=== PATIENT | female | born 1935 | race Hispanic/Latino ===

== ENCOUNTER 2016-07-31 10:01 | Emergency (ER) | payer MEDICARE ==
[2016-07-31 10:05] VITALS: BMI 23.3
[2016-07-31 10:13] VITALS: BP 151/82; PULSE 77; TEMP 97.8
[2016-07-31] MEDS ORDERED: TDAP Vaccine 0.5 mL Syr IM ONE (10:23)
[2016-07-31] MEDS ORDERED: Lidocaine 1%/Epinephrine 1:100000 30 ml vial IJ STA (10:23)
--- NOTE | 2016-07-31 10:29 | ED PDOC ---
Arrival/HPI - General Chief Complaint: Abnormal Skin Integrity Time Seen by Provider: 07/31/16 10:20 Historian: Patient - History of Present Illness Narrative History of Present Illness (Text): 07/31/16 10:26 81 year old female whose past medical history includes colon cancer with metastasis presents to the emergency department with left forearm laceration at 02:00 this morning. Patient states she cut her arm on a lamp as she was going to pick something up. She states she almost fell but was able to sit down. Denies head trauma or loss of consciousness. No other complaints at this time. Patient reports last tetanus unknown. Time/Duration: 24 hours Symptom Onset: Sudden Symptom Course: Unchanged Modifying Factors (Text): None Associated Symptoms (Text): None Past Medical History - Provider Review Nursing Documentation Reviewed: Yes - Infectious Disease Hx of Infectious Diseases: None - Tetanus Immunization Tetanus Immunization: Unknown - Cardiac Hx Hypertension: Yes Hx Pacemaker: No - Pulmonary Hx Chronic Obstructive Pulmonary Disease (COPD): Yes - Neurological Hx Paralysis: No - HEENT Hx HEENT Disorder: No - Renal Hx Renal Disorder: No - Endocrine/Metabolic Hx Endocrine Disorders: No - Hematological/Oncological Hx Blood Transfusions: Yes Hx Blood Transfusion Reaction: No - Integumentary Hx Dermatological Disorder: No - Musculoskeletal/Rheumatological Hx Musculoskeletal Disorders: Yes - Gastrointestinal Hx Gastroesophageal Reflux: Yes Other/Comment: Colon Ca -- getting chemo treatment with Dr Salgado - Genitourinary/Gynecological Hx Genitourinary Disorders: No - Psychiatric Hx Emotional Abuse: No Hx Physical Abuse: No Hx Substance Use: No - Surgical History Other/Comment: Colon resection - Anesthesia Hx Anesthesia: Yes Hx Anesthesia Reactions: No Hx Malignant Hyperthermia: No - Suicidal Assessment Feels Threatened In Home Enviroment: No Family/Social History - Physician Review Nursing Documentation Reviewed: Yes Family/Social History: Unknown Family HX Smoking Status: Light Smoker < 10 Cigarettes Daily Hx Alcohol Use: No Hx Substance Use: No Hx Substance Use Treatment: No Allergies/Home Meds Allergies/Adverse Reactions: Allergies Penicillins Allergy (Severe, Verified 02/22/16 13:02) RASH Home Medications: Home Meds Medication Instructions Recorded Confirmed Alprazolam [Xanax] 1 tab PO BID 07/24/13 07/31/16 Cyanocobalamin (Vitamin B-12) 1 tab PO DAILY 07/24/13 07/31/16 [B-12] Aspirin [Aspirin EC] 325 mg PO DAILY 12/03/15 07/31/16 Capecitabine 500 mg PO Q14D 12/03/15 07/31/16 Famotidine [Pepcid] 40 mg PO DAILY 12/03/15 07/31/16 Lisinopril [Zestril] 5 mg PO DAILY 12/03/15 07/31/16 Simvastatin 40 mg PO DAILY 12/03/15 07/31/16 amLODIPine [Norvasc] 10 mg PO DAILY 12/03/15 07/31/16 Review of Systems - Review of Systems Eyes: absent: Vision Changes Respiratory: absent: SOB Cardiovascular: absent: Chest Pain Musculoskeletal: absent: Back Pain Skin: Laceration (Left forearm) Neurological: absent: Headache Physical Exam Vital Signs Reviewed: Yes Vital Signs Temp Pulse Resp BP Pulse Ox 07/31/16 11:58 16 99 07/31/16 10:11 97.8 F 77 18 151/82 H 96 Temperature: Afebrile Blood Pressure: Normal Pulse: Regular Respiratory Rate: Normal Appearance: Positive for: Well-Appearing, Non-Toxic, Comfortable Pain Distress: None Mental Status: Positive for: Alert and Oriented X 3 - Systems Exam Head: Present: Atraumatic, Normocephalic Pupils: Present: PERRL Conjunctiva: Present: Normal Neck: Present: Normal Range of Motion Upper Extremity: Present: Other (Laceration to left forearm) Neurological: Present: GCS=15, CN II-XII Intact, Speech Normal Skin: Present: Warm, Dry, Normal Color. No: Rashes Psychiatric: Present: Alert, Oriented x 3, Normal Insight, Normal Concentration Medical Decision Making ED Course and Treatment: Impression: 81 year old female whose past medical history includes colon cancer with metastasis presents to the emergency department with left forearm laceration at 02:00 this morning Differential Diagnosis include but are not limited to: Plan: -- Laceration repair -- Tdap -- Reassess and disposition Progress Notes: PROCEDURE: LACERATION REPAIR Performed by Physician [employer] [employer] Location: Left forearm Length: 9 cm Description: Complex laceration, single linear with some clean wound edges, no foreign bodies Distal CMS: Normal. No deficits. Neurovascularly intact. Anesthesia: Lidocaine 1% 4 cc's Preparation: The wound was cleaned with NS and Bet[place]ne. The area was prepped and draped in the usual sterile fashion. Exploration: The wound was explored and no foreign bodies were found. Procedure: The wound was closed with 4-0 vicryl sutures. There was appropriate approximation. In total, 18 sutures used. Post-Procedure: Good closure and hemostasis. The patient tolerated the procedure well and there were no complications. CSM remains intact. Post procedure dressing applied. 07/31/16 11:32 lac closed by yunior alonzo. will give prophalxis as complicated wound - Medication Orders Current Medication Orders: Discontinued Medications Lidocaine/Epinephrine (Lidocaine 1%/Epinephrine 1:[id number] 30 Ml) 0 ml IJ STAT STA Stop: 07/31/16 10:24 Tetanus/Reduced Diphtheria/Acell Pertussis (Boostrix Vaccine Inj) 0.5 ml IM .ONCE ONE Stop: 07/31/16 10:24 Last Admin: 07/31/16 10:37 Dose: 0.5 ml - Scribe Statement The provider has reviewed the documentation as recorded by the Carole Coyne Provider Scribe Attestation: All medical record entries made by the Ildaibtiarra were at my direction and personally dictated by me. I have reviewed the chart and agree that the record accurately reflects my personal performance of the history, physical exam, medical decision making, and the department course for this patient. I have also personally directed, reviewed, and agree with the discharge instructions and disposition. Disposition/Present on Arrival - Present on Arrival Any Indicators Present on Arrival: No History of DVT/PE: No History of Uncontrolled Diabetes: No Urinary Catheter: No History of Decub. Ulcer: No History Surgical Site Infection Following: None - Disposition Have Diagnosis and Disposition been Completed?: Yes Diagnosis: Laceration Disposition: HOME/ ROUTINE Disposition Time: 11:31 Patient Problems: Current Active Problems Problem Status Onset Laceration Acute Condition: STABLE Discharge Instructions (ExitCare): Care For Your Stitches (ED), Laceration (ED) Additional Instructions: please follow up with your doctor. return to er with worsening symptoms or concerns. please return in 14 days if sutures are not dissolved. Prescriptions: Sulfamethoxazole/Trimethoprim [Bactrim DS 800 mg-160 mg] 1 tab PO BID #14 tab Referrals: Sourav Salgado MD [Staff Provider] - Follow up with primary
[2016-07-31 11:59] VITALS: RESP 16; O2SAT 99
== END 2016-07-31 11:59 | disposition home or self-care (01) ==
LOC: ED 10:01
DX: S51.812A Laceration without foreign body of left forearm, initial encounter (principal); W45.8XXA Other foreign body or object entering through skin, initial encounter; Y93.89 Activity, other specified; Y92.008 Other place in unspecified non-institutional (private) residence as the place of occurrence of the external cause; Z23 Encounter for immunization

== ENCOUNTER 2016-10-24 17:39 | Inpatient (IN) | payer MEDICARE ==
[2016-10-24 17:43] VITALS: BMI 22.6
[2016-10-24] MEDS: Enoxaparin 100 mg Syringe SC STA ×2 (18:13→18:48)
[2016-10-24] MEDS ORDERED: Iohexol 240 (50 ml) ONE (18:28)
[2016-10-24 18:37] LABS: BASO # 0.01 K/mm3 (0.0-2.0); BASO % 0.2 % (0.0-3.0); EOS % 0.2 % (1.5-5.0); GRAN # 4.81 (1.4-6.5); GRAN % 89.4 % (50.0-68.0); HEMATOCRIT 44.4 % (36.0-48.0); LYMPH # 0.5 (1.2-3.4); LYMPH % 9.5 % (22.0-35.0); MEAN CELL VOLUME 99.6 fl (80.0-105.0); MEAN CORPUSCULAR HEMOGLOBIN 33.4 pg (25.0-35.0); MEAN CORPUSCULAR HGB CONC 33.6 g/dl (31.0-37.0); MEAN PLATELET VOLUME 10.7 fl (7.0-11.0); MONO % 0.7 % (1.0-6.0); RED CELL DISTRIBUTION WIDTH 15.5 % (11.5-14.5); WHITE BLOOD COUNT 5.4 10^3/ul (4.5-11.0)
[2016-10-24] MEDS: Sodium Chloride 0.45% 1,000 ML IV SCH (18:45)
--- NOTE | 2016-10-24 18:48 | ED PDOC ---
Arrival/HPI - General Chief Complaint: Lower Extremity Problem/Injury Time Seen by Provider: 10/24/16 17:40 Historian: Patient - History of Present Illness Narrative History of Present Illness (Text): 10/24/16 18:43 A 81 year old female, whose past medical history includes metastatic colon cancer extending to right iliac fossa, and hypertension, was sent into the emergency department by oncologist for right lower extremity swelling for the past 2 weeks. Patient was found to have DVT on ultrasound done today. Patient notes generalized weakness and a loss of appetite but denies any fever, chills, nausea, vomiting, diarrhea, abdominal pain, chest pain, shortness of breath, headache, dizziness, visual changes or any other complaints. Patient reports his last chemotherapy was on 09/15/16, states he only missed one dose throughout treatment. Oncologist: Dr. Salgado Time/Duration: Other (2 weeks) Symptom Course: Unchanged Quality: Other Context: Other Past Medical History - Provider Review Nursing Documentation Reviewed: Yes - Infectious Disease Hx of Infectious Diseases: None - Tetanus Immunization Tetanus Immunization: Unknown - Reproductive Menopause: Yes - Cardiac Hx Cardiac Disorders: Yes Hx Hypertension: Yes - Pulmonary Hx Respiratory Disorders: Yes Hx Chronic Obstructive Pulmonary Disease (COPD): Yes - Neurological Hx Neurological Disorder: No - HEENT Hx HEENT Disorder: No - Renal Hx Renal Disorder: No - Endocrine/Metabolic Hx Endocrine Disorders: No - Hematological/Oncological Hx Blood Disorders: Yes Hx Blood Transfusions: Yes - Integumentary Hx Dermatological Disorder: No - Musculoskeletal/Rheumatological Hx Musculoskeletal Disorders: Yes - Gastrointestinal Hx Gastrointestinal Disorders: Yes Hx Gastroesophageal Reflux: Yes Other/Comment: Colon Ca -- getting chemo treatment with Dr Salgado - Genitourinary/Gynecological Hx Genitourinary Disorders: No - Psychiatric Hx Psychophysiologic Disorder: No Hx Substance Use: No - Surgical History Other/Comment: Colon resection - Anesthesia Hx Anesthesia: Yes Hx Anesthesia Reactions: No Hx Malignant Hyperthermia: No - Suicidal Assessment Feels Threatened In Home Enviroment: No Family/Social History - Physician Review Nursing Documentation Reviewed: Yes Family/Social History: No Known Family HX Smoking Status: Light Smoker < 10 Cigarettes Daily Hx Alcohol Use: No Hx Substance Use: No Hx Substance Use Treatment: No Allergies/Home Meds Allergies/Adverse Reactions: Allergies Penicillins Allergy (Severe, Verified 10/24/16 18:08) RASH Home Medications: Home Meds Medication Instructions Recorded Confirmed Alprazolam [Xanax] 1 tab PO BID 07/24/13 10/24/16 Cyanocobalamin (Vitamin B-12) 1 tab PO DAILY 07/24/13 10/24/16 [B-12] Aspirin [Aspirin EC] 325 mg PO DAILY 12/03/15 10/24/16 Capecitabine 500 mg PO Q14D 12/03/15 10/24/16 Famotidine [Pepcid] 40 mg PO DAILY 12/03/15 10/24/16 Lisinopril [Zestril] 5 mg PO DAILY 12/03/15 10/24/16 Simvastatin 40 mg PO DAILY 12/03/15 10/24/16 amLODIPine [Norvasc] 10 mg PO DAILY 12/03/15 10/24/16 Review of Systems - Physician Review All systems were reviewed & negative as marked: Yes - Review of Systems Constitutional: Other (Generalized weakness). absent: Fevers, Night Sweats Eyes: absent: Vision Changes Respiratory: absent: SOB Cardiovascular: absent: Chest Pain Gastrointestinal: Appetite Changes. absent: Abdominal Pain, Diarrhea, Nausea, Vomiting Musculoskeletal: Other (Right lower extremity swelling) Neurological: absent: Headache, Dizziness Physical Exam Vital Signs Reviewed: Yes Vital Signs Temp Pulse Resp BP Pulse Ox 10/24/16 17:50 98.0 F 70 18 176/78 H 96 Temperature: Afebrile Blood Pressure: Hypertensive Pulse: Regular Respiratory Rate: Normal Appearance: Positive for: Well-Appearing, Non-Toxic, Comfortable Pain Distress: None Mental Status: Positive for: Alert and Oriented X 3 - Systems Exam Head: Present: Atraumatic, Normocephalic Pupils: Present: PERRL Conjunctiva: Present: Normal Mouth: Present: Moist Mucous Membranes Pharnyx: Present: Normal. No: ERYTHEMA, EXUDATE Neck: Present: Normal Range of Motion Respiratory/Chest: Present: Clear to Auscultation, Good Air Exchange. No: Respiratory Distress, Accessory Muscle Use Cardiovascular: Present: Regular Rate and Rhythm, Normal S1, S2. No: Murmurs Abdomen: Present: Normal Bowel Sounds. No: Tenderness, Distention, Peritoneal Signs Back: Present: Normal Inspection Upper Extremity: Present: Normal Inspection. No: Cyanosis, Edema Lower Extremity: Present: NORMAL PULSES, Normal ROM, Swelling (Right lower extremity significantly more swollen than left), Neurovascularly Intact. No: CALF TENDERNESS, Tenderness, Erythema, Deformity, Temperature Abnormalties Neurological: Present: GCS=15, CN II-XII Intact, Speech Normal Skin: Present: Warm, Dry, Normal Color. No: Rashes Psychiatric: Present: Alert, Oriented x 3, Normal Insight, Normal Concentration Medical Decision Making ED Course and Treatment: 10/24/16 18:43 Impression: A 81 year old female with right lower extremity swelling. Positive for DVT on ultrasound done today. Plan: -- Abdomen and pelvis CT -- Chest xray -- EKG -- Labs -- Urinalysis -- IV fluids and Lovenox -- Reassess and disposition Progress Notes: 10/24/16 19:12 Patient with noted history with sono showing subacute ileofemoral DVT - discussed with Dr. Salgado - will start on lovenox; patient is also to receive CT a/p - will need iv contrast to be held, given the low GFR and age. Will hold on CTA chest, given low GFR. Discussed with Dr. Salgado; will place on his service (Dr. Ferguson). - Lab Interpretations Lab Results: 10/24/16 18:20 10/24/16 18:20 Lab Results 10/24/16 18:20: PT 10.0, INR 0.93, APTT 28.8 10/24/16 18:20: Sodium 142, Potassium 4.9, Chloride 107, Carbon Dioxide 26, Anion Gap 14, BUN 26 H, Creatinine 1.2, Est GFR ( Amer) 52, Est GFR (Non- Af Amer) 43, Random Glucose 142 H, Calcium 9.4, Magnesium 2.1, Total Bilirubin 0.8, AST 42 H, ALT 39, Alkaline Phosphatase 199 H, Lactate Dehydrogenase 490, Total Creatine Kinase 31 L, Troponin I Pending, Total Protein 7.2, Albumin 4.2, Globulin 3.0, Albumin/Globulin Ratio 1.4, Lipase 35 10/24/16 18:20: WBC 5.4 D, RBC 4.46, Hgb 14.9, Hct 44.4, MCV 99.6, MCH 33.4, MCHC 33.6, RDW 15.5 H, Plt Count 214, MPV 10.7, Gran % 89.4 H, Lymph % (Auto) 9.5 L, Warren % (Auto) 0.7 L, Eos % (Auto) 0.2 L, Baso % (Auto) 0.2, Gran # 4.81, Lymph # 0.5 L, Warren # 0.0 L, Eos # 0.0, Baso # 0.01 I have reviewed the lab results: Yes - RAD Interpretation Radiology Orders: 10/24/16 17:43 CHEST TWO VIEWS (PA/LAT) [RAD] Stat 10/24/16 18:19 ABD PELVIS PO & IV CONTRAST [CT] Urgent - Medication Orders Current Medication Orders: Sodium Chloride (Sodium Chloride 0.45%) 1,000 mls @ 80 mls/hr IV .[id number] KALA Last Admin: 10/24/16 18:45 Dose: 80 mls/hr Discontinued Medications Enoxaparin Sodium (Lovenox) 90 mg SC ONCE STA PRN Reason: Protocol Stop: 10/24/16 17:43 Last Admin: 10/24/16 18:48 Dose: 90 mg Iohexol (Omnipaque 240 (50 Ml)) Confirm Administered Dose 50 ml .ROUTE .K-MED ONE Stop: 10/24/16 18:29 - Scribe Statement The provider has reviewed the documentation as recorded by the Carole Garza Provider Scribe Attestation: All medical record entries made by the Scribe were at my direction and personally dictated by me. I have reviewed the chart and agree that the record accurately reflects my personal performance of the history, physical exam, medical decision making, and the department course for this patient. I have also personally directed, reviewed, and agree with the discharge instructions and disposition. Disposition/Present on Arrival - Present on Arrival Any Indicators Present on Arrival: No History of DVT/PE: No History of Uncontrolled Diabetes: No Urinary Catheter: No History of Decub. Ulcer: No History Surgical Site Infection Following: None - Disposition Have Diagnosis and Disposition been Completed?: Yes Diagnosis: Ileofemoral deep vein thrombosis Disposition: HOSPITALIZED Disposition Time: 18:00 Patient Plan: Observation Patient Problems: Current Active Problems Problem Status Onset Ileofemoral deep vein thrombosis Acute Condition: FAIR
[2016-10-24 18:49] LABS: INR 0.93 (0.93-1.08); PARTIAL THROMBOPLASTIN TIME 28.8 Seconds (23.7-30.8)
[2016-10-24 18:50] LABS: ALB/GLOB RATIO 1.4 (1.1-1.8); ALKALINE PHOSPHATASE 199 U/L (38-126); ALT/SGPT 39 U/L (7-56); AST/SGOT 42 U/L (14-36); BILIRUBIN,TOTAL 0.8 mg/dL (0.2-1.3); BLOOD UREA NITROGEN 26 mg/dL (7-21); CALCIUM 9.4 mg/dL (8.4-10.5); CARBON DIOXIDE 26 mmol/L (21-33); CHLORIDE 107 mmol/L (98-107); GFR AFRICAN-AMERICAN 52; GLUCOSE,RANDOM 142 mg/dL (70-110); LIPASE 35 U/L (23-300); MAGNESIUM 2.1 mg/dL (1.7-2.2); POTASSIUM 4.9 mmol/L (3.6-5.0); SODIUM 142 mmol/L (132-148); TOTAL PROTEIN 7.2 g/dL (5.8-8.3)
[2016-10-24 19:19] LABS: TROPONIN I < 0.01 ng/mL
--- NOTE | 2016-10-24 23:24 | CT ---
EXAM: CT Abdomen and Pelvis Without Intravenous Contrast CLINICAL HISTORY: 81 years old, female; Pain; Abdominal pain; Prior surgery; Surgery type: Colon resection; Additional info: Rec. Colon ca. Scan through groins. Eval r iliac TECHNIQUE: Axial computed tomography images of the abdomen and pelvis without intravenous contrast. All CT scans at this facility use one or more dose reduction techniques, viz.: automated exposure control; ma/kV adjustment per patient size (including targeted exams where dose is matched to indication; i.e. head); or iterative reconstruction technique. Coronal and sagittal reformatted images were created and reviewed. COMPARISON: CT - ANGIO ABDOMEN PELVIS W/CONT 02/22/2016 2:37:35 PM FINDINGS: Lower thorax: Trace pericardial effusion measuring 7 mm on series 2, image 28. Visualized lung bases show mild atelectasis and mild emphysema. There is coronary artery calcification. The heart as visualized appears mildly enlarged. ABDOMEN: Liver: There are no focal liver lesions present. Gallbladder and bile ducts: The gallbladder is normal. No calcified stones. No ductal dilation. Pancreas: Pancreas is atrophic and partially fatty replaced. No ductal dilation. Spleen: The spleen is normal. Adrenals: The adrenal glands are normal. Kidneys and ureters: Left midpole renal cyst measures 3.3 CM. There is no evidence of hydronephrosis. Stomach and bowel: The stomach is normal. The colon is normal. There is no evidence of intestinal obstruction. No mucosal thickening. Appendix: No findings to suggest acute appendicitis. PELVIS: Bladder: The bladder is normal. No stones. Reproductive: The uterus is normal. ABDOMEN and PELVIS: Intraperitoneal space: There is no evidence of free intraperitoneal fluid. There is no free intraperitoneal air. Bones/joints: There are mild degenerative changes present. There is marked diffuse osteopenia. No acute fracture. No dislocation. Soft tissues: Unremarkable. Vasculature: Mild calcification of the aortic root. Abdominal aorta demonstrates severe atherosclerotic calcification without aneurysm. Lymph nodes: Again seen is lymphadenopathy at the right external iliac chain and right common femoral region and also the right internal iliac chain/right pelvic sidewall. An area of adenopathy anterior to the right femoral head measures 4.7 x 3.8 CM on series 2, image 155. This has enlarged from 4.0 x 3.9 CM previously. Smaller area of lymphadenopathy in the right pelvis measures 3.2 x 2.1 CM on series 2, image 144. This is similar to prior, previously measuring 3.2 x 2.1 CM. There is also a mass with slight internal calcification present in the right abdomen. This measures 3.7 x 3.2 CM on series 2, image 88. This has enlarged from 2.9 x 2.8 CM on 02/22/2016. IMPRESSION: 1. Trace pericardial effusion measuring 7 mm on series 2, image 28. 2. Again seen is lymphadenopathy at the right external iliac chain and right common femoral region and also the right internal iliac chain/right pelvic sidewall. An area of adenopathy anterior to the right femoral head measures 4.7 x 3.8 CM on series 2, image 155. This has enlarged from 4.0 x 3.9 CM previously. Smaller area of lymphadenopathy in the right pelvis measures 3.2 x 2.1 CM on series 2, image 144. This is similar to prior, previously measuring 3.2 x 2.1 CM. There is also a mass with slight internal calcification present in the right abdomen. This measures 3.7 x 3.2 CM on series 2, image 88. This has enlarged from 2.9 x 2.8 CM on 02/22/2016. 3. Additional incidental and/or chronic findings as described.
[2016-10-25] MEDS ORDERED: Oxycodone/Acetaminophen 5/325 mg Tab PO PRN (06:34)
--- NOTE | 2016-10-25 08:22 | RAD ---
HISTORY: DVT COMPARISON: 02/22/2016 TECHNIQUE: Chest PA and lateral FINDINGS: LUNGS: Fade sub cm clustered nodular asymmetries projects over the left upper lung zone and the left anterior 2nd rib - this appearance is probably summation given a 04/13/2012 appearance discoid atelectasis and/or scarring extreme left costophrenic angle - previously small left pleural effusion obscured this area Lung volumes increased PLEURA: No significant pleural effusion identified. No pneumothorax apparent. CARDIOVASCULAR: Normal heart size. Calcified thoracic aorta. Central line inserted - tip caval atrial junction - similar-appearing OSSEOUS STRUCTURES: No significant abnormalities. VISUALIZED UPPER ABDOMEN: Normal. OTHER FINDINGS: None. IMPRESSION: Probably summation of a sub cm nodular asymmetries - probably bronchovascular markings, costo cartilaginous junctional calcifications fn over the left upper lung zone and left 2nd rib. Trace discoid atelectasis and scarring left costophrenic angle. No interval consolidation appreciated
--- NOTE | 2016-10-25 10:04 | CARD ---
APPROVED REPORT EKG Measurement Heart [id number] CT [id number] <Conclusion> Normal sinus rhythm Possible Left atrial enlargement T wave abnormality, consider anterolateral ischemia Abnormal ECG
[2016-10-25] MEDS: Oxycodone/Acetaminophen 5/325 mg Tab PO PRN (16:39)
[2016-10-25] MEDS: Enoxaparin 100 mg Syringe SC SCH (17:04)
[2016-10-25] MEDS: Sodium Chloride 0.45% 1,000 ML IV SCH ×2 (17:05→20:30)
[2016-10-26] MEDS: Sodium Chloride 0.45% 1,000 ML IV SCH ×3 (01:37→21:16)
--- NOTE | 2016-10-26 03:28 | CON ---
DATE: 10/25/2016 This is [facility] visit on the medical floor. For Dr. Salgado. CHIEF COMPLAINT: DVT on the right lower extremity. HISTORY OF PRESENT ILLNESS: The patient is an 81-year-old female admitted via the emergency room for severe pain in the right lower extremity with swelling for approximately 2 weeks' time now known to have a DVT on ultrasound done with visit by Dr. Parth Torres with recommendations for anticoagulation and possible stenting. The patient at present is a heavy smoker and reports she needs a cigar, but refuses a nicotine patch at this time. She is otherwise reporting her pain has significantly improved since admission and is otherwise no acute distress. PAST MEDICAL HISTORY: Significant for carcinoma of the colon, metastatic disease T3 N0 M0 carcinoma of the colon, hypertension, anxiety, tobacco abuse with metastatic lymph nodes, activity in the inguinal and iliac areas extending to the right iliac fossa. ALLERGIES: PENICILLIN. MEDICATIONS: At this point include Xanax, vitamin B12, aspirin, capecitabine, Pepcid, Zestril, simvastatin, and Norvasc. FAMILY HISTORY AND SOCIAL HISTORY: The patient admits to smoking half a pack to 1 pack per day for over 50 years and continues to do so. Denies alcohol use; otherwise, noncontributory. REVIEW OF SYSTEMS: Essentially negative for questioning except as above. OBJECTIVE/PHYSICAL EXAMINATION: VITAL SIGNS: Temperature 98.5, pulse 62, respirations 20, blood pressure 131/65, and pulse oximetry 96%. HEENT: Unremarkable for dentition. NECK: Supple. HEART: Regular rate. LUNGS: Rare rhonchi. ABDOMEN: Soft and nontender. EXTREMITIES: +1 edema, minimal tenderness to general range of motion to right lower extremity. Positive Homans sign. NEUROLOGIC: Awake, alert, and oriented. SKIN: Otherwise warm, dry, and clear. LABORATORY DATA: The patient's labs were done to include white blood cell count of 5.4, hemoglobin of 14.9, hematocrit of 44.4, and platelet count of 214,000. With the chem metabolic panel showing a BUN of 26, creatinine of 1.2, nonfasting glucose of 142, AST of 42, alkaline phosphatase 199 with an otherwise normal chem metabolic panel. INR is 0.93. The patient's testing included a chest x-ray done yesterday, it was read as probable summation of subcentimeter nodular asymmetries probably bronchovascular markings, costocartilaginous junction calcifications over the left upper lung zones 2nd left rib, trace discoid atelectasis scarring left costophrenic angle. CAT scan of the abdomen and pelvis was done yesterday, it was read as trace pericardial effusion measuring 7 mm. Again, I see lymphadenopathy right external iliac chain right common femoral region, right internal iliac chain, right pelvic sidewall aortic adenopathy, small area of lymphadenopathy right pelvis, mass or slight internal calcification present in the right abdomen measuring 3.7 x 3.2 cm has enlarged from 02/2016. She also has abdominal aorta showing severe atherosclerotic calcification without aneurysm. Her EKG was done, it was read as normal sinus rhythm, possible left atrial enlargement, T wave abnormality, consider anterolateral ischemia, and abnormal EKG. The patient also had a Doppler ultrasound done the day of admission as an outpatient, it was read as subacute chronic thrombus noted right common femoral vein and proximal to the right mid femoral vein, thrombus is somewhat echogenic and partially recanalized, nonocclusive adherent thrombus noted in the right popliteal vein, right tibial veins are not seen well. Impression is subacute chronic thrombus right lower extremity. ASSESSMENT: For this patient is that of acute deep venous thrombosis on the right lower extremity/subacute history of T3 N0 M0 metastatic adenocarcinoma of the colon, hypertension, depression, dyslipidemia, tobacco abuse, and anxiety. PLAN: For this patient after conversation with Dr. Salgado is to admit to the medical floor with follow up with Dr. Parth Torres. We will offer Ativan as needed for anxiety for her smoking, as the patient refused patch or other modalities for smoking cessation with followup with Dr. Parth Torres with consideration of stent placement as possible with vascular testing as per Dr. Parth Torres. The prognosis for this patient is guarded. We will monitor clinically and with labs. Alonzo Ferguson MD
[2016-10-26] MEDS: Oxycodone/Acetaminophen 5/325 mg Tab PO PRN (03:52)
[2016-10-26 06:27] LABS: BASO # 0.01 K/mm3 (0.0-2.0); BASO % 0.2 % (0.0-3.0); EOS % 0.2 % (1.5-5.0); GRAN # 4.13 (1.4-6.5); GRAN % 67.4 % (50.0-68.0); LYMPH # 1.3 (1.2-3.4); LYMPH % 21.9 % (22.0-35.0); MEAN CELL VOLUME 97.9 fl (80.0-105.0); MEAN CORPUSCULAR HEMOGLOBIN 32.3 pg (25.0-35.0); MEAN PLATELET VOLUME 10.5 fl (7.0-11.0); MONO # 0.6 (0.1-0.6); MONO % 10.3 % (1.0-6.0); RED CELL DISTRIBUTION WIDTH 15.4 % (11.5-14.5); WHITE BLOOD COUNT 6.1 10^3/ul (4.5-11.0)
[2016-10-26 07:03] LABS: ALB/GLOB RATIO 1.2 (1.1-1.8); ALKALINE PHOSPHATASE 150 U/L (38-126); ALT/SGPT 33 U/L (7-56); AST/SGOT 39 U/L (14-36); BILIRUBIN,TOTAL 0.8 mg/dL (0.2-1.3); BLOOD UREA NITROGEN 21 mg/dL (7-21); CALCIUM 8.9 mg/dL (8.4-10.5); CARBON DIOXIDE 29 mmol/L (21-33); CHLORIDE 111 mmol/L (95-110); GFR AFRICAN-AMERICAN > 60; GLUCOSE,RANDOM 85 mg/dL (70-110); POTASSIUM 4.2 mmol/L (3.6-5.0); SODIUM 142 mmol/L (132-148); TOTAL PROTEIN 5.8 g/dL (5.8-8.3)
[2016-10-26] MEDS: Enoxaparin 100 mg Syringe SC SCH (17:34)
--- NOTE | 2016-10-27 00:28 | PN ---
DATE: 10/26/2016 This is the patient's hospital visit on the medical floor. For Dr. Salgado. SUBJECTIVE: The patient is an 81-year-old female, admitted by the emergency room for newly diagnosed DVT of the right lower extremity after swelling was noted on the right lower extremity. With this, the patient is now complaining that she was a heavy smoker; however, she refuses to have nicotine patch or any of modality for smoking cessation with Ativan given as needed for anxiety as this is her only complaint. At this point, the pain has significantly improved in her leg. OBJECTIVE/PHYSICAL EXAMINATION: VITAL SIGNS: Temperature 98.6, pulse 64, respirations 12, blood pressure 167/77, and pulse oximetry 94%. HEENT: Unremarkable. NECK: Supple. HEART: Regular rate. LUNGS: Occasional rhonchi. ABDOMEN: Soft and nontender. EXTREMITIES: +1 edema. Decreased range of motion of right lower extremity. NEUROLOGIC: Awake, alert. SKIN: Otherwise warm, dry, and clear. LABORATORY DATA: The patient's labs were done to include a white blood cell count of 6.1, hemoglobin of 12.2, hematocrit of 37.0, and platelet count of 220,000 with a chem metabolic panel showing a chloride of 111, AST 39, alkaline phosphatase 150, otherwise normal chem metabolic panel. ASSESSMENT: For this patient is that of new-onset deep venous thrombosis, right lower extremity; history of T3 N0 M0 metastatic adenocarcinoma of the colon; hypertension; depression; dyslipidemia; tobacco abuse and anxiety. PLAN: For this patient is to continue present medical regimen, but the patient to have procedure with stenting as per Dr. Parth Torres tomorrow as possible. The patient again refuses Chantix or patch for smoking cessation at this point. We will monitor clinically with labs. Alonzo Ferguson MD
[2016-10-27] MEDS ORDERED: Iodixanol 320 MG/ML 200 ML BOTTLE IV ONE (06:40)
[2016-10-27] MEDS ORDERED: Lidocaine 2% Inj (20ml) ONE (06:40)
[2016-10-27] MEDS ORDERED: Iodixanol 320 MG/ML 100 ML BOTTLE IV ONE (06:40)
[2016-10-27] MEDS ORDERED: Phenylephrine 10 mg/ml Inj ONE (06:40)
[2016-10-27] MEDS ORDERED: Nitroglycerin 50mg in D5W 0 MG/0 ML BOTTLE IV ONE (06:41)
[2016-10-27] MEDS ORDERED: Midazolam 2 MG/2 ML VIAL ONE ×3 (06:47→08:45)
[2016-10-27 07:58] LABS: HEMATOCRIT 43.7 % (36.0-48.0); MEAN CELL VOLUME 96.5 fl (80.0-105.0); MEAN CORPUSCULAR HEMOGLOBIN 32.2 pg (25.0-35.0); MEAN CORPUSCULAR HGB CONC 33.4 g/dl (31.0-37.0); MEAN PLATELET VOLUME 10.8 fl (7.0-11.0); RED CELL DISTRIBUTION WIDTH 15.2 % (11.5-14.5)
[2016-10-27 08:22] LABS: ALB/GLOB RATIO 1.3 (1.1-1.8); ALKALINE PHOSPHATASE 166 U/L (38-126); ALT/SGPT 37 U/L (7-56); AST/SGOT 29 U/L (14-36); BLOOD UREA NITROGEN 15 mg/dL (7-21); CALCIUM 9.2 mg/dL (8.4-10.5); CARBON DIOXIDE 28 mmol/L (21-33); CHLORIDE 106 mmol/L (98-107); GFR AFRICAN-AMERICAN > 60; GLUCOSE,RANDOM 88 mg/dL (70-110); POTASSIUM 3.7 mmol/L (3.6-5.0); SODIUM 143 mmol/L (132-148); TOTAL PROTEIN 6.5 g/dL (5.8-8.3)
[2016-10-27] MEDS ORDERED: Vancomycin 500 mg (Oral/Rectal USE) ONE (08:30)
[2016-10-27] MEDS: Oxycodone/Acetaminophen 5/325 mg Tab PO PRN (10:19)
[2016-10-27] MEDS ORDERED: Oxycodone/Acetaminophen 5/325 mg Tab ONE (11:00)
--- NOTE | 2016-10-27 12:54 | VASCULAR ---
PROCEDURE: 1. Right lower extremity and iliac venogram 2. IVC gram 3. Right distal external iliac vein angioplasty and stent graft placement HISTORY: Metastatic colon CA. Right groin and pelvic lymphadenopathy. Severe right lower extremity swelling and recent DVT. Evaluate tumor encasement of right external iliac vein. PHYSICIAN(S): Parth Torres M.D. TECHNIQUE: The relative risks and indications of the procedure were explained to the patient and consent obtained. The patient was hydrated prior to the procedure and the appropriate labs drawn. The patient was placed supine on the arteriogram table and the right groin and thigh prepped and draped in the usual sterile fashion. Conscious sedation and monitoring were provided throughout the procedure by a nurse. With some difficulty, right greater saphenous vein was punctured under ultrasound guidance with a micropuncture set near the confluence. A 6 Kitt[place] sheath was placed. A limited right lower extremity venogram and right pelvic venogram was performed. A flush catheter was placed and IVC gram was performed. 0.018 support wire was placed in the right atrium. The focal occlusion of the right external iliac vein at the inguinal ligament was dilated with 7 and 8 mm balloons. Subsequently an 8 mm by 5 cm Viabahn stent graft was placed at the right inguinal ligament in the external iliac vein. The stent was dilated with a 9 mm balloon. Post placement venograms were obtained. The sheath was removed hemostasis obtained. The patient tolerated the procedure well. A class 1 thigh-high compression stocking was placed on the right lower extremity. FINDINGS: There is a focal occlusion of the terminal right external iliac vein at the inguinal ligament. Thrombus is seen in the right common femoral vein. The right common iliac vein and IVC are normal in appearance. Collaterals are present in the right groin. After angioplasty and stent graft placement, there is brisk flow a mild residual stenosis of the terminal right external iliac vein. IMPRESSION: 1.Focal tumor encasement and obstruction of the terminal right external iliac vein. 2. Successful angioplasty and stent graft placement in the terminal right external iliac vein. 3. The patient should remain anticoagulated indefinitely 4. The patient should wear class 1 thigh-high compression stockings every day
[2016-10-27] MEDS ORDERED: Enoxaparin 60 mg Syringe SC SCH (13:45)
[2016-10-27 17:58] VITALS: PULSE 80; RESP 17; TEMP 98.1; O2SAT 94
--- NOTE | 2016-10-27 19:52 | PN ---
DATE: 10/27/2016 This is [facility] visit on the medical floor. For Dr. Salgado. SUBJECTIVE: The patient is an 81-year-old female, seen lying, awake in bed, status post procedure today with Dr. Parth Torres with a right distal iliac vein angioplasty and stent placement performed with good effect with recommendations for anticoagulation indefinitely and thigh high compression stockings everyday. The patient was recently admitted for newly diagnosed DVT of the right lower extremity with the patient continuing to smoke with the patient anxious as she refuses to use the nicotine patch or Chantix with antianxiety medication given. She is otherwise without complaint reporting that her pain has significantly improved with recommendations by Dr. Parth Torres to begin anticoagulation at 6 p.m. tonight with Lovenox calculated to be 60 mg subcutaneous q.12h. for the patient's weight with Eliquis to begin tomorrow 2.5 mg twice a day and to be anticoagulated indefinitely. The patient was otherwise resting comfortably. PHYSICAL EXAMINATION: VITAL SIGNS: Temperature 98, pulse 90, respirations 18, blood pressure 140/96 with a pulse oximetry 96%. HEENT: Unremarkable. Poor dentition. NECK: Supple. HEART: Tachy rate, regular rhythm. LUNGS: Clear. ABDOMEN: Soft and nontender. EXTREMITIES: With dressing in the right lower extremity. NEUROLOGIC: Awake and alert. SKIN: Warm and dry. LABORATORY DATA: The patient's labs were done. White blood cell count of 6.0, hemoglobin 14.6, hematocrit 43.7, platelet 240,000 with a chem metabolic panel within normal limits except for alkaline phosphatase of 166. ASSESSMENT: Assessment for this patient is postprocedure for right external iliac stent and graft placement with angioplasty with history of deep venous thrombosis with anticoagulation indefinitely recommended by Dr. Parth Torres. Past history for T3N0M0 metastatic adenocarcinoma of the colon, hypertension, depression, dyslipidemia, tobacco abuse, and anxiety. PLAN: The plan for this patient after conversation with Dr. Salgado and Dr. Parth Torres is to continue the present medical regimen with the patient to get her dose of Lovenox tonight as per Dr. Parth Torres's recommendation. Also for the patient to wear right lower extremity compression stockings at all times in the hospital and when discharged home with stocking during the day everyday up in the chair and walk Sunday morning. She is also recommended to stop smoking if at all possible. We will also discontinue Lovenox prior to discharge home with beginning of Eliquis 2.5 mg b.i.d. in addition to her present medical regimen. The prognosis for this patient is guarded. Alonzo Ferguson MD
[2016-10-28 09:27] VITALS: BP 190/100
[2016-10-28 10:04] LABS: BASO # 0.02 K/mm3 (0.0-2.0); BASO % 0.3 % (0.0-3.0); EOS # 0.1 (0.0-0.7); EOS % 1.4 % (1.5-5.0); GRAN # 5.95 (1.4-6.5); GRAN % 75.8 % (50.0-68.0); HEMATOCRIT 46.9 % (36.0-48.0); LYMPH % 12.4 % (22.0-35.0); MEAN CELL VOLUME 97.3 fl (80.0-105.0); MEAN CORPUSCULAR HEMOGLOBIN 33.4 pg (25.0-35.0); MEAN CORPUSCULAR HGB CONC 34.3 g/dl (31.0-37.0); MEAN PLATELET VOLUME 10.8 fl (7.0-11.0); MONO # 0.8 (0.1-0.6); MONO % 10.1 % (1.0-6.0); RED CELL DISTRIBUTION WIDTH 15.2 % (11.5-14.5); WHITE BLOOD COUNT 7.8 10^3/ul (4.5-11.0)
[2016-10-28 10:21] LABS: ALB/GLOB RATIO 1.5 (1.1-1.8); ALKALINE PHOSPHATASE 169 U/L (38-126); ALT/SGPT 42 U/L (7-56); AST/SGOT 36 U/L (14-36); BILIRUBIN,TOTAL 1.3 mg/dL (0.2-1.3); BLOOD UREA NITROGEN 15 mg/dL (7-21); CALCIUM 9.4 mg/dL (8.4-10.5); CARBON DIOXIDE 27 mmol/L (21-33); CHLORIDE 102 mmol/L (98-107); GFR AFRICAN-AMERICAN > 60; GLUCOSE,RANDOM 132 mg/dL (70-110); POTASSIUM 3.6 mmol/L (3.6-5.0); SODIUM 141 mmol/L (132-148); TOTAL PROTEIN 6.8 g/dL (5.8-8.3)
--- NOTE | 2016-10-29 09:23 | DS ---
For Dr. Salgado. SUBJECTIVE: The patient is an 81-year-old female with known T3N0M0 metastatic adenocarcinoma of the colon, recently admitted for history of acute DVT status post stent placement by Dr. Parth Torres on the right distal iliac vein with the angioplasty with specific recommendations by Dr. Parth Torres carried out with the patient insistent on discharge home today. After conversation with Dr. Salgado, we will discharge the patient as Eliquis was obtained and this is to continue indefinitely for the patient. She is otherwise in no acute distress and reports that she will continue smoking cigarettes at the discharge despite recommendations not to. OBJECTIVE/PHYSICAL EXAMINATION: VITAL SIGNS: Temperature 98.1, pulse 80, respirations 17, blood pressure 163/78, and pulse oximetry 94%. HEENT: Unremarkable. NECK: Supple. HEART: Tachy rate, regular rhythm. LUNGS: Clear. ABDOMEN: Soft. EXTREMITIES: No edema with dressings on the right lower extremity, dry and intact with the patient having a compression stocking on the right lower extremity. SKIN: Warm and dry. NEUROLOGIC: Awake, alert, and oriented x3. LABORATORY DATA: The patient's labs were done. White blood cell count of 7.8, hemoglobin 16.9, hematocrit of 46.9, platelet count of 263,000. Chem metabolic panel within normal limits except for nonfasting glucose of 132. ASSESSMENT: Post right iliac stenting with graft placement, angioplasty on the right lower extremity status post DVT on anticoagulation, history of metastatic adenocarcinoma T3N0M0 of the colon, hypertension, depression, dyslipidemia, tobacco abuse and anxiety. PLAN: After conversation with Dr. Salgado is to discharge the patient home on aspirin 325 mg once a day; Eliquis 2.5 mg twice a day; Lipitor 40 mg at supper; Norvasc 10 mg a day; famotidine 40 mg a day; Percocet 1 p.o. q. 6 hours p.r.n. for [id number] pain, a half or one tablet of the 5/325 mg tablet or Tylenol for mild pain; also Zestril 5 mg p.o. daily. She was given a copy of Dr. Torres's recommendations which are the patient must wear the right lower extremity compression stockings at all times during the day ever day, maybe taken off at night, reapply it in the morning. With the patient to rest for the next 2 days at home and then minimally increase exercise . She is also recommended to talk with Dr. Salgado in the office in 5 days' time or earlier with further followup with Dr. Parth Torres in approximately 7 to 10 days. Alonzo Ferguson MD
== END 2016-10-28 15:26 | disposition home or self-care (01) | DRG 253 ==
LOC: ED 17:39 → ERH 18:43 → 3RNO 21:53 → OBSVTOIN 10-25 13:41
PROVIDERS: ADMIT Family Medicine; ATTEND Family Medicine
PROC: 067F3DZ Dilation of Right External Iliac Vein with Intraluminal Device, Percutaneous Approach (ICD-10-PCS; principal; 2016-10-27)
PROC: B50 Imaging, Veins, Plain Radiography (ICD-10-PCS; 2016-10-27)
PROC: B54BZZA Ultrasonography of Right Lower Extremity Veins, Guidance (ICD-10-PCS; 2016-10-27)
DX: I82.421 Acute embolism and thrombosis of right iliac vein (principal); C18.9 Malignant neoplasm of colon, unspecified; C77.5 Secondary and unspecified malignant neoplasm of intrapelvic lymph nodes; J44.9 Chronic obstructive pulmonary disease, unspecified; C77.4 Secondary and unspecified malignant neoplasm of inguinal and lower limb lymph nodes; I10 Essential (primary) hypertension; K21.9 Gastro-esophageal reflux disease without esophagitis; E78.5 Hyperlipidemia, unspecified; F17.290 Nicotine dependence, other tobacco product, uncomplicated; Z79.01 Long term (current) use of anticoagulants; Z79.82 Long term (current) use of aspirin; Z79.899 Other long term (current) drug therapy; F32.89 Other specified depressive episodes

== ENCOUNTER 2017-01-24 11:01 | Inpatient (IN) | payer MEDICARE ==
[2017-01-24 11:14] VITALS: BMI 21.6
[2017-01-24] MEDS ORDERED: DiphenhydrAMINE 12.5 mg/5 ml LIQ UD (5 ml) PO STA (11:15)
--- NOTE | 2017-01-24 11:28 | ED PDOC ---
Arrival/HPI - General Chief Complaint: Abnormal Labs Time Seen by Provider: 01/24/17 11:02 - History of Present Illness Narrative History of Present Illness (Text): 01/24/17 11:10 A 81 year old female, whose past medical history includes colon CA extending to right iliac fossa, and hypertension, presents to the emergency department sent by PMD for low hemoglobin (anemic). Patient reports having transfusions in the past. Currently no longer on Eliquis. Notes experiencing weakness, dizziness, and loss of appetite. Patient denies any pain, hematuria, or any other complaints. Also, patient refuses to have rectal examination. PMD: Dr. Downey Past Medical History - Provider Review Nursing Documentation Reviewed: Yes - Infectious Disease Hx of Infectious Diseases: None - Tetanus Immunization Tetanus Immunization: Unknown - Cardiac Hx Cardiac Disorders: Yes Hx Hypertension: Yes Other/Comment: cardiac stents - Pulmonary Hx Respiratory Disorders: Yes Hx Chronic Obstructive Pulmonary Disease (COPD): Yes - Neurological Hx Neurological Disorder: Yes Hx Migraine: Yes - HEENT Hx HEENT Disorder: Yes Hx Cataracts: Yes Hx Difficulty Chewing: Yes - Renal Hx Renal Disorder: No - Endocrine/Metabolic Hx Endocrine Disorders: No - Hematological/Oncological Hx Blood Disorders: Yes Hx Anemia: Yes Hx Blood Transfusions: Yes - Integumentary Hx Dermatological Disorder: No - Musculoskeletal/Rheumatological Hx Musculoskeletal Disorders: Yes Hx Falls: Yes Hx Unsteady Gait: Yes - Gastrointestinal Hx Gastrointestinal Disorders: Yes Hx Gastroesophageal Reflux: Yes Other/Comment: Colon Ca -- getting chemo treatment with Dr Salgado - Genitourinary/Gynecological Hx Genitourinary Disorders: No - Psychiatric Hx Psychophysiologic Disorder: Yes Hx Anxiety: Yes Hx Substance Use: No - Surgical History Other/Comment: Colon resection - Anesthesia Hx Anesthesia: Yes Hx Anesthesia Reactions: No Hx Malignant Hyperthermia: No - Suicidal Assessment Feels Threatened In Home Enviroment: No Family/Social History - Physician Review Nursing Documentation Reviewed: Yes Family/Social History: No Known Family HX Smoking Status: Light Smoker < 10 Cigarettes Daily Hx Alcohol Use: No Hx Substance Use: No Hx Substance Use Treatment: No Allergies/Home Meds Allergies/Adverse Reactions: Allergies Penicillins Allergy (Severe, Verified 10/24/16 18:08) RASH Home Medications: Home Meds Medication Instructions Recorded Confirmed Aspirin [Aspirin EC] 325 mg PO DAILY 12/03/15 01/24/17 Famotidine [Pepcid] 40 mg PO DAILY 12/03/15 01/24/17 Lisinopril [Zestril] 5 mg PO DAILY 12/03/15 01/24/17 Simvastatin 40 mg PO DAILY 12/03/15 01/24/17 amLODIPine [Norvasc] 10 mg PO DAILY 12/03/15 01/24/17 Review of Systems - Physician Review All systems were reviewed & negative as marked: Yes - Review of Systems Constitutional: absent: Other (no pain; notes experiencing weakness) Gastrointestinal: Appetite Changes (loss of appetite) Genitourinary Female: absent: Hematuria Neurological: Dizziness Physical Exam Vital Signs Reviewed: Yes Vital Signs Temp Pulse Resp BP Pulse Ox 01/24/17 14:42 98.1 F 83 16 171/74 H 01/24/17 13:57 98.3 F 66 18 144/60 01/24/17 13:34 98.4 F 67 12 143/59 L 01/24/17 13:12 98.4 F 71 18 168/93 H 97 01/24/17 12:41 62 18 158/71 H 95 01/24/17 11:11 97.9 F 64 18 162/77 H 96 Temperature: Afebrile Blood Pressure: Hypertensive Pulse: Regular Respiratory Rate: Normal Appearance: Positive for: Well-Appearing Pain Distress: None Mental Status: Positive for: Alert and Oriented X 3 - Systems Exam Head: Present: Atraumatic, Normocephalic Pupils: Present: PERRL Extroacular Muscles: Present: EOMI Conjunctiva: Present: Normal Mouth: Present: Moist Mucous Membranes Neck: Present: Normal Range of Motion Respiratory/Chest: Present: Clear to Auscultation, Good Air Exchange. No: Respiratory Distress, Accessory Muscle Use Cardiovascular: Present: Regular Rate and Rhythm, Normal S1, S2. No: Murmurs Abdomen: Present: Normal Bowel Sounds. No: Tenderness, Distention, Peritoneal Signs Back: Present: Normal Inspection Upper Extremity: Present: Normal Inspection. No: Cyanosis, Edema Lower Extremity: Present: Normal Inspection. No: Edema Neurological: Present: GCS=15, CN II-XII Intact, Speech Normal Skin: Present: Warm, Dry, Normal Color. No: Rashes Psychiatric: Present: Alert, Oriented x 3, Normal Insight, Normal Concentration Medical Decision Making ED Course and Treatment: 01/24/17 11:14 Impression: 81 year old female sent by PMD for low hemoglobin. Physical exam is benign. Plan: -- Chest X-ray -- Labs -- Urinalysis -- Tylenol -- Benadryl -- Solu-CORTEF -- Reassess and disposition Prior Visits: Notes and results from previous visits were reviewed. Patient was last seen in the emergency department on 10/24/2016 for right lower extremity swelling. Patient was admitted. Progress Notes: 01/24/2017 11:35 Chest X-ray FINDINGS: LUNGS: The prior infarct subcentimeter patchy opacity projecting of the left upper lung zone mild left ribs and medial left scapula appears more nodular in its margination on the current study approximately 7 0.7 mm its current estimate. In contrast to the prior impression a half left lung nodule here is favored. CT chest imaging is adviced. PLEURA: No significant plueral effusion identified, no pneumothroax apparent. CARDIOVASCULAR: Top-normal heart size. No interval pulmonary venous congestion. Right cnetral ine tip at able kv old junction as before. OSSEOUS STRUCTURES: no significant abdnormalities. VISUALIZED UPPER ABDOMEN: Normal. OTHER FINDINGS: None. IMPRESSION: Left upper lobe pulmonary nodule - History of colon cancer -a pulmonary metastatic lesion is suspect. CT chest imaging is recommended. Dictator: Tran Kim MD 01/24/17 15:08 pt with known metastatic ca, admitted to onc floor, declines rectal, bun cr nomral. - Lab Interpretations Lab Results: 01/24/17 11:33 01/24/17 11:33 Lab Results 01/24/17 13:50: Urine Color Yellow, Urine Appearance Clear, Urine pH 5.5, Ur Specific Cactus 1.020, Urine Protein 100 H, Urine Glucose (UA) Negative, Urine Ketones Negative, Urine Blood Negative, Urine Nitrate Negative, Urine Bilirubin Negative, Urine Urobilinogen 0.2, Ur Leukocyte Esterase Small H, Urine RBC 0 - 2 , Urine WBC 5 - 10, Ur Epithelial Cells 1 - 3, Amorphous Sediment Few, Urine Bacteria Mod, Hyaline Casts 0 - 2 01/24/17 11:33: Sodium 144, Potassium 4.1, Chloride 110 H, Carbon Dioxide 25, Anion Gap 13, BUN 21, Creatinine 1.1, Est GFR ( Amer) 58, Est GFR (Non- Af Amer) 48, Random Glucose 115 H, Calcium 9.3, Total Bilirubin 0.8, AST 27, ALT 28, Alkaline Phosphatase 125, Total Protein 6.6, Albumin 3.6, Globulin 3.0, Albumin/Globulin Ratio 1.2, Lipase 30 01/24/17 11:33: PT 15.2 H, INR 1.37 H, APTT 31.5 01/24/17 11:33: WBC 7.8, RBC 2.89 L, Hgb 8.3 L, Hct 27.1 L, MCV 93.8, MCH 28.7, MCHC 30.6 L, RDW 16.1 H, Plt Count 311, MPV 10.0, Gran % 77.5 H, Lymph % (Auto) 12.9 L, [place] % (Auto) 8.4 H, Eos % (Auto) 0.8 L, Baso % (Auto) 0.4, Gran # 6.06 , Lymph # 1.0 L, [place] # 0.7 H, Eos # 0.1, Baso # 0.03 01/24/17 11:25: Blood Type B POSITIVE, Antibody Screen Negative, Crossmatch See Detail, BBK History Checked Patient has bt I have reviewed the lab results: Yes - RAD Interpretation Radiology Orders: 01/24/17 11:15 CHEST PORTABLE [RAD] Stat - Medication Orders Current Medication Orders: Discontinued Medications Acetaminophen (Tylenol 325mg Tab) 650 mg PO STAT STA Stop: 01/24/17 11:16 Last Admin: 01/24/17 11:40 Dose: 650 mg Diphenhydramine HCl (Benadryl) 25 mg PO STAT STA Stop: 01/24/17 11:16 Last Admin: 01/24/17 11:40 Dose: 25 mg Hydrocortisone Sodium Succinate (Solu-Cortef) 100 mg IVP STAT STA Stop: 01/24/17 11:16 Last Admin: 01/24/17 11:40 Dose: 100 mg IVP Administration Document 01/24/17 11:40 CNR (Rec: 01/24/17 11:40 CNR [id number]) Charges for Administration # of IVP Administrations 1 - Scribe Statement The provider has reviewed the documentation as recorded by the Carole Simental Provider Scribe Attestation: All medical record entries made by the Scribe were at my direction and personally dictated by me. I have reviewed the chart and agree that the record accurately reflects my personal performance of the history, physical exam, medical decision making, and the department course for this patient. I have also personally directed, reviewed, and agree with the discharge instructions and disposition. Disposition/Present on Arrival - Present on Arrival Any Indicators Present on Arrival: No History of DVT/PE: Yes History of Uncontrolled Diabetes: No Urinary Catheter: No History of Decub. Ulcer: No History Surgical Site Infection Following: None - Disposition Have Diagnosis and Disposition been Completed?: Yes Diagnosis: Anemia Disposition: HOSPITALIZED Disposition Time: 03:00 Condition: STABLE
--- NOTE | 2017-01-24 11:37 | RAD ---
HISTORY: weakness COMPARISON: 10/24/2016 FINDINGS: LUNGS: The prior faint subcentimeter patchy opacity projecting of the left upper lung zone mild left ribs and medial left scapula appears more nodular in its margination on the current study approximately 7 0.7 mm its current estimate. In contrast to the prior impression a half left lung nodule here is favored. CT chest imaging is advised. PLEURA: No significant pleural effusion identified, no pneumothorax apparent. CARDIOVASCULAR: Top-normal heart size. No interval pulmonary venous congestion. Right central line tip at able kv old junction as before OSSEOUS STRUCTURES: No significant abnormalities. VISUALIZED UPPER ABDOMEN: Normal. OTHER FINDINGS: None. IMPRESSION: Left upper lobe pulmonary nodule - findings called in to the ER physician Dr. Mc on 01/24/2017 at approximately 11:30 a.m.. History of colon cancer -a pulmonary metastatic lesion is suspect. CT chest imaging recommended
[2017-01-24 11:43] LABS: BASO # 0.03 K/mm3 (0.0-2.0); BASO % 0.4 % (0.0-3.0); EOS # 0.1 (0.0-0.7); EOS % 0.8 % (1.5-5.0); GRAN # 6.06 (1.4-6.5); GRAN % 77.5 % (50.0-68.0); HEMATOCRIT 27.1 % (36.0-48.0); LYMPH % 12.9 % (22.0-35.0); MEAN CELL VOLUME 93.8 fl (80.0-105.0); MEAN CORPUSCULAR HEMOGLOBIN 28.7 pg (25.0-35.0); MEAN CORPUSCULAR HGB CONC 30.6 g/dl (31.0-37.0); MONO # 0.7 (0.1-0.6); MONO % 8.4 % (1.0-6.0); RED CELL DISTRIBUTION WIDTH 16.1 % (11.5-14.5); WHITE BLOOD COUNT 7.8 10^3/ul (4.5-11.0)
[2017-01-24 11:50] LABS: ALB/GLOB RATIO 1.2 (1.1-1.8); BILIRUBIN,TOTAL 0.8 mg/dL (0.2-1.3); POTASSIUM 4.1 mmol/L (3.6-5.0); TOTAL PROTEIN 6.6 g/dL (5.8-8.3)
[2017-01-24 11:57] LABS: INR 1.37 (0.93-1.08); PARTIAL THROMBOPLASTIN TIME 31.5 Seconds (25.1-36.5)
[2017-01-24 14:00] LABS: PH,URINE 5.5 (4.7-8.0); URINE BILIRUBIN NEGATIVE (NEGATIVE); URINE BLOOD NEGATIVE (NEGATIVE); URINE GLUCOSE (UA) NEGATIVE (NEGATIVE); URINE KETONE NEGATIVE (NEGATIVE); URINE LEUKOCYTE ESTERASE SMALL Leu/uL (NEGATIVE); URINE PROTEIN 100 mg/dL (<30 mg/dL); URINE UROBILINOGEN 0.2 E.U./dL (<1 E.U./dL)
[2017-01-24 14:02] LABS: URINE APPEARANCE CLEAR (CLEAR); URINE COLOR YELLOW (YELLOW)
[2017-01-24 14:04] LABS: CALCIUM 9.3 mg/dL (8.4-10.5)
[2017-01-24 14:08] LABS: URINE AMORPHOUS SEDIMENT FEW; URINE BACTERIA MOD (NEG); URINE RBC 0 - 2 /hpf (0-2)
[2017-01-24] MEDS ORDERED: Oxycodone/Acetaminophen 5/325 mg Tab PO PRN (15:42)
--- NOTE | 2017-01-24 15:45 | CP.PCM.HP ---
History of Present Illness - History of Present Illness History of Present Illness: CC: Sent from Dr Salgado's office due to anemia Patient is an 81 y/o with PMHx significant for HTN, dyslipidemia, metastatic colon cancer met to the right quadrant iliac node, s/p partial resection 6 years ago, s/p radiation, currently receiving chemotherapy zoladex and avastin with Dr Salgado, last dose of chemo was on Sunday, admitted on 10/29 with DVT and focal encasement and obstruction of terminal right external iliac vein s/p angioplasty and stenting of right external iliac vein by Dr Parth Torres, sent from Dr Salgado's office due to anemia. Patient had blood work in the office revealing hemoglobin of 7.3. Patient denies blood in the stool, denies black tarry stool. Denies vomiting, nausea or diarrhea, denies abdominal pain. Patient states she felt "wiped out" after getting hydration in Dr Salgado's office yesterday. Otherwise patient is able to tolerate po. Admits to dizziness and lightheadedness yesterday. No dizziness or lightheadedness today. Denies headache. PMHx: DVT ( on eliquis), HTN, dyslipidemia, metastatic colon cancer met to the right quadrant iliac node. PSHx: Colon cancer resection, Angioplasty and stenting of right external iliac vein, right sided chemo port placement. FMHx: non contributory Social: smokes 1/2 pack a day for over 5 decades, denies alcohol or illicit drug use. Ambulates with a cane. Allergy: penicillins Home meds: eliquis, Norvasc, simvastatin, lisinopril, asa. Present on Admission - Present on Admission Any Indicators Present on Admission: No History of DVT/PE: Yes History of Uncontrolled Diabetes: No Urinary Catheter: No Decubitus Ulcer Present: No History Surgical Site Infection Following: None Review of Systems - Review of Systems All systems: reviewed and no additional remarkable complaints except Review of Systems: As per HPI. Past Patient History - Infectious Disease Hx of Infectious Diseases: None - Tetanus Immunizations Tetanus Immunization: Unknown - Past Social History Smoking Status: Light Smoker < 10 Cigarettes Daily Alcohol: None Drugs: Denies Home Situation {Lives}: With Family - CARDIAC Hx Cardiac Disorders: Yes Hx Hypertension: Yes Other/Comment: cardiac stents - PULMONARY Hx Respiratory Disorders: Yes Hx Chronic Obstructive Pulmonary Disease (COPD): Yes - NEUROLOGICAL Hx Neurological Disorder: Yes Hx Migraine: Yes - HEENT Hx HEENT Problems: Yes Hx Cataracts: Yes Hx Difficulty Chewing: Yes - RENAL Hx Chronic Kidney Disease: No - ENDOCRINE/METABOLIC Hx Endocrine Disorders: No - HEMATOLOGICAL/ONCOLOGICAL Hx Blood Disorders: Yes Hx Anemia: Yes Hx Blood Transfusions: Yes - INTEGUMENTARY Hx Dermatological Problems: No - MUSCULOSKELETAL/RHEUMATOLOGICAL Hx Musculoskeletal Disorders: Yes Hx Falls: Yes Hx Unsteady Gait: Yes - GASTROINTESTINAL Hx Gastrointestinal Disorders: Yes Hx Gastroesophageal Reflux: Yes Other/Comment: Colon Ca -- getting chemo treatment with Dr Salgado - GENITOURINARY/GYNECOLOGICAL Hx Genitourinary Disorders: No - PSYCHIATRIC Hx Psychophysiologic Disorder: Yes Hx Anxiety: Yes Hx Substance Use: No - SURGICAL HISTORY Other/Comment: Colon resection - ANESTHESIA Hx Anesthesia: Yes Hx Anesthesia Reactions: No Hx Malignant Hyperthermia: No Meds Allergies/Adverse Reactions: Allergies Allergy/AdvReac Type Severity Reaction Status Date / Time Penicillins Allergy Severe RASH Verified 01/24/17 16:40 Physical Exam - Constitutional Appears: No Acute Distress, Chronically Ill - Head Exam Head Exam: ATRAUMATIC, NORMAL INSPECTION, NORMOCEPHALIC - Eye Exam Eye Exam: Normal appearance, PERRL. absent: Scleral icterus Additional comments: Pale sclera. - ENT Exam ENT Exam: Mucous Membranes Moist - Neck Exam Neck exam: Positive for: Normal Inspection - Respiratory Exam Respiratory Exam: Clear to Auscultation Bilateral, NORMAL BREATHING PATTERN. absent: Rales, Rhonchi, Wheezes, Respiratory Distress, Stridor - Cardiovascular Exam Cardiovascular Exam: REGULAR RHYTHM, RRR, +S1, +S2. absent: Systolic Murmur - GI/Abdominal Exam GI & Abdominal Exam: Normal Bowel Sounds, Soft. absent: Distended, Firm, Guarding, Rebound, Rigid, Tenderness - Extremities Exam Extremities exam: Positive for: pedal edema (On the right lower extremities. ), tenderness (right thigh.), pedal pulses present - Back Exam Back exam: NORMAL INSPECTION - Neurological Exam Neurological exam: Alert, Oriented x3, Reflexes Normal - Psychiatric Exam Psychiatric exam: Normal Affect, Normal Mood - Skin Skin Exam: Dry, Intact, Normal Color, Warm Results - Vital Signs Recent Vital Signs: Last Vital Signs Temp 98.1 F 01/24/17 14:42 Pulse 83 01/24/17 14:42 Resp 16 12/13/17 14:42 BP 171/74 H 01/24/17 14:42 Pulse Ox 97 01/24/17 13:12 - Labs Result Diagrams: 01/25/17 05:30 01/25/17 05:30 Assessment & Plan - Assessment and Plan (Free Text) Assessment: Mrs. Watson is an 81 y/o with PMHx significant for HTN, dyslipidemia, metastatic colon cancer met to the right quadrant iliac node, s/p partial resection 6 years ago, s/p radiation, currently receiving chemotherapy zoladex and avastin with Dr Salgado, last dose of chemo was on Sunday, admitted on 10/29 with DVT and focal encasement and obstruction of terminal right external iliac vein s/p angioplasty and stenting of right external iliac vein by Dr Parth Torres , sent from Dr Salgado's office due to anemia. Plan: 1) Acute normocytic anemia- unclear etiology, r/o GI bleeding versus dilution - HG in Dr Salgado's office was 7.3, in the ED it was 8.3. - Patient typed and crossed, for 2 unit transfusion - No source of bleeding, thus will obtain CT abdo/pelvis to evaluate. - ASA and Eliquis are on hold - Will obtain anemia work up. - Gi consulted for possible scope. 2) H/O of DVT- eliquis on hold due to sudden drop in hgb - Will obtain right lower extremities U/S to re-evaluate 3) HTN- Continue Norvasc and lisinopril as tolerated. 3) Dyslipidemia- continue with atorvastatin 4) Metastatic Colon cancer - continue percocet for pain - Will resume chemo upon discharge. 5) Gi prophylaxis: pepcid. DVT prophylaxis: External compressive device. Patient seen, examined and case discussed with Dr Salgado. - Date & Time Date: 01/24/17 Time: 16:20
[2017-01-24] MEDS ORDERED: Pneumococcal 23-Valent Vaccine IM ONE (16:58)
[2017-01-24] MEDS ORDERED: Influenza Vaccine 60 mcg/0.5 mL SYR (4YR UP) IM ONE (16:58)
[2017-01-24] MEDS ORDERED: Iohexol 350 MG/100 ML VIAL ONE (17:51)
--- NOTE | 2017-01-25 03:45 | CON ---
DATE: 01/24/2017 REASON FOR CONSULTATION: Severe anemia, history of rectal carcinoma. HISTORY OF PRESENT ILLNESS: This is an 81-year-old patient with history of colon carcinoma metastatic to the right lower quadrant iliac node, had a biopsy proven mets in 01/2013, on chemo, presented with 2 months ago with right leg swelling and increased pain who was found to have compression of the iliac vein and also has DVT. The patient subsequently had a stent placement and also the patient was on Eliquis. The patient noticed to have a drop in blood count, had transfusions before. The patient is now admitted with severe anemia with a hemoglobin of 8.3. The patient's hemoglobin yesterday was 12.3, was transfused a unit. In view of the severe anemia, GI consult was requested to evaluate. The patient denies any bleeding per rectum, vomiting. She remembers having a diagnosed with a colon cancer more than 6-1/2 years ago had a surgery done. The patient has recurrence in 2017, mets. Recently had this DVT was on Eliquis, now the patient is off the Eliquis. The patient needed to be on a longer time anticoagulation. GI consult was requested to evaluate any GI source of blood loss. PAST MEDICAL HISTORY: Other past medical history significant for hypertension, dyslipidemia, B12 deficiency. ALLERGIES: PENICILLIN. SOCIAL HISTORY: Positive for smoking. Denies alcohol. REVIEW OF SYSTEMS: Positive as above. Other systems reviewed. PHYSICAL EXAMINATION: GENERAL: The patient is lying on the bed, not in acute distress. VITAL SIGNS: Temperature 98.2, blood pressure 144/76, pulse is 66, respirations 19. HEENT: Atraumatic, anicteric. NECK: Supple. HEART: S1 and S2 heard. LUNGS: Bilateral air entry present. ABDOMEN: Soft. There are leif present in the right lower quadrant area. EXTREMITIES: There is an edema of the extremities noted. NEUROLOGIC: Alert, oriented. Moves all the extremities. LABORATORY DATA: Hemoglobin is 8.3, hematocrit 27.1, WBC 7.8, platelets 311. Chemistry is essentially unremarkable. IMPRESSION: This 81-year-old patient with a history of metastatic colorectal cancer, right iliac lymphadenopathy with deep venous thrombosis and also extensive compression status post venous stent placement. The patient was on Eliquis which has been discontinued now. The patient had a severe anemia yesterday it was 7.3, transfused 1 unit. The patient is due to getting another unit now. The patient needs to be detention anticoagulation in view of the significant dropping in blood count. His Gastroenterology consult was requested to further evaluate this. DIFFERENTIAL DIAGNOSES: Should include occult gastrointestinal bleeding, retroperitoneal blood loss, we will consider. The patient would clearly benefit from EGD and colonoscopy. The patient is off of the Eliquis. We will follow up the blood. Consider scheduling for EGD and colonoscopy. Thank you very much for allowing us to participate in the care of the patient. Coy Benedict MD
[2017-01-25 06:41] LABS: BASO # 0.01 K/mm3 (0.0-2.0); BASO % 0.1 % (0.0-3.0); EOS % 0.3 % (1.5-5.0); GRAN # 4.51 (1.4-6.5); HEMATOCRIT 38.7 % (36.0-48.0); LYMPH # 1.5 (1.2-3.4); LYMPH % 21.2 % (22.0-35.0); MEAN CORPUSCULAR HEMOGLOBIN 29.5 pg (25.0-35.0); MEAN CORPUSCULAR HGB CONC 32.8 g/dl (31.0-37.0); MEAN PLATELET VOLUME 10.6 fl (7.0-11.0); MONO # 0.9 (0.1-0.6); MONO % 13.4 % (1.0-6.0); RED CELL DISTRIBUTION WIDTH 16.3 % (11.5-14.5); WHITE BLOOD COUNT 6.9 10^3/ul (4.5-11.0)
[2017-01-25 06:51] LABS: ALB/GLOB RATIO 1.3 (1.1-1.8); ALKALINE PHOSPHATASE 148 U/L (38-126); ALT/SGPT 22 U/L (7-56); AST/SGOT 26 U/L (14-36); BILIRUBIN,TOTAL 1.5 mg/dL (0.2-1.3); BLOOD UREA NITROGEN 17 mg/dL (7-21); CALCIUM 10.2 mg/dL (8.4-10.5); CARBON DIOXIDE 25 mmol/L (21-33); CHLORIDE 109 mmol/L (98-107); GFR AFRICAN-AMERICAN > 60; GLUCOSE,RANDOM 97 mg/dL (70-110); POTASSIUM 3.6 mmol/L (3.6-5.0); SODIUM 146 mmol/L (132-148); TOTAL PROTEIN 7.2 g/dL (5.8-8.3)
[2017-01-25 10:27] LABS: IRON 35 ug/dL (45-180)
[2017-01-25] MEDS ORDERED: Propofol 10 mg/ml Inj (20 ML) ONE (10:30)
--- NOTE | 2017-01-25 10:51 | CP.PCM.PN ---
Subjective - Date & Time of Evaluation Date of Evaluation: 01/25/17 Time of Evaluation: 07:35 - Subjective Subjective: Heme/Onc progress note for Dr Salgado's service. Patient with no acute events overnight. Was transfused 2 units of prbc with no adverse events. Denies fever, chills, n&v or diarrhea. Denies bloody bowel movement. Objective - Vital Signs/Intake and Output Vital Signs (last 24 hours): Temp Pulse Resp BP Pulse Ox 98.2 F 75 21 169/88 H 99 01/25/17 09:27 01/25/17 09:27 01/25/17 09:27 01/25/17 09:27 01/25/17 10:44 Intake and Output: 01/25/17 01/25/17 06:59 18:59 Intake Total 300 Balance 300 - Medications Medications: Current Medications Acetaminophen (Tylenol 325mg Tab) 650 mg PO Q4H PRN PRN Reason: Fever >100.4 F Amlodipine Besylate (Norvasc) 10 mg PO DAILY [facility] Atorvastatin Calcium (Lipitor) 20 mg PO DIN [facility] Famotidine (Pepcid) 40 mg PO HS [facility] Last Admin: 01/24/17 22:00 Dose: 40 mg Lisinopril (Zestril) 5 mg PO DAILY [facility] Nicotine (Nicoderm Cq) 1 patch TD DAILY [facility] Last Admin: 01/24/17 17:44 Dose: 1 patch Ondansetron HCl (Zofran Inj) 4 mg IVP Q4H PRN PRN Reason: Nausea/Vomiting Oxycodone/Acetaminophen (Percocet 5/325 Mg Tab) 1 tab PO Q6H PRN PRN Reason: Pain, moderate (4-7) Stop: 01/27/17 15:43 - Labs Labs: 01/25/17 05:30 01/25/17 05:30 PT 15.2 SECONDS (9.4-12.5) H 01/24/17 11:33 INR 1.37 (0.93-1.08) H 01/24/17 11:33 APTT 31.5 Seconds (25.1-36.5) 01/24/17 11:33 - Constitutional Appears: No Acute Distress, Cachectic, Chronically Ill - Head Exam Head Exam: ATRAUMATIC, NORMAL INSPECTION, NORMOCEPHALIC - Eye Exam Eye Exam: EOMI, Normal appearance. absent: Scleral icterus - ENT Exam ENT Exam: Mucous Membranes Moist - Neck Exam Neck Exam: Normal Inspection - Respiratory Exam Respiratory Exam: Clear to Ausculation Bilateral, NORMAL BREATHING PATTERN. absent: Rales, Rhonchi, Wheezes, Respiratory Distress, Stridor - Cardiovascular Exam Cardiovascular Exam: REGULAR RHYTHM, RRR, +S1, +S2. absent: Bradycardia, Tachycardia, Murmur - GI/Abdominal Exam GI & Abdominal Exam: Soft, Normal Bowel Sounds. absent: Distended, Firm, Guarding, Rigid, Tenderness - Extremities Exam Extremities Exam: Normal Inspection - Back Exam Back Exam: NORMAL INSPECTION - Neurological Exam Neurological Exam: Alert, Awake, Oriented x3 - Psychiatric Exam Psychiatric exam: Normal Affect, Normal Mood - Skin Skin Exam: Dry, Intact, Normal Color, Warm Assessment and Plan - Assessment and Plan (Free Text) Assessment: Mrs. Watson is an 81 y/o with PMHx significant for HTN, dyslipidemia, metastatic colon cancer met to the right quadrant iliac node, s/p partial resection 6 years ago, s/p radiation, currently receiving chemotherapy zoladex and avastin with Dr Salgado, last dose of chemo was on Sunday, admitted on 10/29 with DVT and focal encasement and obstruction of terminal right external iliac vein s/p angioplasty and stenting of right external iliac vein by Dr Parth Torres , sent from Dr Salgado's office due to acute drop in hemoglobin. 1) Acute symptomatic anemia likely due to GI bleeding in the setting of colon cancer. 2) h/o DVT with tumor obstructing the external iliac vein s/p stent 3) htn 4) dyslipidemia 5) Metastatic colon cancer, met to lymph node. Plan: Patient is scheduled for endoscopy today Anemia work up pending s/p 2 units of prbc, h/h 12.7/38.7. Continue to hold ASA and eliquis. Pending right lower extremity U/S Pending CT abdomen/pelvis Continue with Norvasc, lisinopril. Continue with atorvastatin. Continue percocet prn for pain. Protonix for gi prophylaxis. External compressive device for DVT prophylaxis. Patient seen, examined and discussed with Dr Salgado.
[2017-01-25] MEDS ORDERED: Peg-Electrolyte Oral Soln 4L (Golytely) NG ONE (11:27)
[2017-01-25] MEDS: Sodium Chloride 0.9% 1,000 ML IV SCH ×2 (14:19→21:24)
[2017-01-25] MEDS ORDERED: Iohexol 350 MG/100 ML VIAL ONE (14:55)
[2017-01-25 17:39] LABS: FOLATE > 20.0 ng/mL
[2017-01-26 07:02] LABS: BASO # 0.03 K/mm3 (0.0-2.0); BASO % 0.5 % (0.0-3.0); EOS % 0.6 % (1.5-5.0); GRAN # 4.59 (1.4-6.5); GRAN % 69.5 % (50.0-68.0); HEMATOCRIT 35.9 % (36.0-48.0); LYMPH # 1.2 (1.2-3.4); LYMPH % 18.6 % (22.0-35.0); MEAN CELL VOLUME 89.8 fl (80.0-105.0); MEAN CORPUSCULAR HEMOGLOBIN 28.8 pg (25.0-35.0); MEAN PLATELET VOLUME 9.9 fl (7.0-11.0); MONO # 0.7 (0.1-0.6); MONO % 10.8 % (1.0-6.0); RED CELL DISTRIBUTION WIDTH 16.2 % (11.5-14.5); WHITE BLOOD COUNT 6.6 10^3/ul (4.5-11.0)
--- NOTE | 2017-01-26 07:33 | CP.PCM.PN ---
Subjective - Date & Time of Evaluation Date of Evaluation: 01/26/17 Time of Evaluation: 07:00 - Subjective Subjective: Heme/Onc progress note for Dr Blakely's service Patient with no acute events overnight. Patient has been on the commode all night due to Gi prep, going for colonoscopy today. Otherwise patient denies cp, sob, headache, dizziness, lightheadedness, nausea, vomiting or diarrhea. Objective - Vital Signs/Intake and Output Vital Signs (last 24 hours): Temp Pulse Resp BP Pulse Ox 98.5 F 86 20 189/89 H 98 01/25/17 16:00 01/25/17 16:00 01/25/17 16:00 01/25/17 16:00 01/25/17 16:00 Intake and Output: 01/26/17 01/26/17 06:59 18:59 Intake Total 780 Balance 780 - Medications Medications: Current Medications Acetaminophen (Tylenol 325mg Tab) 650 mg PO Q4H PRN PRN Reason: Fever >100.4 F Amlodipine Besylate (Norvasc) 10 mg PO DAILY [facility] Last Admin: 01/25/17 14:18 Dose: 10 mg Atorvastatin Calcium (Lipitor) 20 mg PO DIN [facility] Last Admin: 01/25/17 17:19 Dose: 20 mg Sodium Chloride (Sodium Chloride 0.9%) 1,000 mls @ 100 mls/hr IV .Q10H [facility] Last Admin: 01/25/17 21:24 Dose: 100 mls/hr Lisinopril (Zestril) 5 mg PO DAILY [facility] Last Admin: 01/25/17 14:19 Dose: 5 mg Nicotine (Nicoderm Cq) 1 patch TD DAILY [facility] Last Admin: 01/25/17 14:18 Dose: 1 patch Ondansetron HCl (Zofran Inj) 4 mg IVP Q4H PRN PRN Reason: Nausea/Vomiting Oxycodone/Acetaminophen (Percocet 5/325 Mg Tab) 1 tab PO Q6H PRN PRN Reason: Pain, moderate (4-7) Stop: 01/27/17 15:43 Pantoprazole Sodium (Protonix Inj) 40 mg IVP DAILY [facility] Last Admin: 01/25/17 14:19 Dose: 40 mg - Labs Labs: 01/26/17 06:44 PT 15.2 SECONDS (9.4-12.5) H 01/24/17 11:33 INR 1.37 (0.93-1.08) H 01/24/17 11:33 APTT 31.5 Seconds (25.1-36.5) 01/24/17 11:33 - Constitutional Appears: No Acute Distress - Head Exam Head Exam: ATRAUMATIC, NORMAL INSPECTION, NORMOCEPHALIC - Eye Exam Eye Exam: Normal appearance - ENT Exam ENT Exam: Mucous Membranes Moist - Neck Exam Neck Exam: Normal Inspection - Respiratory Exam Respiratory Exam: Clear to Ausculation Bilateral, NORMAL BREATHING PATTERN. absent: Rales, Rhonchi, Wheezes, Respiratory Distress, Stridor - Cardiovascular Exam Cardiovascular Exam: REGULAR RHYTHM, +S1, +S2 - GI/Abdominal Exam GI & Abdominal Exam: Soft, Normal Bowel Sounds. absent: Distended, Firm, Guarding, Rigid, Tenderness - Extremities Exam Extremities Exam: Normal Inspection - Back Exam Back Exam: NORMAL INSPECTION - Neurological Exam Neurological Exam: Awake, Oriented x3 - Psychiatric Exam Psychiatric exam: Normal Affect, Normal Mood - Skin Skin Exam: Dry, Intact, Warm Assessment and Plan - Assessment and Plan (Free Text) Assessment: Mrs. Watson is an 81 y/o with PMHx significant for HTN, dyslipidemia, metastatic colon cancer met to the right quadrant iliac node, s/p partial resection 6 years ago, s/p radiation, currently receiving chemotherapy zoladex and avastin with Dr Salgado, last dose of chemo was on Sunday, admitted on 10/29 with DVT and focal encasement and obstruction of terminal right external iliac vein s/p angioplasty and stenting of right external iliac vein by Dr Parth Torres , sent from Dr Salgado's office due to acute drop in hemoglobin. Patient is s/ p EGD with gastric erosion. Will go for colonoscopy today. Plan: 1) Acute symptomatic anemia likely due to GI bleeding in the setting of colon cancer. 2) h/o DVT with tumor obstructing the external iliac vein s/p stent 3) uncontrolled htn 4) dyslipidemia 5) Metastatic colon cancer, met to lymph node. Colonoscopy today s/p 2 units of prbc, h/h dropped to 11.5. Continue to hold ASA and eliquis. Pending right lower extremity U/S to evaluate for need for fpc anticoagulation. Dr Parth Torres consulted, pending. Pending CT abdomen/pelvis Continue with Norvasc, lisinopril. Will consider adjusting BP meds if BP remains uncontrolled. Continue percocet prn for pain. Protonix for gi prophylaxis. External compressive device for DVT prophylaxis. Patient seen, examined and discussed with Dr Salgado.
[2017-01-26 08:03] LABS: ALB/GLOB RATIO 1.2 (1.1-1.8); ALKALINE PHOSPHATASE 144 U/L (38-126); ALT/SGPT 27 U/L (7-56); AST/SGOT 21 U/L (14-36); BILIRUBIN,TOTAL 1.7 mg/dL (0.2-1.3); BLOOD UREA NITROGEN 14 mg/dL (7-21); CARBON DIOXIDE 23 mmol/L (21-33); CHLORIDE 110 mmol/L (98-107); GFR AFRICAN-AMERICAN > 60; GLUCOSE,RANDOM 92 mg/dL (70-110); POTASSIUM 3.4 mmol/L (3.6-5.0); SODIUM 142 mmol/L (132-148); TOTAL PROTEIN 6.4 g/dL (5.8-8.3)
[2017-01-26] MEDS: Sodium Chloride 0.9% 1,000 ML IV SCH ×3 (08:47→22:13)
[2017-01-26] MEDS ORDERED: Etomidate 20 mg/10ml Inj IV ONE (11:59)
[2017-01-26] MEDS ORDERED: Propofol 10 mg/ml Inj (20 ML) ONE (11:59)
[2017-01-26] MEDS ORDERED: Lidocaine 1% Inj (20ml) ONE (11:59)
[2017-01-26 16:59] VITALS: RESP 20
--- NOTE | 2017-01-26 19:40 | US ---
PROCEDURE: Right lower extremity venous US HISTORY: Leg pain and swelling. Previous right iliac vein stent. Evaluate for DVT PHYSICIAN(S): Parth Torres M.D. TECHNIQUE: Duplex sonography and color-flow Doppler with graded compression were used to evaluate the deep venous system of the right lower extremity. FINDINGS: The patient's distal right external iliac vein stent is well visualized and patent. No thrombus is appreciated. No thrombus is appreciated in the visualized segments of the right lower extremity. IMPRESSION: 1. Widely patent distal right external iliac vein stent 2. No evidence for acute DVT in the visualized segments of the right lower extremity
[2017-01-27] MEDS ORDERED: Potassium Chloride 20 mEq ER Tab PO ONE (03:20)
[2017-01-27 07:37] LABS: BASO # 0.03 K/mm3 (0.0-2.0); BASO % 0.5 % (0.0-3.0); EOS # 0.1 (0.0-0.7); EOS % 1.7 % (1.5-5.0); GRAN # 3.85 (1.4-6.5); GRAN % 65.5 % (50.0-68.0); HEMATOCRIT 36.9 % (36.0-48.0); LYMPH # 1.2 (1.2-3.4); LYMPH % 20.1 % (22.0-35.0); MEAN CELL VOLUME 90.7 fl (80.0-105.0); MEAN CORPUSCULAR HEMOGLOBIN 28.7 pg (25.0-35.0); MEAN CORPUSCULAR HGB CONC 31.7 g/dl (31.0-37.0); MEAN PLATELET VOLUME 10.1 fl (7.0-11.0); MONO # 0.7 (0.1-0.6); MONO % 12.2 % (1.0-6.0); RED CELL DISTRIBUTION WIDTH 16.1 % (11.5-14.5); WHITE BLOOD COUNT 5.9 10^3/ul (4.5-11.0)
[2017-01-27 07:57] VITALS: BP 179/93; PULSE 92; TEMP 98; O2SAT 99
[2017-01-27 08:20] LABS: ALB/GLOB RATIO 1.2 (1.1-1.8); ALKALINE PHOSPHATASE 122 U/L (38-126); ALT/SGPT 26 U/L (7-56); AST/SGOT 23 U/L (14-36); BILIRUBIN,TOTAL 1.5 mg/dL (0.2-1.3); BLOOD UREA NITROGEN 11 mg/dL (7-21); CALCIUM 8.9 mg/dL (8.4-10.5); CARBON DIOXIDE 24 mmol/L (21-33); CHLORIDE 109 mmol/L (98-107); GFR AFRICAN-AMERICAN > 60; GLUCOSE,RANDOM 80 mg/dL (70-110); POTASSIUM 3.4 mmol/L (3.6-5.0); SODIUM 142 mmol/L (132-148); TOTAL PROTEIN 6.1 g/dL (5.8-8.3)
--- NOTE | 2017-01-28 23:41 | DS ---
LOCATION: The patient is in room number 360, bed 1. HISTORY OF PRESENT ILLNESS: The patient is feeling better and she has received transfusion status post upper endoscopy and colonoscopy. [place] hungry and had a breakfast and complains of no significant problems at this point in time. No abdominal complaint. Right lower extremity pain and discomfort is non-existent. Swelling has gone down. The patient has been ambulating on her own. This is an 81-year-old female with history of hypertension, dyslipidemia, metastatic stage IV carcinoma of the colon with documented metastasis in the right iliac vein area causing compression of the common iliac vein status post stenting, status post radiation last year to the right groin. Currently on a combination of Avastin and Xeloda as an outpatient. HOSPITAL COURSE: She was admitted to the hospital through the emergency room after being found to be anemic in the office with a hemoglobin of 7. The patient received blood transfusion. Source of the bleeding was unclear. The patient has been placed on Eliquis, as a precaution she had a stent placed in the common iliac vein. There was question that stent would clot and that is why she has been on Eliquis. After she was in the hospital, Eliquis was put on hold prior to admission and she had an upper endoscopy, which showed some erosive changes on the upper endoscopy, in the GI tract. On the examination of the stomach and duodenum, multiple erosions were seen. Colonoscopy did not show anything specific. The patient was put on Protonix in addition to the famotidine she was on. The patient was feeling better. Her IV is going to be discontinued today and she is going to be sent home on the medication that have been in the list of her home medication. Prior to discharge her blood counts were reviewed. Her hemoglobin is up to 11.7 and hematocrit is 36.9, with platelet count of 341,000. Chemistries are within normal limits. Potassium is likely borderline at 3.4. The patient will be placed with repeat potassium supplements as an outpatient. MEDICATIONS: The patient's medications are reviewed and the list of medications she is going to be taking will be the same as she was getting at home. She will be on K-Dur 20 mEq p.o. daily, Lipitor 20 mg daily, metoprolol tartrate 25 mg daily, nicotine patch one daily, amlodipine 10 mg daily, pantoprazole 40 mg, which will be converted to omeprazole 20 mg daily, and Percocet 5/325 mg one daily. DISCHARGE INSTRUCTIONS: The patient has been placed on no specific diet, has been encouraged to eat everything. She has lost 2 to 3 pounds while in the hospital on liquid diet. The patient is on Ensure at home to take two cans a day in addition to her regular food. The plan would be to resume her treatment as an outpatient when she is stabilized. I told the patient to call our office and make an appointment to see us sometime next week or the week after [place]. Routine post-exam instructions were given to the patient. The patient will make sure will followup on her blood work within a week's time for her potassium. Routine post-exam instructions have been given to the patient. CONDITION ON DISCHARGE: Improved. PROGNOSIS: Overall prognosis is guarded. DISCHARGE DIAGNOSIS: Anemia probably secondary to gastric erosions while on Eliquis for hypercoagulable state and to prevent blocking of the stent in the right iliac vein. I spoke to Dr. Parth Torres who recommended holding off on Eliquis for now, putting on an antiplatelet agent as the ultrasound does not show any blockages and the stent is widely patent. The patient will continue with compression stocking for lower extremity as an outpatient. Sourav Salgado MD
== END 2017-01-27 15:00 | disposition home or self-care (01) | DRG 378 ==
LOC: ED 11:01 → ERH 14:06 → 3RNO 15:21 → OBSVTOIN 01-25 11:28
PROVIDERS: ADMIT Family Medicine; ATTEND Family Medicine
PROC: 30233N1 Transfusion of Nonautologous Red Blood Cells into Peripheral Vein, Percutaneous Approach (ICD-10-PCS; 2017-01-24)
PROC: 0DB68ZX Excision of Stomach, Via Natural or Artificial Opening Endoscopic, Diagnostic (ICD-10-PCS; principal; 2017-01-25 09:45)
PROC: 0DJD8ZZ Inspection of Lower Intestinal Tract, Via Natural or Artificial Opening Endoscopic (ICD-10-PCS; 2017-01-26)
DX: K92.2 Gastrointestinal hemorrhage, unspecified (principal); C78.00 Secondary malignant neoplasm of unspecified lung; D64.9 Anemia, unspecified; D68.59 Other primary thrombophilia; J44.9 Chronic obstructive pulmonary disease, unspecified; K25.4 Chronic or unspecified gastric ulcer with hemorrhage; Z79.82 Long term (current) use of aspirin; Z85.048 Personal history of other malignant neoplasm of rectum, rectosigmoid junction, and anus; Z86.718 Personal history of other venous thrombosis and embolism; Z87.11 Personal history of peptic ulcer disease; Z92.3 Personal history of irradiation; Z95.5 Presence of coronary angioplasty implant and graft; Z79.899 Other long term (current) drug therapy; K21.9 Gastro-esophageal reflux disease without esophagitis; I10 Essential (primary) hypertension; E78.5 Hyperlipidemia, unspecified; F17.210 Nicotine dependence, cigarettes, uncomplicated; G43.909 Migraine, unspecified, not intractable, without status migrainosus; H26.9 Unspecified cataract; R26.81 Unsteadiness on feet; Z88.0 Allergy status to penicillin; R40.2412 Glasgow coma scale score 13-15, at arrival to emergency department; K57.30 Diverticulosis of large intestine without perforation or abscess without bleeding; K64.8 Other hemorrhoids; K44.9 Diaphragmatic hernia without obstruction or gangrene; K29.50 Unspecified chronic gastritis without bleeding

== ENCOUNTER 2017-05-29 10:29 | Inpatient (IN) | payer MEDICARE ==
[2017-05-29 10:55] VITALS: BMI 17.5
--- NOTE | 2017-05-29 11:27 | ED PDOC ---
Arrival/HPI - General Time Seen by Provider: 05/29/17 10:52 Historian: Patient - History of Present Illness Narrative History of Present Illness (Text): 05/29/17 11:24 A 81 year old female, whose past medical history includes COPD and migraine, presents to the emergency department complaining of chin injury s/p fall. Patient reports she was on her way to do ride [employer] for chemotherapy treatment appointment with Dr. Salgado. Before reaching the [employer], patient states she felt off-balance and fell. Patient states was ambulating normally prior to fall. Patient denies any other complaints. Notes having no appetite yesterday. Oncologist: Dr. Salgado Past Medical History - Provider Review Nursing Documentation Reviewed: Yes - Infectious Disease Hx of Infectious Diseases: None - Tetanus Immunization Tetanus Immunization: Unknown - Cardiac Hx Cardiac Disorders: Yes Hx Hypertension: Yes - Pulmonary Hx Chronic Obstructive Pulmonary Disease (COPD): Yes - Neurological Hx Neurological Disorder: Yes Hx Migraine: Yes - HEENT Hx HEENT Disorder: Yes Hx Cataracts: Yes Hx Difficulty Chewing: Yes - Renal Hx Renal Disorder: No - Endocrine/Metabolic Hx Endocrine Disorders: No - Hematological/Oncological Hx Blood Transfusions: Yes Hx Blood Transfusion Reaction: No - Integumentary Hx Dermatological Disorder: No - Musculoskeletal/Rheumatological Hx Falls: Yes - Gastrointestinal Hx Gastrointestinal Disorders: Yes Hx Gastroesophageal Reflux: Yes Other/Comment: Colon Ca -- getting chemo treatment with Dr Salgado - Genitourinary/Gynecological Hx Genitourinary Disorders: No - Psychiatric Hx Psychophysiologic Disorder: Yes Hx Anxiety: Yes Hx Substance Use: No - Surgical History Other/Comment: Colon resection - Anesthesia Hx Anesthesia Reactions: No Hx Malignant Hyperthermia: No - Suicidal Assessment Feels Threatened In Home Enviroment: No Family/Social History - Physician Review Nursing Documentation Reviewed: Yes Family/Social History: No Known Family HX Smoking Status: Heavy Smoker > 10 Cigarettes Daily Hx Alcohol Use: No Hx Substance Use: No Hx Substance Use Treatment: No Allergies/Home Meds Allergies/Adverse Reactions: Allergies Penicillins Allergy (Severe, Verified 05/29/17 12:41) RASH Home Medications: Home Meds Medication Instructions Recorded Confirmed Famotidine [Pepcid] 40 mg PO DAILY 12/03/15 06/02/17 Lisinopril [Zestril] 5 mg PO DAILY 12/03/15 06/02/17 Simvastatin 40 mg PO DAILY 12/03/15 06/02/17 amLODIPine [Norvasc] 10 mg PO DAILY 12/03/15 06/02/17 Review of Systems - Physician Review All systems were reviewed & negative as marked: Yes - Review of Systems Constitutional: Other (head trauma s/p fall injuring chin). absent: Fevers Neurological: absent: Headache Physical Exam Vital Signs Reviewed: Yes Vital Signs Temp Pulse Resp BP Pulse Ox 05/29/17 15:32 71 18 128/71 95 05/29/17 13:50 68 18 130/76 95 05/29/17 12:49 69 18 138/89 96 05/29/17 10:30 98 F 74 19 144/92 H 96 Temperature: Afebrile Blood Pressure: Normal Pulse: Regular Respiratory Rate: Normal Appearance: Positive for: Well-Appearing Pain Distress: None Mental Status: Positive for: Alert and Oriented X 3 - Systems Exam Head: Present: Laceration (chin area, active bleeding) Neurological: Present: GCS=15, CN II-XII Intact, Speech Normal Skin: Present: Warm, Dry, Normal Color. No: Rashes Psychiatric: Present: Alert, Oriented x 3, Normal Insight, Normal Concentration Medical Decision Making ED Course and Treatment: 05/29/17 11:28 Impression: 81 year old female with injury to chin s/p fall. Plan: -- EKG -- Head CT -- Chest X-ray -- Labs -- Urinalysis -- Reassess and disposition Progress Notes: 05/29/2017 11:[address] IMPRESSION: No acute intracranial hemorrhage. Moderate to significant confluent chronic appearing white matter, basal nuclei and brainstem ischemic changes. 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 . Followup MRA of the brain could be recommended for further evaluation. Dictator: Dandre Ho MD 06/04/17 11:[address] [facility] pmd dr amaral. request obs to obtain mri and neuro eval. - Lab Interpretations Microbiology Results: Microbiology Results 05/30/17 15:30 Urine Urine Culture - Final No Growth (<1,000 CFU/ML) Lab Results: 05/30/17 06:15 05/30/17 06:15 Lab Results 05/30/17 15:30: Urine Color Yellow, Urine Appearance Clear, Urine pH 6.0, Ur Specific [place] 1.020, Urine Protein Trace H, Urine Glucose (UA) Negative, Urine Ketones Negative, Urine Blood Negative, Urine Nitrate Negative, Urine Bilirubin Negative, Urine Urobilinogen 0.2, Ur Leukocyte Esterase Negative, Urine RBC Negative, Urine WBC 1 - 3, Ur Epithelial Cells 1 - 3, Urine Bacteria Few 05/30/17 06:15: Sodium 143, Potassium 4.0, Chloride 111 H, Carbon Dioxide 23, Anion Gap 13, BUN 28 H, Creatinine 1.2, Est GFR ( Amer) 52, Est GFR (Non- Af Amer) 43, Random Glucose 90, Calcium 8.4, Total Bilirubin 0.7, AST 17, ALT 26 , Alkaline Phosphatase 85, Total Protein 5.1 L, Albumin 2.8 L, Globulin 2.3, Albumin/Globulin Ratio 1.2 05/30/17 06:15: WBC 5.2 D, RBC 3.42 L, Hgb 9.2 L, Hct 29.4 L, MCV 86.0, MCH 26.9, MCHC 31.3, RDW 20.6 H, Plt Count 266, MPV 10.1, Gran % 58.8, Lymph % (Auto ) 24.8, [place] % (Auto) 15.8 H, Eos % (Auto) 0.0 L, Baso % (Auto) 0.6, Gran # 3.06 , Lymph # (Auto) 1.3, [place] # (Auto) 0.8 H, Eos # (Auto) 0.0, Baso # (Auto) 0.03 05/29/17 12:45: Sodium 140, Potassium 4.1, Chloride 107, Carbon Dioxide 24, Anion Gap 13, BUN 32 H, Creatinine 2.2 H, Est GFR ( Amer) 26, Est GFR ( Non-Af Amer) 21, Random Glucose 97, Calcium 8.5, Total Bilirubin 0.6, AST 18, ALT 26, Alkaline Phosphatase 89, Total Protein 5.6 L, Albumin 3.2, Globulin 2.4 , Albumin/Globulin Ratio 1.3 05/29/17 12:45: PT 13.4 H, INR 1.16 H, APTT 30.7 05/29/17 12:45: WBC 6.9, RBC 3.63, Hgb 9.9 L, Hct 31.7 L, MCV 87.3, MCH 27.3, MCHC 31.2, RDW 20.9 H, Plt Count 281, MPV 9.7, Gran % 71.9 H, Lymph % (Auto) 13.3 L, [place] % (Auto) 14.4 H, Eos % (Auto) 0.1 L, Baso % (Auto) 0.3, Gran # 4.99 , Lymph # (Auto) 0.9 L, [place] # (Auto) 1.0 H, Eos # (Auto) 0.0, Baso # (Auto) 0.02 - RAD Interpretation Radiology Orders: 05/29/17 11:08 HEAD W/O CONTRAST [CT] Stat 05/29/17 11:10 HIP MIN 2V W/ PELVIS RT [RAD] Stat 05/29/17 12:21 CXR [CHEST PORTABLE] [RAD] Stat 05/29/17 17:57 DUPLEX LOWER EXTRM VEIN RIGHT [US] Stat LOWER EXT ART NON-INV COMPL [US] Stat 05/29/17 18:13 ELBOW RIGHT 3 VIEWS ROUTINE [RAD] Urgent - Medication Orders Current Medication Orders: Discontinued Medications Acetaminophen (Tylenol 325mg Tab) 650 mg PO ONCE ONE Stop: 05/30/17 05:25 Last Admin: 05/30/17 05:31 Dose: 650 mg MAR Pain/Vitals Document 05/30/17 05:31 FC (Rec: 05/30/17 05:32 FC [id number]) Pain Reassessment Is This A Pain ReAssessment? No Sleep Is patient sleeping during reassessment? No Presence of Pain Presence of Pain Yes Pain Scale Used Pain Scale Used Numeric Location Left, Right or Bilateral Right Pain Location Body Site Arm Description Constant Scale Used Numeric Pain Behavior Irritability Aggravating Factors Exercise/Activity Alleviating Factors Medication Alprazolam (Xanax) 0.25 mg PO DAILY KALA PRN Reason: Protocol Stop: 06/06/17 10:01 Last Admin: 06/02/17 10:46 Dose: 0.25 mg Behavioural Document 06/02/17 10:46 ANE (Rec: 06/02/17 10:46 ANE [id number]) Maintenance Maintenance Dose Yes Nonmedicinal Nonmedicinal Interventions Therapeutic Communication Behavior Behavior for Medication: Anxiety Re-Assess: Reassess Psych Meds Document 06/02/17 11:46 ANE (Rec: 06/02/17 11:48 ANE [email or web address]) Reassess Psych Med Effective Amlodipine Besylate (Norvasc) 10 mg PO DAILY [facility] Last Admin: 06/02/17 10:45 Dose: 10 mg MAR Blood Pressure Document 06/02/17 10:45 ANE (Rec: 06/02/17 10:45 ANE [id number]) Blood Pressure Blood Pressure (100/60-150/90) 155/79 Apixaban (Eliquis) 2.5 mg PO BID [facility] PRN Reason: Protocol Last Admin: 06/02/17 10:46 Dose: 2.5 mg Aspirin (Ecotrin) 81 mg PO DAILY [facility] Last Admin: 06/02/17 10:46 Dose: 81 mg Atorvastatin Calcium (Lipitor) 40 mg PO DIN [facility] Last Admin: 06/01/17 17:06 Dose: 40 mg Docusate Sodium (Colace) 100 mg PO BID [facility] Last Admin: 06/02/17 10:46 Dose: 100 mg Last Bowel Movement Document 06/02/17 10:46 ANE (Rec: 06/02/17 10:46 ANE [id number]) Last Bowel Movement Last Bowel Movement 06/02/17 Sodium Chloride (Sodium Chloride 0.9%) 1,000 mls @ 100 mls/hr IV .Q10H [facility] Last Admin: 05/29/17 15:12 Dose: 100 mls/hr eMAR Start Stop Document 05/29/17 15:12 HI (Rec: 05/29/17 15:12 HI [id number]) Intravenous Solution Start Date 05/29/17 Start Time 15:12 Sodium Chloride (Sodium Chloride 0.9%) 1,000 mls @ 60 mls/hr IV .[id number] [facility] Last Admin: 05/29/17 18:59 Dose: 60 mls/hr eMAR Start Stop Document 05/29/17 18:59 JW (Rec: 05/29/17 18:59 JW [id number]) Intravenous Solution Start Date 05/29/17 Start Time 18:59 Sodium Chloride (Sodium Chloride 0.9%) 1,000 mls @ 40 mls/hr IV .Q24H [facility] Last Admin: 05/31/17 15:18 Dose: 40 mls/hr eMAR Start Stop Document 05/31/17 15:18 SOUSV (Rec: 05/31/17 15:18 SOUSV [id number]) Intravenous Solution Start Date 05/31/17 Start Time 15:18 Lidocaine HCl (Xylocaine 2%) 1 ea TOP BID [facility] Last Admin: 06/02/17 10:47 Dose: 1 applic Lisinopril (Zestril) 5 mg PO DAILY [facility] Last Admin: 06/02/17 10:45 Dose: 5 mg [facility] Pulse and Blood Pressure Document 06/02/17 10:45 ANE (Rec: 06/02/17 10:45 ANE [id number]) Pulse Pulse Rate (60-90) 70 Blood Pressure Blood Pressure (100/60-150/90) 155/79 Morphine Sulfate (Morphine) 5 mg IVP Q4 PRN PRN Reason: severe pain Last Admin: 06/02/17 01:50 Dose: 5 mg IVP Administration Document 06/02/17 01:50 FC (Rec: 06/02/17 01:50 FC [id number]) Charges for Administration # of IVP Administrations 1 Oxycodone HCl (Oxycodone Immediate Release Tab) 10 mg PO Q6H PRN PRN Reason: Pain, moderate (4-7) Last Admin: 05/31/17 21:24 Dose: 10 mg [facility] Pain Assessment Document 05/31/17 21:24 FRANK (Rec: 05/31/17 21:25 FRANK [id number]) Pain Reassessment Is this a pain reassessment? Yes Sleep Is patient sleeping during reassessment? No Presence of Pain Presence of Pain Yes Pain Scale Used Pain Scale Used Numeric Location Left, Right or Bilateral Right Pain Location Body Site 1st Toe 2nd Toe Description Description Intermittent Intensity of Pain at present 8 Pain Behavior Facial Grimacing Aggravating Factors None Alleviating Factors/Management Medication Techniques Alleviating Factors Medication Re-Assess: NOEL Pain Assessment Document 05/31/17 22:24 FRANK (Rec: 05/31/17 23:27 FRANK [id number]) Pain Reassessment Is this a pain reassessment? Yes Sleep Is patient sleeping during reassessment? No Presence of Pain Presence of Pain No Pain Scale Used Pain Scale Used Numeric Pantoprazole Sodium (Protonix Ec Tab) 40 mg PO 0600 [facility] Last Admin: 06/02/17 05:13 Dose: 40 mg Paroxetine HCl (Paxil) 5 mg PO HS KALA Last Admin: 06/01/17 21:27 Dose: 5 mg Tetanus/Reduced Diphtheria/Acell Pertussis (Boostrix Vaccine Inj) 0.5 ml IM .ONCE ONE Stop: 05/29/17 12:24 Last Admin: 05/29/17 13:48 Dose: 0.5 ml Immunization Registry Document 05/29/17 13:48 HI (Rec: 05/29/17 13:49 HI [id number]) Immunization Registry Consent Date 03/11/17 - Scribe Statement The provider has reviewed the documentation as recorded by the Carole Simental Provider Scribe Attestation: All medical record entries made by the Ildaibtiarra were at my direction and personally dictated by me. I have reviewed the chart and agree that the record accurately reflects my personal performance of the history, physical exam, medical decision making, and the department course for this patient. I have also personally directed, reviewed, and agree with the discharge instructions and disposition. Disposition/Present on Arrival - Present on Arrival Any Indicators Present on Arrival: No History of DVT/PE: Yes History of Uncontrolled Diabetes: No Urinary Catheter: No History Surgical Site Infection Following: None - Disposition Have Diagnosis and Disposition been Completed?: Yes Diagnosis: Fall, Renal insufficiency Disposition: HOSPITALIZED Disposition Time: 02:00 Condition: STABLE
--- NOTE | 2017-05-29 11:55 | CT ---
PROCEDURE: CT HEAD WITHOUT CONTRAST. HISTORY: Status post fall COMPARISON: No prior study available for comparison TECHNIQUE: Axial computed tomography images were obtained through the head/brain without intravenous contrast. Radiation dose: Total exam DLP = 939.93 mGy-cm. This CT exam was performed using one or more of the following dose reduction techniques: Automated exposure control, adjustment of the mA and/or kV according to patient size, and/or use of iterative reconstruction technique. FINDINGS: HEMORRHAGE: No acute parenchymal, subarachnoid or extra-axial hemorrhage. BRAIN: Moderate to fairly significant diffuse/ confluent chronic periventricular white matter ischemic changes seen extending peripherally into the deep and subcortical white matter both cerebral hemispheres. . There is some extension of these changes into white matter tracts of both basal nuclei. In addition, scattered more discrete deep and subcortical white matter as well as bilateral basal nuclei lacunar and brainstem lacunar type infarcts also felt to be present. 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 Followup MRA of the brain recommended. Vascular calcifications are present. VENTRICLES: No obstructive hydrocephalus. CALVARIUM: There are no acute calvarial fracture seen. PARANASAL SINUSES: Mild mucosal thickening noted within several ethmoid air cells. Tiny focus polypoid like mucosal thickening right maxillary antrum with minimal mucosal thickening in the sphenoid sinus. . MASTOID AIR CELLS: Mastoid air complexes well-developed and currently well-aerated. OTHER FINDINGS: None. IMPRESSION: No acute intracranial hemorrhage. Moderate to significant confluent chronic appearing white matter, basal nuclei and brainstem ischemic changes. 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 . Followup MRA of the brain could be recommended for further evaluation. Note these findings were discussed with Dr. Mc at approximately 11:50 a.m. with written down and read back verification.
[2017-05-29] MEDS ORDERED: TDAP Vaccine 0.5 mL Syr IM ONE (12:23)
[2017-05-29 12:52] LABS: BASO # 0.02 K/mm3 (0.0-2.0); BASO % 0.3 % (0.0-3.0); EOS % 0.1 % (1.5-5.0); GRAN # 4.99 (1.4-6.5); GRAN % 71.9 % (50.0-68.0); HEMOGLOBIN 9.9 g/dL (12.0-16.0); LYMPH # 0.9 (1.2-3.4); LYMPH % 13.3 % (22.0-35.0); MEAN CELL VOLUME 87.3 fl (80.0-105.0); MEAN CORPUSCULAR HEMOGLOBIN 27.3 pg (25.0-35.0); MEAN CORPUSCULAR HGB CONC 31.2 g/dl (31.0-37.0); MEAN PLATELET VOLUME 9.7 fl (7.0-11.0); MONO % 14.4 % (1.0-6.0); RBC 3.63 10^6/uL (3.5-6.1); RED CELL DISTRIBUTION WIDTH 20.9 % (11.5-14.5); WHITE BLOOD COUNT 6.9 10^3/ul (4.5-11.0)
[2017-05-29 13:01] LABS: ALB/GLOB RATIO 1.3 (1.1-1.8); ALBUMIN 3.2 g/dL (3.0-4.8); CALCIUM 8.5 mg/dL (8.4-10.5)
[2017-05-29 13:04] LABS: INR 1.16 (0.93-1.08); PARTIAL THROMBOPLASTIN TIME 30.7 Seconds (25.1-36.5); PROTHROMBIN TIME 13.4 SECONDS (9.4-12.5)
[2017-05-29] MEDS ORDERED: Sodium Chloride 0.9% 1,000 ML IV SCH ×2 (13:15→17:54)
--- NOTE | 2017-05-29 14:10 | RAD ---
HISTORY: admission COMPARISON: No prior. FINDINGS: No change right IJ central venous access LUNGS: There are 2 nodular name masses seen in the left suprahilar region and possibly a 3rd overlying the left anterior 1st rib which likely representing metastatic deposits. No acute infiltrates. PLEURA: No significant pleural effusion identified, no pneumothorax apparent. CARDIOVASCULAR: Cardiac silhouette stable. OSSEOUS STRUCTURES: No significant abnormalities. VISUALIZED UPPER ABDOMEN: Normal. OTHER FINDINGS: None. IMPRESSION: Two possibly 3 on nodular mass densities (Presumed metastatic deposits) in the left suprahilar region and possibly overlying the left anterior 1st rib. No evidence of acute infiltrates.
--- NOTE | 2017-05-29 14:25 | RAD ---
PROCEDURE: Pelvis right hip dated 05/29/2017 HISTORY: Status post fall COMPARISON: Comparison made with prior CT scan of the pelvis dated 03/13/19 18. TECHNIQUE: AP view of the pelvis and right hip and frogleg lateral view right hip performed. FINDINGS: Current study reveals no evidence of acute displaced fracture nor dislocation. Right femoral head is appropriately located within the right acetabulum. Re- demonstrated is a endovascular stent overlying the right inguinal region. Clinic correlation with surgical history. Multiple on mildly distended air-filled loops of small bowel present in the lower abdomen and pelvis is which could be secondary to an ileus however the possibility of a partial and or intermittent versus early SBO not excluded clinical correlation recommended. IMPRESSION: No evidence of acute displaced fracture nor dislocation. See above discussion for additional details and findings.
--- NOTE | 2017-05-29 21:26 | CARD ---
APPROVED REPORT EKG Measurement Heart [id number] <Conclusion> Normal sinus rhythm ST & T wave abnormality, consider anterolateral ischemia Abnormal ECG
[2017-05-30] MEDS: oxyCODONE 10 mg Immediate Release Tab PO PRN ×2 (01:42→17:22)
[2017-05-30] MEDS: Pantoprazole 40 mg EC Tab PO SCH (05:32)
[2017-05-30 06:38] LABS: ALB/GLOB RATIO 1.2 (1.1-1.8); ALBUMIN 2.8 g/dL (3.0-4.8); CALCIUM 8.4 mg/dL (8.4-10.5)
[2017-05-30 07:27] LABS: BASO # 0.03 K/mm3 (0.0-2.0); BASO % 0.6 % (0.0-3.0); GRAN # 3.06 (1.4-6.5); GRAN % 58.8 % (50.0-68.0); HEMOGLOBIN 9.2 g/dL (12.0-16.0); LYMPH # 1.3 (1.2-3.4); LYMPH % 24.8 % (22.0-35.0); MEAN CORPUSCULAR HEMOGLOBIN 26.9 pg (25.0-35.0); MEAN CORPUSCULAR HGB CONC 31.3 g/dl (31.0-37.0); MEAN PLATELET VOLUME 10.1 fl (7.0-11.0); MONO # 0.8 (0.1-0.6); MONO % 15.8 % (1.0-6.0); RBC 3.42 10^6/uL (3.5-6.1); RED CELL DISTRIBUTION WIDTH 20.6 % (11.5-14.5); WHITE BLOOD COUNT 5.2 10^3/ul (4.5-11.0)
[2017-05-30] MEDS: Lidocaine 2% Jelly (30 ml) TOP SCH ×3 (09:54→17:22)
[2017-05-30] MEDS ORDERED: Home Med 1 UNIT PO SCH (10:00)
--- NOTE | 2017-05-30 11:09 | US ---
PROCEDURE: Right lower extremity venous US HISTORY: Leg pain and swelling. Evaluate for DVT. PHYSICIAN(S): Parth Torres M.D. TECHNIQUE: Duplex sonography and color-flow Doppler with graded compression were used to evaluate the deep venous system of the right lower extremity. FINDINGS: The visualized deep venous system of the right lower extremity is sonographically normal and compressible. Normal waveforms and augmentation are seen. There is no sonographic evidence for deep venous thrombosis in the visualized segments of the right lower extremity. IMPRESSION: 1. No sonographic evidence for deep venous thrombosis in the visualized segments of the right lower extremity.
--- NOTE | 2017-05-30 11:13 | HP ---
The patient was admitted through the Emergency Room to room 362. 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, currently on systemic chemotherapy with Avastin and capecitabine with the disease being kept and checked in control over the past five years; history of progressive lymphedema of the right lower extremity secondary to lymphangitic compression from mechanical pressure related to the lymph node metastasis in the iliac fossa region, status post stenting of the right iliac vein, using compression stockings, status post radiation to the inguinal area in the past x2, was admitted after patient was attempting to board the ride to the hospital near her home when she fell off balance and hurt her chin, her left arm, right elbow and part of her shoulder. The patient denies any problems with her head, such as, headaches, nausea, or vomiting. She stated she was ambulating normally using a cane prior to the fall. Denies any other complaints. The patient notes that she has not had any appetite since yesterday. PAST MEDICAL HISTORY: Significant for the fact that she was diagnosed with initially stage III colon CA with node-positive disease, had recurrence and then, steady progression of disease over the last seven years, has been maintained on systemic therapy and then, local regional radiation. More recently, the patient has had at least three admissions over the last six months and each time, had issues related to her right groin and the right lower extremity associated with pain in the right groin. The patient had stenting of the right iliac vein secondary to occlusion related to mechanical compression she received palliative radiation. She has been on compression stockings. Prior to stenting, the patient also had intraluminal thrombolysis and since then, the patient had been placed on Eliquis and is being monitored very carefully. The patient had one episode of GI bleed, which was managed conservatively. The patient improved, was put on PPI and continued on low-dose Eliquis. Past medical history is also significant for hypertension, hypercholesterolemia. SOCIAL HISTORY: The patient is a not a heavy smoker, but has been smoking at least a few cigarettes a day over the last several years. No history of drinking, no history of substance abuse. ALLERGIES: THE PATIENT DOES HAVE A HISTORY OF ALLERGY TO PENICILLIN. She does take B12 injections because she is B12 deficient as well. PAST SURGICAL HISTORY: Significant for the fact that colon resection several years ago. MEDICATIONS: The patient's home medications were reviewed. She is on aspirin 325 mg daily, Pepcid 40 mg daily, Zestril 5 mg daily, simvastatin 40 mg daily, Norvasc 10 mg daily. PHYSICAL EXAMINATION VITAL SIGNS: Stable. T-max is 98.4; pulse is 74, respirations 18, blood pressure is 144/92, pulse ox is 96% on room air. GENERAL: The patient is afebrile. The patient has a laceration on the chin area with bleeding that has abated now since has come to the Emergency Room. NEUROLOGIC: Reveals the patient's higher functions to be normal. No gross focal deficits are noted. SKIN: Skin turgor is noted;is warm, dry in color. No rashes are noted. PSYCHIATRIC: The patient is awake, alert, and oriented, is able to concentrate normally and has normal insight. HEENT: Head is normocephalic, atraumatic. Conjunctivae are pale. Sclerae is anicteric. Pupils are equally reactive to light and accommodation. Examination of the oropharynx reveals no oropharyngeal lesions. NECK: Supple. There is no adenopathy. No jugular venous distention is noted. LUNGS: Clear to percussion and auscultation. HEART: Reveals PMI within the fifth intercostal space, inside the midclavicular line. S1 and S2 are normal. No gallop or murmur is heard. ABDOMEN: Soft, nontender. The patient is complaining of some crampy left lower quadrant pain. No rebound, rigidity or guarding is noted. EXTREMITIES: The patient is complaining of soreness and tenderness over the posterior aspect of her right elbow. The patient also is complaining of significant discomfort over her right foot, especially over the right great toe and the second toe, probably secondary to the fall. The patient also has ecchymosis over the little toe with ecchymosis on the lateral aspect of the foot on that side. The left foot is unremarkable. The patient has residual lymphedema of the right lower extremity, which is chronic. GENITOURINARY/RECTAL: Deferred. There is no significant adenopathy noted in the groin at this time, especially in the right inguinal area where there is to be a huge node, for which she got radiation and systemic chemotherapy. The patient's x-rays from the ER were noted. 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 The aneurysm is calcified, it is on the lateral fissure at the level of the bifurcation. Followup MRI was recommended on the same. Chest x-ray is unremarkable. Rest of the x-rays are pending. X-rays of the elbow are pending. PLAN: The patient is being admitted for further observation, neurologic intervention. The patient's creatinine is elevated; we are going to get Neurology evaluation as well. The patient is going to be started on IV fluids at 100 mL an hour cautiously and we are going to get Renal on board as well to make sure why the kidney functions are slightly abnormal. Creatinine is greater than 2, which is of concern to us at this time. The patient is going to be getting venous Dopplers of the right lower extremity along with arterial Dopplers of HUNTER in the morning. Vascular consultation has been obtained. Sharifa has been put on hold for now. It will be known which direction we are going. The patient will continue some of her other home medicines for now until we see the results of the test that have already been requested. Spent about 45 minutes with the patient and another 30 minutes going overall the x-rays and discussing my findings with the various doctors. Plan is as outlined above. The patient is going to get neurologic assessment, nephro involvement and assessment, vascular evaluation and assessment. If things are stable, we will then plan for discharge and follow up as an outpatient. My main concern at this time is to make sure nothing vascular monk is going on with the right foot, especially with the pain in the toes, also low on the probability list is progression of any clots in the right lower extremity, but that is on the differential. Routine post exam instructions have been given to the patient. Sourav Salgado MD
--- NOTE | 2017-05-30 11:36 | RAD ---
PROCEDURE: Radiographs of the right elbow. HISTORY: R elbow pain post fall COMPARISON: No prior. FINDINGS: BONES: Normal. No fracture. JOINTS: Normal. No osteoarthritis. SOFT TISSUES: Normal. JOINT EFFUSION: None. OTHER FINDINGS: None. IMPRESSION: Unremarkable radiographs of the right elbow.
--- NOTE | 2017-05-30 13:47 | CP.PCM.PN ---
Subjective - Date & Time of Evaluation Date of Evaluation: 05/30/17 Time of Evaluation: 09:00 - Subjective Subjective: PGY-2 progress note Patient seen and examined at bedside. No acute distress. Patient states that her elbow is sore as well as her leg. She states that when she fell she landed on her rigth side. Patient states that she still fells weak and is having difficulty walking to the bathroom. She denies fever,c hills, chest pain, sob, abd apin, n/v. SH uzair tolerating diet and eating well. Objective - Vital Signs/Intake and Output Vital Signs (last 24 hours): Temp Pulse Resp BP Pulse Ox 97.6 F 71 20 151/68 H 95 05/30/17 08:04 05/30/17 08:04 05/30/17 08:04 05/30/17 09:53 05/30/17 08:04 Intake and Output: 05/30/17 05/30/17 06:59 18:59 Intake Total 1200 Output Total 450 Balance 750 - Medications Medications: Current Medications Alprazolam (Xanax) 0.25 mg PO DAILY [facility] PRN Reason: Protocol Stop: 06/06/17 10:01 Last Admin: 05/30/17 09:53 Dose: 0.25 mg Amlodipine Besylate (Norvasc) 10 mg PO DAILY [facility] Last Admin: 05/30/17 09:53 Dose: 10 mg Atorvastatin Calcium (Lipitor) 40 mg PO DIN [facility] Sodium Chloride (Sodium Chloride 0.9%) 1,000 mls @ 60 mls/hr IV .[id number] [facility] Last Admin: 05/29/17 18:59 Dose: 60 mls/hr Lidocaine HCl (Xylocaine 2%) 1 ea TOP BID [facility] Last Admin: 05/30/17 09:58 Dose: 1 applic Oxycodone HCl (Oxycodone Immediate Release Tab) 10 mg PO Q6H PRN PRN Reason: Pain, moderate (4-7) Last Admin: 05/30/17 01:42 Dose: 10 mg Pantoprazole Sodium (Protonix Ec Tab) 40 mg PO 0600 [facility] Last Admin: 05/30/17 05:32 Dose: 40 mg - Labs Labs: 05/30/17 06:15 05/30/17 06:15 PT 13.4 SECONDS (9.4-12.5) H 05/29/17 12:45 INR 1.16 (0.93-1.08) H 05/29/17 12:45 APTT 30.7 Seconds (25.1-36.5) 05/29/17 12:45 - Constitutional Appears: No Acute Distress - Head Exam Head Exam: ATRAUMATIC, NORMOCEPHALIC - Eye Exam Eye Exam: EOMI, Normal appearance - ENT Exam ENT Exam: Mucous Membranes Moist - Respiratory Exam Respiratory Exam: Clear to Ausculation Bilateral, NORMAL BREATHING PATTERN. absent: Rhonchi, Wheezes, Respiratory Distress - Cardiovascular Exam Cardiovascular Exam: REGULAR RHYTHM, +S1, +S2. absent: Bradycardia, Tachycardia , Murmur - GI/Abdominal Exam GI & Abdominal Exam: Soft, Normal Bowel Sounds. 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 s/p fall general weakness TAYLOR- improved vascular insufficiency Plan: HEAD ct was negative for acute abnormalities unremarkable xray of right elbow hip xray showed no evidence of fracture continue using lidocaine patch for pain if pain continues will consider orthopedic consult venous doppler of right leg was negative for DVT arterial doppler official read pending continue IVF NS @100 dopplers of lower extremities creatinine improved from 2.2 to 1.2 hold eliquis due to renal function, follow up with renal for when it can be restarted neurology consulted IR consulted nephrology consulted Physical therapy case reviewed and discussed with Dr. Salgado
--- NOTE | 2017-05-30 14:39 | US ---
PROCEDURE: Lower extremity HUNTER exam HISTORY: Peripheral vascular disease with ischemic rest. Smoker. Metastatic colorectal CA. Previous right external iliac vein stent for metastatic disease. PHYSICIAN(S): Parth Torres MD. FINDINGS: The resting HUNTER's are severely abnormal: Right, 0.34 and left, 0.48 The brachial systolic pressures are symmetric. There are significant 40-50 mm differences between the arm and high thigh pressures. This is consistent with aortoiliac disease. The right high thigh PVR waveform is severely blunted. The left high thigh PVR waveform is mildly blunted. The calf PVR waveforms augment do not augment. This is consistent with bilateral SFA occlusive disease The right ankle and metatarsal waveforms are severely blunted and nearly flat. Left ankle PVR waveform is moderately blunted. IMPRESSION: 1. Severely abnormal ABIs at rest. 2. Aortoiliac disease. 3. Bilateral SFA occlusive disease. 4. The distal waveforms are nearly flat on the right
[2017-05-30 15:48] LABS: URINE BILIRUBIN NEGATIVE (NEGATIVE); URINE BLOOD NEGATIVE (NEGATIVE); URINE GLUCOSE (UA) NEGATIVE (NEGATIVE); URINE LEUKOCYTE ESTERASE NEGATIVE Leu/uL (NEGATIVE); URINE PROTEIN TRACE mg/dL (<30 mg/dL); URINE UROBILINOGEN 0.2 E.U./dL (<1 E.U./dL)
[2017-05-30 15:51] LABS: URINE APPEARANCE CLEAR (CLEAR); URINE COLOR YELLOW (YELLOW)
[2017-05-30 16:11] LABS: URINE BACTERIA FEW (NEG); URINE RBC NEGATIVE /hpf (0-2)
[2017-05-30] MEDS: Sodium Chloride 0.9% 1,000 ML IV SCH (16:53)
--- NOTE | 2017-05-30 17:28 | CON ---
DATE: 05/30/2017 NEUROLOGY CONSULTATION CHIEF COMPLAINT: Status post fall and head injury. HISTORY OF PRESENTING ILLNESS: This is an 81-year-old woman with history of COPD, migraines, metastatic stage IV colon carcinoma with intraabdominal carcinomatosis, currently on Avastin and capecitabine with history of progressive lymphedema in the right lower extremity, presents after a fall and hit her chin and hit her head, no loss of consciousness. She has had poor balance. She states she landed on her right side and the patient still feels some pain on the right side of her body, but no loss of consciousness, no change in sense, vision, taste, or smell. No seizure like activity. CAT scan of the head showed no acute intracranial abnormality. She had an arterial Doppler of her lower extremities, which showed severely abnormal ankle-brachial index at rest and showed aortoiliac disease and bilateral SFA occlusive disease, for which she has been followed by Dr. Parth Torres. Her Eliquis currently on hold due to acute kidney injury and renal insufficiency, which will eventually be restarted once she is cleared by Nephrology. Currently, no focal weakness of the extremities. She does have neuropathy on examination. PAST MEDICAL HISTORY: History of COPD, migraines, metastatic stage IV colon carcinoma with intraabdominal carcinomatosis. REVIEW OF SYSTEMS: A 14-point review of systems is negative except in the HPI. FAMILY HISTORY: Noncontributory. SOCIAL HISTORY: No illicit drug use, smoking, or EtOH abuse. ALLERGIES: PENICILLIN. MEDICATIONS: Reviewed by nurse per reconciliation sheet. PHYSICAL EXAMINATION: VITAL SIGNS: Temperature 97.6, pulse rate 71, blood pressure 151/68, respiratory rate of 20, oxygen saturation 95% on room air. GENERAL: The patient is sitting up in bed, in no acute distress. HEENT: Head is atraumatic and normocephalic. PERRLA. Extraocular muscles intact. NECK: Supple. No JVD. No adenopathy noted. LUNGS: Clear to auscultation. No adventitious sounds. HEART: S1, S2. Normal rate and rhythm. No murmurs, rubs, or gallops. ABDOMEN: Soft, nontender, and nondistended. Bowel sounds present. EXTREMITIES: No clubbing. No cyanosis. Peripheral pulses 2+ felt bilaterally. NEUROLOGIC: The patient is alert and oriented to person, place, month, and year. Recall after 5 minutes is 0/3. Poor attention span. Slow thought process. Cranial nerves II through XII are intact. Motor: Moves all extremities equally. No pronator drift seen. Slight increased tone throughout. Sensory: Diffuse light touch and pinprick up to the calves bilaterally. Decreased vibration of the toes. DTRs are 2+ throughout and 1 at the both knee and absent at the ankles. Coordination of [id number] is intact. No dysmetria noted. Gait is deferred for now. LABORATORY DATA: Sodium is 143, potassium 4, chloride of 111, carbon dioxide 23. BUN of 28, creatinine 1.2. Random glucose of 90. 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 I was called for an evaluation. She does not sustained a concussion. She does have evidence of neuropathy with underlying cancer which gives her poor balance as well. She does have evidence on arterial Doppler, severe peripheral vascular disease in terms of aortoiliac disease and bilateral superficial femoral artery occlusive disease, for which she is currently on Eliquis, but has been put on hold due to renal insufficiency. 1. At this time, we recommend to follow up with Dr. Parth Torres in regards to her peripheral vascular disease and get Nephrology clearance to restart her Eliquis. 2. Monitor electrolytes and correct accordingly. 3. PT/OT and likely will need some rehab. 4. We will hold off the MRI of the head since the patient is refusing, even though she has a very small 7 mm calcified aneurysm, so and does not correspond to her diseased state at this time. Continue current present medical management. Thank you for this consultation. Terry Fraser MD
[2017-05-31] MEDS: oxyCODONE 10 mg Immediate Release Tab PO PRN ×2 (00:08→21:24)
--- NOTE | 2017-05-31 03:28 | CON ---
DATE: 05/30/2017 TIME: 08:22 p.m. CHIEF COMPLAINT/HISTORY OF PRESENT ILLNESS: This is an 81-year-old with metastatic colon cancer, who was admitted for a syncopal episode. I know Ms. Watson from prior venous procedures in October. 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 She was subsequently treated with Eliquis and compression stockings. She has had an episode of bleeding and the Eliquis dose has been decreased. Now, the patient is being evaluated for peripheral arterial disease. Recently, she has described pain in the right great toe and fifth toe. Her HUNTER/PVR exam is severely abnormal. It is consistent with aortoiliac disease and bilateral SFA disease. Her distal waveforms are severely blunted. Her right HUNTER is 0.34 and left HUNTER is 0.48. Currently, Ms. Watson denies pain in her right foot. Her feet are pale, but temperature is adequate and symmetric. No tissue loss or impending gangrene is appreciated. She has a palpable left femoral pulse, but absent right femoral pulse. This may be related to the tumor infiltration in the right groin. Her popliteal and distal pulses are absent bilaterally. I spoke with Dr. Salgado concerning the situation. I reviewed a recent CT scan, which revealed calcification and bilateral common iliac disease. Tumor recurrence is noted in the right lower quadrant and right groin. Anatomically, she is a potential candidate for kissing iliac stents. However, any intervention in this patient would be of increased risk. On admission, her creatinine was elevated at 2.2. It has decreased with hydration. For now, we will observe Mrs. Watson and she will follow up with Dr. Salgado. If her ischemic rest pain progresses, she can be considered at that time for limited endovascular intervention. Parth Torres MD MTDD
--- NOTE | 2017-05-31 04:08 | CON ---
DATE: 05/30/2017 REASON FOR CONSULTATION: Acute kidney injury. HISTORY OF PRESENTING ILLNESS: An 81-year-old lady previously unknown to me, was admitted yesterday status post fall at home. The patient reports that she was walking to the van to go to the doctor's office, fell. Sustained injury to her right arm, right elbow, right murrieta. She denies any chest pain, palpitations, shortness of breath, dizziness prior to the fall. She denies any fever, chills. She denies any nausea, vomiting or diarrhea prior to the fall. In the emergency room, she was found to be hemodynamically stable. Blood pressure was 144/92, heart rate was 74. She was found to be afebrile. Hemoglobin was found to be 9.9. Initial blood work showed BUN of 32 and a creatinine of 2.2, hence consultation is requested. PAST MEDICAL SURGICAL HISTORY: Hypertension, colon cancer diagnosed in 2007, stage III cancer with steady progression over the last 7 years. Systemic chemotherapy, local regional radiation. GI bleed, peripheral vascular disease, right eye iliac stent, hyperlipidemia. FAMILY HISTORY: Noncontributory. SOCIAL HISTORY: The patient is an active smoker, smokes one-pack per day, no alcohol, no IV drug abuse. ALLERGIES: Penicillin. MEDICATIONS AT HOME: Percocet, amlodipine 10, simvastatin 40, omeprazole, lisinopril 5, Zyvox, Pepcid, aspirin, Eliquis. REVIEW OF SYSTEMS: Twelve systems were reviewed, pertinent positives as mentioned in the history of presenting illness, rest unremarkable. PHYSICAL EXAMINATION: GENERAL: Thinly built, elderly lady, sitting in bed in no acute distress. VITAL SIGNS: Blood pressure 130/76, heart rate 68, respiratory rate 18, temperature 98. HEENT: Normocephalic, atraumatic. NECK: Supple, no JVD. LUNGS: Bilateral equal entry, bilateral equal expansion, no rales. CARDIAC: S1, S2, regular rate and rhythm, no murmur, no rub. ABDOMEN: Soft, nondistended, nontender, bowel sounds present. EXTREMITIES: No lower extremity edema. There is redness and erythema of the right lower extremity. INTAKE AND OUTPUT: 1200/450. LABORATORY DATA: WBC 5.2, hemoglobin 9.2, hematocrit 29, platelets 266. Sodium 143, potassium 4.0, chloride 111, CO2 23, BUN 28, creatinine 1.2, glucose 90, calcium 8.4, AST 17, ALT 26, albumin 2.8. Urinalysis, yellow, clear, pH 6, specific gravity 1.020, protein trace. CURRENT MEDICATIONS: Lipitor, amlodipine 10, oxycodone, Protonix, normal saline at 40, Xanax, Zyvox. ASSESSMENT: 1. Acute kidney injury, largely prerenal azotemia, resolving nicely, creatinine down to 1.2. 2. Mechanical fall. 3. Hypertension. 4. Progressive colon cancer. 5. Chronic anemia. PLAN 1. Continue low-dose IV fluids. 2. Hold lisinopril for one more day. 3. Okay to restart lisinopril tomorrow perhaps. 4. Avoid nephrotoxins. 5. No further workup needed from the renal standpoint. Ngozi Mares MD
[2017-05-31] MEDS: Pantoprazole 40 mg EC Tab PO SCH (05:47)
[2017-05-31 06:34] LABS: BASO # 0.02 K/mm3 (0.0-2.0); BASO % 0.4 % (0.0-3.0); EOS % 0.6 % (1.5-5.0); GRAN # 3.31 (1.4-6.5); GRAN % 60.7 % (50.0-68.0); HEMOGLOBIN 9.2 g/dL (12.0-16.0); LYMPH # 1.3 (1.2-3.4); LYMPH % 24.4 % (22.0-35.0); MEAN CELL VOLUME 86.5 fl (80.0-105.0); MEAN CORPUSCULAR HGB CONC 31.2 g/dl (31.0-37.0); MEAN PLATELET VOLUME 9.7 fl (7.0-11.0); MONO # 0.8 (0.1-0.6); MONO % 13.9 % (1.0-6.0); RBC 3.41 10^6/uL (3.5-6.1); RED CELL DISTRIBUTION WIDTH 20.5 % (11.5-14.5); WHITE BLOOD COUNT 5.5 10^3/ul (4.5-11.0)
[2017-05-31 07:36] LABS: ALB/GLOB RATIO 1.1 (1.1-1.8); ALBUMIN 2.6 g/dL (3.0-4.8); ALT/SGPT 20 U/L (7-56); AST/SGOT 18 U/L (14-36); BLOOD UREA NITROGEN 20 mg/dL (7-21); CALCIUM 8.5 mg/dL (8.4-10.5); GFR AFRICAN-AMERICAN > 60; GFR NON-AFRICAN AMERICAN 60
--- NOTE | 2017-05-31 08:38 | CP.PCM.PN ---
Subjective - Date & Time of Evaluation Date of Evaluation: 05/31/17 Time of Evaluation: 07:30 - Subjective Subjective: PGY-[address] Salgado's service Patient seen and examined at bedside. No acute distress. Patient states that her elbow is sore however better then yesterday. She reports pain in her right toes.She denies pain anywhere else. Patient states that she still feels weak and requires assistance to the bathroom. She denies fever, chills, chest pain, sob, abd pain, n/v. She is tolerating diet and eating well. Patient is willing to go to rehab pending PT recommendations. Objective - Vital Signs/Intake and Output Vital Signs (last 24 hours): Temp Pulse Resp BP Pulse Ox 98.4 F 71 18 151/71 H 96 05/31/17 08:21 05/31/17 08:21 05/31/17 08:21 05/31/17 08:21 05/31/17 08:21 Intake and Output: 05/31/17 05/31/17 06:59 18:59 Intake Total 980 180 Output Total 500 Balance 480 180 - Medications Medications: Current Medications Alprazolam (Xanax) 0.25 mg PO DAILY [facility] PRN Reason: Protocol Stop: 06/06/17 10:01 Last Admin: 05/30/17 09:53 Dose: 0.25 mg Amlodipine Besylate (Norvasc) 10 mg PO DAILY [facility] Last Admin: 05/30/17 09:53 Dose: 10 mg Atorvastatin Calcium (Lipitor) 40 mg PO DIN [facility] Last Admin: 05/30/17 17:19 Dose: 40 mg Sodium Chloride (Sodium Chloride 0.9%) 1,000 mls @ 40 mls/hr IV .Q24H [facility] Last Admin: 05/30/17 16:53 Dose: 40 mls/hr Lidocaine HCl (Xylocaine 2%) 1 ea TOP BID [facility] Last Admin: 05/30/17 17:22 Dose: 1 applic Oxycodone HCl (Oxycodone Immediate Release Tab) 10 mg PO Q6H PRN PRN Reason: Pain, moderate (4-7) Last Admin: 05/31/17 00:08 Dose: 10 mg Pantoprazole Sodium (Protonix Ec Tab) 40 mg PO 0600 [facility] Last Admin: 05/31/17 05:47 Dose: 40 mg - Labs Labs: 05/31/17 06:00 05/31/17 06:00 PT 13.4 SECONDS (9.4-12.5) H 05/29/17 12:45 INR 1.16 (0.93-1.08) H 05/29/17 12:45 APTT 30.7 Seconds (25.1-36.5) 05/29/17 12:45 - Constitutional Appears: Well, No Acute Distress - Head Exam Head Exam: ATRAUMATIC, NORMOCEPHALIC - Eye Exam Eye Exam: EOMI, Normal appearance - ENT Exam ENT Exam: Mucous Membranes Moist - Respiratory Exam Respiratory Exam: Clear to Ausculation Bilateral, NORMAL BREATHING PATTERN. absent: Decreased Breath Sounds, Rhonchi, Wheezes, Respiratory Distress - Cardiovascular Exam Cardiovascular Exam: REGULAR RHYTHM, +S1, +S2. absent: Bradycardia, Tachycardia , Murmur - GI/Abdominal Exam GI & Abdominal Exam: Soft, Normal Bowel Sounds. 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 s/p fall general weakness TAYLOR- improved vascular insufficiency Plan: Head ct was negative for acute abnormalities showed 7mm calcified aneurysm hip xray showed no evidence of fracture unremarkable xray of right elbow, however patient is complaining of continuing elbow pain, will get a consult from ortho continue using lidocaine patch for pain and khadijah bandage for right elbow venous doppler of right leg was negative for DVT arterial doppler showed severely abnormal HUNTER at rest IR was consulted, recommended continue asa 81mg, eliquis and continue to monitor continue IVF NS @100 creatinine improved to 0.9 nephrology consulted, recommended low dose IVF, hold lisinpril for today, consider restarting tomorrow neurology consulted, recommended MRI however patient refused, recommended outpatient follow up Physical therapy evaluation pending case reviewed and discussed with Dr. Salgado
[2017-05-31] MEDS: Lidocaine 2% Jelly (30 ml) TOP SCH ×2 (10:06→17:22)
[2017-05-31] MEDS: Sodium Chloride 0.9% 1,000 ML IV SCH (15:18)
--- NOTE | 2017-05-31 18:42 | PN ---
DATE: 05/31/2017 SUBJECTIVE: The patient is seen sitting in bed. She is awake. She is alert. She is comfortable. She is eating lunch. She complains of pain everywhere. PHYSICAL EXAMINATION: GENERAL: Elderly lady sitting in bed. VITAL SIGNS: Blood pressure 151/71, heart rate 71, respiratory rate 18, temperature 98.4. HEENT: Normocephalic, atraumatic. NECK: Supple, no JVD. LUNGS: Bilateral equal air entry, bilateral equal expansion, no rales. CARDIAC: S1 and S2, regular rate and rhythm, no murmur, no rub. ABDOMEN: Soft, nondistended, nontender, bowel sounds present. EXTREMITIES: No lower extremity edema. INTAKE AND OUTPUT: 1880/700. LABORATORY DATA: WBC 5.5, hemoglobin 9.2, hematocrit 30, platelets 268. Sodium 143, potassium 4.1, chloride 113, CO2 24, BUN 20, creatinine 0.9, glucose 82, calcium 8.5, AST 18, ALT 20, albumin 2.6. CURRENT MEDICATIONS: Ecotrin, Eliquis, Lipitor, amlodipine, oxycodone, Protonix, normal saline at 40, Xanax. ASSESSMENT: 1. Acute kidney injury, resolved. 2. Status post mechanical fall. 3. History of colon cancer, progressive. 4. Hypertension. 5. Hyperlipidemia. PLAN: 1. Discontinue IV fluids. 2. Continue current antihypertensives. 3. Avoid nephrotoxins. 4. The patient is stable from the renal standpoint. Ngozi Mares MD
[2017-05-31] MEDS: Morphine 5 MG/ML SYRINGE IVP PRN (23:38)
--- NOTE | 2017-06-01 01:15 | CON ---
DATE: 05/31/2017 ORTHOPEDIC CONSULTATION HISTORY OF PRESENT ILLNESS: The patient is an 81-year-old female, admitted on 05/30/2017 for injury to the right elbow and pelvic region when she fall at home approximately 3 days ago. X-rays of her right elbow and pelvis and hip showed no fracture, but she is very weak and frail, so we are going to do physical therapy to combat her muscle weakness and to improve her strength. No fracture of the right elbow and contusion of both hips and low back, but no fracture. I am going to encourage therapy for ambulation with a cane or walker. FINAL DIAGNOSES: Deep contusion, right elbow and pelvis region and hips. Paco Bass DO
[2017-06-01] MEDS: Pantoprazole 40 mg EC Tab PO SCH (05:38)
[2017-06-01] MEDS: Morphine 5 MG/ML SYRINGE IVP PRN (05:48)
[2017-06-01 06:27] LABS: BASO # 0.02 K/mm3 (0.0-2.0); BASO % 0.4 % (0.0-3.0); EOS # 0.1 (0.0-0.7); EOS % 1.6 % (1.5-5.0); GRAN # 2.91 (1.4-6.5); GRAN % 59.1 % (50.0-68.0); HEMOGLOBIN 9.4 g/dL (12.0-16.0); LYMPH # 1.1 (1.2-3.4); LYMPH % 22.3 % (22.0-35.0); MEAN CELL VOLUME 85.6 fl (80.0-105.0); MEAN CORPUSCULAR HEMOGLOBIN 26.6 pg (25.0-35.0); MEAN CORPUSCULAR HGB CONC 31.1 g/dl (31.0-37.0); MONO # 0.8 (0.1-0.6); MONO % 16.6 % (1.0-6.0); RBC 3.53 10^6/uL (3.5-6.1); RED CELL DISTRIBUTION WIDTH 20.3 % (11.5-14.5); WHITE BLOOD COUNT 4.9 10^3/ul (4.5-11.0)
[2017-06-01] MEDS: Lidocaine 2% Jelly (30 ml) TOP SCH ×2 (10:00→17:06)
--- NOTE | 2017-06-01 12:13 | CP.PCM.PN ---
Subjective - Date & Time of Evaluation Date of Evaluation: 06/01/17 Time of Evaluation: 08:00 - Subjective Subjective: PGY-[address] Salgado's service Patient seen and examined at bedside. No acute distress. Patient states that her elbow is sore. She reports occasional pain in her right toes. She denies pain anywhere else. Patient states that she still feels general weak. She denies fever, chills, chest pain, sob, abd pain, n/v. She is tolerating diet and eating well. Patient participated in PT yesterday, recommended TCU. Patient is willing to go to TCU pending evaluation. Objective - Vital Signs/Intake and Output Vital Signs (last 24 hours): Temp Pulse Resp BP Pulse Ox 99.0 F 75 20 141/65 96 06/01/17 06:00 06/01/17 06:00 06/01/17 06:00 06/01/17 09:59 06/01/17 06:00 Intake and Output: 06/01/17 06/01/17 06:59 18:59 Intake Total 660 Output Total 530 Balance 130 - Medications Medications: Current Medications Alprazolam (Xanax) 0.25 mg PO DAILY [facility] PRN Reason: Protocol Stop: 06/06/17 10:01 Last Admin: 06/01/17 09:58 Dose: 0.25 mg Amlodipine Besylate (Norvasc) 10 mg PO DAILY [facility] Last Admin: 06/01/17 09:59 Dose: 10 mg Apixaban (Eliquis) 2.5 mg PO BID [facility] PRN Reason: Protocol Last Admin: 06/01/17 09:58 Dose: 2.5 mg Aspirin (Ecotrin) 81 mg PO DAILY [facility] Last Admin: 06/01/17 09:58 Dose: 81 mg Atorvastatin Calcium (Lipitor) 40 mg PO DIN [facility] Last Admin: 05/31/17 17:22 Dose: 40 mg Docusate Sodium (Colace) 100 mg PO BID [facility] Last Admin: 06/01/17 09:59 Dose: 100 mg Lidocaine HCl (Xylocaine 2%) 1 ea TOP BID [facility] Last Admin: 06/01/17 10:00 Dose: 1 applic Morphine Sulfate (Morphine) 5 mg IVP Q4 PRN PRN Reason: severe pain Last Admin: 06/01/17 05:48 Dose: 5 mg Oxycodone HCl (Oxycodone Immediate Release Tab) 10 mg PO Q6H PRN PRN Reason: Pain, moderate (4-7) Last Admin: 05/31/17 21:24 Dose: 10 mg Pantoprazole Sodium (Protonix Ec Tab) 40 mg PO 0600 [facility] Last Admin: 06/01/17 05:38 Dose: 40 mg Paroxetine HCl (Paxil) 5 mg PO HS [facility] - Labs Labs: 06/01/17 06:00 05/31/17 06:00 PT 13.4 SECONDS (9.4-12.5) H 05/29/17 12:45 INR 1.16 (0.93-1.08) H 05/29/17 12:45 APTT 30.7 Seconds (25.1-36.5) 05/29/17 12:45 - Constitutional Appears: No Acute Distress - Head Exam Head Exam: ATRAUMATIC, NORMOCEPHALIC - Eye Exam Eye Exam: EOMI, Normal appearance - ENT Exam ENT Exam: Mucous Membranes Moist - Respiratory Exam Respiratory Exam: Clear to Ausculation Bilateral, NORMAL BREATHING PATTERN. absent: Rhonchi, Wheezes, Respiratory Distress - Cardiovascular Exam Cardiovascular Exam: REGULAR RHYTHM, +S1, +S2. absent: Bradycardia, Tachycardia , Murmur - GI/Abdominal Exam GI & Abdominal Exam: Soft, Normal Bowel Sounds. absent: Distended, Firm, Guarding, Tenderness - Extremities Exam Extremities Exam: Normal Inspection Additional comments: tenderness in right elbow - Neurological Exam Neurological Exam: Alert, Awake, Oriented x3 - Skin Skin Exam: Dry, Intact, Normal Color, Warm Assessment and Plan - Assessment and Plan (Free Text) Assessment: 81 yo female with PMH of copd, migraines, metastatic stage IV colon carcinoma with intra abdominal carcinomatosis currently avastin and capecitabine, h/o progressive lymphedema of right lower extremity present after fall. s/p fall general weakness TAYLOR- improved vascular insufficiency Plan: Head ct was negative for acute abnormalities showed 7mm calcified aneurysm hip xray showed no evidence of fracture unremarkable xray of right elbow, however patient is complaining of consulted ortho, recommended physical therapy and ambulation for deep contusion continue using lidocaine patch for pain and khadijah bandage for right elbow venous doppler of right leg was negative for DVT arterial doppler showed severely abnormal HUNTER at rest IR was consulted, recommended continue asa 81mg, eliquis and continue to monitor continue IVF NS @100 creatinine improved, will stop IVF will resume lisinopril nephrology consulted neurology consulted, recommended MRI however patient refused, recommended outpatient follow up Physical therapy evaluation recommended TCU TCU evaluation pending case reviewed and discussed with Dr. Salgado
--- NOTE | 2017-06-01 21:24 | PN ---
DATE: 06/01/2017 SUBJECTIVE: Patient is seen lying in bed. She is awake, she alert, she is comfortable. She does not appear to be in any kind of distress. OBJECTIVE: VITAL SIGNS: Blood pressure 141/65, heart rate 75, respiratory rate 20, temperature 99. HEENT: Normocephalic, atraumatic. NECK: Supple, no JVD. LUNGS: Bilateral equal air entry, bilateral equal expansion. CARDIAC: S1 and S2, regular rate and rhythm, no murmur, no rub. ABDOMEN: Soft, nondistended, nontender, bowel sounds present. EXTREMITIES: No lower extremity edema. INTAKE AND OUTPUT: 1380/930. LABORATORY DATA: WBC 4.9, hemoglobin 9.4, hematocrit 30, platelets 308. No chemistry today. MEDICATIONS: List reviewed. ASSESSMENT: 1. Acute kidney injury, resolved. 2. Prerenal azotemia, now corrected. 3. Hypertension, controlled. 4. Colon cancer. 5. Status post mechanical fall. PLAN: 1. Continue lisinopril 5 mg daily. 2. Continue amlodipine 10 mg daily. 3. Patient is stable from the renal standpoint. 4. We will discontinue followup. Ngozi Mares MD
--- NOTE | 2017-06-01 22:09 | CON ---
DATE: HISTORY OF PRESENT ILLNESS: Patient is an 81-year-old white female with a history of depression and anxiety. No history of psychiatric admissions or suicide attempts and no current psychiatric outpatient followup, who was admitted to the medical floor after she fell on 05/30/2017 and sustained injury to her elbow and pelvic region. Psychiatry was consulted to follow up due to her complaints of depression. I met with the patient at bedside who is oriented to month, year, location and circumstances. She is cooperative with my questioning. Her affect is constricted and she appears tired and weak. The patient admits that she has been depressed and her main stressor are her medical issues. The patient reports that she is very frightened of being diagnosed with cancer and patient states " I don't want to ." The patient feels helpless about her medical situation. Again, she emphasizes she does not want to and she fears that it is going to happen soon. The patient reports that she has been depressed for 7 years and she has not obtained psychiatric followup during this time except gets Xanax prescribed to her by , per patient. She reports poor appetite. She has been losing weight. She has some insomnia, lots of worry about her medical condition and then being able to be mobile. Major thing that is bothering her is that she cannot do a thing that she wants to specifically, that she"can't do the things that I want to do." The patient's responses are generally relevant to questioning, at times are tangential, but fairly coherent and she denies a history of hallucinations. She does not appear to be actively responding to internal stimuli. Delusions were not elicited during my interview today. Generally in control at times, refusing to nursing requests, though there had been no major behavioral issues. I reviewed the benefits of starting an antidepressant specifically for her depression, issues with insomnia, appetite, low mood, and feelings of overwhelmed as well as anxiety regarding to her worry about her medical health and patient is agreeable for a trial of an antidepressant. Vital signs and laboratory work were reviewed by this provider. Relevant psychiatric medications only includes Xanax 0.25 mg p.o. daily. PSYCHIATRIC HISTORY: The patient denies any psychiatric hospitalizations or suicide attempts. Denies any psychiatric medication trials except for Xanax being prescribed to her by her primary care doctor of 0.25 mg 1 to 2 times a day. The patient showed me her medication was at bedside today and this was confirmed. SOCIAL HISTORY: Patient was born and raised in [place]. She is for last 8 years. She has 2 sons; one lived in [place] and one in ____. The patient lives by herself in a two family home and she has a tenant upstairs. The patient denies having any drug or alcohol issues. IMPRESSION: Major depressive disorder, moderate for approximately 7 years as well as generalized anxiety disorder, rule out contribution of adjustment disorder with mixed mood and anxiety symptoms. RECOMMENDATIONS: At this time, psychiatry. We will start Paxil 5 mg at bedtime to help the patient with anxiety, insomnia, poor appetite and as well as related low mood energy and moodiness. I reviewed indications, possible side effects, therapeutic latency and dosing of this medication with patient and she is agreeable to medication trial. We will start a 5 mg at bedtime. Psychiatry will follow up with patient on Sunday06/03/2017 to monitor her tolerance to the medication. If patient should be discharged prior to that, she should be given a psychiatric followup and continued on this medication. If she does not meet criteria for psychiatric admission at this time regarding her symptoms, then definitely would benefit from psychiatric followup regarding her frustrations and her current symptoms. Santiago Clemens MD
[2017-06-02] MEDS: Morphine 5 MG/ML SYRINGE IVP PRN (01:50)
[2017-06-02] MEDS: Pantoprazole 40 mg EC Tab PO SCH (05:13)
[2017-06-02 05:46] LABS: BASO # 0.02 K/mm3 (0.0-2.0); BASO % 0.5 % (0.0-3.0); GRAN # 2.35 (1.4-6.5); GRAN % 58.4 % (50.0-68.0); HEMOGLOBIN 9.3 g/dL (12.0-16.0); LYMPH # 0.9 (1.2-3.4); LYMPH % 22.4 % (22.0-35.0); MEAN CELL VOLUME 85.6 fl (80.0-105.0); MEAN CORPUSCULAR HEMOGLOBIN 26.3 pg (25.0-35.0); MEAN CORPUSCULAR HGB CONC 30.8 g/dl (31.0-37.0); MEAN PLATELET VOLUME 9.5 fl (7.0-11.0); MONO # 0.8 (0.1-0.6); MONO % 18.7 % (1.0-6.0); RBC 3.53 10^6/uL (3.5-6.1); RED CELL DISTRIBUTION WIDTH 20.3 % (11.5-14.5)
[2017-06-02 05:48] LABS: ALB/GLOB RATIO 1.1 (1.1-1.8); ALBUMIN 2.7 g/dL (3.0-4.8); ALT/SGPT 20 U/L (7-56); AST/SGOT 24 U/L (14-36); BLOOD UREA NITROGEN 15 mg/dL (7-21); CALCIUM 8.4 mg/dL (8.4-10.5); GFR AFRICAN-AMERICAN > 60; GFR NON-AFRICAN AMERICAN > 60
[2017-06-02 07:39] VITALS: BP 155/79; PULSE 70; RESP 20; TEMP 98.1; O2SAT 96
[2017-06-02] MEDS: Lidocaine 2% Jelly (30 ml) TOP SCH (10:47)
--- NOTE | 2017-06-03 13:25 | DS ---
LOCATION: The patient is in room 362, bed 1. The patient is being discharged and transferred today to the [facility] for deconditioning. HISTORY OF PRESENT ILLNESS: This is an 81-year-old female who was admitted to the Acute [facility] on 05/30/2017 with signs and symptoms of injury after a fall when she was attempting to cross the road to take transportation to come to our office. The patient had injured her chin, hit her right ankle and right foot, injured her right elbow as well in the fall. The patient was admitted for further observation. The patient was complaining of severe pain at the bottom of her right feet, especially, the right fourth and fifth toes on the right foot, which appeared to ecchymotic. The patient has a chronic swelling of the right lower extremity related to the lymphedema and based on this, the patient rapidly had a venous Doppler on the right side along with arterial Doppler as well. Venous Doppler did not show any acute clot. Arterial Doppler shows severe vascular disease extending from the superficial femoral artery and iliac vessels down to the feet. The patient was seen in consultation by Dr. Parth Torres, who recommended conservative management at this point in time. May be the pain that she was complaining in the right foot could be related to the posttraumatic injury from the fall and that things would get better. Thank God, the patient was on Eliquis and did not have significant ecchymosis. Conservative management would be in order. The patient's Eliquis was continued and low-dose aspirin was added to the regimen. The patient's pain appears to be better. The right elbow pain that she was having was x-rayed, was negative. CAT scan of the head was negative. The patient was seen by Dr. Paco Bass, the orthopedist. Conservative management was requested. The patient was given lidocaine ointment to be applied on the elbow along with Oli wrap and lidocaine ointment for the pain and discomfort in the toes and the patient appeared to be improving. She was able to sit out of bed, she was eating, appetite which had gone down had improved and overall, the patient's condition is improved. PHYSICAL EXAMINATION VITAL SIGNS: Subjectively, the patient is feeling better. Objectively, T-max is 98.4; pulse is 75, respirations 20, blood pressure is 141/65, pulse ox is 96% on room air. HEENT: Head is normocephalic, atraumatic. Conjunctivae pale. Sclerae is anicteric. Examination of the oropharynx reveals no oropharyngeal lesions. NECK: Supple. There is no adenopathy. No jugular venous distention is noted. LUNGS: Clear to percussion and auscultation. CARDIOVASCULAR: Examination of the cardiovascular system reveals PMI within the fifth intercostal space, S1 and S2 are normal. No gallops or murmurs are heard. ABDOMEN: Soft, nontender. No rebound, rigidity or guarding noted. EXTREMITIES: The patient has chronic lymphedema of the right lower extremity which appears to be improved. Ecchymosis, pain and discomfort over the right lateral aspect of the foot and the fourth and fifth toe is improving. Right elbow is swollen, but improving. Abrasion of the chin is improving. There is no evidence of adenopathy in the neck,axillary or groin at this point in time. ASSESSMENT AND PLAN: The patient is being transferred to the [facility] for deconditioning and gait strengthening and improving her strength for activities of daily living. The patient will continue current medications in the [facility]. She is going to also have venous compression stockings. The patient's medications were reviewed. She is on Xanax 0.25 mg daily, Norvasc 10 mg daily, Eliquis 2.5 mg b.i.d., Ecotrin 81 mg daily, Lipitor 40 mg daily, Colace 100 mg b.i.d,, lidocaine ointment topically to affected areas b.i.d., morphine sulfate as needed 5 mg every 4 hours p.r.n. for severe pain, Oxycodone 10 mg p.r.n. for milder pain, pantoprazole 40 mg p.o. daily. She is on Paxil 5 mg p.o. at bedtime. Labs done today reveal a white count of 4.9, hemoglobin and hematocrit is holding. We will follow through on the blood count while in the TCU. Chemistries are holding as well. BUN and creatinine that was noted to be normal had come down to creatinine of 0.7 and BUN is down to 15. Routine post-exam instructions have been given to the patient. The patient will be followed in the TCU. DISCHARGE DIAGNOSES: Contusion in multiple areas including the right elbow, right foot, and her chin and the background history of stage IV metastatic colon cancer, currently on chemotherapy with Avastin and Xeloda, both of which are currently on hold, hypercoag state with deep venous thrombosis in the right lower extremity, status post stenting of the iliac vein, currently on Eliquis, also on aspirin for the hypercoag state as well at this point in time. Sourav Salgado MD
== END 2017-06-02 12:11 | DRG 683 ==
LOC: ED 10:29 → ERH 13:09 → 3RNO 17:00 → 3RSO 05-30 09:17 → 3RNO 05-30 15:13 → OBSVTOIN 05-30 20:48
PROVIDERS: ADMIT Family Medicine; ATTEND Family Medicine
PROC: 3E0234Z Introduction of Serum, Toxoid and Vaccine into Muscle, Percutaneous Approach (ICD-10-PCS; principal; 2017-05-29)
DX: N17.9 Acute kidney failure, unspecified (principal); C18.9 Malignant neoplasm of colon, unspecified; C77.9 Secondary and unspecified malignant neoplasm of lymph node, unspecified; C79.51 Secondary malignant neoplasm of bone; F32.1 Major depressive disorder, single episode, moderate; K92.2 Gastrointestinal hemorrhage, unspecified; D64.9 Anemia, unspecified; E78.00 Pure hypercholesterolemia, unspecified; E78.5 Hyperlipidemia, unspecified; F17.210 Nicotine dependence, cigarettes, uncomplicated; F41.1 Generalized anxiety disorder; G47.00 Insomnia, unspecified; G62.9 Polyneuropathy, unspecified; I10 Essential (primary) hypertension; I73.9 Peripheral vascular disease, unspecified; I89.0 Lymphedema, not elsewhere classified; J44.9 Chronic obstructive pulmonary disease, unspecified; K21.9 Gastro-esophageal reflux disease without esophagitis; S50.01XA Contusion of right elbow, initial encounter; W18.30XA Fall on same level, unspecified, initial encounter; Z79.01 Long term (current) use of anticoagulants; Z79.899 Other long term (current) drug therapy; Z92.3 Personal history of irradiation; Z23 Encounter for immunization

== ENCOUNTER 2017-06-02 12:15 | Inpatient (IN) | payer OTHER, MEDICARE ==
[2017-06-02] MEDS ORDERED: Morphine 5 MG/ML SYRINGE IVP PRN ×2 (13:24→13:55)
[2017-06-02] MEDS: Lidocaine 2% Jelly (30 ml) TOP SCH (17:39)
[2017-06-02] MEDS ORDERED: Pneumococcal 23-Valent Vaccine IM ONE (23:39)
[2017-06-03] MEDS: Pantoprazole 40 mg EC Tab PO SCH (05:18)
[2017-06-03 07:02] LABS: BASO # 0.01 K/mm3 (0.0-2.0); BASO % 0.2 % (0.0-3.0); EOS # 0.1 (0.0-0.7); EOS % 1.2 % (1.5-5.0); GRAN # 2.61 (1.4-6.5); GRAN % 62.5 % (50.0-68.0); HEMOGLOBIN 9.7 g/dL (12.0-16.0); LYMPH % 23.9 % (22.0-35.0); MEAN CELL VOLUME 84.8 fl (80.0-105.0); MEAN CORPUSCULAR HEMOGLOBIN 26.3 pg (25.0-35.0); MEAN PLATELET VOLUME 9.6 fl (7.0-11.0); MONO # 0.5 (0.1-0.6); MONO % 12.2 % (1.0-6.0); RBC 3.69 10^6/uL (3.5-6.1); RED CELL DISTRIBUTION WIDTH 20.1 % (11.5-14.5); WHITE BLOOD COUNT 4.2 10^3/ul (4.5-11.0)
[2017-06-03] MEDS: Lidocaine 2% Jelly (30 ml) TOP SCH (10:00)
[2017-06-03] MEDS: oxyCODONE 10 mg Immediate Release Tab PO PRN (17:01)
--- NOTE | 2017-06-03 20:38 | CON ---
DATE: HISTORY OF PRESENT ILLNESS: The patient is a 81-year-old white female with a history of depression and anxiety, no history of psychiatric admissions or suicide attempts, and no current psychiatric outpatient followup, who was admitted to the medical floor after she fell on 05/30/2017 and sustained injury to her elbow and pelvic region. Psychiatry was consulted due to the patient's complaints of depression, and I met with the patient on 06/01/2017, and started Paxil 5 mg at bedtime to help the patient with anxiety, insomnia, poor appetite as well as low mood. I met with the patient again and the patient remembers me from a prior interview, and she is superficially cooperative with my questions. The patient appears irritable; indicates that she is annoyed and frustrated with all restrictions in transitional care unit. The patient reports that she is depressed, but again, she is consistent with the fact that she does not want to . She echoes the same complaint she had during our prior talk, in which she feels helpless about her medical situation. Thus far, she is fairly coherent, though her appetite is poor and she still remains depressed. She is not hopeless and she is not hallucinating . She denies having any perceptual disturbances in this regard. Delusions were not elicited during my interview. The patient remains oriented to month, year, location and circumstances. Vital signs and laboratory work were reviewed by this provider. MEDICATIONS: Relevant psychiatric medications includes Xanax 0.25 mg daily and Paxil 10 mg at bedtime. IMPRESSION: Major depressive disorder, moderate; generalized anxiety disorder, rule out contribution of adjustment disorder with mixed mood and anxiety symptoms. RECOMMENDATIONS: We will continue with Paxil 10 mg at bedtime to help the patient with anxiety, insomnia, poor appetite as well as related low mood and lability. The patient is willing to continue with this medication and I have reminded the patient about medication indication, side effects, dosing, therapeutic latency. She is tolerating medication well, and denies any major side effects. At this time, she consistently denied any thoughts of harming herself, and has not been a danger to herself or others, and she is not overtly disorganized. No major behavior issues are noted. Psychiatry will sign off on this patient at this time. Please re-consult if there are any acute changes in patient's presentation. Santiago Clemens MD [facility] # [id number]
[2017-06-04] MEDS: Pantoprazole 40 mg EC Tab PO SCH (05:49)
[2017-06-04 09:51] LABS: BASO # 0.01 K/mm3 (0.0-2.0); BASO % 0.2 % (0.0-3.0); EOS % 0.7 % (1.5-5.0); GRAN # 4.31 (1.4-6.5); GRAN % 70.2 % (50.0-68.0); HEMOGLOBIN 9.9 g/dL (12.0-16.0); LYMPH # 1.2 (1.2-3.4); LYMPH % 18.8 % (22.0-35.0); MEAN CELL VOLUME 84.6 fl (80.0-105.0); MEAN CORPUSCULAR HEMOGLOBIN 26.8 pg (25.0-35.0); MEAN CORPUSCULAR HGB CONC 31.6 g/dl (31.0-37.0); MEAN PLATELET VOLUME 9.5 fl (7.0-11.0); MONO # 0.6 (0.1-0.6); MONO % 10.1 % (1.0-6.0); RBC 3.7 10^6/uL (3.5-6.1); RED CELL DISTRIBUTION WIDTH 19.9 % (11.5-14.5); WHITE BLOOD COUNT 6.1 10^3/ul (4.5-11.0)
[2017-06-04 10:03] LABS: ALB/GLOB RATIO 1.3 (1.1-1.8); ALBUMIN 3.1 g/dL (3.0-4.8); ALT/SGPT 30 U/L (7-56); AST/SGOT 29 U/L (14-36); BLOOD UREA NITROGEN 11 mg/dL (7-21); CALCIUM 8.8 mg/dL (8.4-10.5); GFR AFRICAN-AMERICAN > 60; GFR NON-AFRICAN AMERICAN > 60
[2017-06-04] MEDS: Lidocaine 2% Jelly (30 ml) TOP SCH ×2 (10:32→17:16)
[2017-06-04] MEDS: oxyCODONE 10 mg Immediate Release Tab PO PRN ×2 (10:37→17:18)
--- NOTE | 2017-06-04 11:06 | CP.PCM.PN ---
Subjective - Date & Time of Evaluation Date of Evaluation: 06/04/17 Time of Evaluation: 09:00 - Subjective Subjective: PGY-[address] Salgado's service Patient seen and examined at bedside in TCU. No acute distress. Patient reports some abd pain and bloating. She states that she is not constipated and does not want any medication. She states that she feels tired but is trying to participate in PT. She denies fever, chills, chest pain, sob, abd pain, n/v, diarrhea. Patient is tolerating diet, but reports that she is not eating much due to her teeth and pain from her jaw after her fall. She continues to have tenderness in her right elbow however pain has improved. Objective - Vital Signs/Intake and Output Vital Signs (last 24 hours): Temp Pulse Resp BP Pulse Ox 98.7 F 82 20 154/76 H 95 06/03/17 16:00 06/04/17 10:33 06/03/17 16:00 06/04/17 10:33 06/03/17 16:00 - Medications Medications: Current Medications Alprazolam (Xanax) 0.25 mg PO DAILY KALA PRN Reason: Protocol Stop: 06/10/17 10:01 Last Admin: 06/04/17 10:34 Dose: 0.25 mg Amlodipine Besylate (Norvasc) 10 mg PO DAILY KALA PRN Reason: Protocol Last Admin: 06/04/17 09:07 Dose: Not Given Apixaban (Eliquis) 2.5 mg PO BID KALA PRN Reason: Protocol Last Admin: 06/04/17 10:32 Dose: 2.5 mg Aspirin (Ecotrin) 81 mg PO 0800 KALA PRN Reason: Protocol Last Admin: 06/04/17 08:40 Dose: 81 mg Atorvastatin Calcium (Lipitor) 40 mg PO DIN KALA PRN Reason: Protocol Last Admin: 06/03/17 17:05 Dose: 40 mg Docusate Sodium (Colace) 100 mg PO BID KALA PRN Reason: Protocol Last Admin: 06/04/17 10:22 Dose: Not Given Lidocaine HCl (Xylocaine 2%) 1 ea TOP BID KALA PRN Reason: Protocol Last Admin: 06/04/17 10:32 Dose: 1 applic Lisinopril (Zestril) 5 mg PO DAILY KALA PRN Reason: Protocol Last Admin: 06/04/17 10:33 Dose: 5 mg Oxycodone HCl (Oxycodone Immediate Release Tab) 10 mg PO Q6H PRN; Protocol PRN Reason: Pain, moderate (4-7) Last Admin: 06/04/17 10:37 Dose: 10 mg Pantoprazole Sodium (Protonix Ec Tab) 40 mg PO 0600 KALA PRN Reason: Protocol Last Admin: 06/04/17 05:49 Dose: 40 mg Paroxetine HCl (Paxil) 10 mg PO HS KALA PRN Reason: Protocol Last Admin: 06/03/17 22:01 Dose: 10 mg - Labs Labs: 06/04/17 09:45 06/04/17 09:45 - Constitutional Appears: No Acute Distress, Chronically Ill - Head Exam Head Exam: ATRAUMATIC, NORMOCEPHALIC - Eye Exam Eye Exam: EOMI, Normal appearance - ENT Exam ENT Exam: Mucous Membranes Moist - Respiratory Exam Respiratory Exam: Clear to Ausculation Bilateral, NORMAL BREATHING PATTERN. absent: Rhonchi, Wheezes, Respiratory Distress - Cardiovascular Exam Cardiovascular Exam: REGULAR RHYTHM. absent: Tachycardia, Murmur - GI/Abdominal Exam GI & Abdominal Exam: Soft, Normal Bowel Sounds. absent: Distended, Firm, Tenderness - Extremities Exam Extremities Exam: Normal Inspection. absent: Pedal Edema, Tenderness - Neurological Exam Neurological Exam: Alert, Awake, Oriented x3 - Skin Skin Exam: Dry, Intact, Normal Color, Warm Assessment and Plan - Assessment and Plan (Free Text) Assessment: 81 yo female with PMH of copd, migraines, metastatic stage IV colon carcinoma with intra abdominal carcinomatosis currently avastin and capecitabine, h/o progressive lymphedema of right lower extremity present after fall. s/p fall general weakness TAYLOR- resolved vascular insufficiency Plan: Head ct was negative for acute abnormalities showed 7mm calcified aneurysm hip xray showed no evidence of fracture unremarkable xray of right elbow, however patient is complaining of consulted ortho, recommended physical therapy and ambulation for deep contusion continue using lidocaine patch for pain and khadijah bandage for right elbow venous doppler of right leg was negative for DVT arterial doppler showed severely abnormal HUNTER at rest IR was consulted, recommended continue asa 81mg, eliquis and continue to monitor will add diet supplementation, ensure dietitian referral psych consulted for depression, started paxil nephrology consulted neurology consulted, recommended MRI however patient refused, recommended outpatient follow up continue Physical therapy in TCU
--- NOTE | 2017-06-04 11:36 | CP.PCM.PCO ---
Physician Communication Note - Physician Communication Note Physician Communication Note: psychiatry signed off
[2017-06-05] MEDS: Pantoprazole 40 mg EC Tab PO SCH (05:40)
[2017-06-05] MEDS: Lidocaine 2% Jelly (30 ml) TOP SCH ×2 (10:00→18:16)
[2017-06-05] MEDS: oxyCODONE 10 mg Immediate Release Tab PO PRN (18:18)
[2017-06-06] MEDS: Pantoprazole 40 mg EC Tab PO SCH (05:20)
--- NOTE | 2017-06-06 05:26 | PN ---
DATE: 06/05/2017 ONCOLOGY PROGRESS NOTE LOCATION: The patient is in room 322, bed 2. The patient is seen and examined at bedside in TCU. SUBJECTIVE: The patient is no significant distress. Some abdominal discomfort. Not constipated. Feeling okay. She has been participating in PT for deconditioning. Denies any history of fever, chills, chest pain, shortness of breath, abdominal pain and diarrhea. is better. The patient is unable to tolerate more food because of her teeth and pains from her jaw, as she had hurt her lower jaw when she fell. Continues to require pain medication. OBJECTIVE: VITAL SIGNS: Stable, T-max was 98.4, pulse is 82, respirations 18, blood pressure 154/76, pulse ox is 96%. LABORATORY DATA: Reviewed, stable. White count of 6.6, hemoglobin 9.9, hematocrit 31.3, platelet count 335. Sodium is 142, K is 3.5, chloride is 105, CO2 is 29. BUN 11, creatinine 0.7. Blood sugar is 122. PHYSICAL EXAMINATION: GENERAL: Patient is awake, alert, and oriented. Looks chronically ill. muscle wasting is noted. HEENT: Conjunctivae are pale. Sclerae are anicteric. Pupils are equally reactive to light and accommodation. Examination of the oropharynx reveals no oropharyngeal lesions. The patient has an abrasion in the lower chin from the fall that she had prior to her admission to the acute side. LUNGS: Clear to percussion and auscultation. CARDIOVASCULAR SYSTEM: Reveals S1 and S2 to be normal. No gallop or murmur is heard. ABDOMEN: Soft, nontender. No rebound, rigidity or guarding is noted. EXTREMITIES: Reveal no cyanosis, clubbing or edema on the upper extremities. The patient has chronic leg swelling of the right lower extremity, lymphedema, and also venous incompetence causing swelling of her right lower extremity. The patient has very bad ABIs involving both lower extremities that may be contributing to some of degree of leg pain and discomfort that she has on the dorsum of her right foot involving the fourth and fifth toes; could have been compounded by the fact that she had the recent fall prior to admission to the hospital. GENITOURINARY AND RECTAL: Deferred. NEUROLOGIC: Reveals higher functions to be normal. No focal deficits are noted. MEDICATIONS: The patient's medications were reviewed. She is on Xanax 0.25 daily, she is on Norvasc 10 mg p.o. daily, Eliquis 2.5 b.i.d., aspirin 81 mg daily, Lipitor 40 mg daily, Colace 100 mg b.i.d., Xylocaine (lidocaine) 1% topically to the elbow where she has been having lot of pain, Zestril 5 mg daily, oxycodone 5 mg tablets two tablets every 6 hours p.r.n. for pain, pantoprazole 40 mg p.o. daily, and Paxil 10 mg p.o. at bedtime. 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 Hip x-ray showed no fracture. Unremarkable x-ray of the right elbow. However, the patient has been complaining of pain, for which Dr. Paco Bass saw the patient. The patient is continued on physical therapy, on lidocaine patch topically. Venous Doppler of the right lower extremity was negative. Arterial Doppler showed severe compromised HUNTER at rest. The patient is on dietary supplementation with Ensure. Dietary evaluation has been requested. Psych consultation was obtained, the patient was seen. Nephro consultation was obtained, the patient was seen. Neurology was consulted. The patient was recommended an MRI, but patient refused, and the neurologist recommended outpatient follow up. We will continue physical therapy for deconditioning for the duration of the stay in the TCU. Continue to monitor her labs to make sure specific . Time spent with the patient includes 45 minutes. Sourav Salgado MD
--- NOTE | 2017-06-06 08:12 | CP.PCM.PN ---
Subjective - Date & Time of Evaluation Date of Evaluation: 06/06/17 Time of Evaluation: 08:10 - Subjective Subjective: PGY-[address] Salgado's service Patient seen and examined at bedside in TCU. No acute distress. Patient is over all doing well. She continues to report tenderness in her right elbow. She states that pain comes and go. She also states that the pain in her right foot is intermittent. She continues to participate in PT. She denies fever, chills, chest pain, sob, abd pain, n/v, diarrhea. Patient is tolerating diet and ensure. Objective - Vital Signs/Intake and Output Vital Signs (last 24 hours): Temp Pulse Resp BP Pulse Ox 98.3 F 68 20 133/70 98 06/05/17 11:11 06/05/17 16:48 06/05/17 11:11 06/05/17 11:11 06/05/17 16:48 - Medications Medications: Current Medications Alprazolam (Xanax) 0.25 mg PO DAILY KALA PRN Reason: Protocol Stop: 06/10/17 10:01 Last Admin: 06/05/17 10:05 Dose: 0.25 mg Amlodipine Besylate (Norvasc) 10 mg PO DAILY KALA PRN Reason: Protocol Last Admin: 06/05/17 10:00 Dose: 10 mg Apixaban (Eliquis) 2.5 mg PO BID KALA PRN Reason: Protocol Last Admin: 06/05/17 18:15 Dose: 2.5 mg Aspirin (Ecotrin) 81 mg PO 0800 KALA PRN Reason: Protocol Last Admin: 06/05/17 08:51 Dose: 81 mg Atorvastatin Calcium (Lipitor) 40 mg PO DIN KALA PRN Reason: Protocol Last Admin: 06/05/17 18:15 Dose: 40 mg Docusate Sodium (Colace) 100 mg PO BID KALA PRN Reason: Protocol Last Admin: 06/05/17 18:15 Dose: Not Given Lidocaine HCl (Xylocaine 2%) 1 ea TOP BID KALA PRN Reason: Protocol Last Admin: 06/05/17 18:16 Dose: 1 applic Lisinopril (Zestril) 5 mg PO DAILY KALA PRN Reason: Protocol Last Admin: 06/05/17 10:00 Dose: 5 mg Oxycodone HCl (Oxycodone Immediate Release Tab) 10 mg PO Q6H PRN; Protocol PRN Reason: Pain, moderate (4-7) Last Admin: 06/05/17 18:18 Dose: 10 mg Pantoprazole Sodium (Protonix Ec Tab) 40 mg PO 0600 KALA PRN Reason: Protocol Last Admin: 06/06/17 05:20 Dose: 40 mg Paroxetine HCl (Paxil) 10 mg PO HS KALA PRN Reason: Protocol Last Admin: 06/05/17 22:16 Dose: 10 mg - Labs Labs: 06/04/17 09:45 06/04/17 09:45 - Constitutional Appears: Well, No Acute Distress - Head Exam Head Exam: ATRAUMATIC, NORMOCEPHALIC - Eye Exam Eye Exam: EOMI, Normal appearance - ENT Exam ENT Exam: Mucous Membranes Moist - Respiratory Exam Respiratory Exam: Clear to Ausculation Bilateral, NORMAL BREATHING PATTERN. absent: Rhonchi, Wheezes, Respiratory Distress - Cardiovascular Exam Cardiovascular Exam: REGULAR RHYTHM. absent: Bradycardia, Tachycardia, Murmur - GI/Abdominal Exam GI & Abdominal Exam: Soft, Normal Bowel Sounds. absent: Distended, Firm, Tenderness - Neurological Exam Neurological Exam: Alert, Awake, Oriented x3 - Skin Skin Exam: Dry, Intact, Normal Color, Warm Assessment and Plan - Assessment and Plan (Free Text) Assessment: 81 yo female with PMH of copd, migraines, metastatic stage IV colon carcinoma with intra abdominal carcinomatosis currently avastin and capecitabine, h/o progressive lymphedema of right lower extremity present after fall. s/p fall general weakness TAYLOR- resolved vascular insufficiency Plan: patient is s/p fall Head ct was negative for acute abnormalities showed 7mm calcified aneurysm hip xray showed no evidence of fracture unremarkable xray of right elbow ortho, recommended physical therapy and ambulation for deep contusion continue using lidocaine patch for pain and khadijah bandage for right elbow venous doppler of right leg was negative for DVT arterial doppler showed severely abnormal HUNTER at rest IR was consulted, recommended continue asa 81mg, eliquis and continue to monitor will add diet supplementation, ensure dietitian referral psych consulted for depression, started paxil nephrology consulted neurology consulted, recommended MRI however patient refused, recommended outpatient follow up continue Physical therapy in TCU Patient's last day of TCU is 06/10
[2017-06-06] MEDS: oxyCODONE 10 mg Immediate Release Tab PO PRN ×2 (10:02→17:43)
[2017-06-06] MEDS: Lidocaine 2% Jelly (30 ml) TOP SCH ×2 (10:03→17:41)
[2017-06-07] MEDS: Pantoprazole 40 mg EC Tab PO SCH (05:27)
--- NOTE | 2017-06-07 10:04 | CP.PCM.PN ---
Subjective - Date & Time of Evaluation Date of Evaluation: 06/07/17 Time of Evaluation: 09:00 - Subjective Subjective: PGY-[address] Salgado's service Patient seen and examined at bedside in TCU. No acute distress. Patient is over all doing well. She continues to report tenderness in her right elbow. She states that pain comes and go. She also states that the pain in her right foot is intermittent. She continues to participate in PT, is able to walk with her walker. She denies fever, chills, chest pain, sob, abd pain, n/v, diarrhea. Patient is tolerating diet and ensure. Objective - Vital Signs/Intake and Output Vital Signs (last 24 hours): Temp Pulse Resp BP Pulse Ox 98.5 F 74 18 128/72 97 06/06/17 16:00 06/06/17 16:00 06/06/17 16:00 06/06/17 16:00 06/06/17 16:00 - Medications Medications: Current Medications Alprazolam (Xanax) 0.25 mg PO DAILY KALA PRN Reason: Protocol Stop: 06/10/17 10:01 Last Admin: 06/06/17 10:03 Dose: 0.25 mg Amlodipine Besylate (Norvasc) 10 mg PO DAILY KALA PRN Reason: Protocol Last Admin: 06/06/17 10:05 Dose: 10 mg Apixaban (Eliquis) 2.5 mg PO BID KALA PRN Reason: Protocol Last Admin: 06/06/17 17:40 Dose: 2.5 mg Aspirin (Ecotrin) 81 mg PO 0800 KALA PRN Reason: Protocol Last Admin: 06/07/17 08:41 Dose: 81 mg Atorvastatin Calcium (Lipitor) 40 mg PO DIN KALA PRN Reason: Protocol Last Admin: 06/06/17 17:40 Dose: 40 mg Docusate Sodium (Colace) 100 mg PO BID KALA PRN Reason: Protocol Last Admin: 06/06/17 17:40 Dose: Not Given Lidocaine HCl (Xylocaine 2%) 1 ea TOP BID KALA PRN Reason: Protocol Last Admin: 06/06/17 17:41 Dose: 1 applic Lisinopril (Zestril) 5 mg PO DAILY KALA PRN Reason: Protocol Last Admin: 06/06/17 10:03 Dose: 5 mg Oxycodone HCl (Oxycodone Immediate Release Tab) 10 mg PO Q6H PRN; Protocol PRN Reason: Pain, moderate (4-7) Last Admin: 06/06/17 17:43 Dose: 10 mg Pantoprazole Sodium (Protonix Ec Tab) 40 mg PO 0600 KALA PRN Reason: Protocol Last Admin: 06/07/17 05:27 Dose: 40 mg Paroxetine HCl (Paxil) 10 mg PO HS KALA PRN Reason: Protocol Last Admin: 06/06/17 21:22 Dose: 10 mg - Labs Labs: 06/04/17 09:45 06/04/17 09:45 - Constitutional Appears: Well, No Acute Distress - Head Exam Head Exam: ATRAUMATIC, NORMOCEPHALIC - Eye Exam Eye Exam: EOMI, Normal appearance - ENT Exam ENT Exam: Mucous Membranes Moist - Respiratory Exam Respiratory Exam: NORMAL BREATHING PATTERN. absent: Respiratory Distress - GI/Abdominal Exam GI & Abdominal Exam: Soft. absent: Distended, Guarding, Tenderness - Extremities Exam Extremities Exam: Normal Inspection - Neurological Exam Neurological Exam: Alert, Awake, Oriented x3. absent: Abnormal Gait - Psychiatric Exam Psychiatric exam: Normal Affect, Normal Mood - Skin Skin Exam: Dry, Intact, Normal Color, Warm Assessment and Plan - Assessment and Plan (Free Text) Assessment: 81 yo female with PMH of copd, migraines, metastatic stage IV colon carcinoma with intra abdominal carcinomatosis currently avastin and capecitabine, h/o progressive lymphedema of right lower extremity present after fall. s/p fall general weakness TAYLOR- resolved vascular insufficiency Plan: patient is s/p fall Head ct was negative for acute abnormalities showed 7mm calcified aneurysm hip xray showed no evidence of fracture unremarkable xray of right elbow ortho, recommended physical therapy and ambulation for deep contusion continue using lidocaine patch for pain and khadijah bandage for right elbow venous doppler of right leg was negative for DVT arterial doppler showed severely abnormal HUNTER at rest IR was consulted, recommended continue asa 81mg, eliquis and continue to monitor will add diet supplementation, ensure dietitian referral psych consulted for depression, started paxil nephrology consulted neurology consulted, recommended MRI however patient refused, recommended outpatient follow up continue Physical therapy in TCU Patient's last day of TCU is 06/10
[2017-06-07 10:41] LABS: BASO # 0.02 K/mm3 (0.0-2.0); BASO % 0.3 % (0.0-3.0); EOS # 0.1 (0.0-0.7); EOS % 1.6 % (1.5-5.0); GRAN # 4.98 (1.4-6.5); GRAN % 67.1 % (50.0-68.0); HEMOGLOBIN 8.7 g/dL (12.0-16.0); LYMPH # 1.2 (1.2-3.4); LYMPH % 16.2 % (22.0-35.0); MEAN CORPUSCULAR HEMOGLOBIN 26.5 pg (25.0-35.0); MEAN CORPUSCULAR HGB CONC 30.9 g/dl (31.0-37.0); MEAN PLATELET VOLUME 10.8 fl (7.0-11.0); MONO # 1.1 (0.1-0.6); MONO % 14.8 % (1.0-6.0); RBC 3.28 10^6/uL (3.5-6.1); WHITE BLOOD COUNT 7.4 10^3/ul (4.5-11.0)
[2017-06-07] MEDS: Lidocaine 2% Jelly (30 ml) TOP SCH ×2 (10:57→18:02)
[2017-06-07 11:16] LABS: ALB/GLOB RATIO 1.2 (1.1-1.8); ALBUMIN 2.9 g/dL (3.0-4.8); ALT/SGPT 24 U/L (7-56); AST/SGOT 19 U/L (14-36); BLOOD UREA NITROGEN 26 mg/dL (7-21); CALCIUM 8.9 mg/dL (8.4-10.5); GFR AFRICAN-AMERICAN > 60; GFR NON-AFRICAN AMERICAN 60
[2017-06-07] MEDS: oxyCODONE 10 mg Immediate Release Tab PO PRN (20:15)
[2017-06-08] MEDS: Pantoprazole 40 mg EC Tab PO SCH (05:39)
[2017-06-08] MEDS: oxyCODONE 10 mg Immediate Release Tab PO PRN ×2 (05:42→11:08)
[2017-06-08 07:21] LABS: BASO # 0.02 K/mm3 (0.0-2.0); BASO % 0.2 % (0.0-3.0); EOS # 0.1 (0.0-0.7); EOS % 0.8 % (1.5-5.0); GRAN # 7.65 (1.4-6.5); HEMOGLOBIN 9.4 g/dL (12.0-16.0); LYMPH % 18.6 % (22.0-35.0); MEAN CELL VOLUME 85.2 fl (80.0-105.0); MEAN CORPUSCULAR HEMOGLOBIN 26.3 pg (25.0-35.0); MEAN CORPUSCULAR HGB CONC 30.8 g/dl (31.0-37.0); MEAN PLATELET VOLUME 10.4 fl (7.0-11.0); MONO # 0.9 (0.1-0.6); MONO % 8.4 % (1.0-6.0); RBC 3.58 10^6/uL (3.5-6.1); RED CELL DISTRIBUTION WIDTH 19.8 % (11.5-14.5); WHITE BLOOD COUNT 10.6 10^3/ul (4.5-11.0)
[2017-06-08 07:34] LABS: ALB/GLOB RATIO 1.2 (1.1-1.8); ALBUMIN 3.1 g/dL (3.0-4.8); ALT/SGPT 21 U/L (7-56); AST/SGOT 23 U/L (14-36); BLOOD UREA NITROGEN 25 mg/dL (7-21); CALCIUM 9.2 mg/dL (8.4-10.5); GFR AFRICAN-AMERICAN > 60; GFR NON-AFRICAN AMERICAN > 60
[2017-06-08] MEDS: Lidocaine 2% Jelly (30 ml) TOP SCH ×2 (11:00→17:58)
[2017-06-08] MEDS ORDERED: oxyCODONE 5 mg Immediate Release Tab PO PRN (13:48)
[2017-06-08 18:07] VITALS: RESP 16; TEMP 97.4; O2SAT 100
--- NOTE | 2017-06-08 19:38 | PN ---
DATE: 06/08/2017 This is [facility] [place] [facility] visit on TCU. For Dr. Salgado. SUBJECTIVE: The patient is an 81-year-old female seen sitting up in bed, reporting that she had diarrhea earlier today with requests for Imodium now to be given soon. The patient also reporting she continues to have right arm discomfort after syncopal episode in the recent past with patient otherwise participating in TCU protocol and anxious for discharge home once she is stable, hopefully tomorrow or for Sunday as per arrangements to be made by social workers for her home needs. The patient is known to suffer from metastatic colon CA, status post partial resection with radiation. She also had a recent DVT with angioplasty and stenting of the right external iliac artery by Dr. Parth Torres with the patient on Eliquis. She also has as history of gastric erosion with cellulitis of the right lower extremity, which is also now improved; history of GI bleed. She is also a smoker with anxiety a factor and lives alone. PHYSICAL EXAMINATION: VITAL SIGNS: Temperature 98.7, pulse 61, respirations 16, blood pressure 146/78, pulse ox 96%. GENERAL: The patient's weight is 102 pounds. HEENT: Unremarkable. Poor dentition noted. NECK: Supple with muscle wasting of the temples noted. HEART: Regular rate. LUNGS: Clear. ABDOMEN: Soft, nontender. EXTREMITIES: Faint +1 edema of the right lower extremity greater than left. NEUROLOGIC: Awake and alert. SKIN: Otherwise warm, dry, and clear. LABORATORY DATA: The patient's labs were done to include a white blood cell count of 10.6, hemoglobin of 9.4 up from 8.7 yesterday with a platelet count of 406,000 with a chem metabolic panel within normal range with a BUN of 25 and creatinine of 0.8 today. ASSESSMENT: New onset diarrhea; rule out clostridium difficile enterocolitis with testing to be done; chronic obstructive pulmonary disease; stage IV metastatic colon cancer with intraabdominal carcinomatosis, currently on Avastin and capecitabine with edema in the right lower extremity; history of status post fall; smoker; anxiety. The patient also suffers from gait disturbance, deconditioning, history of deep venous thrombosis, gastric erosion, peptic ulcer disease, lymphedema, anxiety, hypertension. PLAN: The plan for this patient after conversation with Dr. Naomi is to continue present medical regimen with social service evaluation for maximal assist with home needs as indicated. We will ask for stool for C. difficile. We will ask to give Imodium as needed for her loose stool with her narcotic analgesics cut back from 10 of oxycodone every six hours to 5 every four hours for her pain should be necessary. Also input from Dr. Alia Alegre, psychiatrist is also appreciated. This is a complex patient with a comprehensive medically necessary and appropriate visit carried out in excess of 20 minutes [id number] time with the patient, lab tests reviewed. Alonzo Ferguson MD
[2017-06-09] MEDS: Pantoprazole 40 mg EC Tab PO SCH (05:52)
[2017-06-09 09:07] LABS: BASO # 0.04 K/mm3 (0.0-2.0); BASO % 0.4 % (0.0-3.0); EOS # 0.1 (0.0-0.7); EOS % 1.6 % (1.5-5.0); GRAN # 6.35 (1.4-6.5); GRAN % 70.8 % (50.0-68.0); LYMPH # 1.7 (1.2-3.4); LYMPH % 18.8 % (22.0-35.0); MEAN CELL VOLUME 84.9 fl (80.0-105.0); MEAN CORPUSCULAR HEMOGLOBIN 26.1 pg (25.0-35.0); MEAN CORPUSCULAR HGB CONC 30.7 g/dl (31.0-37.0); MEAN PLATELET VOLUME 9.5 fl (7.0-11.0); MONO # 0.8 (0.1-0.6); MONO % 8.4 % (1.0-6.0); RBC 3.45 10^6/uL (3.5-6.1); RED CELL DISTRIBUTION WIDTH 19.9 % (11.5-14.5)
[2017-06-09 09:19] LABS: ALB/GLOB RATIO 1.3 (1.1-1.8); ALBUMIN 3.2 g/dL (3.0-4.8); ALT/SGPT 25 U/L (7-56); AST/SGOT 21 U/L (14-36); BLOOD UREA NITROGEN 20 mg/dL (7-21); GFR AFRICAN-AMERICAN > 60; GFR NON-AFRICAN AMERICAN 60
[2017-06-09 09:23] VITALS: BP 134/60; PULSE 76
[2017-06-09] MEDS: Lidocaine 2% Jelly (30 ml) TOP SCH (10:55)
--- NOTE | 2017-06-10 07:44 | DS ---
For Dr. Salgado. SUBJECTIVE: The patient is 81-year-old female seen sitting up in bed, anxious to be discharged home. She has all of her things packed in bag, ready to for her grandson, Berry, to take her home. The patient was admitted for reconditioning after being hospitalized earlier in the hospital stay. At present, she is denying complaints including resolution of her diarrhea from yesterday. The patient is known to suffer from metastatic CA of the colon with recent DVT and stenting by Dr. Parth Torres. The patient continues to smoke and was advised not to with the patient refusing patch or Chantix. The patient was originally admitted on 05/29/2017 for facial injury after a significant fall on her way to the ambulance, which is transporting her for chemotherapy with the patient being off balance since falling. Otherwise, she is now reconditioned and anxious for discharged home. OBJECTIVE: GENERAL: The patient appears frail. VITAL SIGNS: Temperature 97.4, pulse 82, respirations 16, blood pressure 134/60, pulse ox of 100%. HEENT: Unremarkable. No obvious skin changes at this point on her face with the abrasion now healing. Poor dentition noted. NECK: Supple. HEART: Regular rate. LUNGS: Clear. ABDOMEN: Soft, nontender. EXTREMITIES: Faint +1 edema of the right lower extremity greater than left. NEUROLOGIC: Awake and alert. SKIN: Otherwise warm, dry, and clear. LABORATORY DATA: The patient's labs were done. White blood cell count of 9, hemoglobin of 9, hematocrit of 29.3, platelet count of 379,000. Her chem metabolic panel showed a normal chem metabolic panel with a total protein of 5.7. MEDICATIONS: The patient's medicines were reviewed. They include oxycodone 10 mg one p.o. every eight hours p.r.n. for severe pain or Tylenol for mild pain. A prescription was given to the patient for pick-up at her drugstore, which is [facility]. Her other medications include Ecotrin, Eliquis, Lipitor, Norvasc, Paxil, Protonix, Xanax, lidocaine gel and Zestril. [facility] was contacted regarding refills on Paxil, Protonix and Zestril with the handwritten prescription for narcotic analgesics also given. ASSESSMENT: The assessment for this patient is that of deconditioning, chronic obstructive pulmonary disease, stage IV metastatic colon cancer with intraabdominal carcinomatosis, peripheral vascular disease status post stenting, status post fall, smoker, anxiety, history of deep venous thrombosis, gastric erosion, peptic ulcer disease, hypertension, depression. PLAN: Plan for this patient, after conversation with Dr. Salgado is to allow her to go home today with maximal assist including home visiting nurse, homemaker, home physiotherapy and whatever she qualifies for according to her insurance as per social workers. Also, to follow up with Dr. Salgado in approximately 3 to 5 days as an outpatient so that she may continue to resume her chemotherapy as per Dr. Salgado's protocol with the patient's medicines to be continued as listed above. With this, the patient's prognosis is guarded with the patient to follow up as above in three to five days or earlier p.r.n. This is a complex patient with a comprehensive medical necessity and appropriate visit carried out in excess of 35 minutes [id number] time, phone call conversations held with the drugstore, with the nurses and with arrangements made for the patient to follow up as above. Alonzo Ferguson MD
== END 2017-06-09 13:24 | disposition home or self-care (01) | DRG 191 ==
LOC: TRCU 12:15
PROVIDERS: ADMIT Family Medicine; ATTEND Family Medicine
PROC: F07Z9FZ Gait Training/Functional Ambulation Treatment using Assistive, Adaptive, Supportive or Protective Equipment (ICD-10-PCS; principal; 2017-06-03)
PROC: F07M6ZZ Therapeutic Exercise Treatment of Musculoskeletal System - Whole Body (ICD-10-PCS; 2017-06-03)
PROC: F08Z1ZZ Dressing Techniques Treatment (ICD-10-PCS; 2017-06-03)
PROC: F08Z2ZZ Grooming/Personal Hygiene Treatment (ICD-10-PCS; 2017-06-03)
PROC: F08Z4ZZ Home Management Treatment (ICD-10-PCS; 2017-06-03)
DX: J44.9 Chronic obstructive pulmonary disease, unspecified (principal); C18.9 Malignant neoplasm of colon, unspecified; C80.0 Disseminated malignant neoplasm, unspecified; F32.1 Major depressive disorder, single episode, moderate; N17.9 Acute kidney failure, unspecified; F17.200 Nicotine dependence, unspecified, uncomplicated; F41.1 Generalized anxiety disorder; G47.00 Insomnia, unspecified; I10 Essential (primary) hypertension; I73.9 Peripheral vascular disease, unspecified; W19.XXXA Unspecified fall, initial encounter; Z86.718 Personal history of other venous thrombosis and embolism; Z87.11 Personal history of peptic ulcer disease

== ENCOUNTER 2017-07-31 22:30 | Inpatient (IN) | payer MEDICARE ==
[2017-07-31 22:31] VITALS: BMI 17.5
--- NOTE | 2017-07-31 22:50 | ED PDOC ---
Arrival/HPI - General Chief Complaint: Weakness/Neurological Deficit Time Seen by Provider: 07/31/17 22:34 Historian: Patient, EMS - History of Present Illness Narrative History of Present Illness (Text): 07/31/17 22:49 Nadia Watson is an 82 year old female, whose past medical history includes COPD, migraine, metastatic colon carcicnoma, and lymphedema, who presents to the Emergency department complaining of generalized weakness. Patient states she fell at home yesterday and is now experiencing left-sided hip pain. Limited HPI and ROS secondary to patient's acuity of condition. Symptom Onset: Gradual Symptom Course: Unchanged Activities at Onset: Light Context: Home Past Medical History - Provider Review Nursing Documentation Reviewed: Yes - Infectious Disease Hx of Infectious Diseases: None - Tetanus Immunization Tetanus Immunization: Unknown - Cardiac Hx Cardiac Disorders: Yes Hx Hypertension: Yes - Pulmonary Hx Chronic Obstructive Pulmonary Disease (COPD): Yes - Neurological Hx Neurological Disorder: Yes Hx Migraine: Yes - HEENT Hx HEENT Disorder: Yes Hx Cataracts: Yes Hx Difficulty Chewing: Yes - Renal Hx Renal Disorder: No - Endocrine/Metabolic Hx Endocrine Disorders: No - Hematological/Oncological Hx Blood Transfusions: Yes Hx Blood Transfusion Reaction: No - Integumentary Hx Dermatological Disorder: No - Musculoskeletal/Rheumatological Hx Falls: Yes (recent) - Gastrointestinal Hx Gastrointestinal Disorders: Yes (ulcer/reflux) - Genitourinary/Gynecological Hx Genitourinary Disorders: No - Psychiatric Hx Psychophysiologic Disorder: Yes Hx Anxiety: Yes Hx Substance Use: No - Surgical History Other/Comment: Colon resection - Anesthesia Hx Anesthesia Reactions: No Hx Malignant Hyperthermia: No - Suicidal Assessment Feels Threatened In Home Enviroment: No Family/Social History - Physician Review Nursing Documentation Reviewed: Yes Family/Social History: Unknown Family HX Smoking Status: Former Smoker Hx Alcohol Use: No Hx Substance Use: No Hx Substance Use Treatment: No Allergies/Home Meds Allergies/Adverse Reactions: Allergies Penicillins Allergy (Severe, Verified 07/31/17 22:42) RASH Home Medications: Home Meds Medication Instructions Recorded Confirmed Famotidine [Pepcid] 40 mg PO DAILY 12/03/15 07/31/17 Lisinopril [Zestril] 5 mg PO DAILY 12/03/15 07/31/17 Simvastatin 40 mg PO DAILY 12/03/15 07/31/17 amLODIPine [Norvasc] 10 mg PO DAILY 12/03/15 07/31/17 Review of Systems - Physician Review All systems were reviewed & negative as marked: Yes - Review of Systems Constitutional: Normal. absent: Fevers Eyes: Normal ENT: Normal Respiratory: Normal. absent: SOB, Cough Cardiovascular: Normal. absent: Chest Pain Gastrointestinal: Normal. absent: Abdominal Pain, Diarrhea, Nausea, Vomiting Genitourinary Female: Normal Musculoskeletal: Normal. absent: Back Pain, Neck Pain Skin: Normal. absent: Rash Neurological: Normal. absent: Headache, Dizziness Endocrine: Normal Hemo/Lymphatic: Normal Psychiatric: Normal Physical Exam Vital Signs Reviewed: Yes Vital Signs Temp Pulse Resp BP Pulse Ox 08/01/17 05:40 99 08/01/17 05:19 98.0 F 66 18 151/60 H 08/01/17 05:00 98.2 F 66 18 143/64 08/01/17 04:43 98.2 F 66 18 151/60 H 95 07/31/17 22:45 97.8 F 68 18 125/42 L 98 Temperature: Afebrile Blood Pressure: Normal Pulse: Regular Respiratory Rate: Normal Appearance: Positive for: Non-Toxic, Cachectic Pain Distress: None Mental Status: Positive for: other (Alert, Oriented x2) - Systems Exam Head: Present: Normocephalic, Ecchymosis (Bruising to right face) Pupils: Present: PERRL Extroacular Muscles: Present: EOMI Conjunctiva: Present: Normal Mouth: Present: Moist Mucous Membranes Neck: Present: Normal Range of Motion. No: Meningeal Signs, MIDLINE TENDERNESS , Paraspinal Tenderness Respiratory/Chest: Present: Clear to Auscultation, Good Air Exchange. No: Respiratory Distress, Accessory Muscle Use Cardiovascular: Present: Regular Rate and Rhythm, Normal S1, S2. No: Murmurs Abdomen: No: Tenderness, Distention, Peritoneal Signs Upper Extremity: Present: Normal Inspection. No: Cyanosis, Edema Lower Extremity: Present: Normal Inspection. No: Edema Neurological: Present: GCS=15, CN II-XII Intact, Speech Normal Skin: Present: Warm, Dry, Normal Color. No: Rashes Psychiatric: Present: Alert Medical Decision Making ED Course and Treatment: 07/31/17 22:49 Impression: 82 year old female complaining of generalized weakness, s/p fall. Plan: -- CT Head w/o contrast -- EKG -- Chest X-Ray -- XR Pelvis -- Labs, troponin -- UA -- Reassess and disposition Prior Visits: Notes and results from previous visits were reviewed. Progress Notes: Reviewed EKG, sinus rhythm at 64 bpm[address] Non-specific ST/T wave changes. 08/01/17 01:00 Reviewed radiology, XR Pelvis shows no acute processes/no acute fractures. 08/01/17 02:[address] Salgado, who is aware and agrees with plan. Pt will go to remote telemetry observation for anemia under Dr. Brian's service. - Lab Interpretations Lab Results: 07/31/17 23:15 07/31/17 23:15 Lab Results 08/01/17 01:50: Urine Color Yellow, Urine Appearance Clear, Urine pH 6.0, Ur Specific [place] 1.010, Urine Protein Negative, Urine Glucose (UA) Negative, Urine Ketones Negative, Urine Blood Negative, Urine Nitrate Negative, Urine Bilirubin Negative, Urine Urobilinogen 0.2, Ur Leukocyte Esterase Trace H, Urine RBC 0 - 2, Urine WBC 1 - 3, Ur Epithelial Cells 0 - 2 08/01/17 00:10: Blood Type B POSITIVE, Antibody Screen Negative, Crossmatch See Detail, BBK History Checked Patient has bt 07/31/17 23:15: Sodium 139, Potassium 4.9, Chloride 104, Carbon Dioxide 25, Anion Gap 16, BUN 44 H, Creatinine 1.4 H, Est GFR ( Amer) 43, Est GFR ( Non-Af Amer) 36, Random Glucose 98, Calcium 8.9, Total Bilirubin 0.5, AST 40 H D , ALT 19, Alkaline Phosphatase 84, Troponin I < 0.01, Total Protein 6.2, Albumin 3.4, Globulin 2.8, Albumin/Globulin Ratio 1.2 07/31/17 23:15: PT 16.7 H, INR 1.45 H, APTT 28.3 07/31/17 23:15: WBC 6.3 D, RBC 2.36 L, Hgb 6.2 L* D, Hct 20.3 L*, MCV 86.0, MCH 26.3, MCHC 30.5 L, RDW 23.3 H, Plt Count 386, MPV 8.8, Gran % 69.5 H, Lymph % (Auto) 18.9 L, [place] % (Auto) 11.0 H, Eos % (Auto) 0.3 L, Baso % (Auto) 0.3, Gran # 4.40, Lymph # (Auto) 1.2, Dent # (Auto) 0.7 H, Eos # (Auto) 0.0, Baso # ( Auto) 0.02 I have reviewed the lab results: Yes - RAD Interpretation Radiology Orders: 07/31/17 22:59 HEAD W/O CONTRAST [CT] Stat 07/31/17 23:00 CHEST ONE VIEW [RAD] Stat PELVIS W/OBLIQUES (3VWS) [RAD] Stat Surgical Scheduler: ED Physician, Radiologist - EKG Interpretation Interpreted by ED Physician: Yes Type: 12 lead EKG - Medication Orders Current Medication Orders: Acetaminophen (Tylenol 325mg Tab) 650 mg PO Q4H PRN PRN Reason: Pain, Mild (1-3) Last Admin: 08/01/17 17:03 Dose: 650 mg [facility] Pain/Vitals Document 08/01/17 17:03 RDS (Rec: 08/01/17 17:05 RDS [id number]) Pain Reassessment Is This A Pain ReAssessment? No Presence of Pain Presence of Pain Yes Pain Scale Used Pain Scale Used Numeric Location Left, Right or Bilateral Right Pain Location Body Site Foot Intensity 3 Re-Assess: [facility] Pain/Vitals Document 08/01/17 18:03 RDS (Rec: 08/01/17 18:45 RDS [facility] [id number]) Pain Reassessment Is This A Pain ReAssessment? Yes Sleep Is patient sleeping during reassessment? No Presence of Pain Presence of Pain No Alprazolam (Xanax) 0.25 mg PO BID PRN; Protocol PRN Reason: Anxiety Stop: 08/08/17 18:01 Amlodipine Besylate (Norvasc) 10 mg PO DAILY [facility] Docusate Sodium (Colace) 100 mg PO BID [facility] Famotidine (Pepcid) 20 mg PO 2200 KALA Last Admin: 08/01/17 21:06 Dose: 20 mg Nicotine (Nicoderm Cq) 1 patch TD DAILY [facility] Oxycodone HCl (Oxycodone Immediate Release Tab) 10 mg PO Q6H PRN PRN Reason: Pain, severe (8-10) Paroxetine HCl (Paxil) 10 mg PO HS [facility] Polyethylene Glycol (Miralax) 17 gm PO DAILY PRN PRN Reason: Constipation Discontinued Medications Ondansetron HCl (Zofran Inj) 4 mg IVP STAT STA Stop: 08/01/17 04:33 Last Admin: 08/01/17 04:44 Dose: 4 mg IVP Administration Document 08/01/17 04:44 SS (Rec: 08/01/17 04:45 SS [id number]) Charges for Administration # of IVP Administrations 1 Polyethylene Glycol (Miralax) 17 gm PO ONCE ONE Stop: 08/01/17 13:21 Last Admin: 08/01/17 13:50 Dose: 17 gm Polyethylene Glycol (Miralax) 17 gm PO DAILY KALA - Scribe Statement The provider has reviewed the documentation as recorded by the Carole Verduzco Provider Scribe Attestation: All medical record entries made by the Ildaibtiarra were at my direction and personally dictated by me. I have reviewed the chart and agree that the record accurately reflects my personal performance of the history, physical exam, medical decision making, and the department course for this patient. I have also personally directed, reviewed, and agree with the discharge instructions and disposition. Disposition/Present on Arrival - Present on Arrival Any Indicators Present on Arrival: No History of DVT/PE: No History of Uncontrolled Diabetes: No Urinary Catheter: No History of Decub. Ulcer: No History Surgical Site Infection Following: None - Disposition Have Diagnosis and Disposition been Completed?: Yes Diagnosis: Anemia Disposition: HOSPITALIZED Disposition Time: 02:26 Condition: FAIR
[2017-07-31 23:32] LABS: BASO # 0.02 K/mm3 (0.0-2.0); BASO % 0.3 % (0.0-3.0); EOS % 0.3 % (1.5-5.0); GRAN # 4.4 (1.4-6.5); GRAN % 69.5 % (50.0-68.0); LYMPH # 1.2 (1.2-3.4); LYMPH % 18.9 % (22.0-35.0); MEAN CORPUSCULAR HEMOGLOBIN 26.3 pg (25.0-35.0); MEAN CORPUSCULAR HGB CONC 30.5 g/dl (31.0-37.0); MEAN PLATELET VOLUME 8.8 fl (7.0-11.0); MONO # 0.7 (0.1-0.6); RBC 2.36 10^6/uL (3.5-6.1); RED CELL DISTRIBUTION WIDTH 23.3 % (11.5-14.5); WHITE BLOOD COUNT 6.3 10^3/ul (4.5-11.0)
[2017-07-31 23:39] LABS: HEMOGLOBIN 6.2 g/dL (12.0-16.0)
[2017-07-31 23:40] LABS: INR 1.45 (0.93-1.08); PARTIAL THROMBOPLASTIN TIME 28.3 Seconds (25.1-36.5); PROTHROMBIN TIME 16.7 SECONDS (9.4-12.5)
[2017-07-31 23:41] LABS: ALB/GLOB RATIO 1.2 (1.1-1.8); ALBUMIN 3.4 g/dL (3.0-4.8); ALT/SGPT 19 U/L (7-56); AST/SGOT 40 U/L (14-36); BLOOD UREA NITROGEN 44 mg/dL (7-21); CALCIUM 8.9 mg/dL (8.4-10.5); GFR AFRICAN-AMERICAN 43; GFR NON-AFRICAN AMERICAN 36
[2017-07-31 23:53] LABS: TROPONIN I < 0.01 ng/mL
[2017-08-01 02:17] LABS: URINE BILIRUBIN NEGATIVE (NEGATIVE); URINE BLOOD NEGATIVE (NEGATIVE); URINE GLUCOSE (UA) NEGATIVE (NEGATIVE); URINE LEUKOCYTE ESTERASE TRACE Leu/uL (NEGATIVE); URINE PROTEIN NEGATIVE mg/dL (<30 mg/dL); URINE UROBILINOGEN 0.2 E.U./dL (<1 E.U./dL)
[2017-08-01 02:18] LABS: URINE APPEARANCE CLEAR (CLEAR); URINE COLOR YELLOW (YELLOW)
[2017-08-01 02:29] LABS: URINE RBC 0 - 2 /hpf (0-2)
[2017-08-01 02:30] LABS: URINE EPITHELIAL CELLS 0 - 2 /hpf (0-5)
--- NOTE | 2017-08-01 09:34 | CT ---
PROCEDURE: CT HEAD WITHOUT CONTRAST. HISTORY: weakness COMPARISON: 05/29/2017. TECHNIQUE: Axial computed tomography images were obtained through the head/brain without intravenous contrast. Radiation dose: Total exam DLP = mGy-cm. This CT exam was performed using one or more of the following dose reduction techniques: Automated exposure control, adjustment of the mA and/or kV according to patient size, and/or use of iterative reconstruction technique. FINDINGS: HEMORRHAGE: No intracranial hemorrhage. Stable 5 mm right MCA aneurysm. BRAIN: No mass effect or edema. Diffuse/ confluent chronic periventricular white matter ischemic changes seen extending peripherally into the deep and subcortical white matter both cerebral hemispheres. VENTRICLES: Unremarkable. No hydrocephalus. CALVARIUM: Unremarkable. PARANASAL SINUSES: Unremarkable as visualized. No significant inflammatory changes. MASTOID AIR CELLS: Unremarkable as visualized. No inflammatory changes. OTHER FINDINGS: None. IMPRESSION: No change.
--- NOTE | 2017-08-01 09:35 | CARD ---
APPROVED REPORT EKG Measurement Heart [id number] <Conclusion> Sinus rhythm with short MO T wave abnormality, consider inferolateral ischemia Abnormal ECG
--- NOTE | 2017-08-01 10:14 | RAD ---
PROCEDURE: CHEST RADIOGRAPH, 1 VIEW HISTORY: weakness COMPARISON: 05/29/2017 FINDINGS: LUNGS: There is a 19 mm nodule in a left upper lobe. The lungs are otherwise clear PLEURA: No pneumothorax or pleural fluid seen. CARDIOVASCULAR: Normal. OSSEOUS STRUCTURES: No significant abnormalities. VISUALIZED UPPER ABDOMEN: Normal. OTHER FINDINGS: Right-sided Port-A-Cath IMPRESSION: Left upper lobe lung nodule. The lungs are otherwise clear
--- NOTE | 2017-08-01 10:31 | RAD ---
PROCEDURE: Pelvis with obliques HISTORY: fall COMPARISON: TECHNIQUE: Three views FINDINGS: There is no evidence of pelvic or hip fracture. IMPRESSION: Negative study
[2017-08-01] MEDS ORDERED: POLYETHYLENE GLYCOL 3350 17 GM/Dose PACKET PO ONE (13:20)
--- NOTE | 2017-08-01 13:23 | CP.PCM.PCO ---
Assessment & Plan - Assessment and Plan (Free Text) Assessment: NEURO COMMUNICATION NOTE: GENERALIZED WEAKNESS SEC TO ACUTE ANEMIA WITH Hb OF 6.2 SUPER IMPOSED UNDERLYING NEUROPATHY AND DECONDITONED STATE. PLAN: TRANSFUSE PRBC FOR LOW HB AND NEEDS GI CONSULT. HYDRATE THE PATIENT DUE TO MILD RENAL INSUFFICIENCY PHYSICAL THERAPY ASSESSMENT. NUTRITIONAL CONSULT NEEDED FOR BETTER DIET REGIMEN. THANKS SUSANA ANN
--- NOTE | 2017-08-01 14:22 | CON ---
STORY OF PRESENT ILLNESS: This is an 82-year-old white female with past medical history of metastatic colon cancer, migraine headache, COPD, came to the emergency room with generalized weakness and the patient fell at home yesterday, had bruised her face and does not remember losing consciousness. No tongue bite. No urinary incontinence. Called to evaluate the patient. PAST MEDICAL HISTORY: As above. ALLERGIES: PENICILLIN. HOME MEDICATIONS: Pepcid, Zestril, simvastatin and Norvasc. REVIEW OF SYSTEMS: A 10-point review of systems was negative except falls and bruises on the face. PHYSICAL EXAMINATION VITAL SIGNS: Blood pressure 125/40, 151/60. HEENT: Normocephalic, trauma to the face. NECK: Supple. NEUROLOGIC: Awake, alert, orientated to self, no aphasia. Cranial nerves II through XII were tested. Pupils reactive. EOM intact. Moves all the extremities spontaneously. Deep tendon reflexes 1+. Both plantars downgoing. Sensory appears intact. Cerebellar gait deferred. LABORATORY DATA: WBC 6.3, hemoglobin 6.2, hematocrit 20.3, platelet 386. Sodium 139, potassium 4.9, chloride 104, CO2 of 25, glucose 98, BUN 44, creatinine 1.4. The patient attends Dr. Salgado for colon CA and very anemic and had a syncopal episode and felt dizzy, weak and fell. CAT scan of the head was done, which was reported negative. The patient is getting blood transfusion. Continue present management. We will follow up. Ranjeet Fraser MD
[2017-08-01 17:13] LABS: BASO # 0.01 K/mm3 (0.0-2.0); BASO % 0.2 % (0.0-3.0); GRAN # 4.74 (1.4-6.5); GRAN % 73.9 % (50.0-68.0); HEMOGLOBIN 9.7 g/dL (12.0-16.0); LYMPH # 0.9 (1.2-3.4); LYMPH % 13.7 % (22.0-35.0); MEAN CELL VOLUME 83.1 fl (80.0-105.0); MEAN CORPUSCULAR HEMOGLOBIN 26.8 pg (25.0-35.0); MEAN CORPUSCULAR HGB CONC 32.2 g/dl (31.0-37.0); MEAN PLATELET VOLUME 9.4 fl (7.0-11.0); MONO # 0.8 (0.1-0.6); MONO % 12.2 % (1.0-6.0); RBC 3.62 10^6/uL (3.5-6.1); RED CELL DISTRIBUTION WIDTH 19.4 % (11.5-14.5); WHITE BLOOD COUNT 6.4 10^3/ul (4.5-11.0)
[2017-08-01 17:31] LABS: ALB/GLOB RATIO 1.1 (1.1-1.8); ALBUMIN 3.2 g/dL (3.0-4.8); ALT/SGPT 26 U/L (7-56); AST/SGOT 26 U/L (14-36); BLOOD UREA NITROGEN 31 mg/dL (7-21); CALCIUM 8.8 mg/dL (8.4-10.5); GFR AFRICAN-AMERICAN > 60; GFR NON-AFRICAN AMERICAN 53
[2017-08-01] MEDS ORDERED: oxyCODONE 10 mg Immediate Release Tab PO PRN (21:19)
--- NOTE | 2017-08-02 01:11 | HP ---
DATE OF EXAM: 08/01/2017 This is [facility] visit on the telemetry floor. For Dr. Salgado. CHIEF COMPLAINT: Fall, weakness. HISTORY OF PRESENT ILLNESS: The patient is an 82-year-old female who reportedly fell at home yesterday with no loss of consciousness, no head trauma, with left-sided hip discomfort afterwards. The patient is now admitted via the Emergency Room for evaluation and treatment. It should be noted that the patient has a significant drop in her hemoglobin with a hemoglobin noted to be 6.2 with consideration for GI bleed. It should be noted that the patient is noncompliant in followups with Dr. Salgado's office for continuation of her chemotherapy for her metastatic stage IV colon CA. Currently on chemotherapy with Avastin and Xeloda. She also suffers from hypercoagulable state with DVT in the right lower extremity, on Eliquis with the patient's compliance an issue. The patient is also a heavy smoker with anxiety also a problem for her with concern for her grandson obviously an issue for the patient. PAST MEDICAL HISTORY: As above, also with COPD history, migraine headaches, stage IV metastatic colon carcinoma, lymphedema, hypercoagulable state, history of falling recently in May, DVT of right lower extremity, status post stenting of left iliac vein, anticoagulation on Eliquis and aspirin, anxiety, hypertension, intractable pain of cancer, lymphedema, gastric erosion, and angioplasty with transfusions for anemic indices in the past. FAMILY HISTORY AND SOCIAL HISTORY: She has a grandson which is the source of her recent anxiety, she reports. The patient continues to smoke, she reports less than 1 pack per day of cigarettes, unable to quit despite Chantix recommendations and patch recommendations. ALLERGIES: PENICILLIN. MEDICATIONS: At this time included Eliquis, Norvasc, Xanax, Ecotrin, Lipitor, Colace, lidocaine ointment, morphine, oxycodone, Protonix, and Paxil. REVIEW OF SYSTEMS: Twelve-point review of systems was done, which was negative to questioning except for items mentioned in the history of present illness. PHYSICAL EXAMINATION: GENERAL: The patient appears frail. VITAL SIGNS: Temperature 98.3, pulse 59, respirations 17, blood pressure 126/62, with a pulse ox of 100%. HEENT: Unremarkable. NECK: Supple. HEART: Regular rate. LUNGS: Rare rhonchi. ABDOMEN: Soft, nontender. EXTREMITIES: There is 2+ edema in the right lower extremity, greater than left. NEUROLOGIC: Awake and alert. SKIN: ecchymotic changes, abrasions, L face. LABORATORY DATA: The patient's labs were done with a white blood cell count of 6.3; hemoglobin 6.2, her previous hemoglobin on 06/09/2017 was 9; her hematocrit is 20.3; platelet count of 386,000. The patient had a repeat CBC done after transfusion of 2 units of packed red blood cells, the hemoglobin is now 9.7 with a hematocrit of 30.1, we will repeat the labs again in the morning. Her INR from yesterday was 1.45, her chem metabolic panel from this morning showed a normal chem metabolic panel with a BUN of 31 and creatinine of 1 down from 44 of BUN and creatinine of 1.4 the day prior. Otherwise normal chem metabolic panel. Urinalysis showed trace of leukocyte esterase. The patient did have an x-ray of her pelvis done yesterday, it was read as no evidence of hip fracture, negative study. She also had a CAT scan of her head done yesterday, it was read as no change, no intracranial hemorrhage, unremarkable. The patient did have a chest x-ray done yesterday, it was read as left upper lobe lung nodule, lungs are otherwise clear. The EKG was done yesterday, it was read as sinus rhythm, which showed AK, T-wave abnormality consistent with inferolateral ischemia, abnormal EKG. 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 PLAN: Plan for this patient, after conversation with Dr. Salgado, is to continue present medical regimen as above. She was transfused 2 units of packed red blood cells, we will monitor clinically with labs. We will ask for consult with Dr. Benedict, gastrointestinal customer relations consultant and also Dr. Fraser, neurology consult, also Dr. Salgado for a recently reported bradydysrhythmia as per the nursing staff. She also reports constipation for which MiraLax will be given with GI followup as above. Also, Nicoderm patch will be recommended for her. A repeat Doppler of her lower extremities will be done as per Dr. Salgado's recommendations. We will give oxygen 2 liters nasal cannula with Holter monitor recommended along with echocardiogram. We will recheck her labs in the morning for considerations for transfusion in addition to the 2 units of packed cells already transfused. This is a complex patient with a comprehensive medically necessary and appropriate visit carried out in excess of 40 minutes [id number] time with the patient with her questions answered to her satisfaction. The prognosis for this patient is guarded. Alonzo Ferguson MD MTDConstantin
[2017-08-02] MEDS ORDERED: POLYETHYLENE GLYCOL 3350 17 GM/Dose PACKET PO PRN (07:00)
[2017-08-02 07:13] LABS: BASO # 0.02 K/mm3 (0.0-2.0); BASO % 0.3 % (0.0-3.0); GRAN # 5.25 (1.4-6.5); GRAN % 78.1 % (50.0-68.0); HEMOGLOBIN 9.5 g/dL (12.0-16.0); LYMPH # 0.6 (1.2-3.4); LYMPH % 9.2 % (22.0-35.0); MEAN CELL VOLUME 83.4 fl (80.0-105.0); MEAN CORPUSCULAR HEMOGLOBIN 26.7 pg (25.0-35.0); MEAN PLATELET VOLUME 8.9 fl (7.0-11.0); MONO # 0.8 (0.1-0.6); MONO % 12.4 % (1.0-6.0); RBC 3.56 10^6/uL (3.5-6.1); RED CELL DISTRIBUTION WIDTH 19.9 % (11.5-14.5); WHITE BLOOD COUNT 6.7 10^3/ul (4.5-11.0)
[2017-08-02 07:24] LABS: ALB/GLOB RATIO 1.2 (1.1-1.8); ALT/SGPT 23 U/L (7-56); AST/SGOT 24 U/L (14-36); BLOOD UREA NITROGEN 25 mg/dL (7-21); CALCIUM 8.4 mg/dL (8.4-10.5); GFR AFRICAN-AMERICAN > 60; GFR NON-AFRICAN AMERICAN > 60; HDL CHOLESTEROL 36 mg/dL (29-60)
[2017-08-02 07:35] LABS: LDL CHOLESTEROL 48 mg/dL (0-129)
--- NOTE | 2017-08-02 08:06 | CON ---
DATE: 08/01/2017 CONSULT SERVICE: Cardiology REASON FOR CONSULTATION: Bradycardia during blood transfusion. BRIEF CLINICAL HISTORY: This is an 82-year-old female with a past medical history significant for COPD, migraine, metastatic colon cancer stage III, lymphedema, who presented to the emergency room complaining of generalized weakness, who fell down at home. Denies any loss of consciousness. Denies any Palpitation. Denies any incontinence of urine or any syncope. Patient bumped her forehead. When patient came to the emergency room, was found to be severely anemic; hemoglobin 6.2. During the blood transfusion, patient's heart rate was found to be 50, so Cardiology consult was called. Patient denies any chest pain, shortness of breath, or any palpitation. PAST MEDICAL HISTORY: Significant for colon cancer stage III, status post chemo, status post local radiation, history of CKD, colon cancer diagnosed in 2007, history of GI bleed, history of peripheral arterial disease, history of right iliac stent, and history of hyperlipidemia. Patient also has a history of peripheral arterial disease and intraluminal thrombosis of iliac arteries. Patient was on Eliquis because of this. History of one episode of GI bleed as well. SOCIAL HISTORY: Active smoker, smokes 1 pack a day, still actively smoke. Denies any history of alcohol abuse. ALLERGY: PENICILLIN. FAMILY HISTORY: Noncontributory. CURRENT MEDICATIONS: Patient was taking at home, before she came in, was taking oxycodone, amlodipine, simvastatin, Paxil, lisinopril, and famotidine that is Pepcid, aspirin, and Eliquis 2.5 b.i.d., Xanax 0.25 mg daily. REVIEW OF SYSTEMS: As per HPI. PHYSICAL EXAMINATION: VITAL SIGNS: Height of the patient is 5 feet 4 inches, weight of the patient 102 pounds, body mass index 17 kg/m2. Heart rate 50, blood pressure 122/62. HEENT: PERRLA. Extraocular muscles intact. NECK: Supple. No carotid bruits or thyromegaly. CHEST: Clear to auscultation. HEART: S1 and S2 regular. ABDOMEN: Soft. EXTREMITIES: Clubbing and cyanosis negative. LABORATORY DATA: Blood workup as follows; WBC 6.5, hemoglobin 9.7,, hematocrit 30.1, platelet count 341. Chemistry show sodium 140, potassium 4, chloride 104, carbon dioxide 24, anion gap 16, BUN 31, creatinine 1. EKG shows normal sinus, rate of 62; T wave inversion. IMPRESSION: An 82-year-old female with a past medical history significant for colon cancer stage III, history of localized radiation and systemic chemotherapy, history of peripheral arterial disease, iliac stenting, before that patient had iliac artery thrombosis. Since then, patient has been on Eliquis, admitted after a fall, found to be significantly low hemoglobin, status post packed RBC transfusion. During the transfusion, patient developed bradycardia, so Cardiology consult was called. Patient denies any chest pain, shortness of breath, or any palpitation. No documented coronary artery disease. RECOMMENDATIONS: Holter Monitor for 24 hours to see the heart rate. Patient is not on beta-vicenta. We will get echo to assess LV function, lipid profile, TSH, hemoglobin A1c. Further recommendations depending upon hospital course. We will follow with you. Thank you, Dr. Salgado, for providing us the opportunity in taking care of the patient Nadia Watson. Remigio Salgado MD TC
--- NOTE | 2017-08-02 08:19 | CP.PCM.PN ---
Subjective - Date & Time of Evaluation Date of Evaluation: 08/02/17 Time of Evaluation: 06:50 - Subjective Subjective: Awake, alert, feels hungry, denies chest pain, no distress Reason for consultation and follow up: Cardiac evaluation for bradycardia, history of COPD, migraine, metastatic colon carcicnoma, and lymphedema, Seen and examined by me and Dr. Salgado Objective - Vital Signs/Intake and Output Vital Signs (last 24 hours): Temp Pulse Resp BP Pulse Ox 98.7 F 71 20 157/72 H 99 08/02/17 05:45 08/02/17 05:45 08/02/17 05:45 08/02/17 05:45 08/02/17 05:45 Intake and Output: 08/02/17 08/02/17 06:59 18:59 Intake Total 500 Output Total 700 Balance -200 - Medications Medications: Current Medications Acetaminophen (Tylenol 325mg Tab) 650 mg PO Q4H PRN PRN Reason: Pain, Mild (1-3) Last Admin: 08/01/17 17:03 Dose: 650 mg Alprazolam (Xanax) 0.25 mg PO BID PRN; Protocol PRN Reason: Anxiety Stop: 08/08/17 18:01 Amlodipine Besylate (Norvasc) 10 mg PO DAILY [facility] Docusate Sodium (Colace) 100 mg PO BID [facility] Last Admin: 08/01/17 21:29 Dose: 100 mg Famotidine (Pepcid) 20 mg PO 2200 [facility] Last Admin: 08/01/17 21:06 Dose: 20 mg Nicotine (Nicoderm Cq) 1 patch TD DAILY [facility] Oxycodone HCl (Oxycodone Immediate Release Tab) 10 mg PO Q6H PRN PRN Reason: Pain, severe (8-10) Paroxetine HCl (Paxil) 10 mg PO HS [facility] Last Admin: 08/01/17 21:29 Dose: 10 mg Polyethylene Glycol (Miralax) 17 gm PO DAILY PRN PRN Reason: Constipation - Labs Labs: 08/02/17 06:45 08/02/17 06:45 PT 16.7 SECONDS (9.4-12.5) H 07/31/17 23:15 INR 1.45 (0.93-1.08) H 07/31/17 23:15 APTT 28.3 Seconds (25.1-36.5) 07/31/17 23:15 - Constitutional Appears: No Acute Distress - Head Exam Additional comments: abrasion above left eyebrow and bridge of nose due to fall - Eye Exam Eye Exam: Normal appearance - ENT Exam ENT Exam: Mucous Membranes Moist - Respiratory Exam Respiratory Exam: Clear to Ausculation Bilateral, NORMAL BREATHING PATTERN - Cardiovascular Exam Cardiovascular Exam: +S1, +S2 Additional comments: NSR-bradycardia telemetry - GI/Abdominal Exam GI & Abdominal Exam: Soft, Normal Bowel Sounds - Extremities Exam Additional comments: right leg swelling 2+edema - Neurological Exam Neurological Exam: Alert, Awake, Oriented x3 - Psychiatric Exam Psychiatric exam: Normal Affect, Normal Mood - Skin Skin Exam: Normal Color, Warm Assessment and Plan - Assessment and Plan (Free Text) Assessment: An 82 year old female, who came in to the ER due to left sided hip pain due to fall. Complaints of generalized weakness. In ER ,hemoglobin was 6.2 and blood transfusion was given. During transfusion heart rate went down to 50's thus consult was called. 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 Follows up with Dr. Salgado (colon cancer) Plan: For ECHO today Bradycardia as low as 38/min (telemetry) Will put her on holter monitor Right lower leg edema Will order doppler studies to rule out DVT Hemoglobin stable post transfusion Denies chest pain On Norvasc 10 mg daily for hypertension Smoking cessation, on Nicoderm patch Continue current management Continue current treatment Will follow up Plan and treatment discussed with Dr. Salgado
--- NOTE | 2017-08-02 09:02 | CP.PCM.PN ---
Subjective - Date & Time of Evaluation Date of Evaluation: 08/02/17 Time of Evaluation: 11:00 - [facility] Patient seen and examined at bedside. Nursing reports no acute events overnight. Patient was resting comfortably in bed and had returned from having cardiac Echo done. Reported her abrasians in her face were slightly painful. She stated her fall was mechanical and at home and that she did not have any episodes of syncope or LOC. Denied acute complaints of dizziness, fever, chills , chest pain, SOB, cough, abd pain, nausea, vomiting, bowel/bladder complaints, numbness/tingling in her extremities. Objective - Vital Signs/Intake and Output Vital Signs (last 24 hours): Temp Pulse Resp BP Pulse Ox 98.7 F 71 20 157/72 H 99 08/02/17 05:45 08/02/17 05:45 08/02/17 05:45 08/02/17 05:45 08/02/17 05:45 Intake and Output: 08/02/17 08/02/17 06:59 18:59 Intake Total 500 Output Total 700 Balance -200 - Medications Medications: Current Medications Acetaminophen (Tylenol 325mg Tab) 650 mg PO Q4H PRN PRN Reason: Pain, Mild (1-3) Last Admin: 08/01/17 17:03 Dose: 650 mg Alprazolam (Xanax) 0.25 mg PO BID PRN; Protocol PRN Reason: Anxiety Stop: 08/08/17 18:01 Amlodipine Besylate (Norvasc) 10 mg PO DAILY [facility] Docusate Sodium (Colace) 100 mg PO BID [facility] Last Admin: 08/01/17 21:29 Dose: 100 mg Famotidine (Pepcid) 20 mg PO 2200 [facility] Last Admin: 08/01/17 21:06 Dose: 20 mg Nicotine (Nicoderm Cq) 1 patch TD DAILY [facility] Oxycodone HCl (Oxycodone Immediate Release Tab) 10 mg PO Q6H PRN PRN Reason: Pain, severe (8-10) Paroxetine HCl (Paxil) 10 mg PO HS [facility] Last Admin: 08/01/17 21:29 Dose: 10 mg Polyethylene Glycol (Miralax) 17 gm PO DAILY PRN PRN Reason: Constipation - Labs Labs: 08/02/17 06:45 08/02/17 06:45 PT 16.7 SECONDS (9.4-12.5) H 07/31/17 23:15 INR 1.45 (0.93-1.08) H 07/31/17 23:15 APTT 28.3 Seconds (25.1-36.5) 07/31/17 23:15 - Constitutional Appears: Non-toxic, No Acute Distress - Head Exam Additional comments: abrasians noted left side of her face on also on left forehead - Eye Exam Eye Exam: EOMI, Normal appearance, Scleral icterus. absent: Conjunctival injection - ENT Exam ENT Exam: Mucous Membranes Moist - Respiratory Exam Respiratory Exam: Clear to Ausculation Bilateral, Respiratory Distress, NORMAL BREATHING PATTERN. absent: Accessory Muscle Use, Rales, Rhonchi, Wheezes - Cardiovascular Exam Cardiovascular Exam: REGULAR RHYTHM, +S1, +S2 - GI/Abdominal Exam GI & Abdominal Exam: Soft, Normal Bowel Sounds. absent: Firm, Guarding - Extremities Exam Extremities Exam: Pedal Edema - Neurological Exam Neurological Exam: Alert, Awake, Oriented x3 - Psychiatric Exam Psychiatric exam: Normal Affect, Normal Mood - Skin Skin Exam: Dry, Warm Assessment and Plan - Assessment and Plan (Free Text) Assessment: 82yo female PMHx mets colon ca s/p colectomy on chemotherapy, DVT on Eliquis and ASA, HTN, anxiety, lymphedema, anemia presented with acute anemia and a fall. Patient presented with Hgb 6.2 and was transfused 2U PRBC and responded appropriately- Hgb this AM 9.5. Head CT no acute bleed. Echo this AM EF 55-60%. f/u CT chest/abd/pelvis with contrast. Nephro consulted as patient's creatinine on admission was baseline. Start patient on gentle hydration. Cardio, GI, and Neuro on board- appreciate reccs. Discussed with Dr. Naomi Bingham PGY2
--- NOTE | 2017-08-02 09:02 | CP.PCM.CON ---
History of Present Illness - History of Present Illness History of Present Illness: GI consult Note for Phillip Gonzalez PGY2 This is an 82yo female with past medical history of metastatic colon cancer s/p colectomy on chemotherapy, DVT (on Eliquis and ASA), HTN, anxiety, lymphedema, anemia, non-compliance who came to ED for fall. Patient reports she was at home and felt dizzy after standing up. She fell and hit her head. She did not lose consciousness. Head CT in ED did not show any acute abnormalities. Xray did not show any fractures. Patient was noted to have Hgb of 6.9. She has not been following up with Oncology regularly. Patient denies having any dark color or blood in stool, nausea/vomiting/diarrhea, constipation, fever/chills, numbness/ tingling, chest pain or shortness of breath. She had EGD in 02/2017 which showed one duodenal non-bleeding ulcer. Pathology showed gastritis. Colonoscopy in 2016 showed sigmoid diverticulosis, internal hemorrhoids, and ileo-cecal end to end anastomosis. Past medical history: Colon cancer w/ mets s/p colectomy (on chemo Avastin, Xeloda), DVT RLE s/p stent iliac vein, HTN, anxiety, lymphedema, anemia Past surgical history: colectomy, L iliac vein stent Home meds: Reviewed as per MAR (include Eliquis and ASA) Allergies: PCN Social history: Current tobacco user (1ppd), denies EtOH or drug use. Lives alone. Uses cane to walk Family history: Non-contributory Review of Systems - Review of Systems All systems: reviewed and no additional remarkable complaints except Review of Systems: 12 point ROS reviewed as per HPI and is otherwise negative. Past Patient History - Infectious Disease Hx of Infectious Diseases: None - Tetanus Immunizations Tetanus Immunization: Unknown - Past Social History Smoking Status: Heavy Smoker > 10 Cigarettes Daily Alcohol: None Drugs: Denies Home Situation {Lives}: Alone - CARDIAC Hx Cardiac Disorders: Yes Hx Hypertension: Yes - PULMONARY Hx Chronic Obstructive Pulmonary Disease (COPD): Yes - NEUROLOGICAL Hx Neurological Disorder: Yes Hx Migraine: Yes - HEENT Hx HEENT Problems: Yes Hx Cataracts: Yes Hx Difficulty Chewing: Yes - RENAL Hx Chronic Kidney Disease: No - ENDOCRINE/METABOLIC Hx Endocrine Disorders: No - HEMATOLOGICAL/ONCOLOGICAL Hx Blood Transfusions: Yes Hx Blood Transfusion Reaction: No - INTEGUMENTARY Hx Dermatological Problems: No - MUSCULOSKELETAL/RHEUMATOLOGICAL Hx Falls: Yes (recent) - GASTROINTESTINAL Hx Gastrointestinal Disorders: Yes (ulcer/reflux) - GENITOURINARY/GYNECOLOGICAL Hx Genitourinary Disorders: No - PSYCHIATRIC Hx Psychophysiologic Disorder: Yes Hx Anxiety: Yes Hx Substance Use: No - SURGICAL HISTORY Other/Comment: Colon resection - ANESTHESIA Hx Anesthesia Reactions: No Hx Malignant Hyperthermia: No Meds Allergies/Adverse Reactions: Allergies Allergy/AdvReac Type Severity Reaction Status Date / Time Penicillins Allergy Severe RASH Verified 07/31/17 22:42 - Medications Medications: Current Medications Acetaminophen (Tylenol 325mg Tab) 650 mg PO Q4H PRN PRN Reason: Pain, Mild (1-3) Last Admin: 08/01/17 17:03 Dose: 650 mg Alprazolam (Xanax) 0.25 mg PO BID PRN; Protocol PRN Reason: Anxiety Stop: 08/08/17 18:01 Amlodipine Besylate (Norvasc) 10 mg PO DAILY [facility] Docusate Sodium (Colace) 100 mg PO BID [facility] Last Admin: 08/01/17 21:29 Dose: 100 mg Famotidine (Pepcid) 20 mg PO 2200 [facility] Last Admin: 08/01/17 21:06 Dose: 20 mg Nicotine (Nicoderm Cq) 1 patch TD DAILY [facility] Oxycodone HCl (Oxycodone Immediate Release Tab) 10 mg PO Q6H PRN PRN Reason: Pain, severe (8-10) Paroxetine HCl (Paxil) 10 mg PO HS [facility] Last Admin: 08/01/17 21:29 Dose: 10 mg Polyethylene Glycol (Miralax) 17 gm PO DAILY PRN PRN Reason: Constipation Physical Exam - Constitutional Appears: No Acute Distress - Head Exam Additional comments: Abrasions on L face - Eye Exam Eye Exam: Normal appearance, PERRL Pupil Exam: NORMAL ACCOMODATION, PERRL - ENT Exam ENT Exam: Mucous Membranes Moist - Respiratory Exam Respiratory Exam: Clear to Auscultation Bilateral, NORMAL BREATHING PATTERN. absent: Rales, Rhonchi, Wheezes - Cardiovascular Exam Cardiovascular Exam: REGULAR RHYTHM, +S1, +S2. absent: Gallop, Rubs, Systolic Murmur - GI/Abdominal Exam GI & Abdominal Exam: Normal Bowel Sounds, Soft. absent: Mass, Rebound, Rigid, Tenderness - Extremities Exam Extremities exam: Positive for: pedal edema - Neurological Exam Neurological exam: Alert, CN II-XII Intact - Skin Skin Exam: Dry, Warm Results - Vital Signs Recent Vital Signs: Last Vital Signs Temp 98.7 F 08/02/17 05:45 Pulse 71 08/02/17 05:45 Resp 20 08/02/17 05:45 BP 157/72 H 08/02/17 05:45 Pulse Ox 99 08/02/17 05:45 - Labs Result Diagrams: 08/02/17 06:45 08/02/17 06:45 Labs: Laboratory Results - last 24 hr 08/01/17 08/01/17 08/02/17 17:04 17:04 06:45 WBC 6.4 6.7 RBC 3.62 3.56 Hgb 9.7 L D 9.5 L Hct 30.1 L 29.7 L MCV 83.1 83.4 MCH 26.8 26.7 MCHC 32.2 32.0 RDW 19.4 H 19.9 H Plt Count 341 340 MPV 9.4 8.9 Gran % 73.9 H 78.1 H Lymph % (Auto) 13.[address] [place] % (Auto) 12.2 H 12.4 H Eos % (Auto) 0.0 L 0.0 L Baso % (Auto) 0.2 0.3 Gran # 4.74 5.25 Lymph # (Auto) 0.[address] [place] # (Auto) 0.8 H 0.8 H Eos # (Auto) 0.0 0.0 Baso # (Auto) 0.01 0.02 Sodium 142 Potassium 4.7 Chloride 107 Carbon Dioxide 24 Anion Gap 16 BUN 31 H Creatinine 1.0 Est GFR ( Amer) > 60 Est GFR (Non-Af Amer) 53 Random Glucose 96 Calcium 8.8 Phosphorus 3.7 Magnesium 2.3 H Total Bilirubin 1.2 AST 26 ALT 26 Alkaline Phosphatase 84 Total Protein 6.2 Albumin 3.2 Globulin 2.9 Albumin/Globulin Ratio 1.1 Triglycerides Cholesterol LDL Cholesterol Direct HDL Cholesterol TSH 3rd Generation 08/02/17 08/02/17 06:45 06:45 WBC RBC Hgb Hct MCV MCH MCHC RDW Plt Count MPV Gran % Lymph % (Auto) [place] % (Auto) Eos % (Auto) Baso % (Auto) Gran # Lymph # (Auto) [place] # (Auto) Eos # (Auto) Baso # (Auto) Sodium 142 Potassium 4.4 Chloride 107 Carbon Dioxide 26 Anion Gap 12 BUN 25 H Creatinine 0.8 Est GFR ( Amer) > 60 Est GFR (Non-Af Amer) > 60 Random Glucose 85 Calcium 8.4 Phosphorus 3.2 Magnesium 2.2 Total Bilirubin 0.8 AST 24 ALT 23 Alkaline Phosphatase 79 Total Protein 5.5 L Albumin 3.0 Globulin 2.6 Albumin/Globulin Ratio 1.2 Triglycerides 107 Cholesterol 104 L LDL Cholesterol Direct 48 HDL Cholesterol 36 TSH 3rd Generation 0.39 L Assessment & Plan - Assessment and Plan (Free Text) Assessment: This is an 82yo female with past medical history of metastatic colon cancer s/p colectomy on chemotherapy, DVT (on Eliquis and ASA), HTN, anxiety, lymphedema, anemia, non-compliance who was admitted for 1. Anemia - Can be secondary to chemotherapy v. GI bleed v. B12 deficiency from R hemicolectomy - Pt had duondenal ulcer on EGD in 02/2017 (Non-bleeding) - s/p 2U PRBC 2. Syncopal episode - Head CT negative - XRay negative for fracture 3. Bradycardia 4. HTN 5. Hx of DVT s/p L iliac stent on Eliquis and ASA 6. Metastatic colon cancer s/p R colectomy and radiation - on chemotherapy 7. Anxiety Plan: Anticoagulation is on hold. Patient Hgb increased after PRBC and is stable. Will continue to monitor H/H. Will obtain iron studies, B12 and folate of pre- transfusion blood. Continue Pepcid. Will start patient on Carafate and obtain stool for occult blood. We will discuss medications including ASA as well as possible CT A/P with PO contrast with Dr. Salgado. Case seen, discussed and reviewed with Dr. Benedict. Phillip Mancilla PGY2 - Date & Time Date: 08/02/17 Time: 09:32
--- NOTE | 2017-08-02 09:12 | CARD ---
APPROVED REPORT EKG Measurement Heart [id number] <Conclusion> Normal sinus rhythm T wave abnormality, consider lateral ischemia Abnormal ECG
--- NOTE | 2017-08-02 09:58 | US ---
PROCEDURE: Right lower extremity venous US HISTORY: Leg pain and swelling. Evaluate for DVT. PHYSICIAN(S): Parth Torres M.D. TECHNIQUE: Duplex sonography and color-flow Doppler with graded compression were used to evaluate the deep venous system of the right lower extremity. The exam is somewhat limited by edema. FINDINGS: The visualized deep venous system of the right lower extremity is sonographically normal and compressible. Normal waveforms and augmentation are seen. There is no sonographic evidence for deep venous thrombosis in the visualized segments of the right lower extremity. IMPRESSION: 1. No sonographic evidence for deep venous thrombosis in the visualized segments of the right lower extremity.
[2017-08-02] MEDS ORDERED: POLYETHYLENE GLYCOL 3350 17 GM/Dose PACKET PO SCH (10:00)
[2017-08-02 11:06] LABS: IRON 21 ug/dL (45-180)
[2017-08-02 11:15] LABS: % IRON SATURATION 6 % (20-55); TOTAL IRON BINDING CAPACITY 356 ug/dL (265-497)
--- NOTE | 2017-08-02 12:04 | CP.PCM.CON ---
History of Present Illness - History of Present Illness History of Present Illness: Palliative consult requested by Dr Constantin Salgado Reason: Goals of cares 82 year old female with history of metastatic cancer, COPD who presented on after suffering a fall at home. She hit her face, left hip and scraped left left knee. She complained of generalized weakness, but denied dizziness, loss of consciousness or incontinence. She also denied fever, chills, shortness of breath, nausea, vomiting. CT of head negative for acute hemorrhage. Chest x ray showed left upper lung nodule, no active disease Pelvic x ray negative for fractures. EKG inferior lateral ischemia. Troponin 0.01 She was found to be anemic, Hgb 6.2 and was transfused. Vital Signs:T 98, P54, BP 145/70, R 18, 02 sat 99% Labs : Wbc, 6.7,Hgb 9.5, NA 142, 4.4, Bun 25, Creat 0.8, PMHx: COPD, metastatic colon cancer on chemo( Avastin and Xeloda),lymphedema, DVT of lower extremity, on Elequis, HTN, anemia, transfusion, duodenal ulcer, diverticulitis Social History: Current smoker, no alcohol or drug use. Lives alone. Family History: Non contributory. Advance Care Planning: The patient does not have an Advanced Directive. Her grandson Berry Watson. Review of Systems: As per HPI, 10 point review negative. Past Patient History - Infectious Disease Hx of Infectious Diseases: None - Tetanus Immunizations Tetanus Immunization: Unknown - Past Social History Smoking Status: Heavy Smoker > 10 Cigarettes Daily Alcohol: None Drugs: Denies Home Situation {Lives}: Alone - CARDIAC Hx Cardiac Disorders: Yes Hx Hypertension: Yes - PULMONARY Hx Chronic Obstructive Pulmonary Disease (COPD): Yes - NEUROLOGICAL Hx Neurological Disorder: Yes Hx Migraine: Yes - HEENT Hx HEENT Problems: Yes Hx Cataracts: Yes Hx Difficulty Chewing: Yes - RENAL Hx Chronic Kidney Disease: No - ENDOCRINE/METABOLIC Hx Endocrine Disorders: No - HEMATOLOGICAL/ONCOLOGICAL Hx Blood Transfusions: Yes Hx Blood Transfusion Reaction: No - INTEGUMENTARY Hx Dermatological Problems: No - MUSCULOSKELETAL/RHEUMATOLOGICAL Hx Falls: Yes (recent) - GASTROINTESTINAL Hx Gastrointestinal Disorders: Yes (ulcer/reflux) - GENITOURINARY/GYNECOLOGICAL Hx Genitourinary Disorders: No - PSYCHIATRIC Hx Psychophysiologic Disorder: Yes Hx Anxiety: Yes Hx Substance Use: No - SURGICAL HISTORY Other/Comment: Colon resection - ANESTHESIA Hx Anesthesia Reactions: No Hx Malignant Hyperthermia: No Meds Allergies/Adverse Reactions: Allergies Allergy/AdvReac Type Severity Reaction Status Date / Time Penicillins Allergy Severe RASH Verified 07/31/17 22:42 - Medications Medications: Current Medications Acetaminophen (Tylenol 325mg Tab) 650 mg PO Q4H PRN PRN Reason: Pain, Mild (1-3) Last Admin: 08/01/17 17:03 Dose: 650 mg Alprazolam (Xanax) 0.25 mg PO BID PRN; Protocol PRN Reason: Anxiety Stop: 08/08/17 18:01 Amlodipine Besylate (Norvasc) 10 mg PO DAILY [facility] Docusate Sodium (Colace) 100 mg PO BID [facility] Last Admin: 08/01/17 21:29 Dose: 100 mg Famotidine (Pepcid) 20 mg PO 2200 [facility] Last Admin: 08/01/17 21:06 Dose: 20 mg Nicotine (Nicoderm Cq) 1 patch TD DAILY [facility] Oxycodone HCl (Oxycodone Immediate Release Tab) 10 mg PO Q6H PRN PRN Reason: Pain, severe (8-10) Paroxetine HCl (Paxil) 10 mg PO HS [facility] Last Admin: 08/01/17 21:29 Dose: 10 mg Polyethylene Glycol (Miralax) 17 gm PO DAILY PRN PRN Reason: Constipation Sucralfate (Carafate Oral Susp) 1 gm PO 0630,1130,1630,2200 [facility] Physical Exam - Constitutional Appears: Chronically Ill - Head Exam Head Exam: NORMOCEPHALIC Additional comments: brusing bridge of nose and left orthodoxy - Eye Exam Eye Exam: Normal appearance, PERRL - ENT Exam ENT Exam: Mucous Membranes Moist, Normal Oropharynx - Neck Exam Neck exam: Positive for: Normal Inspection - Respiratory Exam Respiratory Exam: Decreased Breath Sounds, NORMAL BREATHING PATTERN - Cardiovascular Exam Cardiovascular Exam: REGULAR RHYTHM, +S1, +S2 - GI/Abdominal Exam GI & Abdominal Exam: Normal Bowel Sounds, Soft Additional comments: no tenderness - Extremities Exam Extremities exam: Positive for: pedal pulses present Additional comments: 2+ edema of right lower extremity - Back Exam Back exam: NORMAL INSPECTION - Neurological Exam Neurological exam: Alert, Oriented x3 - Skin Skin Exam: Dry, Pallor, Warm - Additional Findings Additional findings: palliative performance scale rating 50% Results - Vital Signs Recent Vital Signs: Last Vital Signs Temp 98.7 F 08/02/17 05:45 Pulse 71 08/02/17 05:45 Resp 20 08/02/17 05:45 BP 157/72 H 08/02/17 05:45 Pulse Ox 99 08/02/17 05:45 - Labs Result Diagrams: 08/02/17 06:45 08/02/17 06:45 Labs: Laboratory Results - last 24 hr 08/01/17 08/01/17 08/02/17 17:04 17:04 06:45 WBC 6.4 6.7 RBC 3.62 3.56 Hgb 9.7 L D 9.5 L Hct 30.1 L 29.7 L MCV 83.1 83.4 MCH 26.8 26.7 MCHC 32.2 32.0 RDW 19.4 H 19.9 H Plt Count 341 340 MPV 9.4 8.9 Gran % 73.9 H 78.1 H Lymph % (Auto) 13.7 L 9.2 L [place] % (Auto) 12.2 H 12.4 H Eos % (Auto) 0.0 L 0.0 L Baso % (Auto) 0.2 0.3 Gran # 4.74 5.25 Lymph # (Auto) 0.9 L 0.6 L [place] # (Auto) 0.8 H 0.8 H Eos # (Auto) 0.0 0.0 Baso # (Auto) 0.01 0.02 Sodium 142 Potassium 4.7 Chloride 107 Carbon Dioxide 24 Anion Gap 16 BUN 31 H Creatinine 1.0 Est GFR ( Amer) > 60 Est GFR (Non-Af Amer) 53 Random Glucose 96 Calcium 8.8 Phosphorus 3.7 Magnesium 2.3 H Iron TIBC % Saturation Total Bilirubin 1.2 AST 26 ALT 26 Alkaline Phosphatase 84 Total Protein 6.2 Albumin 3.2 Globulin 2.9 Albumin/Globulin Ratio 1.1 Triglycerides Cholesterol LDL Cholesterol Direct HDL Cholesterol TSH 3rd Generation 08/02/17 08/02/17 08/02/17 06:45 06:45 10:45 WBC RBC Hgb Hct MCV MCH MCHC RDW Plt Count MPV Gran % Lymph % (Auto) [place] % (Auto) Eos % (Auto) Baso % (Auto) Gran # Lymph # (Auto) [place] # (Auto) Eos # (Auto) Baso # (Auto) Sodium 142 Potassium 4.4 Chloride 107 Carbon Dioxide 26 Anion Gap 12 BUN 25 H Creatinine 0.8 Est GFR ( Amer) > 60 Est GFR (Non-Af Amer) > 60 Random Glucose 85 Calcium 8.4 Phosphorus 3.2 Magnesium 2.2 Iron 21 L TIBC 356 % Saturation 6 L Total Bilirubin 0.8 AST 24 ALT 23 Alkaline Phosphatase 79 Total Protein 5.5 L Albumin 3.0 Globulin 2.6 Albumin/Globulin Ratio 1.2 Triglycerides 107 Cholesterol 104 L LDL Cholesterol Direct 48 HDL Cholesterol 36 TSH 3rd Generation 0.39 L Assessment & Plan - Assessment and Plan (Free Text) Assessment: 82 year old female with history of COPD, DVT on Elequis, metastatic colon cancer who was admitted after a fall at home. Found to have anemia, anterior lateral wall ischemia on EKG, deconditioning. Patient is alert and oriented. Offers no complaints. She does not have an Advanced Directive. Advance care planning discussion ensued. The patient is very clear that she does nit want CPR /intubation or permanent feeding tube. POLST: DNR/DNI directive completed, her grandson Berry Watson is her health care surrogate. The patient is somewhat guarded when asked how she manages at home.States that she lives independently. When asked if she is currently receiving chemotherapy treatment for her cancer she states that she is and that she intends to continue treatment. She will follow up with her oncologist upon discharge. I also spoke with patient's grandson, Berry via phone. He is aware of her wishes for DNR/DNI. He is aware that he has been designated as her health care surrogate. Time spent with patient in goals of care and advance care planning discussion, 30 minutes Plan: Anemia:Chronic Iron deficiency anemia, s/p transfusions, Monitor CBC Colon Cancer: Oncology follow up. Continue chemotherapy treatment DVT: Continue Elequis and ASA Gait dysfunction: PT/OT eval, MARKOS? Goals of care and advance care planning
--- NOTE | 2017-08-02 12:47 | CARD ---
APPROVED REPORT EXAM: Two-dimensional and M-mode echocardiogram with Doppler and color Doppler. INDICATION Chest Pain 2D DIMENSIONS Left Atrium (2D)4.0 (1.6-4.0cm)IVSd1.5 (0.7-1.1cm) LVDd3.8 (3.9-5.9cm)PWd1.3 (0.7-1.1cm) LVDs2.5 (2.5-4.0cm)FS (%) 34.3 % LVEF (%)64.1 (>50%) M-Mode DIMENSIONS Aortic Root2.40 (2.2-3.7cm)Aortic Cusp Exc.1.50 (1.5-2.0cm) Aortic Valve AoV Peak Cegovvkk111.0cm/Jam Peak GR.10mmHg Mitral Valve MV E Ojwgzwmx85.3cm/sMV A Jxxwfmcc032.0cm/sE/A ratio0.6 TDI E/Lateral E'0.0E/Medial E'0.0 Tricuspid Valve TR Peak Lwqouyjm461dv/sRAP AIEVDUUT93xlOoKF Peak Gr.29mmHg [id number] LEFT VENTRICLE The left ventricle is normal size. There is mild to moderate concentric left ventricular hypertrophy. The left ventricular function is normal.EF-55-60% There is normal LV segmental wall motion. Transmitral Doppler flow pattern is Grade III-reversible restrictive diastolic dysfunction. No left ventricle thrombus noted on this study. There is no ventricular septal defect visualized. There is no left ventricular aneurysm. There is no mass noted in the left ventricle. RIGHT VENTRICLE The right ventricle is normal size. There is normal right ventricular wall thickness. The right ventricular systolic function is normal. ATRIA The left atrium is borderline dilated. The right atrium size is normal. The interatrial septum is intact with no evidence for an atrial septal defect. AORTIC VALVE The aortic valve is thickened but opens well. The aortic valve is mildly to moderately sclerotic. No aortic regurgitation is present. There is no aortic valvular stenosis. There is no aortic valvular vegetation. MITRAL VALVE The mitral valve is thickened but opens well. Mitral regurgitation is mild. There is no mitral valve stenosis. There is no evidence of mitral valve prolapse. TRICUSPID VALVE The tricuspid valve leaflets are thickened , but open well. There is mild to moderate tricuspid regurgitation.RVSP_39 mmof hg. There is no tricuspid valve stenosis. There is no tricuspid valve prolapse or vegetation. PULMONIC VALVE The pulmonary valve is normal in structure. There is no pulmonic valvular regurgitation. There is no pulmonic valvular stenosis. GREAT VESSELS The aortic root is normal in size. The ascending aorta is normal in size. The pulmonary artery is normal. The IVC is normal in size and collapses >50% with inspiration. PERICARDIAL EFFUSION There is no pleural effusion. There is no pericardial effusion. <Conclusion> Normal chamber size, EF-55-60% Mild Mr/TR RVSP-39 mmofhg. No vegetation or thrombus noted.
[2017-08-02] MEDS: Sucralfate 1 gm/10 ml Oral Susp UD PO SCH ×3 (13:06→21:27)
[2017-08-02 16:14] LABS: FERRITIN 15.2 ng/mL
[2017-08-02 16:44] LABS: FOLATE 19.3 ng/mL
[2017-08-02] MEDS ORDERED: Sodium Chloride 0.9% 1,000 ML IV SCH ×2 (18:15→21:09)
[2017-08-02 23:25] VITALS: RESP 20
[2017-08-03] MEDS: Sucralfate 1 gm/10 ml Oral Susp UD PO SCH ×4 (05:50→21:12)
[2017-08-03 06:26] LABS: BASO # 0.02 K/mm3 (0.0-2.0); BASO % 0.3 % (0.0-3.0); EOS # 0.1 (0.0-0.7); GRAN # 4.49 (1.4-6.5); GRAN % 71.6 % (50.0-68.0); HEMOGLOBIN 10.2 g/dL (12.0-16.0); LYMPH % 15.6 % (22.0-35.0); MEAN CELL VOLUME 85.1 fl (80.0-105.0); MEAN CORPUSCULAR HEMOGLOBIN 26.3 pg (25.0-35.0); MEAN CORPUSCULAR HGB CONC 30.9 g/dl (31.0-37.0); MEAN PLATELET VOLUME 9.1 fl (7.0-11.0); MONO # 0.7 (0.1-0.6); MONO % 11.5 % (1.0-6.0); RBC 3.88 10^6/uL (3.5-6.1); RED CELL DISTRIBUTION WIDTH 19.9 % (11.5-14.5); WHITE BLOOD COUNT 6.3 10^3/ul (4.5-11.0)
[2017-08-03 06:55] LABS: ALB/GLOB RATIO 1.1 (1.1-1.8); ALT/SGPT 20 U/L (7-56); AST/SGOT 21 U/L (14-36); BLOOD UREA NITROGEN 18 mg/dL (7-21); CALCIUM 8.6 mg/dL (8.4-10.5); GFR AFRICAN-AMERICAN > 60; GFR NON-AFRICAN AMERICAN > 60
--- NOTE | 2017-08-03 07:15 | CP.PCM.PN ---
Subjective - Date & Time of Evaluation Date of Evaluation: 08/03/17 Time of Evaluation: 06:25 - Subjective Subjective: Awake, alert, feels hungry, denies chest pain, no distress Reason for consultation and follow up: Cardiac evaluation for bradycardia, history of COPD, migraine, metastatic colon carcicnoma, and lymphedema, Seen and examined by me and Dr. Salgado Objective - Vital Signs/Intake and Output Vital Signs (last 24 hours): Temp Pulse Resp BP Pulse Ox 97.9 F 67 20 171/79 H 100 08/03/17 05:57 08/03/17 05:57 08/03/17 05:57 08/03/17 05:57 08/03/17 05:57 Intake and Output: 08/03/17 08/03/17 06:59 18:59 Intake Total 735 Output Total 200 Balance 535 - Medications Medications: Current Medications Acetaminophen (Tylenol 325mg Tab) 650 mg PO Q4H PRN PRN Reason: Pain, Mild (1-3) Last Admin: 08/02/17 15:35 Dose: 650 mg Alprazolam (Xanax) 0.25 mg PO BID PRN; Protocol PRN Reason: Anxiety Stop: 08/08/17 18:01 Last Admin: 08/03/17 00:34 Dose: 0.25 mg Amlodipine Besylate (Norvasc) 10 mg PO DAILY [facility] Last Admin: 08/02/17 13:05 Dose: 10 mg Docusate Sodium (Colace) 100 mg PO BID [facility] Last Admin: 08/02/17 18:12 Dose: 100 mg Famotidine (Pepcid) 20 mg PO 2200 [facility] Last Admin: 08/02/17 21:27 Dose: 20 mg Sodium Chloride (Sodium Chloride 0.9%) 1,000 mls @ 50 mls/hr IV .Q20H [facility] Last Admin: 08/02/17 21:30 Dose: Not Given Iron Sucrose 100 mg/ Sodium (Chloride) 105 mls @ 210 mls/hr IVPB DAILY [facility] Stop: 08/05/17 10:00 Nicotine (Nicoderm Cq) 1 patch TD DAILY [facility] Last Admin: 08/02/17 13:09 Dose: Not Given Oxycodone HCl (Oxycodone Immediate Release Tab) 10 mg PO Q6H PRN PRN Reason: Pain, severe (8-10) Paroxetine HCl (Paxil) 10 mg PO HS [facility] Last Admin: 08/02/17 21:27 Dose: 10 mg Polyethylene Glycol (Miralax) 17 gm PO DAILY PRN PRN Reason: Constipation Sucralfate (Carafate Oral Susp) 1 gm PO 0630,1130,1630,2200 [facility] Last Admin: 08/03/17 05:50 Dose: 1 gm - Labs Labs: 08/03/17 05:45 08/03/17 05:45 PT 16.7 SECONDS (9.4-12.5) H 07/31/17 23:15 INR 1.45 (0.93-1.08) H 07/31/17 23:15 APTT 28.3 Seconds (25.1-36.5) 07/31/17 23:15 - Constitutional Appears: No Acute Distress - Head Exam Head Exam: NORMOCEPHALIC - Eye Exam Eye Exam: Normal appearance - ENT Exam ENT Exam: Mucous Membranes Moist Additional comments: bruise above left eyebrow and bridge of nose from fall - Respiratory Exam Respiratory Exam: Clear to Ausculation Bilateral, NORMAL BREATHING PATTERN - Cardiovascular Exam Cardiovascular Exam: REGULAR RHYTHM, +S1, +S2 Additional comments: NSR telemetry - GI/Abdominal Exam GI & Abdominal Exam: Soft, Normal Bowel Sounds - Extremities Exam Extremities Exam: Normal Capillary Refill Additional comments: right leg edema 2+ right hip dressing - Neurological Exam Neurological Exam: Alert, Awake, Oriented x3 - Psychiatric Exam Psychiatric exam: Normal Affect, Normal Mood - Skin Skin Exam: Intact, Normal Color, Warm Assessment and Plan - Assessment and Plan (Free Text) Assessment: An 82 year old female, who came in to the ER due to left sided hip pain due to fall. Complaints of generalized weakness. In ER ,hemoglobin was 6.2 and blood transfusion was given. During transfusion heart rate went down to 50's thus consult was called. 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 Follows up with Dr. Salgado (colon cancer) Plan: ECHO normal chambers, LVEF 55-60% mild MR/TR On holter monitor Right lower leg edema Doppler studies negative for DVT Hemoglobin stable post transfusion Denies chest pain On norvasc 10 mg for hypertension Ordered Hydralazine to control blood pressure Smoking cessation, on Nicoderm patch Continue current management Continue current treatment Will follow up Plan and treatment discussed with Dr. Salgado
[2017-08-03] MEDS ORDERED: Iohexol 350 MG/100 ML VIAL ONE (08:05)
--- NOTE | 2017-08-03 08:15 | CP.PCM.PN ---
Subjective - Date & Time of Evaluation Date of Evaluation: 08/04/17 Time of Evaluation: 11:00 - [facility] Patient seen and examined at bedside. Nursing reports no acute events overnight. Patient complained of some tiredness but otherwise denied acute complaints of fever, chills, headache, dizziness, chest pain, SOB, abd pain, nausea, vomiting, bowel/bladder complaints, pain/swelling in her legs b/l. Objective - Vital Signs/Intake and Output Vital Signs (last 24 hours): Temp Pulse Resp BP Pulse Ox 97.9 F 67 20 171/79 H 100 08/03/17 05:57 08/03/17 05:57 08/03/17 05:57 08/03/17 05:57 08/03/17 05:57 Intake and Output: 08/03/17 08/03/17 06:59 18:59 Intake Total 735 Output Total 200 Balance 535 - Medications Medications: Current Medications Acetaminophen (Tylenol 325mg Tab) 650 mg PO Q4H PRN PRN Reason: Pain, Mild (1-3) Last Admin: 08/02/17 15:35 Dose: 650 mg Alprazolam (Xanax) 0.25 mg PO BID PRN; Protocol PRN Reason: Anxiety Stop: 08/08/17 18:01 Last Admin: 08/03/17 00:34 Dose: 0.25 mg Amlodipine Besylate (Norvasc) 10 mg PO DAILY [facility] Last Admin: 08/02/17 13:05 Dose: 10 mg Docusate Sodium (Colace) 100 mg PO BID [facility] Last Admin: 08/02/17 18:12 Dose: 100 mg Famotidine (Pepcid) 20 mg PO 2200 [facility] Last Admin: 08/02/17 21:27 Dose: 20 mg Hydralazine HCl (Apresoline) 50 mg PO BID [facility] Sodium Chloride (Sodium Chloride 0.9%) 1,000 mls @ 50 mls/hr IV .Q20H [facility] Last Admin: 08/02/17 21:30 Dose: Not Given Iron Sucrose 100 mg/ Sodium (Chloride) 105 mls @ 210 mls/hr IVPB DAILY [facility] Stop: 08/05/17 10:00 Nicotine (Nicoderm Cq) 1 patch TD DAILY [facility] Last Admin: 06/21/18 13:09 Dose: Not Given Oxycodone HCl (Oxycodone Immediate Release Tab) 10 mg PO Q6H PRN PRN Reason: Pain, severe (8-10) Paroxetine HCl (Paxil) 10 mg PO HS [facility] Last Admin: 08/02/17 21:27 Dose: 10 mg Polyethylene Glycol (Miralax) 17 gm PO DAILY PRN PRN Reason: Constipation Sucralfate (Carafate Oral Susp) 1 gm PO 0630,1130,1630,2200 [facility] Last Admin: 08/03/17 05:50 Dose: 1 gm - Labs Labs: 08/03/17 05:45 08/03/17 05:45 PT 16.7 SECONDS (9.4-12.5) H 07/31/17 23:15 INR 1.45 (0.93-1.08) H 07/31/17 23:15 APTT 28.3 Seconds (25.1-36.5) 07/31/17 23:15 - Additional Findings Additional findings: - Constitutional Appears: Non-toxic, No Acute Distress - Head Exam Additional comments: abrasians noted left side of her face on also on left forehead - Eye Exam Eye Exam: EOMI, Normal appearance, Scleral icterus. absent: Conjunctival injection - ENT Exam ENT Exam: Mucous Membranes Moist - Respiratory Exam Respiratory Exam: Clear to Ausculation Bilateral, Respiratory Distress, NORMAL BREATHING PATTERN. absent: Accessory Muscle Use, Rales, Rhonchi, Wheezes - Cardiovascular Exam Cardiovascular Exam: REGULAR RHYTHM, +S1, +S2 - GI/Abdominal Exam GI & Abdominal Exam: Soft, Normal Bowel Sounds. absent: Firm, Guarding - Extremities Exam Extremities Exam: Pedal Edema - Neurological Exam Neurological Exam: Alert, Awake, Oriented x3 - Psychiatric Exam Psychiatric exam: Normal Affect, Normal Mood - Skin Skin Exam: Dry, Warm Assessment and Plan - Assessment and Plan (Free Text) Assessment: 82yo female PMHx mets colon ca s/p colectomy on chemotherapy, DVT on Eliquis and ASA, HTN, anxiety, lymphedema, anemia presented with acute anemia and a fall. Patient presented with Hgb 6.2 and was transfused 2U PRBC and responded appropriately- Hgb this AM 10.2. Head CT no acute bleed. Echo this AM EF 55-60% . CT chest/abd/pelvis reviewed. Nephro, Cardio, GI, and Neuro on board- appreciate reccs. Patient pending d/c to [facility]. Discussed with Dr. Naomi Bingham PGY2
--- NOTE | 2017-08-03 11:20 | CP.PCM.PN ---
<Anne Allen - Last Filed: 08/03/17 11:15> Subjective - Date & Time of Evaluation Date of Evaluation: 08/03/17 Time of Evaluation: 09:45 - Subjective Subjective: seen and examined at the bedside earlier today, chart reviewed. Patient had episode of nausea and retching this morning, this has improved patient tolerated some of her breakfast. No report of abdominal pain or any overt GI bleed. Patient had a bowel movement this morning. Went for CT scan of chest abdomen and pelvis. Results pending. No acute overnight events as per nursing. Objective - Vital Signs/Intake and Output Vital Signs (last 24 hours): Temp Pulse Resp BP Pulse Ox 97.9 F 67 20 171/79 H 100 08/03/17 05:57 08/03/17 05:57 08/03/17 05:57 08/03/17 05:57 08/03/17 05:57 Intake and Output: 08/03/17 08/03/17 06:59 18:59 Intake Total 735 Output Total 200 Balance 535 - Medications Medications: Current Medications Acetaminophen (Tylenol 325mg Tab) 650 mg PO Q4H PRN PRN Reason: Pain, Mild (1-3) Last Admin: 08/02/17 15:35 Dose: 650 mg Alprazolam (Xanax) 0.25 mg PO BID PRN; Protocol PRN Reason: Anxiety Stop: 08/08/17 18:01 Last Admin: 08/03/17 00:34 Dose: 0.25 mg Amlodipine Besylate (Norvasc) 10 mg PO DAILY [facility] Last Admin: 08/02/17 13:05 Dose: 10 mg Docusate Sodium (Colace) 100 mg PO BID [facility] Last Admin: 08/02/17 18:12 Dose: 100 mg Famotidine (Pepcid) 20 mg PO 2200 [facility] Last Admin: 08/02/17 21:27 Dose: 20 mg Hydralazine HCl (Apresoline) 50 mg PO BID [facility] Sodium Chloride (Sodium Chloride 0.9%) 1,000 mls @ 50 mls/hr IV .Q20H [facility] Last Admin: 08/02/17 21:30 Dose: Not Given Iron Sucrose 100 mg/ Sodium (Chloride) 105 mls @ 210 mls/hr IVPB DAILY [facility] Stop: 08/05/17 10:00 Nicotine (Nicoderm Cq) 1 patch TD DAILY [facility] Last Admin: 08/02/17 13:09 Dose: Not Given Oxycodone HCl (Oxycodone Immediate Release Tab) 10 mg PO Q6H PRN PRN Reason: Pain, severe (8-10) Paroxetine HCl (Paxil) 10 mg PO HS [facility] Last Admin: 08/02/17 21:27 Dose: 10 mg Polyethylene Glycol (Miralax) 17 gm PO DAILY PRN PRN Reason: Constipation Sucralfate (Carafate Oral Susp) 1 gm PO 0630,1130,1630,2200 [facility] Last Admin: 08/03/17 05:50 Dose: 1 gm - Labs Labs: 08/03/17 05:45 08/03/17 05:45 PT 16.7 SECONDS (9.4-12.5) H 07/31/17 23:15 INR 1.45 (0.93-1.08) H 07/31/17 23:15 APTT 28.3 Seconds (25.1-36.5) 07/31/17 23:15 - Constitutional Appears: No Acute Distress - Head Exam Head Exam: NORMOCEPHALIC - Eye Exam Eye Exam: Normal appearance. absent: Scleral icterus - ENT Exam ENT Exam: Mucous Membranes Moist - Neck Exam Neck Exam: Normal Inspection - Respiratory Exam Respiratory Exam: NORMAL BREATHING PATTERN. absent: Respiratory Distress - Cardiovascular Exam Cardiovascular Exam: +S1, +S2 - GI/Abdominal Exam GI & Abdominal Exam: Soft, Normal Bowel Sounds. absent: Guarding, Tenderness, Organomegaly, Rebound - Extremities Exam Extremities Exam: absent: Calf Tenderness - Neurological Exam Neurological Exam: Alert, Awake, Oriented x3 - Skin Skin Exam: Dry, Warm Assessment and Plan - Assessment and Plan (Free Text) Assessment: Assessment: Anemia,- s/p 2U PRBC, may be secondary to chemotherapy v. GI bleed v. B12 deficiency from R hemicolectomy, H/O of duondenal ulcer on EGD in 02/2017 (Non-bleeding) Syncopal episode ,Head CT negative and XRay negative for fracture Bradycardia HTN Hx of DVT s/p L iliac stent on Eliquis and ASA Metastatic colon cancer s/p R colectomy and radiation , on chemotherapy Anxiety Plan: Anticoagulation is on hold monitor H/H and overt GIB Continue Pepcid continue on Carafate FU CT chest & A/P Seen and discussed with Dr. Benedict. <Coy Benedict V - Last Filed: 08/03/17 23:36> Objective - Vital Signs/Intake and Output Vital Signs (last 24 hours): Temp Pulse Resp BP Pulse Ox 98.2 F 71 20 142/57 L 100 08/03/17 17:12 08/03/17 22:00 08/03/17 17:12 08/03/17 17:51 08/03/17 05:57 - Medications Medications: Current Medications Acetaminophen (Tylenol 325mg Tab) 650 mg PO Q4H PRN PRN Reason: Pain, Mild (1-3) Last Admin: 08/03/17 21:19 Dose: 650 mg Alprazolam (Xanax) 0.25 mg PO BID PRN; Protocol PRN Reason: Anxiety Stop: 08/08/17 18:01 Last Admin: 08/03/17 23:29 Dose: 0.25 mg Amlodipine Besylate (Norvasc) 10 mg PO DAILY [facility] Last Admin: 08/03/17 11:05 Dose: 10 mg Docusate Sodium (Colace) 100 mg PO BID [facility] Last Admin: 08/03/17 17:51 Dose: 100 mg Famotidine (Pepcid) 20 mg PO 2200 [facility] Last Admin: 08/03/17 21:12 Dose: 20 mg Hydralazine HCl (Apresoline) 50 mg PO BID [facility] Last Admin: 08/03/17 17:51 Dose: 50 mg Iron Sucrose 200 mg/ Sodium (Chloride) 110 mls @ 210 mls/hr IVPB DAILY [facility] Stop: 08/06/17 10:32 Sodium Chloride (Sodium Chloride 0.45%) 1,000 mls @ 50 mls/hr IV .Q20H [facility] Last Admin: 08/03/17 16:01 Dose: 50 mls/hr Lisinopril (Zestril) 5 mg PO DAILY [facility] Last Admin: 08/03/17 15:59 Dose: 5 mg Nicotine (Nicoderm Cq) 1 patch TD DAILY [facility] Last Admin: 08/03/17 11:04 Dose: 1 patch Oxycodone HCl (Oxycodone Immediate Release Tab) 10 mg PO Q6H PRN PRN Reason: Pain, severe (8-10) Paroxetine HCl (Paxil) 10 mg PO HS [facility] Last Admin: 08/03/17 21:12 Dose: 10 mg Polyethylene Glycol (Miralax) 17 gm PO DAILY PRN PRN Reason: Constipation Sucralfate (Carafate Oral Susp) 1 gm PO 0630,1130,1630,2200 [facility] Last Admin: 08/03/17 21:12 Dose: 1 gm - Labs Labs: 08/03/17 05:45 08/03/17 05:45 PT 16.7 SECONDS (9.4-12.5) H 07/31/17 23:15 INR 1.45 (0.93-1.08) H 07/31/17 23:15 APTT 28.3 Seconds (25.1-36.5) 07/31/17 23:15 Attending/Attestation - Attestation I have personally seen and examined this patient.: Yes I have fully participated in the care of the patient.: Yes I have reviewed all pertinent clinical information, including history, physical exam and plan: Yes Notes (Text): This is an addendum to GI progress report dictated by Anne Allen APN.The patient was seen and examined earlier. Medical records, lab studies, imagings were reviewed. Last 24 hours events reviewed. Agreed with the above treatment plan as outlined in Anne Allen APN's notes the with the addition of the following 08/03/17 23:36
[2017-08-03] MEDS ORDERED: Sodium Chloride 0.45% 1,000 ML IV SCH (13:42)
--- NOTE | 2017-08-03 18:15 | CON ---
DATE: 08/03/2017 REASON FOR CONSULTATION: Prerenal azotemia, hypernatremia, fall, need for contrast. HISTORY OF PRESENT ILLNESS: An 82-year-old lady known to me from prior evaluation in May. Patient was brought in because of a fall at home. She is awake and alert. She reports that she tripped on her own feet and fell. She has a laceration on her forehead and the bridge of her nose. She denies any chest tightness, palpitations. She denies any dizziness or shortness of breath. She denies any nausea, vomiting, or diarrhea. In the emergency room, she was found to be normotensive. Blood pressure was 125/42. She was afebrile. She was found to have a hemoglobin of 6.2. She was found to be guaiac positive. She has a history of colon cancer stage IV. She is receiving chemotherapy with Avastin and Xeloda. She has a history of DVT in her right lower extremity. Patient was scheduled for a contrast study and hence consultation was requested. PAST MEDICAL AND SURGICAL HISTORY: Stage IV colon cancer, on chemotherapy; hypercoagulable state; DVT; peripheral vascular disease; history of iliac vein stenting; hypertension; GI bleed. FAMILY HISTORY: Noncontributory. SOCIAL HISTORY: Active smoker, smokes one pack per day, no alcohol, no IV drug abuse. ALLERGIES: PENICILLIN. MEDICATIONS AT HOME: Oxycodone, amlodipine 10, simvastatin 40, Protonix 40, Paxil, Prilosec, lisinopril 5, Pepcid, Lipitor, aspirin, Eliquis 2.5 b.i.d., Xanax. REVIEW OF SYSTEMS: All systems are reviewed, pertinent positives as mentioned in the history of presenting illness, rest unremarkable. PHYSICAL EXAMINATION: GENERAL: Thinly built elderly lady lying in bed. VITAL SIGNS: Blood pressure 158/71, heart rate 83, respiratory rate 20, temperature 97.7. HEENT: Normocephalic, atraumatic, positive pallor. NECK: Supple, no JVD. LUNGS: Bilateral equal air entry, bilateral equal expansion, no rales appreciated. CARDIAC: S1 and S2, regular rate and rhythm, no murmur, no rub. ABDOMEN: Soft, nondistended, nontender, bowel sounds present. EXTREMITIES: No lower extremity edema. INTAKE AND OUTPUT: 1095/800 LABORATORY DATA: WBC 6.3, hemoglobin 10.2, hematocrit 33, and platelets 374. Sodium 144, potassium 4.2, chloride 104, CO2 of 28. BUN 18, creatinine 0.7. Glucose 85. Calcium 8.6. Iron saturation 6%, iron 21, ferritin 15. Patient received 2 units of blood on 08/01/2017. Urinalysis: Yellow, clear, pH 6, specific gravity 1.010, protein negative, leukocyte esterase trace. Stool occult positive. Urine culture no growth. CURRENT MEDICATIONS: Apresoline, Carafate, Colace, Venofer 100, MiraLax, Nicoderm, amlodipine, Paxil, normal saline at 50, Tylenol, Xanax. ASSESSMENT: 1. Hypernatremia, likely iatrogenic. Patient is receiving normal saline. 2. Mild prerenal azotemia. 3. Severe anemia, gastrointestinal bleed, history of colon cancer. 4. Hypertension. 5. Stage IV colon cancer. 6. Active current smoking. 7. Low iron stores despite 2 units of blood transfusion. PLAN: 1. Change IV fluids to half-normal saline. 2. Increase Venofer to 200 mg daily. 3. Continue current antihypertensives. 4. Push p.o. free water. 5. Monitor H and H. 6. Follow up CT scan of the abdomen and pelvis. 7. Restart lisinopril 5 mg daily, patient's home med. Thank you for the courtesy of this consultation. We will follow this patient closely with you. Ngozi Mares MD
[2017-08-04 05:49] VITALS: TEMP 97.9; O2SAT 97
[2017-08-04] MEDS: Sucralfate 1 gm/10 ml Oral Susp UD PO SCH ×2 (06:24→12:42)
[2017-08-04 07:23] LABS: ALB/GLOB RATIO 1.1 (1.1-1.8); ALBUMIN 3.1 g/dL (3.0-4.8); ALT/SGPT 25 U/L (7-56); AST/SGOT 22 U/L (14-36); BLOOD UREA NITROGEN 12 mg/dL (7-21); CALCIUM 8.7 mg/dL (8.4-10.5); GFR AFRICAN-AMERICAN > 60; GFR NON-AFRICAN AMERICAN > 60
[2017-08-04 07:24] LABS: BASO # 0.02 K/mm3 (0.0-2.0); BASO % 0.3 % (0.0-3.0); EOS # 0.1 (0.0-0.7); EOS % 2.1 % (1.5-5.0); GRAN # 4.43 (1.4-6.5); GRAN % 71.3 % (50.0-68.0); HEMOGLOBIN 10.6 g/dL (12.0-16.0); LYMPH # 0.9 (1.2-3.4); LYMPH % 14.2 % (22.0-35.0); MEAN CELL VOLUME 84.6 fl (80.0-105.0); MEAN CORPUSCULAR HEMOGLOBIN 26.3 pg (25.0-35.0); MEAN CORPUSCULAR HGB CONC 31.1 g/dl (31.0-37.0); MEAN PLATELET VOLUME 9.1 fl (7.0-11.0); MONO # 0.8 (0.1-0.6); MONO % 12.1 % (1.0-6.0); RBC 4.03 10^6/uL (3.5-6.1); RED CELL DISTRIBUTION WIDTH 19.7 % (11.5-14.5); WHITE BLOOD COUNT 6.2 10^3/ul (4.5-11.0)
[2017-08-04 10:06] VITALS: BP 188/94
[2017-08-04] MEDS ORDERED: Potassium & Sodium Phosphate PO SCH (10:41)
[2017-08-04 12:07] VITALS: PULSE 70
--- NOTE | 2017-08-04 14:52 | PN ---
DATE: 08/04/2017 REASON FOR CONSULTATION AND FOLLOWUP: Cardiac evaluation for bradycardia, history of metastatic colon cancer, lymphedema, COPD. SUBJECTIVE: Patient denies any chest pain, shortness of breath or any palpitation. PHYSICAL EXAMINATION: GENERAL: Not in apparent distress. VITAL SIGNS: As follows; temperature afebrile, heart rate 109, blood pressure 188/94. HEENT: PERRLA. Extraocular muscles intact. NECK: Supple. No carotid bruit. No thyromegaly. CHEST: Clear to auscultation. HEART: S1 and S2 regular. ABDOMEN: Soft. EXTREMITIES: Clubbing and cyanosis negative. LABORATORY DATA: Blood workup as follows: WBC 6.8, hemoglobin , hematocrit 34.1, platelet count 398. Chemistry shows sodium 140, potassium 3, chloride 106, CO2 of 22, anion gap of 12, BUN 12, creatinine 0.6. IMPRESSION: An 82-year-old female with past medical history significant for generalized weakness, came with left-sided hip pain after a fall. Hemoglobin found to be significant at 6.2. Patient got blood transfusion. During transfusion, heart rate went into the 50; history of chronic obstructive pulmonary disease; history of migraine; history of metastatic colon cancer with resection; lymphedema; currently a smoker; history of peripheral arterial disease; intraluminal thrombosis of iliac artery and on Eliquis, followed by Dr. Salgado, colon cancer. Patient had echocardiogram that shows ejection fraction of 55% to 60%; mild mitral regurgitation; mild tricuspid regurgitation. RECOMMENDATIONS: Not in beta-vicenta because of bradycardia, on Norvasc for hypertension and hydralazine p.r.n. for blood pressure. Started yesterday, hydralazine 50 b.i.d. We will review the Holter as outpatient, also on lisinopril. We will follow with you. No further episode of bleeding has been noted. We will follow to monitor. We will supplement potassium and if phosphorus is low, we will give Neutra-Phos, is starting first dose now. Thank you, Dr. Salgado, for providing us the opportunity in taking care of the patient, Ms. Watson. Remigio Salgado MD
--- NOTE | 2017-08-04 16:16 | CP.PCM.PN ---
Subjective - Date & Time of Evaluation Date of Evaluation: 08/04/17 Time of Evaluation: 11:30 - Subjective Subjective: renal folllow up covering for dr. owen s: seen and examined feels good denies n/v o: vs as below gen: nad sclera: anicteric op: clear neck:supple cv: +S1+ s2 lungs: cta abd: Soft ext: no edema neuro: a+Ox3 psych: nml affect skin: scattered ecchymoses imp: arf /hypernatremia/ anemia plan: brenda resolved na now normalized hgb stable for d/c per primary team Objective - Vital Signs/Intake and Output Vital Signs (last 24 hours): Temp Pulse Resp BP Pulse Ox 97.9 F 70 20 188/94 H 97 08/04/17 05:48 08/04/17 10:00 08/04/17 05:48 08/04/17 09:58 08/04/17 05:48 Intake and Output: 08/04/17 08/04/17 06:59 18:59 Intake Total 120 580 Output Total 400 Balance -280 580 - Labs Labs: 08/04/17 06:00 08/04/17 06:00 PT 16.7 SECONDS (9.4-12.5) H 07/31/17 23:15 INR 1.45 (0.93-1.08) H 07/31/17 23:15 APTT 28.3 Seconds (25.1-36.5) 07/31/17 23:15
--- NOTE | 2017-08-04 17:25 | CT ---
PROCEDURE: CT Chest, Abdomen and Pelvis with intravenous contrast HISTORY: Rule out metastasis. COMPARISON: Comparison made with prior study 10/24/2016. TECHNIQUE: IV dose administered: 100 cc of Omnipaque 350 contrast material Radiation dose: Total exam DLP = 277.65 mGy-cm. This CT exam was performed using one or more of the following dose reduction techniques: Automated exposure control, adjustment of the mA and/or kV according to patient size, and/or use of iterative reconstruction technique. FINDINGS: CT CHEST WITH CONTRAST: LUNGS: The current study reveals multiple on varying sized nodular mass densities scattered throughout the left upper and a few seen in the right upper lobes and both lower lobes consistent with metastases. The largest lesion is located in the left anterior upper lung field measuring approximately 2.2 x 1.7 cm. Centrilobular emphysematous changes upper lobe predominance. . Mild bibasilar atelectasis. MEDIASTINUM: Heart size is enlarged. No significant pericardial effusion. Ascending thoracic aorta measures approximately 3.9 cm and descending thoracic aorta measures 2.4 cm. Pulmonary trunk measures 3.0 cm. LYMPH NODES: No significant mediastinal or hilar adenopathy. PLEURA: Unremarkable. No pneumothorax. No pleural fluid. BONES: Unremarkable. OTHER FINDINGS: None. CT ABDOMEN AND PELVIS: LIVER: The liver exhibits normal size. No obvious hepatic mass or collection. Mild central intrahepatic biliary ductal dilatation. Portal and splenic veins are opacified. Mild fatty hepatic infiltration small amount of perihepatic fluid GALLBLADDER AND BILE DUCTS: Unremarkable. PANCREAS: Pancreas is somewhat atrophic and fatty replaced. The SPLEEN: Small amount of perisplenic fluid ADRENALS: No adrenal lesions seen. KIDNEYS AND URETERS: Left sided exophytic renal cyst arising from the lateral aspect mid to lower pole left kidney with questionable enhancing rim or calcification versus motion artifact. Dedicated follow-up renal imaging could be performed to confirm and exclude a cystic neoplastic lesion. VASCULATURE: Unremarkable. No aortic aneurysm. BOWEL: There is a ill-defined soft tissue masslike density in the right the lateral mid abdomen which appears to be located in the mesentery abutting the right colon. This lesion has increased in size now measuring approximately 5.7 cm in greatest dimension with a localized area of calcification. This lesion felt to represent mesenteric metastasis. There also appears to be a conglomeration of matted small bowel in the right pelvis. APPENDIX: Appendix not seen with certainty PERITONEUM: Free fluid is present within the pelvis. LYMPH NODES: Suspect enlarged right pelvic sidewall lymph nodes likely metastatic as well. BLADDER: Urinary bladder physiologically distended. REPRODUCTIVE: Unremarkable. BONES: No acute fractures. OTHER FINDINGS: None. IMPRESSION: Multiple metastatic lesions scattered throughout the upper lobes left greater than right. There are a few small on metastatic deposits within both lower lobes. Mild bibasilar atelectasis. Centrilobular emphysematous changes. There is a large masslike lesion in the mesentery right mid abdomen that probably represents a metastatic deposit on given this patient's history of colon carcinoma. Conglomeration of what appears to be small bowel right pelvis that may represent matted loops of small bowel. There is perihepatic and perisplenic ascites with free fluid in the pelvis. Enlarged pelvic sidewall adenopathy. Mild central intrahepatic biliary ductal dilatation.
--- NOTE | 2017-08-06 17:13 | CARD ---
APPROVED REPORT Reason for Test: BRADYCARDIA Hookup date: 2017-08-02 Scan date: 2017-08-06 Recording time: 23 HR 59 MIN Heart Rate Data Total Beats: 192861 Min HR: 40 BPM at 3:31AM Avg HR: 72 BPM Max HR: 121 BPM at 12:26PM Ventricular Ectopy Total VE Beats: 3 (%) Triplets: 1 Events Supraventricular Ectopy Total VE Beats: 418 (0.4%) Atrial Runs: 3 Beats: 37 Longest: 18 Fastest: 194 BPM Atrial Pairs: 6 Events Drop/Late: 0/75 Longest R-R: 1.7 sec at 3:38 AM Single PAC's: 294 Conclusion SINUS RHYTHM / SINUS BRADYCARDIA / SINUS TACHYCARDIA MINIMUM HR 40 BPM MAXIMUM HR 121 BPM VERY RARE APC'S, ISOLATED PAIRED, 2 RUNS-LONGEST 18 BEATS 1 RUN SVT, 15 BEATS, 194 BPM ISOLATED VPC'S, 1 TRIPLET THERE WERE NO DIARY ENTRIES.
== END 2017-08-04 14:09 | DRG 812 ==
LOC: ED 22:30 → ERH 08-01 02:50 → 2RSO 08-01 05:43 → OBSVTOIN 08-01 10:35
PROVIDERS: ADMIT Family Medicine; ATTEND Family Medicine
PROC: 30233N1 Transfusion of Nonautologous Red Blood Cells into Peripheral Vein, Percutaneous Approach (ICD-10-PCS; principal; 2017-08-01)
DX: D64.9 Anemia, unspecified (principal); C18.9 Malignant neoplasm of colon, unspecified; E87.0 Hyperosmolality and hypernatremia; D68.59 Other primary thrombophilia; I74.5 Embolism and thrombosis of iliac artery; I12.9 Hypertensive chronic kidney disease with stage 1 through stage 4 chronic kidney disease, or unspecified chronic kidney disease; N18.9 Chronic kidney disease, unspecified; F41.9 Anxiety disorder, unspecified; F17.210 Nicotine dependence, cigarettes, uncomplicated; E78.5 Hyperlipidemia, unspecified; G62.9 Polyneuropathy, unspecified; G43.909 Migraine, unspecified, not intractable, without status migrainosus; G89.3 Neoplasm related pain (acute) (chronic); J44.9 Chronic obstructive pulmonary disease, unspecified; K21.9 Gastro-esophageal reflux disease without esophagitis; K29.70 Gastritis, unspecified, without bleeding; F32.9 Major depressive disorder, single episode, unspecified; K57.30 Diverticulosis of large intestine without perforation or abscess without bleeding; I89.0 Lymphedema, not elsewhere classified; K64.8 Other hemorrhoids; Z66 Do not resuscitate; K26.9 Duodenal ulcer, unspecified as acute or chronic, without hemorrhage or perforation; R00.1 Bradycardia, unspecified; I08.1 Rheumatic disorders of both mitral and tricuspid valves; Z95.828 Presence of other vascular implants and grafts; Z91.81 History of falling; Z87.11 Personal history of peptic ulcer disease; Z86.718 Personal history of other venous thrombosis and embolism; Z90.49 Acquired absence of other specified parts of digestive tract

== ENCOUNTER 2017-08-12 19:42 | Inpatient (IN) | payer MEDICARE ==
[2017-08-12] MEDS: Sodium Chloride 0.9% 1,000 ML IV SCH (20:53)
[2017-08-12 21:05] LABS: HEMOGLOBIN 10.3 g/dL (12.0-16.0); MEAN CORPUSCULAR HEMOGLOBIN 27.2 pg (25.0-35.0); MEAN PLATELET VOLUME 11.1 fl (7.0-11.0); RBC 3.79 10^6/uL (3.5-6.1); RED CELL DISTRIBUTION WIDTH 20.5 % (11.5-14.5); WHITE BLOOD COUNT 15.8 10^3/ul (4.5-11.0)
--- NOTE | 2017-08-12 21:10 | ED PDOC ---
Arrival/HPI - General Chief Complaint: Abdominal Pain Time Seen by Provider: 08/12/17 19:54 Historian: Patient - History of Present Illness Narrative History of Present Illness (Text): 08/12/17 21:07 A 82 year old female, whose past medical history includes stage 4 colon CA, COPD , migraines, and DVT to lower extremities, presents to the emergency department complaining of abdominal discomfort with associated episodes of vomiting for the past few days. Patient reports she has been unable to eat or keep anything down. Patient denies any fever, chills, diarrhea, back pain, chest pain, shortness of breath, or any other complaints at at this time. PMD: Dr. Brown Time/Duration: < week (past few days) Past Medical History - Provider Review Nursing Documentation Reviewed: Yes - Infectious Disease Hx of Infectious Diseases: None - Tetanus Immunization Tetanus Immunization: Unknown - Cardiac Hx Cardiac Disorders: Yes (Angioplasty) Hx Hypertension: Yes - Pulmonary Hx Chronic Obstructive Pulmonary Disease (COPD): Yes - Neurological Hx Neurological Disorder: Yes Hx Migraine: Yes - HEENT Hx HEENT Disorder: Yes Hx Cataracts: Yes Hx Difficulty Chewing: Yes - Renal Hx Renal Disorder: No - Endocrine/Metabolic Hx Endocrine Disorders: No - Hematological/Oncological Hx Blood Transfusions: Yes Hx Blood Transfusion Reaction: No - Integumentary Hx Dermatological Disorder: No - Musculoskeletal/Rheumatological Hx Falls: Yes (recent) - Gastrointestinal Hx Gastrointestinal Disorders: Yes (ulcer/reflux) - Genitourinary/Gynecological Hx Genitourinary Disorders: No - Psychiatric Hx Psychophysiologic Disorder: Yes Hx Anxiety: Yes Hx Substance Use: No - Surgical History Other/Comment: Colon resection - Anesthesia Hx Anesthesia Reactions: No Hx Malignant Hyperthermia: No - Suicidal Assessment Feels Threatened In Home Enviroment: No Family/Social History - Physician Review Nursing Documentation Reviewed: Yes Family/Social History: No Known Family HX Smoking Status: Heavy Smoker > 10 Cigarettes Daily Hx Alcohol Use: No Hx Substance Use: No Hx Substance Use Treatment: No Allergies/Home Meds Allergies/Adverse Reactions: Allergies Penicillins Allergy (Severe, Verified 08/12/17 19:57) RASH Home Medications: Home Meds Medication Instructions Recorded Confirmed Famotidine [Pepcid] 40 mg PO DAILY 12/03/15 08/12/17 Lisinopril [Zestril] 5 mg PO DAILY 12/03/15 08/12/17 Simvastatin 40 mg PO DAILY 12/03/15 08/12/17 amLODIPine [Norvasc] 10 mg PO DAILY 12/03/15 08/12/17 Review of Systems - Physician Review All systems were reviewed & negative as marked: Yes - Review of Systems Constitutional: absent: Fevers, Night Sweats Respiratory: absent: SOB Cardiovascular: absent: Chest Pain Gastrointestinal: Abdominal Pain (abdominal discomfort), Vomiting (associated episodes of vomiting). absent: Diarrhea Musculoskeletal: absent: Back Pain Physical Exam Vital Signs Reviewed: Yes Vital Signs Temp Pulse Resp BP Pulse Ox 08/12/17 19:54 97.8 F 89 18 99/51 L 95 Temperature: Afebrile Blood Pressure: Normal Pulse: Regular Respiratory Rate: Normal Appearance: Positive for: Well-Appearing, Non-Toxic, Comfortable Pain Distress: None Mental Status: Positive for: Alert and Oriented X 3 - Systems Exam Pupils: Present: PERRL Extroacular Muscles: Present: EOMI Conjunctiva: Present: Normal Mouth: Present: Moist Mucous Membranes Neck: Present: Normal Range of Motion, Other (neck is supple) Respiratory/Chest: Present: Clear to Auscultation, Good Air Exchange. No: Respiratory Distress, Accessory Muscle Use Cardiovascular: Present: Regular Rate and Rhythm, Normal S1, S2. No: Murmurs Abdomen: Present: Tenderness (some tenderness to mid and upper abdominal region) , Normal Bowel Sounds. No: Peritoneal Signs, Rebound, Guarding Back: Present: Normal Inspection Upper Extremity: Present: Normal Inspection, Normal ROM (full ROM x 4), Neurovascularly Intact. No: Cyanosis, Edema Lower Extremity: Present: Normal Inspection, Normal ROM (full ROM x 4), Neurovascularly Intact. No: Edema Neurological: Present: GCS=15, CN II-XII Intact, Speech Normal, Other (no focal/ neurological deficits) Skin: Present: Warm, Dry, Normal Color. No: Rashes Psychiatric: Present: Alert, Oriented x 3, Normal Insight, Normal Concentration Medical Decision Making ED Course and Treatment: 08/12/17 20:22 Impression: 82 year old female with abdominal discomfort with associated episodes of vomiting. Physical exam shows some mid-upper abdominal tenderness. Plan: -- Abd/Pelvis CT -- Labs -- IV Fluids -- Reassess and disposition Prior Visits: Notes and results from previous visits were reviewed. Patient was last seen in the emergency department on 08/01/2017 for generalized weakness. Patient was admitted with diagnosis of anemia. Progress Notes: 08/12/17 23:47 CT Abdomen and Pelvis shows: Limitations: Limited evaluation due to lack of IV contrast. Lung bases: 5 mm nodule in the lingula , followup is recommended. ABDOMEN: Liver: The liver is heterogenous in appearance. Gallbladder and bile ducts: Distended. No calcified stones. No ductal dilation. Pancreas: Pancreas evaluation is limited. No ductal dilation. Spleen: Unremarkable. No splenomegaly. Adrenals: Unremarkable. No mass. Kidneys and ureters: Cyst in the left kidney. No obstructing stones. No hydronephrosis. Stomach and bowel: There are dilated small bowel loops noted and distal loops are not dilated. The findings are suspicious for small bowel obstruction. loops are dilated up to 3.8 cm. There is a calcified density with an associated soft tissue density in the mesentery measuring 4.6 cm. The findings are concerning for a mass lesion with calcification. Possible carcinoid is not excluded. PELVIS: Appendix: No findings to suggest acute appendicitis. Bladder: Unremarkable. No stones. Reproductive: Unremarkable as visualized. ABDOMEN and PELVIS: Intraperitoneal space: Unremarkable. No free air. No significant fluid collection. Bones/joints: Osteopenia and degenerative changes of the spine. No acute fracture. No dislocation. Soft tissues: Unremarkable. Vasculature: Significant atherosclerotic changes of the aorta. Significant atherosclerotic changes of the aorta. No abdominal aortic aneurysm. Lymph nodes: Unremarkable. No enlarged lymph nodes. IMPRESSION: 1. 5 mm nodule in the lingula , followup is recommended. 2. There are dilated small bowel loops noted and distal loops are not dilated. The findings are suspicious for small bowel obstruction. Loops are dilated up to 3.8 cm. Swirling of the mesentery noted. Question closed loop obstruction is not excluded. There is a calcified density with an associated soft tissue density in the mesentery measuring 4.6 cm. The findings are concerning for a mass lesion with calcification. Possible carcinoid is not excluded. 08/13/17 00:[address] Brown, who is aware and agrees with plan. Accepts pt in to her service. Pt will be admitted to [facility] for small bowel obstruction. Requests Dr. Berger on consult - Lab Interpretations Lab Results: 08/12/17 20:53 08/12/17 20:53 Lab Results 08/12/17 20:53: WBC 15.8 H D, RBC 3.79, Hgb 10.3 L, Hct 32.2 L, MCV 85.0, MCH 27.2, MCHC 32.0, RDW 20.5 H, Plt Count 393, MPV 11.1 H 08/12/17 20:53: Sodium 141, Potassium 4.0, Chloride 101, Carbon Dioxide 27, Anion Gap 17, BUN 72 H, Creatinine 1.3 H, Est GFR ( Amer) 47, Est GFR ( Non-Af Amer) 39, Random Glucose 108, Calcium 9.1, Total Bilirubin 0.7, AST 33, ALT 24, Alkaline Phosphatase 129 H D, Total Protein 6.0, Albumin 3.4, Globulin 2.6, Albumin/Globulin Ratio 1.3, Lipase 69 I have reviewed the lab results: Yes - RAD Interpretation Radiology Orders: 08/12/17 20:22 ABD & PELVIS W/O PO OR IV CONT [CT] Stat 08/12/17 22:31 CHEST PORTABLE [RAD] Stat Travel Service Consultant: Radiologist - Medication Orders Current Medication Orders: Sodium Chloride (Sodium Chloride 0.9%) 1,000 mls @ 100 mls/hr IV .Q10H KALA Last Admin: 08/12/17 20:53 Dose: 100 mls/hr eMAR Start Stop Document 08/12/17 20:53 ITZEL (Rec: 08/12/17 20:53 ITZEL [id number]) Intravenous Solution Start Date 08/12/17 Start Time 20:53 Aztreonam (Azactam 1 Gm) 100 mls @ 100 mls/hr IVPB STAT STA PRN Reason: Protocol Stop: 08/13/17 00:47 Metronidazole (Flagyl) 500 mg in 100 mls @ 100 mls/hr IVPB STAT STA PRN Reason: Protocol Stop: 08/13/17 00:48 Last Admin: 08/12/17 23:54 Dose: 100 mls/hr eMAR Start Stop Document 08/12/17 23:54 ITZEL (Rec: 08/12/17 23:54 ITZEL [id number]) Intravenous Solution Start Date 08/12/17 Start Time 23:54 End Date 08/13/17 End time 00:54 Total Infusion Time 60 Discontinued Medications Sodium Chloride (Sodium Chloride 0.9%) 1,000 mls @ 999 mls/hr IV .Q1H1M STA Stop: 08/12/17 23:24 Last Admin: 08/12/17 23:35 Dose: 999 mls/hr eMAR Start Stop Document 08/12/17 23:35 ITZEL (Rec: 08/12/17 23:36 ITZEL [id number]) Intravenous Solution Start Date 08/12/17 Start Time 23:36 End Date 08/13/17 End time 00:36 Total Infusion Time 60 - Scribe Statement The provider has reviewed the documentation as recorded by the Carole Simental Provider Scribe Attestation: All medical record entries made by the Scribe were at my direction and personally dictated by me. I have reviewed the chart and agree that the record accurately reflects my personal performance of the history, physical exam, medical decision making, and the department course for this patient. I have also personally directed, reviewed, and agree with the discharge instructions and disposition. Disposition/Present on Arrival - Present on Arrival Any Indicators Present on Arrival: No History of DVT/PE: No History of Uncontrolled Diabetes: No Urinary Catheter: No History of Decub. Ulcer: No History Surgical Site Infection Following: None - Disposition Have Diagnosis and Disposition been Completed?: Yes Diagnosis: Small bowel obstruction Disposition: HOSPITALIZED Disposition Time: 00:26 Patient Plan: Admission Condition: STABLE Referrals: Jessica Brown MD [Primary Care Provider] - Follow up with primary Forms: [email or web address] (Nepali)
[2017-08-12 21:34] LABS: ALB/GLOB RATIO 1.3 (1.1-1.8); ALBUMIN 3.4 g/dL (3.0-4.8); CALCIUM 9.1 mg/dL (8.4-10.5)
[2017-08-12] MEDS ORDERED: Sodium Chloride 0.9% 1,000 ML IV STA (22:24)
[2017-08-12] MEDS ORDERED: Aztreonam 1 Gm in NS 100mL 100 ML IVPB STA (23:48)
[2017-08-12] MEDS ORDERED: metroNIDAZOLE IV 500 mg/100 ml 500 MG/100 ML BAG IVPB STA (23:49)
[2017-08-13 00:24] LABS: VENOUS BLOOD GAS BASE EXCESS 1.3 mmol/L (0.0-2.0); VENOUS BLOOD GAS PO2 45 mm/Hg (30-55); VENOUS BLOOD PH 7.42 (7.32-7.43)
[2017-08-13] MEDS ORDERED: Lidocaine 2% Jelly (Uro-Jet) TOP ONE (01:12)
[2017-08-13] MEDS ORDERED: Lidocaine 2% Jelly (Uro-Jet) TOP STA (01:12)
--- NOTE | 2017-08-13 01:49 | CP.PCM.CON ---
<Sydney De La Rosa - Last Filed: 08/13/17 02:42> History of Present Illness - History of Present Illness History of Present Illness: General Surgery consult note for Dr. Berger Consulted for: abdominal pain, SBO Patient is an 82F with PMH of colon cancer s/p resection, with mets, and PAD s/ p stent placement in her RLE who presented from longterm for a couple of days of nausea, vomiting, and abdominal pain. Patient states the pain is in her RLQ and is a burning sensation. Emesis is dark brown like coffee grounds per patient. It is constant but is intermittently worse. States she does not know when her last bowel movement was or when she last passed gas. Denies any fevers or chills, dysuria, hematuria, chest pain, or any other symptoms. Patient denies any previous occurrences or any history of hematemesis.Patient is not aware of her outpatient medications, but she was prescribed eliquis in March 2017 for jail anticoagulation of her PAD. CT scan showed dilated proximal small loops of bowel with transition point in the RLQ, as well as intra- abdominal lesions. NGT placed in ER with 200cc's of dark red/brown emesis immediately which tested positive for blood on hemoccult test PMH: colon cancer, COPDF, HTN, GERD/PUD PSH: tonsilectomy, colon resection ALL: Penicillin social: former smoker, denies ETOH and illicit substances Review of Systems - Review of Systems All systems: reviewed and no additional remarkable complaints except (as per HPI ) Past Patient History - Infectious Disease Hx of Infectious Diseases: None - Tetanus Immunizations Tetanus Immunization: Unknown - Past Medical History & Family History Past Medical History?: Yes Pertinent Family History: Sister with thyroid cancer - Past Social History Smoking Status: Former Smoker Alcohol: None Drugs: Denies Home Situation {Lives}: Group Home - CARDIAC Hx Cardiac Disorders: Yes Hx Hypertension: Yes Hx Peripheral Vascular Disease: Yes (angioplast right leg) - PULMONARY Hx Chronic Obstructive Pulmonary Disease (COPD): Yes - NEUROLOGICAL Hx Neurological Disorder: Yes Hx Migraine: Yes - HEENT Hx HEENT Problems: Yes Hx Cataracts: Yes Hx Difficulty Chewing: Yes - RENAL Hx Chronic Kidney Disease: No - ENDOCRINE/METABOLIC Hx Endocrine Disorders: No - HEMATOLOGICAL/ONCOLOGICAL Hx Blood Transfusions: Yes Hx Blood Transfusion Reaction: No - INTEGUMENTARY Hx Dermatological Problems: No - MUSCULOSKELETAL/RHEUMATOLOGICAL Hx Falls: Yes (recent) - GASTROINTESTINAL Hx Gastrointestinal Disorders: Yes (ulcer/reflux) - GENITOURINARY/GYNECOLOGICAL Hx Genitourinary Disorders: No - PSYCHIATRIC Hx Psychophysiologic Disorder: Yes Hx Anxiety: Yes Hx Substance Use: No - SURGICAL HISTORY Hx Tonsillectomy: Yes Other/Comment: Colon resection - ANESTHESIA Hx Anesthesia Reactions: No Hx Malignant Hyperthermia: No Meds Allergies/Adverse Reactions: Allergies Allergy/AdvReac Type Severity Reaction Status Date / Time Penicillins Allergy Severe RASH Verified 08/12/17 19:57 - Medications Medications: Current Medications Sodium Chloride (Sodium Chloride 0.9%) 1,000 mls @ 100 mls/hr IV .Q10H KALA Last Admin: 08/12/17 20:53 Dose: 100 mls/hr Physical Exam - Constitutional Appears: Well, Non-toxic, No Acute Distress - Head Exam Head Exam: ATRAUMATIC, NORMOCEPHALIC - Eye Exam Eye Exam: Normal appearance. absent: Conjunctival injection, Scleral icterus - ENT Exam ENT Exam: Mucous Membranes Moist, Normal Oropharynx - Respiratory Exam Respiratory Exam: NORMAL BREATHING PATTERN. absent: Accessory Muscle Use, Respiratory Distress - Cardiovascular Exam Cardiovascular Exam: RRR - GI/Abdominal Exam GI & Abdominal Exam: Distended, Soft, Tenderness (RLQ, RUQ). absent: Rebound Additional comments: palpable distended loop of bowel in the RLQ - Rectal Exam Rectal Exam: Deferred - Extremities Exam Extremities exam: Negative for: calf tenderness, pedal edema, pedal pulses present - Neurological Exam Neurological exam: Alert, Oriented x3 - Psychiatric Exam Psychiatric exam: Normal Affect, Normal Mood - Skin Skin Exam: Dry, Intact, Normal Color, Warm Results - Vital Signs Recent Vital Signs: Last Vital Signs Temp 97.8 F 08/12/17 19:54 Pulse 86 08/13/17 01:06 Resp 18 08/13/17 01:06 BP 106/56 L 08/13/17 01:06 Pulse Ox 100 08/13/17 01:06 - Labs Result Diagrams: 08/12/17 20:53 08/12/17 20:53 Assessment & Plan - Assessment and Plan (Free Text) Assessment: 82F with metastatic colon cancer with small bowel obstruction with transition point in the RLQ NGT placed with dark red/brown emesis output positive for blood H/H improved from prior admissions Plan: Continue NGT to low intermittent wall suction protonix NPO except medications PRN nausea and pain medication Trend CBC and BMP, replete electrolytes as needed IVF Monitor strict NGT and urine output, monitor for bowel function Physical therapy F/U UA and urine culture Further recommendations per Dr. Ab Stauffer, Pgy2 <John Berger - Last Filed: 08/13/17 09:04> Meds - Medications Medications: Current Medications Acetaminophen (Tylenol 325mg Tab) 650 mg PO Q6H PRN PRN Reason: Pain, moderate (4-7) Ciprofloxacin (Cipro 400mg/200ml Dsw) 400 mg in 200 mls @ 133.3 mls/hr IVPB DAILY KALA PRN Reason: Protocol Stop: 08/13/17 11:31 Metronidazole (Flagyl) 500 mg in 100 mls @ 100 mls/hr IVPB Q8H KALA PRN Reason: Protocol Last Admin: 08/13/17 08:56 Dose: 100 mls/hr Sodium Chloride (Sodium Chloride 0.9%) 1,000 mls @ 125 mls/hr IV .Q8H [facility] Last Admin: 08/13/17 08:57 Dose: 125 mls/hr Ondansetron HCl (Zofran Inj) 4 mg IVP Q6H PRN PRN Reason: Nausea/Vomiting Pantoprazole Sodium (Protonix Inj) 40 mg IVP Q12 [facility] Results - Vital Signs Recent Vital Signs: Last Vital Signs Temp 97.7 F 08/13/17 07:34 Pulse 80 08/13/17 07:34 Resp 20 08/13/17 07:34 BP 126/60 08/13/17 07:34 Pulse Ox 96 08/13/17 07:34 - Labs Result Diagrams: 08/13/17 08:00 08/13/17 08:00 Labs: Laboratory Results - last 24 hr 08/13/17 08/13/17 08/13/17 02:25 08:00 08:00 WBC 12.9 H RBC 3.43 L Hgb 9.1 L Hct 29.2 L MCV 85.1 MCH 26.5 MCHC 31.2 RDW 20.4 H Plt Count 320 MPV 11.2 H Gran % 83.4 H Lymph % (Auto) 7.5 L [place] % (Auto) 8.7 H Eos % (Auto) 0.3 L Baso % (Auto) 0.1 Gran # 10.80 H Lymph # (Auto) 1.0 L [place] # (Auto) 1.1 H Eos # (Auto) 0.0 Baso # (Auto) 0.01 Sodium 143 Potassium 3.9 Chloride 109 H Carbon Dioxide 24 Anion Gap 14 BUN 71 H Creatinine 1.0 Est GFR ( Amer) > 60 Est GFR (Non-Af Amer) 53 Random Glucose 82 Calcium 8.2 L Total Bilirubin 0.6 AST 29 ALT 23 Alkaline Phosphatase 98 Total Protein 5.3 L Albumin 2.8 L Globulin 2.5 Albumin/Globulin Ratio 1.1 Carcinoembryonic Ag Urine Color Yellow Urine Appearance Sl cloudy Urine pH 6.0 Ur Specific [place] 1.015 Urine Protein Trace H Urine Glucose (UA) Negative Urine Ketones Trace H Urine Blood Negative Urine Nitrate Negative Urine Bilirubin Negative Urine Urobilinogen 0.2 Ur Leukocyte Esterase Small H Urine RBC 0 - 2 Urine WBC 2 - 5 Ur Epithelial Cells 3 - 4 Urine Bacteria Few 08/13/17 08:00 WBC RBC Hgb Hct MCV MCH MCHC RDW Plt Count MPV Gran % Lymph % (Auto) [place] % (Auto) Eos % (Auto) Baso % (Auto) Gran # Lymph # (Auto) [place] # (Auto) Eos # (Auto) Baso # (Auto) Sodium Potassium Chloride Carbon Dioxide Anion Gap BUN Creatinine Est GFR ( Amer) Est GFR (Non-Af Amer) Random Glucose Calcium Total Bilirubin AST ALT Alkaline Phosphatase Total Protein Albumin Globulin Albumin/Globulin Ratio Carcinoembryonic Ag 33.6 H Urine Color Urine Appearance Urine pH Ur Specific [place] Urine Protein Urine Glucose (UA) Urine Ketones Urine Blood Urine Nitrate Urine Bilirubin Urine Urobilinogen Ur Leukocyte Esterase Urine RBC Urine WBC Ur Epithelial Cells Urine Bacteria Assessment & Plan - Assessment and Plan (Free Text) Assessment: Dx Recurrent UGI Bleed Met Colon CA PSSBO Renal Insufficioncy PAD-still smoking No surgery now-cont NG Tube/Transfuse/IVS Will follow closely This consultation done under my direct supervision Ced ANN FACS
[2017-08-13 02:23] LABS: BASO # 0.01 K/mm3 (0.0-2.0); BASO % 0.1 % (0.0-3.0); EOS % 0.1 % (1.5-5.0); GRAN # 12.82 (1.4-6.5); GRAN % 82.7 % (50.0-68.0); LYMPH # 1.3 (1.2-3.4); LYMPH % 8.4 % (22.0-35.0); MONO # 1.4 (0.1-0.6); MONO % 8.7 % (1.0-6.0)
[2017-08-13 03:08] LABS: URINE BILIRUBIN NEGATIVE (NEGATIVE); URINE BLOOD NEGATIVE (NEGATIVE); URINE GLUCOSE (UA) NEGATIVE (NEGATIVE); URINE LEUKOCYTE ESTERASE SMALL Leu/uL (NEGATIVE); URINE PROTEIN TRACE mg/dL (<30 mg/dL); URINE UROBILINOGEN 0.2 E.U./dL (<1 E.U./dL)
[2017-08-13 03:10] LABS: URINE APPEARANCE SL CLOUDY (CLEAR); URINE COLOR YELLOW (YELLOW)
[2017-08-13 03:15] LABS: URINE BACTERIA FEW (NEG); URINE RBC 0 - 2 /hpf (0-2)
[2017-08-13 04:18] VITALS: BMI 17.8
[2017-08-13] MEDS: Sodium Chloride 0.9% 1,000 ML IV SCH (05:47)
[2017-08-13] MEDS ORDERED: Sodium Chloride 0.9% 1,000 ML IV SCH (07:08)
[2017-08-13 08:07] LABS: BASO # 0.01 K/mm3 (0.0-2.0); BASO % 0.1 % (0.0-3.0); EOS % 0.3 % (1.5-5.0); GRAN # 10.8 (1.4-6.5); GRAN % 83.4 % (50.0-68.0); HEMOGLOBIN 9.1 g/dL (12.0-16.0); LYMPH % 7.5 % (22.0-35.0); MEAN CELL VOLUME 85.1 fl (80.0-105.0); MEAN CORPUSCULAR HEMOGLOBIN 26.5 pg (25.0-35.0); MEAN CORPUSCULAR HGB CONC 31.2 g/dl (31.0-37.0); MEAN PLATELET VOLUME 11.2 fl (7.0-11.0); MONO # 1.1 (0.1-0.6); MONO % 8.7 % (1.0-6.0); RBC 3.43 10^6/uL (3.5-6.1); RED CELL DISTRIBUTION WIDTH 20.4 % (11.5-14.5); WHITE BLOOD COUNT 12.9 10^3/ul (4.5-11.0)
[2017-08-13 08:35] LABS: ALB/GLOB RATIO 1.1 (1.1-1.8); ALBUMIN 2.8 g/dL (3.0-4.8); ALT/SGPT 23 U/L (7-56); AST/SGOT 29 U/L (14-36); BLOOD UREA NITROGEN 71 mg/dL (7-21); CALCIUM 8.2 mg/dL (8.4-10.5); GFR AFRICAN-AMERICAN > 60; GFR NON-AFRICAN AMERICAN 53
[2017-08-13] MEDS: metroNIDAZOLE IV 500 mg/100 ml 500 MG/100 ML BAG IVPB SCH ×2 (08:56→17:45)
--- NOTE | 2017-08-13 09:00 | CP.PCM.PCO ---
Physician Communication Note - Physician Communication Note Physician Communication Note: Large GI Bleed/PSBO/Rx 1 unit PRBC/Cont NGTube
--- NOTE | 2017-08-13 09:47 | RAD ---
HISTORY: Abdominal pain. COMPARISON: 08/01/2017 FINDINGS: LUNGS: Stable pulmonary nodules bilaterally the largest in the left upper lobe measures 2 cm PLEURA: No significant pleural effusion identified, no pneumothorax apparent. CARDIOVASCULAR: No radiographic findings to suggest acute or significant cardiovascular disease. Venous access catheter in stable, satisfactory position. OSSEOUS STRUCTURES: No significant abnormalities. VISUALIZED UPPER ABDOMEN: Normal. OTHER FINDINGS: None. IMPRESSION: Pain. No history of recent/ related trauma provided
[2017-08-13] MEDS ORDERED: Ciprofloxacin 400mg/200ml D5W 400 MG/200 ML BAG IVPB SCH (10:00)
--- NOTE | 2017-08-13 10:07 | CT ---
PROCEDURE: CT Abdomen and Pelvis without intravenous contrast HISTORY: Abdominal pain. COMPARISON: 08/03/2017 CT thorax abdomen pelvis. TECHNIQUE: Unenhanced study. Neither oral nor intravenous contrast administered. Sensitivity and specificity for acute inflammatory processes limited by the absence of oral and intravenous contrast. Radiation dose: Total exam DLP = 260.80 mGy-cm. This CT exam was performed using one or more of the following dose reduction techniques: Automated exposure control, adjustment of the mA and/or kV according to patient size, and/or use of iterative reconstruction technique. FINDINGS: LOWER THORAX: Innumerable small, less than 1 cm pulmonary nodules consistent with metastatic disease. LIVER: Unremarkable. No gross lesion or ductal dilatation. GALLBLADDER AND BILE DUCTS: Unremarkable. PANCREAS: Unremarkable. No gross lesion or ductal dilatation. SPLEEN: Unremarkable. ADRENALS: Unremarkable. No mass. KIDNEYS AND URETERS: Unremarkable. No hydronephrosis. No solid mass. Incidental finding(s): Simple cysts left kidney. VASCULATURE: Unremarkable. No aortic aneurysm. BOWEL: Distal small bowel obstruction. The precise location of the obstructing mass appears in the vicinity of a pelvic mass near the right inguinal canal inseparable from the uterus. The mass measures approximately 4 cm. APPENDIX: Unremarkable. Normal appendix. PERITONEUM: Unremarkable. No free fluid. No free air. LYMPH NODES: Pelvic lymphadenopathy primarily affecting external iliac and inguinal lymph nodes. The largest swathi mass is wrapped around the arterial stent. BLADDER: Unremarkable. REPRODUCTIVE: Unremarkable. BONES: No acute fracture. OTHER FINDINGS: Mesenteric mass right lower quadrant better visualized on the recent contrast-enhanced CT measures 3.8 x 4.7 cm. IMPRESSION: Distal small bowel obstruction likely related to tumor in the right hemipelvis. This represents a new finding compared to the recent CT scan. Mesenteric and pelvic tumor burden described above. Multiple subcentimeter pulmonary nodules consistent with metastatic disease Concordant results (preliminary interpretation) provided by [employer]. Procedure Completed: 22:08 Preliminary ([facility]) Report: Dictated and Authenticated: 23:38 Final Interpretation: 10:06 August 13, 2017.
[2017-08-13] MEDS ORDERED: Sodium Chloride 0.9% 1,000 ML IV STA (10:41)
--- NOTE | 2017-08-13 10:59 | CP.PCM.PN ---
<Victor Manuel Leslie - Last Filed: 08/13/17 11:20> Subjective - Date & Time of Evaluation Date of Evaluation: 08/13/17 Time of Evaluation: 10:54 - Subjective Subjective: General Surgery Progress Note for Dr. Berger Pt was seen and examined this morning at bedside. She denies any acute overnight events and has had 100 cc output from NGT since last night. She denies passing any gas or BMs. She also denies fever, chills, abdominal pain, nausea or vomiting. Objective - Vital Signs/Intake and Output Vital Signs (last 24 hours): Temp Pulse Resp BP Pulse Ox 97.7 F 80 20 126/60 96 08/13/17 07:34 08/13/17 07:34 08/13/17 07:34 08/13/17 07:34 08/13/17 07:34 Intake and Output: 08/13/17 08/13/17 06:59 18:59 Intake Total 0 Output Total 100 Balance -100 - Medications Medications: Current Medications Acetaminophen (Tylenol 325mg Tab) 650 mg PO Q6H PRN PRN Reason: Pain, moderate (4-7) Last Admin: 08/13/17 10:41 Dose: 650 mg Ciprofloxacin (Cipro 400mg/200ml Dsw) 400 mg in 200 mls @ 133.3 mls/hr IVPB DAILY KALA PRN Reason: Protocol Stop: 08/13/17 11:31 Last Admin: 08/13/17 10:39 Dose: 133.3 mls/hr Metronidazole (Flagyl) 500 mg in 100 mls @ 100 mls/hr IVPB Q8H KALA PRN Reason: Protocol Last Admin: 08/13/17 08:56 Dose: 100 mls/hr Sodium Chloride (Sodium Chloride 0.9%) 1,000 mls @ 125 mls/hr IV .Q8H KALA Last Admin: 08/13/17 08:57 Dose: 125 mls/hr Sodium Chloride (Sodium Chloride 0.9%) 1,000 mls @ 999 mls/hr IV .Q1H1M STA Stop: 08/13/17 11:41 Ondansetron HCl (Zofran Inj) 4 mg IVP Q6H PRN PRN Reason: Nausea/Vomiting Pantoprazole Sodium (Protonix Inj) 40 mg IVP Q12 K[facility]A Last Admin: 08/13/17 10:40 Dose: 40 mg - Labs Labs: 08/13/17 08:00 08/13/17 08:00 - Constitutional Appears: Non-toxic, No Acute Distress - Head Exam Head Exam: ATRAUMATIC, NORMOCEPHALIC - Eye Exam Eye Exam: EOMI, PERRL - Respiratory Exam Respiratory Exam: Clear to Ausculation Bilateral, NORMAL BREATHING PATTERN - Cardiovascular Exam Cardiovascular Exam: REGULAR RHYTHM, RRR. absent: Gallop, Rubs - GI/Abdominal Exam GI & Abdominal Exam: Distended, Soft, Tenderness (Right upper and lower quadrant ). absent: Guarding, Rebound - Neurological Exam Neurological Exam: Alert, Awake, Oriented x3 - Psychiatric Exam Psychiatric exam: Normal Affect, Normal Mood - Skin Skin Exam: Dry, Intact, Normal Color, Warm. absent: Cyanosis, Erythema Assessment and Plan - Assessment and Plan (Free Text) Assessment: Pt is an 82 yo F who presents with SBO. Plan: - NGT continue on low intermittent suction - Continue to monitor NGT output - Continue NPO status - Continue protonix - IVF - Anti-emetics/Analgesia PRN - F/u urine and blood culture - Further recommendations per Dr. Berger <John Berger - Last Filed: 08/14/17 04:39> Objective - Vital Signs/Intake and Output Vital Signs (last 24 hours): Temp Pulse Resp BP Pulse Ox 98.1 F 80 18 136/65 96 08/13/17 17:54 08/13/17 17:54 08/13/17 17:54 08/13/17 17:54 08/13/17 16:28 Intake and Output: 08/13/17 08/14/17 18:59 06:59 Intake Total 340 0 Output Total 1600 Balance 340 -1600 - Medications Medications: Current Medications Acetaminophen (Tylenol 325mg Tab) 650 mg PO Q6H PRN PRN Reason: Pain, moderate (4-7) Last Admin: 08/13/17 10:41 Dose: 650 mg Metronidazole (Flagyl) 500 mg in 100 mls @ 100 mls/hr IVPB Q8H [facility]A PRN Reason: Protocol Last Admin: 08/14/17 01:00 Dose: 100 mls/hr Potassium Chloride 20 meq/ (Sodium Chloride) 1,010 mls @ 100 mls/hr IV .Q10H6M [facility] Last Admin: 08/13/17 21:58 Dose: 100 mls/hr Ondansetron HCl (Zofran Inj) 4 mg IVP Q6H PRN PRN Reason: Nausea/Vomiting Pantoprazole Sodium (Protonix Inj) 40 mg IVP Q12 [facility] Last Admin: 08/13/17 21:52 Dose: 40 mg - Labs Labs: 08/13/17 08:00 08/13/17 08:00 Assessment and Plan - Assessment and Plan (Free Text) Assessment: NG tube repositioned to stomach(RML Lung)-100 cont suction Rx 1 unit PRBC Rehydrating/adding KCl Abd less tender without guarding-No bowel sounds Needs caution for fluid overload Pt refusing surgery Discussed fully with grandson who is aware of the critical state-Metastatic tumor Surgery extreme high risk/success would only temporarily palliate Frieda Berger MD FACS
--- NOTE | 2017-08-13 11:31 | RAD ---
HISTORY: NGT placement COMPARISON: 08/01/2017 August 12, 2017. Procedure performed 23:31. LUNGS: Pulmonary nodules again identified. PLEURA: No significant pleural effusion identified, no pneumothorax apparent. CARDIOVASCULAR: Normal. OSSEOUS STRUCTURES: No significant abnormalities. VISUALIZED UPPER ABDOMEN: Normal. OTHER FINDINGS: On initial images obtained at 01:55 the nasogastric tube tip is in the right lower lobe tracheobronchial tree. On the follow-up image 01:54 the tip is in good position in the stomach. IMPRESSION: Satisfactory reposition of nasogastric tube initially in the tracheobronchial tree, a subsequently satisfactorily positioned in a decompressed stomach.
--- NOTE | 2017-08-13 12:00 | CP.PCM.CON ---
<Estevan Rivas - Last Filed: 08/13/17 19:54> History of Present Illness - History of Present Illness History of Present Illness: Mrs. Watson is a 82 yo WF with metastatic colon CA with carcinomatosis s/p R colectomy with Rads and Chemo, RLE PAD s/p stenting on apixaban, COPD, HTN presenting with abdominal pain n/v. She states over the last few days she has had preogressively worse lower abdominal pain described as sharp, non-radiated associated with nausea and dark brown emesis. States she does not know when her last bowel movement nor gas pass was stating "awhile ago." She also reports some decreased appetite. Denies any fevers, chills, alleviating or precipitating factors. In the ED, she was found to have SBO suspect related to newly seen met on RLQ. NG was placed with dark brown/red output that was occulted positive. GI consulted for further recs. MHx As above SurgHx R colon resection with ileal colonic anastamosis EGD and CSPY (most recent 02/2017, 01/2017 respectively. See below) Meds: Apixaban, Simvastatin, Famotidine, Amlodipine, lisinopril. FamHx: Denies GI bleed SocHx: Former Tobacco abuser, denid EtOH or Illicits All:PCN unknown rxn Review of Systems - Hematologic/Lymphatic Additional comments: 12 point ROS negative other than stated above Past Patient History - Infectious Disease Hx of Infectious Diseases: None - Tetanus Immunizations Tetanus Immunization: Unknown - Past Medical History & Family History Past Medical History?: Yes - Past Social History Smoking Status: Former Smoker - CARDIAC Hx Cardiac Disorders: Yes Hx Hypertension: Yes Hx Peripheral Vascular Disease: Yes (angioplast right leg) - PULMONARY Hx Chronic Obstructive Pulmonary Disease (COPD): Yes - NEUROLOGICAL Hx Neurological Disorder: Yes Hx Migraine: Yes - HEENT Hx HEENT Problems: Yes Hx Cataracts: Yes Hx Difficulty Chewing: Yes - RENAL Hx Chronic Kidney Disease: No - ENDOCRINE/METABOLIC Hx Endocrine Disorders: No - HEMATOLOGICAL/ONCOLOGICAL Hx Blood Transfusions: Yes Hx Blood Transfusion Reaction: No - INTEGUMENTARY Hx Dermatological Problems: No - MUSCULOSKELETAL/RHEUMATOLOGICAL Hx Falls: Yes - GASTROINTESTINAL Hx Gastrointestinal Disorders: Yes (ulcer/reflux) - GENITOURINARY/GYNECOLOGICAL Hx Genitourinary Disorders: No - PSYCHIATRIC Hx Psychophysiologic Disorder: Yes Hx Anxiety: Yes Hx Substance Use: No - SURGICAL HISTORY Hx Tonsillectomy: Yes Other/Comment: Colon resection - ANESTHESIA Hx Anesthesia Reactions: No Hx Malignant Hyperthermia: No Meds Allergies/Adverse Reactions: Allergies Allergy/AdvReac Type Severity Reaction Status Date / Time Penicillins Allergy Severe RASH Verified 08/12/17 19:57 - Medications Medications: Current Medications Acetaminophen (Tylenol 325mg Tab) 650 mg PO Q6H PRN PRN Reason: Pain, moderate (4-7) Last Admin: 08/13/17 10:41 Dose: 650 mg Metronidazole (Flagyl) 500 mg in 100 mls @ 100 mls/hr IVPB Q8H [facility] PRN Reason: Protocol Last Admin: 08/13/17 08:56 Dose: 100 mls/hr Sodium Chloride (Sodium Chloride 0.9%) 1,000 mls @ 125 mls/hr IV .Q8H [facility] Last Admin: 08/13/17 08:57 Dose: 125 mls/hr Ondansetron HCl (Zofran Inj) 4 mg IVP Q6H PRN PRN Reason: Nausea/Vomiting Pantoprazole Sodium (Protonix Inj) 40 mg IVP Q12 [facility] Last Admin: 08/13/17 10:40 Dose: 40 mg Physical Exam - Constitutional Appears: No Acute Distress, Chronically Ill - Head Exam Head Exam: ATRAUMATIC, NORMAL INSPECTION - Eye Exam Eye Exam: Conjunctival injection, EOMI - ENT Exam Additional comments: NG in placed with 200 cc of dark brown output - Respiratory Exam Respiratory Exam: Clear to Auscultation Bilateral. absent: Accessory Muscle Use - Cardiovascular Exam Cardiovascular Exam: RRR. absent: Systolic Murmur - GI/Abdominal Exam GI & Abdominal Exam: Mass (RLQ palpable round mass that is mildly ttp). absent : Bruit, Diminished Bowel Sounds, Distended, Guarding - Extremities Exam Extremities exam: Positive for: normal inspection. Negative for: pedal edema - Neurological Exam Neurological exam: Alert, CN II-XII Intact - Psychiatric Exam Psychiatric exam: Normal Affect, Normal Mood - Skin Skin Exam: Intact, Normal Color Results - Vital Signs Recent Vital Signs: Last Vital Signs Temp 97.7 F 08/13/17 07:34 Pulse 80 08/13/17 07:34 Resp 20 08/13/17 07:34 BP 126/60 08/13/17 07:34 Pulse Ox 96 08/13/17 07:34 - Labs Result Diagrams: 08/13/17 08:00 08/13/17 08:00 Labs: Laboratory Results - last 24 hr 08/13/17 08/13/17 08/13/17 02:25 08:00 08:00 WBC 12.9 H RBC 3.43 L Hgb 9.1 L Hct 29.2 L MCV 85.1 MCH 26.5 MCHC 31.2 RDW 20.4 H Plt Count 320 MPV 11.2 H Gran % 83.4 H Lymph % (Auto) 7.5 L Evans % (Auto) 8.7 H Eos % (Auto) 0.3 L Baso % (Auto) 0.1 Gran # 10.80 H Lymph # (Auto) 1.0 L Evans # (Auto) 1.1 H Eos # (Auto) 0.0 Baso # (Auto) 0.01 Sodium 143 Potassium 3.9 Chloride 109 H Carbon Dioxide 24 Anion Gap 14 BUN 71 H Creatinine 1.0 Est GFR ( Amer) > 60 Est GFR (Non-Af Amer) 53 Random Glucose 82 Calcium 8.2 L Total Bilirubin 0.6 AST 29 ALT 23 Alkaline Phosphatase 98 Total Protein 5.3 L Albumin 2.8 L Globulin 2.5 Albumin/Globulin Ratio 1.1 Carcinoembryonic Ag Urine Color Yellow Urine Appearance Sl cloudy Urine pH 6.0 Ur Specific [place] 1.015 Urine Protein Trace H Urine Glucose (UA) Negative Urine Ketones Trace H Urine Blood Negative Urine Nitrate Negative Urine Bilirubin Negative Urine Urobilinogen 0.2 Ur Leukocyte Esterase Small H Urine RBC 0 - 2 Urine WBC 2 - 5 Ur Epithelial Cells 3 - 4 Urine Bacteria Few Blood Type Antibody Screen Crossmatch BBK History Checked 08/13/17 08/13/17 08:00 09:15 WBC RBC Hgb Hct MCV MCH MCHC RDW Plt Count MPV Gran % Lymph % (Auto) Evans % (Auto) Eos % (Auto) Baso % (Auto) Gran # Lymph # (Auto) Evans # (Auto) Eos # (Auto) Baso # (Auto) Sodium Potassium Chloride Carbon Dioxide Anion Gap BUN Creatinine Est GFR ( Amer) Est GFR (Non-Af Amer) Random Glucose Calcium Total Bilirubin AST ALT Alkaline Phosphatase Total Protein Albumin Globulin Albumin/Globulin Ratio Carcinoembryonic Ag 33.6 H Urine Color Urine Appearance Urine pH Ur Specific [place] Urine Protein Urine Glucose (UA) Urine Ketones Urine Blood Urine Nitrate Urine Bilirubin Urine Urobilinogen Ur Leukocyte Esterase Urine RBC Urine WBC Ur Epithelial Cells Urine Bacteria Blood Type B POSITIVE Antibody Screen Negative Crossmatch See Detail BBK History Checked Patient has bt - Impressions Impression: EGD 03/13/17: Granular Gastric Mucosa-> Bx with Mild Chronic Gastritis and intesitnal metaplasia, -HPylori; 1 Duodenal Ulcer->Bx with mild acute duodentitis and reactive changes, -lymphocytes, -Hpylori CSPY 01/26/17: Sigmoid diverticula, Internal hemorrhoids, patent end-to-end ileal-colonic anastomosis, No Bxs Assessment & Plan - Assessment and Plan (Free Text) Assessment: Assessment: Abd Pain, N/V: Emesis dark brown and occult +, NG with dark brown output this AM. No sig drop in Hgb at this point. +Occult could be positive due to irritation from esophagitis from recurrent emesis in setting of SBO. Colon cancer with intra-abdominal carcinomatosis: Concern for possible malignancy met induced bleed into small bowel if in fact actively bleeing into GI tract. s/p R colectomy, Rads and Chemo. Right iliac vein stent on Apixaban Plan: Continue PPI Supportive care with NPO, NG to decompress, avoid/minimize narcotics Monitor H&H and I&O Cont Apixaban for now Thank you for the consult, will cont to follow Pt seen and examined with Dr. Benedict <Coy Benedict V - Last Filed: 08/14/17 00:02> Meds - Medications Medications: Current Medications Acetaminophen (Tylenol 325mg Tab) 650 mg PO Q6H PRN PRN Reason: Pain, moderate (4-7) Last Admin: 08/13/17 10:41 Dose: 650 mg Metronidazole (Flagyl) 500 mg in 100 mls @ 100 mls/hr IVPB Q8H [facility] PRN Reason: Protocol Last Admin: 08/13/17 17:45 Dose: 100 mls/hr Potassium Chloride 20 meq/ (Sodium Chloride) 1,010 mls @ 100 mls/hr IV .Q10H6M [facility] Last Admin: 08/13/17 21:58 Dose: 100 mls/hr Ondansetron HCl (Zofran Inj) 4 mg IVP Q6H PRN PRN Reason: Nausea/Vomiting Pantoprazole Sodium (Protonix Inj) 40 mg IVP Q12 [facility] Last Admin: 08/13/17 21:52 Dose: 40 mg Results - Vital Signs Recent Vital Signs: Last Vital Signs Temp 98.1 F 08/13/17 17:54 Pulse 80 08/13/17 17:54 Resp 18 08/13/17 17:54 BP 136/65 08/13/17 17:54 Pulse Ox 96 08/13/17 16:28 - Labs Result Diagrams: 08/13/17 08:00 08/13/17 08:00 Labs: Laboratory Results - last 24 hr 08/13/17 08/13/17 08/13/17 02:25 08:00 08:00 WBC 12.9 H RBC 3.43 L Hgb 9.1 L Hct 29.2 L MCV 85.1 MCH 26.5 MCHC 31.2 RDW 20.4 H Plt Count 320 MPV 11.2 H Gran % 83.4 H Lymph % (Auto) 7.5 L Evans % (Auto) 8.7 H Eos % (Auto) 0.3 L Baso % (Auto) 0.1 Gran # 10.80 H Lymph # (Auto) 1.0 L Evans # (Auto) 1.1 H Eos # (Auto) 0.0 Baso # (Auto) 0.01 Sodium 143 Potassium 3.9 Chloride 109 H Carbon Dioxide 24 Anion Gap 14 BUN 71 H Creatinine 1.0 Est GFR ( Amer) > 60 Est GFR (Non-Af Amer) 53 Random Glucose 82 Calcium 8.2 L Total Bilirubin 0.6 AST 29 ALT 23 Alkaline Phosphatase 98 Total Protein 5.3 L Albumin 2.8 L Globulin 2.5 Albumin/Globulin Ratio 1.1 Carcinoembryonic Ag Urine Color Yellow Urine Appearance Sl cloudy Urine pH 6.0 Ur Specific [place] 1.015 Urine Protein Trace H Urine Glucose (UA) Negative Urine Ketones Trace H Urine Blood Negative Urine Nitrate Negative Urine Bilirubin Negative Urine Urobilinogen 0.2 Ur Leukocyte Esterase Small H Urine RBC 0 - 2 Urine WBC 2 - 5 Ur Epithelial Cells 3 - 4 Urine Bacteria Few Blood Type Antibody Screen Crossmatch BBK History Checked 08/13/17 08/13/17 08:00 09:15 WBC RBC Hgb Hct MCV MCH MCHC RDW Plt Count MPV Gran % Lymph % (Auto) Evans % (Auto) Eos % (Auto) Baso % (Auto) Gran # Lymph # (Auto) Evans # (Auto) Eos # (Auto) Baso # (Auto) Sodium Potassium Chloride Carbon Dioxide Anion Gap BUN Creatinine Est GFR ( Amer) Est GFR (Non-Af Amer) Random Glucose Calcium Total Bilirubin AST ALT Alkaline Phosphatase Total Protein Albumin Globulin Albumin/Globulin Ratio Carcinoembryonic Ag 33.6 H Urine Color Urine Appearance Urine pH Ur Specific [place] Urine Protein Urine Glucose (UA) Urine Ketones Urine Blood Urine Nitrate Urine Bilirubin Urine Urobilinogen Ur Leukocyte Esterase Urine RBC Urine WBC Ur Epithelial Cells Urine Bacteria Blood Type B POSITIVE Antibody Screen Negative Crossmatch See Detail BBK History Checked Patient has bt Attending/Attestation - Attestation I have personally seen and examined this patient.: Yes I have fully participated in the care of the patient.: Yes I have reviewed all pertinent clinical information: Yes Notes (Text): This is an addendum to GI consult report dictated by the GI Remi.The patient was seen and examined earlier. Medical records, lab studies, imagings were reviewed. Last 24 hours events reviewed. Agreed with the above treatment plan as outlined in GI fellow's notes the with the addition of the following CT scan was reviewed on examination abdomen softly distended N G-tube in place Metastatic colon cancer iron deficiency anemia Abdominal x-ray in the a.m. 08/13/17 23:55
--- NOTE | 2017-08-13 12:15 | CP.PCM.CON ---
History of Present Illness - History of Present Illness History of Present Illness: Consult Note for Dr. Salgado: Hematology/Oncology 82-year-old female with a past medical history significant for non-compliance, dementia, COPD, migraine, anxiety, metastatic colon cancer with intra-abdominal carcinomatosis s/p partial colon resection six years, status post radiation and chemotherapy, most recent on Avastatin and Gemcitabine, and PAD s/p of the right external iliac vein with intermittent treatment with Eliquis, and history of complications of upper gastrointestinal bleed. The patient presents from [facility] with complaints of being force-fed and the inability to pass a bowel movement for as long as she can remember. Per chart review the patient was on Eliquis 2.5 mg BID. At the time of my encounter the patient has a nasogastric tube draining dark brown emesis that is approximately 200 mL. In the emergency department a CT of the abdomen pelvis was performed and interpreted as "a small bowel obstruction, likely related to tumor in the right hemipelvis. This represents a new finding compared to the recent CT. Mesenteric and pelvic tumor burden as described as above. Multiple subcentimeter pulmonary modules consistent with Metastatic disease. Dr. Salgado , hematology oncology was consulted for colon cancer with metastases and upper G.I. bleed. Review of plain films reveals the nasogastric tube tip is in the right lower lobe tracheobronchial tree. On the follow-up image 01:54 the tip is in good position in the stomach and Satisfactory reposition of nasogastric tube initially in the tracheobronchial tree, a subsequently satisfactorily positioned in a decompressed stomach. PMH: As above PSH: partial colon resection, tonsillectomy Allergies: Penicillin Social: ex-smoker Review of Systems - Review of Systems All systems: reviewed and no additional remarkable complaints except (as per HPI ) Past Patient History - Infectious Disease Hx of Infectious Diseases: None - Tetanus Immunizations Tetanus Immunization: Unknown - Past Medical History & Family History Past Medical History?: Yes - Past Social History Smoking Status: Former Smoker - CARDIAC Hx Cardiac Disorders: Yes Hx Hypertension: Yes Hx Peripheral Vascular Disease: Yes (angioplast right leg) - PULMONARY Hx Chronic Obstructive Pulmonary Disease (COPD): Yes - NEUROLOGICAL Hx Neurological Disorder: Yes Hx Migraine: Yes - HEENT Hx HEENT Problems: Yes Hx Cataracts: Yes Hx Difficulty Chewing: Yes - RENAL Hx Chronic Kidney Disease: No - ENDOCRINE/METABOLIC Hx Endocrine Disorders: No - HEMATOLOGICAL/ONCOLOGICAL Hx Blood Transfusions: Yes Hx Blood Transfusion Reaction: No - INTEGUMENTARY Hx Dermatological Problems: No - MUSCULOSKELETAL/RHEUMATOLOGICAL Hx Falls: Yes - GASTROINTESTINAL Hx Gastrointestinal Disorders: Yes (ulcer/reflux) - GENITOURINARY/GYNECOLOGICAL Hx Genitourinary Disorders: No - PSYCHIATRIC Hx Psychophysiologic Disorder: Yes Hx Anxiety: Yes Hx Substance Use: No - SURGICAL HISTORY Hx Tonsillectomy: Yes Other/Comment: Colon resection - ANESTHESIA Hx Anesthesia Reactions: No Hx Malignant Hyperthermia: No Meds Allergies/Adverse Reactions: Allergies Allergy/AdvReac Type Severity Reaction Status Date / Time Penicillins Allergy Severe RASH Verified 08/12/17 19:57 - Medications Medications: Current Medications Acetaminophen (Tylenol 325mg Tab) 650 mg PO Q6H PRN PRN Reason: Pain, moderate (4-7) Last Admin: 08/13/17 10:41 Dose: 650 mg Metronidazole (Flagyl) 500 mg in 100 mls @ 100 mls/hr IVPB Q8H [facility] PRN Reason: Protocol Last Admin: 08/13/17 08:56 Dose: 100 mls/hr Sodium Chloride (Sodium Chloride 0.9%) 1,000 mls @ 125 mls/hr IV .Q8H [facility] Last Admin: 08/13/17 08:57 Dose: 125 mls/hr Ondansetron HCl (Zofran Inj) 4 mg IVP Q6H PRN PRN Reason: Nausea/Vomiting Pantoprazole Sodium (Protonix Inj) 40 mg IVP Q12 [facility] Last Admin: 08/13/17 10:40 Dose: 40 mg Physical Exam - Constitutional Appears: Non-toxic - Head Exam Head Exam: ATRAUMATIC, NORMOCEPHALIC - Eye Exam Eye Exam: EOMI. absent: Conjunctival injection Additional comments: no conjuctival pallor - ENT Exam ENT Exam: Mucous Membranes Moist Additional comments: NG tube in left nostril - Neck Exam Neck exam: Positive for: Normal Inspection - Respiratory Exam Respiratory Exam: absent: Accessory Muscle Use - GI/Abdominal Exam GI & Abdominal Exam: Normal Bowel Sounds. absent: Distended, Guarding, Rebound - Extremities Exam Extremities exam: Positive for: normal inspection. Negative for: calf tenderness - Neurological Exam Neurological exam: Alert, CN II-XII Intact - Psychiatric Exam Psychiatric exam: Normal Affect, Normal Mood - Skin Skin Exam: Dry, Intact, Normal Color, Warm Results - Vital Signs Recent Vital Signs: Last Vital Signs Temp 97.7 F 08/13/17 07:34 Pulse 80 08/13/17 07:34 Resp 20 08/13/17 07:34 BP 126/60 08/13/17 07:34 Pulse Ox 96 08/13/17 07:34 - Labs Result Diagrams: 08/13/17 08:00 08/13/17 08:00 Labs: Laboratory Results - last 24 hr 08/13/17 08/13/17 08/13/17 02:25 08:00 08:00 WBC 12.9 H RBC 3.43 L Hgb 9.1 L Hct 29.2 L MCV 85.1 MCH 26.5 MCHC 31.2 RDW 20.4 H Plt Count 320 MPV 11.2 H Gran % 83.4 H Lymph % (Auto) 7.5 L [place] % (Auto) 8.7 H Eos % (Auto) 0.3 L Baso % (Auto) 0.1 Gran # 10.80 H Lymph # (Auto) 1.0 L [place] # (Auto) 1.1 H Eos # (Auto) 0.0 Baso # (Auto) 0.01 Sodium 143 Potassium 3.9 Chloride 109 H Carbon Dioxide 24 Anion Gap 14 BUN 71 H Creatinine 1.0 Est GFR ( Amer) > 60 Est GFR (Non-Af Amer) 53 Random Glucose 82 Calcium 8.2 L Total Bilirubin 0.6 AST 29 ALT 23 Alkaline Phosphatase 98 Total Protein 5.3 L Albumin 2.8 L Globulin 2.5 Albumin/Globulin Ratio 1.1 Carcinoembryonic Ag Urine Color Yellow Urine Appearance Sl cloudy Urine pH 6.0 Ur Specific [place] 1.015 Urine Protein Trace H Urine Glucose (UA) Negative Urine Ketones Trace H Urine Blood Negative Urine Nitrate Negative Urine Bilirubin Negative Urine Urobilinogen 0.2 Ur Leukocyte Esterase Small H Urine RBC 0 - 2 Urine WBC 2 - 5 Ur Epithelial Cells 3 - 4 Urine Bacteria Few Blood Type Antibody Screen Crossmatch BBK History Checked 08/13/17 08/13/17 08:00 09:15 WBC RBC Hgb Hct MCV MCH MCHC RDW Plt Count MPV Gran % Lymph % (Auto) [place] % (Auto) Eos % (Auto) Baso % (Auto) Gran # Lymph # (Auto) [place] # (Auto) Eos # (Auto) Baso # (Auto) Sodium Potassium Chloride Carbon Dioxide Anion Gap BUN Creatinine Est GFR ( Amer) Est GFR (Non-Af Amer) Random Glucose Calcium Total Bilirubin AST ALT Alkaline Phosphatase Total Protein Albumin Globulin Albumin/Globulin Ratio Carcinoembryonic Ag 33.6 H Urine Color Urine Appearance Urine pH Ur Specific [place] Urine Protein Urine Glucose (UA) Urine Ketones Urine Blood Urine Nitrate Urine Bilirubin Urine Urobilinogen Ur Leukocyte Esterase Urine RBC Urine WBC Ur Epithelial Cells Urine Bacteria Blood Type B POSITIVE Antibody Screen Negative Crossmatch See Detail BBK History Checked Patient has bt Assessment & Plan - Assessment and Plan (Free Text) Assessment: 82-year-old female with a past medical history significant for non-compliance, dementia, COPD, migraine, anxiety, metastatic colon cancer with intra-abdominal carcinomatosis s/p partial colon resection six years, status post radiation and chemotherapy, most recent on Avastatin and Gemcitabine, and PAD s/p of the right external iliac vein with intermittent treatment with Eliquis, and history of complications of upper gastrointestinal bleed who presents from [facility] with complaints of hematemesis, inability to pass stool, who was found to have a small bowel obstruction with an UGI that is currently being mananged via gastric decompression via nasogastric tube. Plan: Continue with current medical management: IVP protonix, Flagyl, NS 125 ml/hr, Patient is hemodynamically stable, but would consider serial hemoglobin and hematocrits. GI consult recommended 1 unit of PRBCs ordered, typed and crossed Further recommendations per Dr. Salgado - Date & Time Date: 08/13/17 Time: 15:16
[2017-08-14] MEDS: metroNIDAZOLE IV 500 mg/100 ml 500 MG/100 ML BAG IVPB SCH ×3 (01:00→19:29)
--- NOTE | 2017-08-14 02:17 | HP ---
The patient was seen and examined on the bedside on 08/13/2017. CHIEF COMPLAINT: Abdominal pain, nausea, vomiting. HISTORY OF PRESENT ILLNESS: Ms. Nadia Watson, 82-year-old female with past medical history of stage IV colon cancer, COPD, migraines, DVT to lower extremities. Came to the Emergency Department complaining of abdominal discomfort with associated episode of vomiting for the past few days. The patient reports that she has been unable to eat or keep anything down. The patient denies any fever, chills, diarrhea, back pain, chest pain or any other complaints. No fever. No chills. PAST MEDICAL HISTORY: History of colon cancer stage IV, migraine, DVT of the lower extremity, history of angioplasty, COPD, cataract, fall, GERD, dyspepsia, anxiety. FAMILY HISTORY: Father and mother, noncontributory. HABITS: Heavy smoker, more than 10 cigarettes per day. Alcohol, no. Substance abuse, no. ALLERGIES: THE PATIENT IS ALLERGIC WITH PENICILLIN. HOME MEDICATIONS: Pepcid, Zestril, Simvastatin, Norvasc. REVIEW OF SYSTEMS: The patient was seen and examined on the bedside, having NG tube. No fever. No night sweat. No shortness of breath. No chest pain. Having abdominal discomfort. Vomiting-associated episodes of abdominal pain. No fever. No chills. No headache. No dizziness. PHYSICAL EXAMINATION: VITAL SIGNS: Temperature 97.8, pulse 89, respiratory rate 18, blood pressure 99/61, pulse oximetry 95. HEENT: Head normocephalic, atraumatic. Eyes PERRLA. Extraocular muscles intact. Conjunctivae clear. Nose patent. Mucous membrane moist. NECK: Supple. No carotid bruit. No JVD or thyromegaly. CHEST: Bilaterally symmetrical. HEART: S1 and S2 positive. LUNGS: Clear to auscultation. ABDOMEN: Soft. Bowel sounds positive. No organomegaly. EXTREMITIES: No edema. No cyanosis. NEUROLOGICAL: The patient is awake and alert. Moving all 4 extremities. No focal deficits. LABORATORY DATA: White blood cells 15.8, hemoglobin 10.3, hematocrit 32.2, platelets 393. Sodium 141, potassium 4, BUN 72, creatinine noted , glucose 108. ASSESSMENT AND PLAN: Ms. Nadia Watson, 82-year-old lady with renal insufficiency, leukocytosis, anemia. Has scan done shows a 5 mm nodule in the lingula. Followup is recommended. She is admitted for small bowel obstruction. History of stage IV colon cancer, chronic obstructive pulmonary disease, migraine, deep venous thrombosis to lower extremities. Seen by Dr. Salgado and Dr. Berger. Had nasogastric tube. I appreciated Dr. Berger' communication report. History of large gastrointestinal bleeding. One unit of packed red blood cells. Continue nasogastric tube as per Dr. Berger. The patient is noncompliant, dementia, chronic obstructive pulmonary disease, colon resection 6 years ago, status post radiation and chemotherapy, peripheral arterial disease, status post right external iliac vein with intermittent treatment with Eliquis and history of complications of upper gastrointestinal bleeding. The patient was getting rehab in [facility] under my service, then brought here because of abdominal pain and nausea, vomiting. We admitted the patient. Called GI, Surgery and Oncology consult. We will follow. Jessica Brown MD MTDD
[2017-08-14 06:36] LABS: BASO # 0.01 K/mm3 (0.0-2.0); BASO % 0.1 % (0.0-3.0); EOS % 0.3 % (1.5-5.0); GRAN # 9.12 (1.4-6.5); GRAN % 83.5 % (50.0-68.0); HEMOGLOBIN 10.5 g/dL (12.0-16.0); LYMPH # 1.1 (1.2-3.4); MEAN CELL VOLUME 84.5 fl (80.0-105.0); MEAN CORPUSCULAR HEMOGLOBIN 26.3 pg (25.0-35.0); MEAN CORPUSCULAR HGB CONC 31.2 g/dl (31.0-37.0); MEAN PLATELET VOLUME 10.9 fl (7.0-11.0); MONO # 0.7 (0.1-0.6); MONO % 6.1 % (1.0-6.0); RBC 3.99 10^6/uL (3.5-6.1); RED CELL DISTRIBUTION WIDTH 20.7 % (11.5-14.5); WHITE BLOOD COUNT 10.9 10^3/ul (4.5-11.0)
[2017-08-14 07:13] LABS: CALCIUM 8.3 mg/dL (8.4-10.5)
--- NOTE | 2017-08-14 07:21 | CP.PCM.PN ---
Subjective - Date & Time of Evaluation Date of Evaluation: 08/14/17 Time of Evaluation: 07:20 - Subjective Subjective: Pt seen and examined this morning. Pt denies n/v/d/c, chest pain, SOB. Per nurse , no adverse events overnight. Objective - Vital Signs/Intake and Output Vital Signs (last 24 hours): Temp Pulse Resp BP Pulse Ox 98.1 F 80 18 136/65 96 08/13/17 17:54 08/13/17 17:54 08/13/17 17:54 08/13/17 17:54 08/13/17 16:28 Intake and Output: 08/14/17 08/14/17 06:59 18:59 Intake Total 0 Output Total 1999 Balance -1999 - Medications Medications: Current Medications Acetaminophen (Tylenol 325mg Tab) 650 mg PO Q6H PRN PRN Reason: Pain, moderate (4-7) Last Admin: 08/13/17 10:41 Dose: 650 mg Metronidazole (Flagyl) 500 mg in 100 mls @ 100 mls/hr IVPB Q8H [facility] PRN Reason: Protocol Last Admin: 08/14/17 01:00 Dose: 100 mls/hr Potassium Chloride 20 meq/ (Sodium Chloride) 1,010 mls @ 100 mls/hr IV .Q10H6M [facility] Last Admin: 08/13/17 21:58 Dose: 100 mls/hr Ondansetron HCl (Zofran Inj) 4 mg IVP Q6H PRN PRN Reason: Nausea/Vomiting Pantoprazole Sodium (Protonix Inj) 40 mg IVP Q12 [facility] Last Admin: 08/13/17 21:52 Dose: 40 mg - Labs Labs: 08/14/17 06:10 08/14/17 06:10 - Constitutional Appears: No Acute Distress - Head Exam Head Exam: ATRAUMATIC - Eye Exam Eye Exam: EOMI, Normal appearance - ENT Exam ENT Exam: Normal Exam - Neck Exam Neck Exam: Full ROM - Respiratory Exam Respiratory Exam: Clear to Ausculation Bilateral, NORMAL BREATHING PATTERN - Cardiovascular Exam Cardiovascular Exam: REGULAR RHYTHM, RRR, +S1, +S2 - GI/Abdominal Exam GI & Abdominal Exam: Soft, Normal Bowel Sounds - Rectal Exam Rectal Exam: Deferred - Extremities Exam Extremities Exam: Full ROM, Normal Inspection - Neurological Exam Neurological Exam: Awake, CN II-XII Intact Neuro motor strength exam: Left Upper Extremity: 5, Right Upper Extremity: 5, Left Lower Extremity: 5, Right Lower Extremity: 5 - Psychiatric Exam Psychiatric exam: Normal Affect, Normal Mood - Skin Skin Exam: Normal Color Assessment and Plan - Assessment and Plan (Free Text) Assessment: Pt is an 82F with a PMH significant for non-compliance, dementia, COPD, migraine, anxiety, metastatic colon cancer with intra-abdominal carcinomatosis s /p partial colon resection, radiation and chemotherapy. Pt has most recently been on Avastatin and Gemcitabine, s/p of the right external iliac vein, and history of complications of upper gastrointestinal bleed who presents from [facility], inability to pass stool, who was found to have a small bowel obstruction with GI bleed and findings concerning for distal small bowel obstruction likely related to tumor in the right hemipelvis. This represents a new finding compared to the recent CT scan. Mesenteric and pelvic tumor burden described above. Multiple subcentimeter pulmonary nodules consistent with metastatic disease. Per surgery, continue NG tube with intermittent suction, remove Perry at 5pm.
[2017-08-14 07:24] LABS: IRON 26 ug/dL (45-180)
[2017-08-14 07:26] LABS: TOTAL IRON BINDING CAPACITY 229 ug/dL (265-497)
[2017-08-14 07:42] LABS: % IRON SATURATION 12 % (20-55)
[2017-08-14] MEDS ORDERED: Potassium Chloride 40 mEq/30 ml LIQ UD NG ONE (08:59)
--- NOTE | 2017-08-14 09:16 | CP.PCM.PN ---
Subjective - Date & Time of Evaluation Date of Evaluation: 08/14/17 Time of Evaluation: 09:10 - Subjective Subjective: General Surgery Progress Note For: Dr. Berger Pt was seen and examined this morning at bedside. As per nursing, pt has no acute overnight events. Pt had additional 100 cc output through NGT from last night. She denies having any abdominal pain, nausea, vomiting, passing flatus or having a BM. No acute complaints at this time. Objective - Vital Signs/Intake and Output Vital Signs (last 24 hours): Temp Pulse Resp BP Pulse Ox 97.8 F 81 20 153/75 H 98 08/14/17 08:22 08/14/17 08:22 08/14/17 08:22 08/14/17 08:22 08/14/17 08:22 Intake and Output: 08/14/17 08/14/17 06:59 18:59 Intake Total 0 Output Total 1999 Balance -1999 - Medications Medications: Current Medications Acetaminophen (Tylenol 325mg Tab) 650 mg PO Q6H PRN PRN Reason: Pain, moderate (4-7) Last Admin: 08/13/17 10:41 Dose: 650 mg Metronidazole (Flagyl) 500 mg in 100 mls @ 100 mls/hr IVPB Q8H [facility] PRN Reason: Protocol Last Admin: 08/14/17 01:00 Dose: 100 mls/hr Potassium Chloride 40 meq/ (Dextrose/Sodium Chloride) 1,020 mls @ 100 mls/hr IV .[id number] [facility] Ondansetron HCl (Zofran Inj) 4 mg IVP Q6H PRN PRN Reason: Nausea/Vomiting Pantoprazole Sodium (Protonix Inj) 40 mg IVP Q12 [facility] Last Admin: 08/13/17 21:52 Dose: 40 mg - Labs Labs: 08/14/17 06:10 08/14/17 06:10 - Constitutional Appears: Well, Non-toxic, No Acute Distress - Head Exam Head Exam: ATRAUMATIC, NORMOCEPHALIC - Eye Exam Eye Exam: EOMI, Normal appearance, PERRL Pupil Exam: PERRL - Respiratory Exam Respiratory Exam: Clear to Ausculation Bilateral, NORMAL BREATHING PATTERN - Cardiovascular Exam Cardiovascular Exam: REGULAR RHYTHM, RRR. absent: Gallop, Rubs - GI/Abdominal Exam GI & Abdominal Exam: Soft, Normal Bowel Sounds - Neurological Exam Neurological Exam: Alert, Awake, Oriented x3 - Psychiatric Exam Psychiatric exam: Normal Affect, Normal Mood - Skin Skin Exam: Dry, Intact, Normal Color, Warm Assessment and Plan - Assessment and Plan (Free Text) Assessment: Pt is 82 yo F who presents with SBO. Plan: - Recieved 1 unit PRBC 08/13/17 and responded appropriately - NGT continue on low intermittent suction - Continue to monitor NGT output - Continue NPO - Continue Protonix - Remove Perry @ 5pm, f/u void trial - Abdominal flat plate, f/u official read - IVF - Anti-emtics/Analgesia PRN - Further recommendations per Dr. Berger
[2017-08-14 10:25] LABS: HDL CHOLESTEROL 43 mg/dL (29-60)
[2017-08-14 10:36] LABS: LDL CHOLESTEROL < 30 mg/dL (0-129)
--- NOTE | 2017-08-14 10:55 | CP.PCM.PN ---
Subjective - Date & Time of Evaluation Date of Evaluation: 08/14/17 Time of Evaluation: 10:00 - Subjective Subjective: PGY-4 GI Fellow Note Pt states feeling much better than yesterday stating "feels like she could dance." States that her appetite in better and tolerating ice chips with reported passing of gas though no BM yet. 12 point ROS negative other than stated above Objective - Vital Signs/Intake and Output Vital Signs (last 24 hours): Temp Pulse Resp BP Pulse Ox 97.8 F 81 20 153/75 H 98 08/14/17 08:22 08/14/17 08:22 08/14/17 08:22 08/14/17 08:22 08/14/17 08:22 Intake and Output: 08/14/17 08/14/17 06:59 18:59 Intake Total 0 Output Total 1999 400 Balance -2000 -400 - Medications Medications: Current Medications Acetaminophen (Tylenol 325mg Tab) 650 mg PO Q6H PRN PRN Reason: Pain, moderate (4-7) Last Admin: 08/13/17 10:41 Dose: 650 mg Metronidazole (Flagyl) 500 mg in 100 mls @ 100 mls/hr IVPB Q8H [facility] PRN Reason: Protocol Last Admin: 08/14/17 09:17 Dose: 100 mls/hr Potassium Chloride 40 meq/ (Dextrose/Sodium Chloride) 1,020 mls @ 100 mls/hr IV .[id number] [facility] Ondansetron HCl (Zofran Inj) 4 mg IVP Q6H PRN PRN Reason: Nausea/Vomiting Pantoprazole Sodium (Protonix Inj) 40 mg IVP Q12 [facility] Last Admin: 08/14/17 09:18 Dose: 40 mg - Labs Labs: 08/14/17 06:10 08/14/17 06:10 - Constitutional Appears: No Acute Distress, Chronically Ill - Head Exam Head Exam: ATRAUMATIC, NORMAL INSPECTION - Eye Exam Eye Exam: EOMI. absent: Scleral icterus - ENT Exam Additional comments: NG tube in place with ~400 mL of dark brown output - Respiratory Exam Respiratory Exam: absent: Accessory Muscle Use, Prolonged Expiratory Phase - Cardiovascular Exam Cardiovascular Exam: REGULAR RHYTHM. absent: Murmur - GI/Abdominal Exam GI & Abdominal Exam: Bruit, Tenderness, Mass (round palpable mass in RLQ that is mildly ttp, + bowel sounds). absent: Distended Assessment and Plan - Assessment and Plan (Free Text) Assessment: Assessment: Abd Pain, N/V: Emesis dark brown and occult +, NG with dark brown output. No sig drop in Hgb at this point. +Occult could be positive due to irritation from esophagitis from recurrent emesis in setting of SBO. Colon cancer with intra-abdominal carcinomatosis: Concern for possible malignancy met induced bleed into small bowel if actively bleeds into GI tract. s/p R colectomy, Rads and Chemo. Right iliac vein stent on Apixaban Plan: Continue PPI Supportive care with NPO, NG to decompress, avoid/minimize narcotics - Can likely DC NG in next 24 hrs if symptoms cont to improve Monitor H&H and I&O Cont Apixaban for now Thank you for the consult, will cont to follow
--- NOTE | 2017-08-14 11:08 | CP.PCM.PCO ---
Physician Communication Note - Physician Communication Note Physician Communication Note: OK Remove NGTube-Vicky thorpe(5pm) + Flatus
--- NOTE | 2017-08-14 12:05 | RAD ---
HISTORY: f/u SBO COMPARISON: 08/01/2017 FINDINGS: BOWEL: The nasogastric tube terminates in the stomach. There is mild dilatation of the small bowel loops. There are multiple running sutures in the right lower quadrant. The colon is decompressed. BONES: Normal. OTHER FINDINGS: None. IMPRESSION: Mild dilatation of small bowel loops. Colon is decompressed.
[2017-08-14 13:45] LABS: FOLATE 9.8 ng/mL
[2017-08-14] MEDS: Potassium Chloride 40 MEQ in Dextrose 5%/0.45% NS 1,000 ML IV SCH (16:00)
[2017-08-15] MEDS: metroNIDAZOLE IV 500 mg/100 ml 500 MG/100 ML BAG IVPB SCH ×4 (00:10→23:59)
[2017-08-15] MEDS: Potassium Chloride 40 MEQ in Dextrose 5%/0.45% NS 1,000 ML IV SCH ×2 (05:18→17:46)
[2017-08-15 06:47] LABS: HEMOGLOBIN 11.1 g/dL (12.0-16.0); MEAN CELL VOLUME 84.2 fl (80.0-105.0); MEAN CORPUSCULAR HEMOGLOBIN 26.6 pg (25.0-35.0); MEAN CORPUSCULAR HGB CONC 31.5 g/dl (31.0-37.0); MEAN PLATELET VOLUME 11.3 fl (7.0-11.0); RBC 4.18 10^6/uL (3.5-6.1); RED CELL DISTRIBUTION WIDTH 20.5 % (11.5-14.5); WHITE BLOOD COUNT 10.8 10^3/ul (4.5-11.0)
--- NOTE | 2017-08-15 07:00 | CP.PCM.PN ---
Addendum entered and electronically signed by Elizabeth Mancilla DO 08/15/17 10: 15: Patient is DNR/DNI. Original Note: <Elizabeth Mancilla - Last Filed: 08/15/17 10:11> Subjective - Date & Time of Evaluation Date of Evaluation: 08/15/17 Time of Evaluation: 07:00 - Subjective Subjective: Medicine Progress Note for Dr. Millan (covering for Dr. Brown), Phillip Mancilla PGY3 Patient seen and examined at bedside. I spoke with overnight nursing staff and did not report any acute events. Patient is passing gas, but did not have a BM. NG tube was removed today by surgery. Patient reports feeling well. She denies chest pain, shortness of breath, abdominal pain, nausea/vomiting/diarrhea, fever /chills, numbness/tingling, dysuria or hematuria. Objective - Vital Signs/Intake and Output Vital Signs (last 24 hours): Temp Pulse Resp BP Pulse Ox 98.4 F 81 20 166/65 H 98 08/14/17 17:38 08/14/17 17:38 08/14/17 17:38 08/14/17 17:38 08/14/17 17:38 Intake and Output: 08/14/17 08/15/17 18:59 06:59 Intake Total 0 Output Total 400 500 Balance -400 -500 - Medications Medications: Current Medications Acetaminophen (Tylenol 325mg Tab) 650 mg PO Q6H PRN PRN Reason: Pain, moderate (4-7) Last Admin: 08/13/17 10:41 Dose: 650 mg Metronidazole (Flagyl) 500 mg in 100 mls @ 100 mls/hr IVPB Q8H [facility] PRN Reason: Protocol Last Admin: 08/15/17 00:10 Dose: 100 mls/hr Potassium Chloride 40 meq/ (Dextrose/Sodium Chloride) 1,020 mls @ 100 mls/hr IV .[id number] [facility] Last Admin: 08/15/17 05:18 Dose: 100 mls/hr Ondansetron HCl (Zofran Inj) 4 mg IVP Q6H PRN PRN Reason: Nausea/Vomiting Pantoprazole Sodium (Protonix Inj) 40 mg IVP Q12 [facility] Last Admin: 08/14/17 21:35 Dose: 40 mg - Labs Labs: 08/14/17 06:10 08/14/17 06:10 - Constitutional Appears: No Acute Distress, Chronically Ill - Head Exam Head Exam: ATRAUMATIC, NORMAL INSPECTION, NORMOCEPHALIC - Eye Exam Eye Exam: Normal appearance, PERRL Pupil Exam: NORMAL ACCOMODATION - ENT Exam ENT Exam: Mucous Membranes Dry - Respiratory Exam Respiratory Exam: Clear to Ausculation Bilateral, NORMAL BREATHING PATTERN. absent: Rales, Rhonchi, Wheezes - Cardiovascular Exam Cardiovascular Exam: REGULAR RHYTHM, +S1, +S2. absent: Gallop, Rubs, Murmur - GI/Abdominal Exam GI & Abdominal Exam: Soft, Hypoactive Bowel Sounds. absent: Tenderness, Mass, Rebound - Extremities Exam Extremities Exam: absent: Pedal Edema - Neurological Exam Neurological Exam: Alert, Awake, CN II-XII Intact - Psychiatric Exam Psychiatric exam: Normal Affect, Normal Mood - Skin Skin Exam: Dry, Warm Assessment and Plan - Assessment and Plan (Free Text) Assessment: This is an 82yo female with past medical history of COPD, GERD, migraines, R iliac v. stent (was on Eliquis), anemia, hx of GI bleed and metastatic colon ca s/p resection with chemo and radiation who was admitted for 1. SBO (improving) - secondary to new pelvic mass found on CT - NG tube removed, passing gas 2. Anemia (normocytic) - anemia of chronic dz - Hgb stable s/p 1U PRBC 3. COPD 4. GERD 5. Hx of GI bleed 6. Colon Ca w/ metastasis Plan: Surgery is on consult. Recommend conservative management. Continue to monitor BM. Patient placed on liquid diet. GI consulted and recommended conservative management and no plan for scope since Hgb is stable. Oncology is following patient as well. Patient is on Flagyl as well as IV fluids with additives (KCl) . She has Zofrn prn nausea and tylenol for pain control. She is on Protonix for GI prophylaxis and will place on Heparin SC for DVT prophylaxis. Case seen, discussed and reviewed with Dr. Millan. Phillip Mancilla PGY3 <Ron Millan - Last Filed: 08/15/17 11:36> Objective - Vital Signs/Intake and Output Vital Signs (last 24 hours): Temp Pulse Resp BP Pulse Ox 98.0 F 92 H 20 168/80 H 97 08/15/17 06:00 08/15/17 06:00 08/15/17 06:00 08/15/17 06:00 08/15/17 06:00 Intake and Output: 08/15/17 08/15/17 06:59 18:59 Intake Total 0 120 Output Total 500 275 Balance -500 -155 - Medications Medications: Current Medications Acetaminophen (Tylenol 325mg Tab) 650 mg PO Q6H PRN PRN Reason: Pain, moderate (4-7) Last Admin: 08/13/17 10:41 Dose: 650 mg Metronidazole (Flagyl) 500 mg in 100 mls @ 100 mls/hr IVPB Q8H [facility] PRN Reason: Protocol Last Admin: 08/15/17 08:43 Dose: 100 mls/hr Potassium Chloride 40 meq/ (Dextrose/Sodium Chloride) 1,020 mls @ 100 mls/hr IV .[id number] [facility] Last Admin: 08/15/17 05:18 Dose: 100 mls/hr Ondansetron HCl (Zofran Inj) 4 mg IVP Q6H PRN PRN Reason: Nausea/Vomiting Pantoprazole Sodium (Protonix Inj) 40 mg IVP Q12 [facility] Last Admin: 08/15/17 09:33 Dose: 40 mg - Labs Labs: 08/15/17 06:00 08/15/17 06:00 Assessment and Plan - Assessment and Plan (Free Text) Plan: Pt seen and examined by me. The labs and medications have been reviewed. I reviewed the note of the biomedical engineering technician and I agree with it. NGT is out. No bowel movement. Pain is controlled. Will need Heparin.
--- NOTE | 2017-08-15 07:03 | CP.PCM.PN ---
Subjective - Date & Time of Evaluation Date of Evaluation: 08/15/17 Time of Evaluation: 07:00 - Subjective Subjective: Amrit Perdomo DO, PGY-1. Hematology Oncology Progress Note for Dr Salcido. Pt seen and examined. Upon entering the room, pt is laying comfortably in the supine position in no acute distress. She is watching TV and requesting an advance in her diet. Pt is talkative, making jokes and in good spirits. Important to note, pt was not on Eliquis prior to brown emesis before admission. Pt reports passing gas but no BM. Pt denies n/v/d, fever/chills. Abdominal pain has improved. Chart review indicates abdominal flat plate mild dilatation of small bowel loops has decompressed. Hemoglobin stable, no BRBPR. Objective - Vital Signs/Intake and Output Vital Signs (last 24 hours): Temp Pulse Resp BP Pulse Ox 98.4 F 81 20 166/65 H 98 08/14/17 17:38 08/14/17 17:38 08/14/17 17:38 08/14/17 17:38 08/14/17 17:38 Intake and Output: 08/14/17 08/15/17 18:59 06:59 Intake Total 0 Output Total 400 500 Balance -400 -500 - Medications Medications: Current Medications Acetaminophen (Tylenol 325mg Tab) 650 mg PO Q6H PRN PRN Reason: Pain, moderate (4-7) Last Admin: 08/13/17 10:41 Dose: 650 mg Metronidazole (Flagyl) 500 mg in 100 mls @ 100 mls/hr IVPB Q8H [facility] PRN Reason: Protocol Last Admin: 08/15/17 00:10 Dose: 100 mls/hr Potassium Chloride 40 meq/ (Dextrose/Sodium Chloride) 1,020 mls @ 100 mls/hr IV .[id number] [facility] Last Admin: 08/15/17 05:18 Dose: 100 mls/hr Ondansetron HCl (Zofran Inj) 4 mg IVP Q6H PRN PRN Reason: Nausea/Vomiting Pantoprazole Sodium (Protonix Inj) 40 mg IVP Q12 [facility] Last Admin: 08/14/17 21:35 Dose: 40 mg - Labs Labs: 08/14/17 06:10 08/14/17 06:10 - Constitutional Appears: No Acute Distress - Head Exam Head Exam: ATRAUMATIC - Eye Exam Eye Exam: EOMI, Normal appearance - Neck Exam Neck Exam: Full ROM, Normal Inspection - Respiratory Exam Respiratory Exam: Clear to Ausculation Bilateral, NORMAL BREATHING PATTERN - Cardiovascular Exam Cardiovascular Exam: REGULAR RHYTHM, RRR, +S1, +S2 - GI/Abdominal Exam GI & Abdominal Exam: Soft, Normal Bowel Sounds - Rectal Exam Rectal Exam: Deferred - Extremities Exam Extremities Exam: Full ROM, Normal Inspection - Neurological Exam Neurological Exam: Alert, Awake, CN II-XII Intact, Oriented x3 - Psychiatric Exam Psychiatric exam: Normal Affect, Normal Mood - Skin Skin Exam: Normal Color Assessment and Plan - Assessment and Plan (Free Text) Assessment: 82F with a PMH significant for dementia, COPD, metastatic colon cancer with intra-abdominal carcinomatosis s/p right hemicolectomy with adjuvant radiation and chemotherapy (last treated with Avastatin and Gemcitabine), s/p right external illiac stent, with the patient's last admisson on 07/31/17 being for weakness and a syncopal episode. At that time she was found to have a hemoglobin of 6.2 presumably secondary to a GI bleed while on Eliquis and Aspirin. She was treated by discontinuing her Eliquis and aspirin and giving her PRBC with appropriate response. The patient was subsequently discharged to [facility]. She re-presents with complaints of constipation, hematemesis, with a concurrent drop in her Hemoglobin. Important to note, the patient did have a CT of the chest, abdomen and pelvis performed on 08/02 that showed an ill-defined soft tissue masslike density in the right the lateral mid abdomen which appears to be located in the mesentery abutting the right colon. This lesion has increased in size now measuring approximately 5.7 cm in greatest dimension with a localized area of calcification. This lesion felt to represent mesenteric metastasis. While the CT abdomen of pelvis performed on 08/12/17 showed distal small bowel obstruction likely related to tumor in the right hemipelvis. This represents a new finding compared to the recent CT scan. Mesenteric and pelvic tumor burden described above. Multiple subcentimeter pulmonary nodules consistent with metastatic disease. On this admission the patient was treated with nasogastric tube decompression, 1 unit opf PRBCs, IV protonix for GI bleed and SBO. Though the patient has not had any more episodes of hematemesis s/p conservative management for GI bleed and SBO obstruction -NPO, Nasogastric tube decompression , IVP Protonix, and her symptoms of SBO have improved based on exam and abdominal film performed yesterday. We will recheck the pt INR and follow up with GI and general surgery's recommendations. The case was discussed with Dr Benedict, who recommended performing a CT of the abdomen and pelvis with PO contrast, possibly for tomorrow and Miralax for the constipation. We will continue to follow the patient while in house. Case discussed and reviewed with Dr Conner. Amrit Perdomo DO, PGY-1
[2017-08-15 07:13] LABS: BLOOD UREA NITROGEN 29 mg/dL (7-21); GFR AFRICAN-AMERICAN > 60; GFR NON-AFRICAN AMERICAN > 60
--- NOTE | 2017-08-15 08:11 | CP.PCM.PN ---
<Ward Bowles - Last Filed: 08/15/17 11:28> Subjective - Date & Time of Evaluation Date of Evaluation: 08/15/17 Time of Evaluation: 06:00 - Subjective Subjective: General Surgery Progress Note For Dr. Berger Pt was seen and examined this morning at bedside. NGT and Perry came out yesterday. Denies any abdominal pain, states she has not had a BM but is passing gas. No nausea, vomiting, or any other complaints at this time. Objective - Vital Signs/Intake and Output Vital Signs (last 24 hours): Temp Pulse Resp BP Pulse Ox 98.4 F 81 20 166/65 H 98 08/14/17 17:38 08/14/17 17:38 08/14/17 17:38 08/14/17 17:38 08/14/17 17:38 Intake and Output: 08/15/17 08/15/17 06:59 18:59 Intake Total 0 120 Output Total 500 275 Balance -500 -155 - Medications Medications: Current Medications Acetaminophen (Tylenol 325mg Tab) 650 mg PO Q6H PRN PRN Reason: Pain, moderate (4-7) Last Admin: 08/13/17 10:41 Dose: 650 mg Metronidazole (Flagyl) 500 mg in 100 mls @ 100 mls/hr IVPB Q8H [facility] PRN Reason: Protocol Last Admin: 08/15/17 00:10 Dose: 100 mls/hr Potassium Chloride 40 meq/ (Dextrose/Sodium Chloride) 1,020 mls @ 100 mls/hr IV .[id number] [facility] Last Admin: 08/15/17 05:18 Dose: 100 mls/hr Ondansetron HCl (Zofran Inj) 4 mg IVP Q6H PRN PRN Reason: Nausea/Vomiting Pantoprazole Sodium (Protonix Inj) 40 mg IVP Q12 [facility] Last Admin: 08/14/17 21:35 Dose: 40 mg - Labs Labs: 08/15/17 06:00 08/15/17 06:00 - Constitutional Appears: Non-toxic, No Acute Distress - Head Exam Head Exam: ATRAUMATIC, NORMAL INSPECTION, NORMOCEPHALIC - Eye Exam Eye Exam: EOMI, Normal appearance - ENT Exam ENT Exam: Mucous Membranes Moist - Respiratory Exam Respiratory Exam: Clear to Ausculation Bilateral, NORMAL BREATHING PATTERN - Cardiovascular Exam Cardiovascular Exam: REGULAR RHYTHM, +S1, +S2 - GI/Abdominal Exam GI & Abdominal Exam: Soft. absent: Distended, Guarding, Rigid, Tenderness - Extremities Exam Extremities Exam: Normal Inspection. absent: Pedal Edema - Neurological Exam Neurological Exam: Alert, Awake, Oriented x3 - Skin Skin Exam: Warm Assessment and Plan - Assessment and Plan (Free Text) Assessment: Pt is 82 yo F who presented with SBO. Plan: - Received 1 unit PRBC 08/13/17 and responded appropriately - Start clear liquid diet - Continue Protonix - Abdominal flat plate shows no distended loops; air in rectum - IVF - Physical therapy - encourage ambulation - Anti-emetics/Analgesia PRN - case discussed with Dr. Berger - Further recommendations per Dr. Berger <John Berger - Last Filed: 08/15/17 12:56> Objective - Vital Signs/Intake and Output Vital Signs (last 24 hours): Temp Pulse Resp BP Pulse Ox 98.0 F 92 H 20 168/80 H 97 08/15/17 06:00 08/15/17 06:00 08/15/17 06:00 08/15/17 06:00 08/15/17 06:00 Intake and Output: 08/15/17 08/15/17 06:59 18:59 Intake Total 0 120 Output Total 500 275 Balance -500 -155 - Medications Medications: Current Medications Acetaminophen (Tylenol 325mg Tab) 650 mg PO Q6H PRN PRN Reason: Pain, moderate (4-7) Last Admin: 08/13/17 10:41 Dose: 650 mg Metronidazole (Flagyl) 500 mg in 100 mls @ 100 mls/hr IVPB Q8H [facility] PRN Reason: Protocol Last Admin: 08/15/17 08:43 Dose: 100 mls/hr Potassium Chloride 40 meq/ (Dextrose/Sodium Chloride) 1,020 mls @ 100 mls/hr IV .[id number] [facility] Last Admin: 08/15/17 05:18 Dose: 100 mls/hr Ondansetron HCl (Zofran Inj) 4 mg IVP Q6H PRN PRN Reason: Nausea/Vomiting Pantoprazole Sodium (Protonix Inj) 40 mg IVP Q12 [facility] Last Admin: 08/15/17 09:33 Dose: 40 mg - Labs Labs: 08/15/17 06:00 08/15/17 06:00 Assessment and Plan - Assessment and Plan (Free Text) Assessment: + BM now/elías cl liquids ? diet in am R Ab ANN FACS
--- NOTE | 2017-08-15 16:44 | PN ---
DATE: 08/14/2017 SUBJECTIVE: The patient is an 82-year-old female. The patient was seen and examined at the bedside on 08/14/2017, early in the morning, feeling very thirsty, wants to drink or eat. I started her on ice chips and later on, I heard that she tolerated ice chips very well. When I saw the patient, she is still having NG tube and Perry catheter. REVIEW OF SYSTEMS: A 12-point review of systems is negative except above. PHYSICAL EXAMINATION: VITAL SIGNS: Temperature 97.8, pulse 81, respiratory rate 20, blood pressure 150/75, pulse oximetry 98%. HEENT: Head: Normocephalic, atraumatic. Eyes: PERRLA. Extraocular muscles intact. Conjunctivae clear. Nose patent. Mucous membrane moist. NECK: Supple. No carotid bruit. No JVD or thyromegaly. CHEST: Bilaterally symmetrical. HEART: S1 and S2 positive. LUNGS: Clear to auscultation. ABDOMEN: Soft. Bowel sounds present. No organomegaly. EXTREMITIES: No edema. No cyanosis. NEUROLOGICAL: The patient is awake and alert. Moving all 4 extremities. No focal deficits. MEDICATIONS: Tylenol, Flagyl, dextrose, and Protonix. LABORATORY DATA: White blood cells 7.9, hemoglobin 10.5, hematocrit 33.7, platelets 282. Sodium 147, potassium 3.5, BUN 50, creatinine 1.1, glucose 69. ASSESSMENT AND PLAN: Ms. Nadia Watson is an 82-year-old female with anemia; hypokalemia, replaced; hyperchloremia; hypoglycemia; came with abdominal pain, nausea, vomited, emesis of dark brown and occult blood positive. Nasogastric tube was placed, having a dark brown output. Hemoglobin and hematocrit are almost stable. Positive occult blood could be positive due to irritation from esophagitis from recurrent emesis in the setting of small bowel obstruction, history of colon cancer with intraabdominal carcinomatosis. We are watching for actively bleeding. Status post resection, colectomy, status post radiation and chemotherapy. Right iliac vein stent, on apixaban. Plan is to continue proton pump inhibitor. As per Dr. John Berger, we can discontinue nasogastric tube and Perry catheter because the patient is tolerating ice chips very well and the patient has flatus. Still monitoring hemoglobin and hematocrit and input and output. Continue apixaban for now, supportive care, gastrointestinal and deep venous thrombosis prophylaxis. Appreciated Dr. Berger' communication report. Abdominal x-ray reviewed. Repeat labs. We will follow up. Dr. Millan is covering me up to Sunday. Jessica Brown MD
--- NOTE | 2017-08-15 18:41 | CP.PCM.PN ---
Subjective - Date & Time of Evaluation Date of Evaluation: 08/15/17 Time of Evaluation: 13:10 - Subjective Subjective: pGY5 GI Follow-up Pt seen and bedside denies any abd pain +flatus denies BM has appetite s/p NG tube ROS: 12 point ROS conducted neg other than above Objective - Vital Signs/Intake and Output Vital Signs (last 24 hours): Temp Pulse Resp BP Pulse Ox 98 F 94 H 18 170/84 H 98 08/15/17 16:23 08/15/17 16:23 08/15/17 16:23 08/15/17 16:23 08/15/17 16:23 Intake and Output: 08/15/17 08/15/17 06:59 18:59 Intake Total 0 1360 Output Total 500 275 Balance -500 1085 - Medications Medications: Current Medications Acetaminophen (Tylenol 325mg Tab) 650 mg PO Q6H PRN PRN Reason: Pain, moderate (4-7) Last Admin: 08/13/17 10:41 Dose: 650 mg Metronidazole (Flagyl) 500 mg in 100 mls @ 100 mls/hr IVPB Q8H [facility] PRN Reason: Protocol Last Admin: 08/15/17 17:45 Dose: 100 mls/hr Potassium Chloride 40 meq/ (Dextrose/Sodium Chloride) 1,020 mls @ 100 mls/hr IV .[id number] [facility] Last Admin: 08/15/17 17:46 Dose: 100 mls/hr Ondansetron HCl (Zofran Inj) 4 mg IVP Q6H PRN PRN Reason: Nausea/Vomiting Last Admin: 08/15/17 15:24 Dose: 4 mg Pantoprazole Sodium (Protonix Inj) 40 mg IVP Q12 [facility] Last Admin: 08/15/17 09:33 Dose: 40 mg - Labs Labs: 08/15/17 06:00 08/15/17 06:00 - Constitutional Appears: Well, No Acute Distress - Head Exam Head Exam: ATRAUMATIC, NORMOCEPHALIC - Eye Exam Eye Exam: Normal appearance - ENT Exam ENT Exam: Mucous Membranes Moist, Normal Exam - Neck Exam Neck Exam: Normal Inspection - Respiratory Exam Respiratory Exam: Clear to Ausculation Bilateral, NORMAL BREATHING PATTERN. absent: Rales, Rhonchi, Wheezes, Respiratory Distress - Cardiovascular Exam Cardiovascular Exam: REGULAR RHYTHM, +S1, +S2 - GI/Abdominal Exam GI & Abdominal Exam: Soft, Normal Bowel Sounds. absent: Firm, Guarding, Rigid, Tenderness, Organomegaly, Rebound - Extremities Exam Extremities Exam: absent: Joint Swelling, Pedal Edema - Neurological Exam Neurological Exam: Alert, Awake, Oriented x3 - Psychiatric Exam Psychiatric exam: Normal Affect, Normal Mood - Skin Skin Exam: Dry, Intact, Normal Color, Warm Assessment and Plan - Assessment and Plan (Free Text) Assessment: Nadia Watson is a 82-year-old female with a past medical history significant for non-compliance, dementia, COPD, migraine, anxiety, metastatic colon cancer with intra-abdominal carcinomatosis s/p partial colon resection six years, status post radiation and chemotherapy, most recent on Avastatin and Gemcitabine, and PAD s/p of the right external iliac vein with intermittent treatment with Eliquis?, and history of complications of upper gastrointestinal bleed who presented with nausea, vomiting, and pain Abd Pain N/V SBO, s/p NG tube hx of Colon cancer with intra-abdominal carcinomatosis, s/p R colectomy, Rads and Chemo. Right iliac vein stent Plan: Continue PPI started on clears today recommend CT abd w/ PO contrast only to eval sbo can advance diet tomorrow AM s/p NG surgery on board s/p PRBC monitor cbc D/W Dr. Benedict
[2017-08-16] MEDS: Potassium Chloride 40 MEQ in Dextrose 5%/0.45% NS 1,000 ML IV SCH ×2 (02:05→09:50)
[2017-08-16 06:30] LABS: INR 1.09 (0.93-1.08); PROTHROMBIN TIME 12.5 SECONDS (9.4-12.5)
--- NOTE | 2017-08-16 06:45 | CP.PCM.PN ---
<Elizabeth Mancilla - Last Filed: 08/16/17 11:37> Subjective - Date & Time of Evaluation Date of Evaluation: 08/16/17 Time of Evaluation: 07:00 - Subjective Subjective: Medicine Progress Note for Dr. Millan (covering for Dr. Brown), Phillip Mancilla PGY3 Patient seen and examined at bedside. Overnight patient vomited 75ml of coffee ground emesis. She had 2 BM yesterday during the day, but was not able to tolerate dinner. Patient reports having diffuse abdominal pain and nausea. She denies chest pain, shortness of breath, vomiting/diarrhea, fever/chills, numbness/tingling, dysuria or hematuria. Objective - Vital Signs/Intake and Output Vital Signs (last 24 hours): Temp Pulse Resp BP Pulse Ox 98 F 94 H 18 164/93 H 98 08/15/17 16:23 08/15/17 16:23 08/15/17 16:23 08/15/17 21:22 08/15/17 16:23 Intake and Output: 08/15/17 08/16/17 18:59 06:59 Intake Total 1360 0 Output Total 275 350 Balance 1085 -350 - Medications Medications: Current Medications Acetaminophen (Tylenol 325mg Tab) 650 mg PO Q6H PRN PRN Reason: Pain, moderate (4-7) Last Admin: 08/13/17 10:41 Dose: 650 mg Amlodipine Besylate (Norvasc) 10 mg PO DAILY [facility] Last Admin: 08/15/17 21:22 Dose: 10 mg Metronidazole (Flagyl) 500 mg in 100 mls @ 100 mls/hr IVPB Q8H [facility] PRN Reason: Protocol Last Admin: 08/15/17 23:59 Dose: 100 mls/hr Potassium Chloride 40 meq/ (Dextrose/Sodium Chloride) 1,020 mls @ 100 mls/hr IV .[id number] [facility] Last Admin: 08/16/17 02:05 Dose: 100 mls/hr Ondansetron HCl (Zofran Inj) 4 mg IVP Q6H PRN PRN Reason: Nausea/Vomiting Last Admin: 08/16/17 05:57 Dose: 4 mg Pantoprazole Sodium (Protonix Inj) 40 mg IVP Q12 [facility] Last Admin: 08/15/17 21:22 Dose: 40 mg - Labs Labs: 08/15/17 06:00 08/15/17 06:00 PT 12.5 SECONDS (9.4-12.5) 08/16/17 06:00 INR 1.09 (0.93-1.08) H 08/16/17 06:00 - Constitutional Appears: No Acute Distress - Head Exam Head Exam: ATRAUMATIC, NORMAL INSPECTION, NORMOCEPHALIC - Eye Exam Eye Exam: Normal appearance, PERRL Pupil Exam: NORMAL ACCOMODATION, PERRL - ENT Exam ENT Exam: Mucous Membranes Dry - Respiratory Exam Respiratory Exam: Clear to Ausculation Bilateral, NORMAL BREATHING PATTERN. absent: Rales, Rhonchi, Wheezes - Cardiovascular Exam Cardiovascular Exam: REGULAR RHYTHM - GI/Abdominal Exam GI & Abdominal Exam: Soft, Tenderness (diffuse ), Hypoactive Bowel Sounds - Extremities Exam Extremities Exam: absent: Calf Tenderness, Pedal Edema - Neurological Exam Neurological Exam: Alert, Awake, CN II-XII Intact - Psychiatric Exam Psychiatric exam: Normal Affect, Normal Mood - Skin Skin Exam: Dry, Warm Assessment and Plan - Assessment and Plan (Free Text) Assessment: This is an 82yo female with past medical history of COPD, GERD, migraines, R iliac v. stent (was on Eliquis), anemia, hx of GI bleed and metastatic colon ca s/p resection with chemo and radiation who was admitted for 1. SBO - secondary to new pelvic mass found on CT - NG tube removed, but recently vomited - Abd XR showed SBO 2. Leukocytosis - afebrile - PCT pending - can be secondary to aspiration pneumonia 3. Anemia (normocytic) - anemia of chronic dz - Hgb stable s/p 1U PRBC 4. COPD 5. GERD 6. Hx of GI bleed 7. Colon Ca w/ metastasis Plan: Will obtain CXR to rule out aspiration pneumonia. Surgery is on consult. Abd XR showed SBO. Patient is now NPO. Spoke with GI and would like to do CT A/P with PO contrast to see if tumor is infiltrating the bowel. Continue to monitor I&O. Oncology recommendations are appreciated. She is on Flagyl and IV fluids with additives. She is on Norvasc for HTN. BP is increased, will add Lisinopril. Continue GI and DVT prophylaxis. Patient is DNR/DNI. Continue pain control Case seen, discussed and reviewed with Dr. Millan. Phillip Mancilla PGY3 <Ron Millan - Last Filed: 08/16/17 21:44> Objective - Vital Signs/Intake and Output Vital Signs (last 24 hours): Temp Pulse Resp BP Pulse Ox 97.2 F L 100 H 20 170/80 H 97 08/16/17 18:00 08/16/17 18:00 08/16/17 18:00 08/16/17 18:00 08/16/17 18:00 Intake and Output: 08/16/17 08/17/17 18:59 06:59 Intake Total 0 Output Total 200 Balance -200 - Medications Medications: Current Medications Acetaminophen (Tylenol 325mg Tab) 650 mg PO Q6H PRN PRN Reason: Pain, moderate (4-7) Last Admin: 08/13/17 10:41 Dose: 650 mg Amlodipine Besylate (Norvasc) 10 mg PO DAILY [facility] Last Admin: 08/16/17 09:50 Dose: 10 mg Bismuth Subsalicylate (Pepto-Bismol) 262 mg PO ONCE PRN PRN Reason: Dyspepsia Ciprofloxacin (Cipro 400mg/200ml Dsw) 400 mg in 200 mls @ 133.3 mls/hr IVPB Q12 [facility] PRN Reason: Protocol Last Admin: 08/16/17 14:06 Dose: 133.3 mls/hr Metronidazole (Flagyl) 500 mg in 100 mls @ 100 mls/hr IVPB Q8 [facility] PRN Reason: Protocol Last Admin: 08/16/17 21:07 Dose: 100 mls/hr Potassium Chloride 20 meq/ (Dextrose/Sodium Chloride) 1,010 mls @ 100 mls/hr IV .Q10H6M [facility] Last Admin: 08/16/17 17:05 Dose: 100 mls/hr Lisinopril (Zestril) 5 mg PO DAILY [facility] Last Admin: 08/16/17 14:07 Dose: 5 mg Ondansetron HCl (Zofran Inj) 4 mg IVP Q6H PRN PRN Reason: Nausea/Vomiting Last Admin: 08/16/17 10:36 Dose: 4 mg Pantoprazole Sodium (Protonix Inj) 40 mg IVP Q12 [facility] Last Admin: 08/16/17 21:05 Dose: 40 mg - Labs Labs: 08/16/17 07:25 08/16/17 07:25 PT 12.5 SECONDS (9.4-12.5) 08/16/17 06:00 INR 1.09 (0.93-1.08) H 08/16/17 06:00 Assessment and Plan - Assessment and Plan (Free Text) Plan: Pt seen and examined. I have reviewed the note of the biomedical service engineer and agree with it. I have discussed the assessment and plan with the resident. I have reviewed the patient's labs and medications. Pt with vomiting this morning. She is waiting for CT of Abd/pelvis. Spoke with GI.
--- NOTE | 2017-08-16 07:20 | CP.PCM.PN ---
Subjective - Date & Time of Evaluation Date of Evaluation: 08/16/17 Time of Evaluation: 07:00 - Subjective Subjective: Amrit Perdomo DO, PGY-1. Hematology Oncology Progress Note for Dr Salgado Pt seen and examined this morning. Per nurse, pt was given a clear diet last night but had "coffee ground emesis" soon after eating. She is now NPO. Pt is laying on her right side with paper towels near her mouth, she appears nauseated. She states "you're not pushing on my stomach today". She reports nausea, vomiting and constipation. She denies diarrhea, chest pain or SOB. Objective - Vital Signs/Intake and Output Vital Signs (last 24 hours): Temp Pulse Resp BP Pulse Ox 98 F 94 H 18 164/93 H 98 08/15/17 16:23 08/15/17 16:23 08/15/17 16:23 08/15/17 21:22 08/15/17 16:23 Intake and Output: 08/16/17 08/16/17 06:59 18:59 Intake Total 0 Output Total 350 Balance -350 - Medications Medications: Current Medications Acetaminophen (Tylenol 325mg Tab) 650 mg PO Q6H PRN PRN Reason: Pain, moderate (4-7) Last Admin: 08/13/17 10:41 Dose: 650 mg Amlodipine Besylate (Norvasc) 10 mg PO DAILY [facility] Last Admin: 08/15/17 21:22 Dose: 10 mg Metronidazole (Flagyl) 500 mg in 100 mls @ 100 mls/hr IVPB Q8H [facility] PRN Reason: Protocol Last Admin: 08/15/17 23:59 Dose: 100 mls/hr Potassium Chloride 40 meq/ (Dextrose/Sodium Chloride) 1,020 mls @ 100 mls/hr IV .[id number] [facility] Last Admin: 08/16/17 02:05 Dose: 100 mls/hr Ondansetron HCl (Zofran Inj) 4 mg IVP Q6H PRN PRN Reason: Nausea/Vomiting Last Admin: 08/16/17 05:57 Dose: 4 mg Pantoprazole Sodium (Protonix Inj) 40 mg IVP Q12 [facility] Last Admin: 08/15/17 21:22 Dose: 40 mg - Labs Labs: 08/15/17 06:00 08/15/17 06:00 PT 12.5 SECONDS (9.4-12.5) 08/16/17 06:00 INR 1.09 (0.93-1.08) H 08/16/17 06:00 - Constitutional Appears: Other (pt appears nauseated ) - Head Exam Head Exam: ATRAUMATIC, NORMAL INSPECTION, NORMOCEPHALIC - Eye Exam Eye Exam: EOMI, Normal appearance - ENT Exam ENT Exam: Mucous Membranes Moist - Neck Exam Neck Exam: Full ROM, Normal Inspection - Respiratory Exam Respiratory Exam: Clear to Ausculation Bilateral, NORMAL BREATHING PATTERN - Cardiovascular Exam Cardiovascular Exam: REGULAR RHYTHM, RRR, +S1, +S2 - GI/Abdominal Exam Additional comments: pt refuses abdominal exam today due to nausea Assessment and Plan - Assessment and Plan (Free Text) Assessment: 82F with a PMH significant for dementia, COPD, metastatic colon cancer with intra-abdominal carcinomatosis s/p right hemicolectomy with adjuvant radiation and chemotherapy (last treated with Avastatin and Gemcitabine), s/p right external illiac stent, with the patient's last admisson on 07/31/17 being for weakness and a syncopal episode. At that time she was found to have a hemoglobin of 6.2 presumably secondary to a GI bleed while on Eliquis and Aspirin. She was treated by discontinuing her Eliquis and aspirin and giving her PRBC with appropriate response. The patient was subsequently discharged to [facility]. She re-presents with complaints of constipation, hematemesis, with a concurrent drop in her Hemoglobin. Important to note, the patient did have a CT of the chest, abdomen and pelvis performed on 08/02 that showed an ill-defined soft tissue masslike density in the right the lateral mid abdomen which appears to be located in the mesentery abutting the right colon. This lesion has increased in size now measuring approximately 5.7 cm in greatest dimension with a localized area of calcification. This lesion felt to represent mesenteric metastasis. While the CT abdomen of pelvis performed on 08/12/17 showed distal small bowel obstruction likely related to tumor in the right hemipelvis. This represents a new finding compared to the recent CT scan. Mesenteric and pelvic tumor burden described above. Multiple subcentimeter pulmonary nodules consistent with metastatic disease. On this admission the patient was treated with nasogastric tube decompression, 1 unit opf PRBCs, IV protonix for GI bleed and SBO. Though the patient has not had any more episodes of hematemesis s/p conservative management for GI bleed and SBO obstruction -NPO, Nasogastric tube decompression , IVP Protonix, and her symptoms of SBO have improved based on exam and abdominal film performed yesterday. INR= 1.09. CT of the abdomen and pelvis with PO contrast, was unable to be obtained because pt began vomiting and was put back on an NPO diet. If vomiting persists pt may require nasogastic tube. A KUB was obtained which showed a persistent SBO. CXR 08/16/17 shows no change in known metastatic pulmonary nodules , the largest in the left upper lobe measures 2.1 cm. PT recommends sub-acute rehab after discharge for the patient. We will continue to follow the patient while in house. Case discussed and reviewed with Dr Conner. Amrit Perdomo DO, PGY-1
[2017-08-16] MEDS ORDERED: Barium Sulfate Susp 2.1% w/v, 2.0% w/w 450 mL Bottle PO ONE (07:24)
[2017-08-16 07:41] LABS: BASO # 0.01 K/mm3 (0.0-2.0); BASO % 0.1 % (0.0-3.0); EOS % 0.1 % (1.5-5.0); GRAN # 14.46 (1.4-6.5); GRAN % 87.7 % (50.0-68.0); HEMOGLOBIN 11.6 g/dL (12.0-16.0); LYMPH % 6.2 % (22.0-35.0); MEAN CELL VOLUME 84.4 fl (80.0-105.0); MEAN CORPUSCULAR HEMOGLOBIN 26.6 pg (25.0-35.0); MEAN CORPUSCULAR HGB CONC 31.5 g/dl (31.0-37.0); MEAN PLATELET VOLUME 10.4 fl (7.0-11.0); MONO % 5.9 % (1.0-6.0); RBC 4.36 10^6/uL (3.5-6.1); RED CELL DISTRIBUTION WIDTH 20.3 % (11.5-14.5); WHITE BLOOD COUNT 16.5 10^3/ul (4.5-11.0)
[2017-08-16 08:20] LABS: BLOOD UREA NITROGEN 21 mg/dL (7-21); CALCIUM 8.9 mg/dL (8.4-10.5); GFR AFRICAN-AMERICAN > 60; GFR NON-AFRICAN AMERICAN > 60
--- NOTE | 2017-08-16 08:35 | CP.PCM.PN ---
Subjective - Date & Time of Evaluation Date of Evaluation: 08/16/17 Time of Evaluation: 08:33 - Subjective Subjective: General Surgery Note for: Dr. Berger Pt was seen and examined this morning at bedside. She had a bout of dry heaving with 75 cc of coffee ground emesis, as per nursing, yesterday at 8 pm. Zofran was given and denies any nausea, vomiting currently. Was offered NGT but pt adamantly refused to have NGT placed. Was seen and walked by PT yesterday. She had a BM and passed flatus yesterday. She denies abdominal pain, fevers or chills. Had one more bout of coffee ground emesis today. Objective - Vital Signs/Intake and Output Vital Signs (last 24 hours): Temp Pulse Resp BP Pulse Ox 97.7 F 102 H 20 163/88 H 97 08/16/17 07:45 08/16/17 07:45 08/16/17 07:45 08/16/17 07:45 08/16/17 07:45 Intake and Output: 08/16/17 08/16/17 06:59 18:59 Intake Total 0 Output Total 350 Balance -350 - Medications Medications: Current Medications Acetaminophen (Tylenol 325mg Tab) 650 mg PO Q6H PRN PRN Reason: Pain, moderate (4-7) Last Admin: 08/13/17 10:41 Dose: 650 mg Amlodipine Besylate (Norvasc) 10 mg PO DAILY [facility] Last Admin: 08/15/17 21:22 Dose: 10 mg Potassium Chloride 40 meq/ (Dextrose/Sodium Chloride) 1,020 mls @ 100 mls/hr IV .[id number] [facility] Last Admin: 08/16/17 02:05 Dose: 100 mls/hr Ondansetron HCl (Zofran Inj) 4 mg IVP Q6H PRN PRN Reason: Nausea/Vomiting Last Admin: 08/16/17 05:57 Dose: 4 mg Pantoprazole Sodium (Protonix Inj) 40 mg IVP Q12 [facility] Last Admin: 08/15/17 21:22 Dose: 40 mg - Labs Labs: 08/16/17 07:25 08/16/17 07:25 PT 12.5 SECONDS (9.4-12.5) 08/16/17 06:00 INR 1.09 (0.93-1.08) H 07/05/18 06:00 - Constitutional Appears: Well, Non-toxic, No Acute Distress - Head Exam Head Exam: ATRAUMATIC, NORMAL INSPECTION - Eye Exam Eye Exam: EOMI, Normal appearance Pupil Exam: PERRL - Respiratory Exam Respiratory Exam: Clear to Ausculation Bilateral, NORMAL BREATHING PATTERN - Cardiovascular Exam Cardiovascular Exam: REGULAR RHYTHM - GI/Abdominal Exam GI & Abdominal Exam: Soft, Hypoactive Bowel Sounds. absent: Distended, Firm, Guarding, Rigid, Rebound - Neurological Exam Neurological Exam: Alert, Awake, Oriented x3 - Psychiatric Exam Psychiatric exam: Normal Affect, Normal Mood - Skin Skin Exam: Dry, Intact, Normal Color, Warm. absent: Cyanosis, Petechiae Assessment and Plan - Assessment and Plan (Free Text) Assessment: Pt is a 82 yo F who presented with SBO Plan: - Recieved 1 unit PRBC 08/13/17 and responded appropriately - Abd x-ray, obtained this AM showed persistent SBO - Keep pt NPO, will need NGT if vomiting recurs - Cont IVF - Will discuss starting TPN/PPN since pt has now been NPO for a few days - Physical therapy recommends sub-acute rehab upon d/c - Encourage ambulation - Anti-emetics/Analgesia PRN - Discussed with Dr. Berger
[2017-08-16] MEDS ORDERED: Bismuth Subsalicylate 262 mg/15 ml Sus (240 ml) PO PRN (09:36)
[2017-08-16] MEDS: metroNIDAZOLE IV 500 mg/100 ml 500 MG/100 ML BAG IVPB SCH ×3 (09:57→21:07)
--- NOTE | 2017-08-16 11:24 | CP.PCM.PCO ---
Physician Communication Note - Physician Communication Note Physician Communication Note: PSBO worsened-vomiting/RxNPO now-delay CT-follow KUB F/U
--- NOTE | 2017-08-16 11:27 | RAD ---
HISTORY: Small bowel obstruction COMPARISON: 08/14/2017. FINDINGS: BOWEL: There are multiple differential air-fluid levels in the abdomen. There is gaseous distension of the small bowel loops. BONES: Normal. OTHER FINDINGS: None. IMPRESSION: Findings are most compatible with small bowel obstruction without significant interval change.
--- NOTE | 2017-08-16 13:09 | RAD ---
HISTORY: r/o aspiration COMPARISON: 08/13/2017. FINDINGS: The right-sided MediPort terminates at the cavoatrial junction. LUNGS: The lungs are well inflated.. Again seen are multiple pulmonary nodules, the largest in the left upper lobe measures 2.1 cm. . PLEURA: No significant pleural effusion identified, no pneumothorax apparent. CARDIOVASCULAR: The heart is normal in size. Atherosclerotic aortic arch calcifications are present. OSSEOUS STRUCTURES: No significant abnormalities. VISUALIZED UPPER ABDOMEN: Normal. OTHER FINDINGS: None. IMPRESSION: No change in known metastatic pulmonary nodules, the largest in the left upper lobe measures 2.1 cm
[2017-08-16] MEDS: Ciprofloxacin 400mg/200ml D5W 400 MG/200 ML BAG IVPB SCH (14:06)
--- NOTE | 2017-08-16 16:15 | CP.PCM.PN ---
<Estevan Rivas - Last Filed: 08/16/17 16:16> Subjective - Date & Time of Evaluation Date of Evaluation: 08/16/17 Time of Evaluation: 13:00 - Subjective Subjective: Some nausea and emesis of brown material last night. Pt states doesn't want eat the remained of day. No further episodes nor abd pain. Objective - Vital Signs/Intake and Output Vital Signs (last 24 hours): Temp Pulse Resp BP Pulse Ox 97.7 F 102 H 20 163/88 H 97 08/16/17 07:45 08/16/17 07:45 08/16/17 07:45 08/16/17 09:50 08/16/17 07:45 Intake and Output: 08/16/17 08/16/17 06:59 18:59 Intake Total 0 0 Output Total 350 200 Balance -350 -200 - Medications Medications: Current Medications Acetaminophen (Tylenol 325mg Tab) 650 mg PO Q6H PRN PRN Reason: Pain, moderate (4-7) Last Admin: 08/13/17 10:41 Dose: 650 mg Amlodipine Besylate (Norvasc) 10 mg PO DAILY [facility] Last Admin: 08/16/17 09:50 Dose: 10 mg Bismuth Subsalicylate (Pepto-Bismol) 262 mg PO ONCE PRN PRN Reason: Dyspepsia Ciprofloxacin (Cipro 400mg/200ml Dsw) 400 mg in 200 mls @ 133.3 mls/hr IVPB Q12 [facility] PRN Reason: Protocol Last Admin: 08/16/17 14:06 Dose: 133.3 mls/hr Metronidazole (Flagyl) 500 mg in 100 mls @ 100 mls/hr IVPB Q8 [facility] PRN Reason: Protocol Last Admin: 08/16/17 14:07 Dose: 100 mls/hr Potassium Chloride 20 meq/ (Dextrose/Sodium Chloride) 1,010 mls @ 100 mls/hr IV .Q10H6M [facility] Lisinopril (Zestril) 5 mg PO DAILY [facility] Last Admin: 08/16/17 14:07 Dose: 5 mg Ondansetron HCl (Zofran Inj) 4 mg IVP Q6H PRN PRN Reason: Nausea/Vomiting Last Admin: 08/16/17 10:36 Dose: 4 mg Pantoprazole Sodium (Protonix Inj) 40 mg IVP Q12 [facility] Last Admin: 08/16/17 09:51 Dose: 40 mg - Labs Labs: 08/16/17 07:25 08/16/17 07:25 PT 12.5 SECONDS (9.4-12.5) 08/16/17 06:00 INR 1.09 (0.93-1.08) H 08/16/17 06:00 - Constitutional Appears: No Acute Distress, Chronically Ill - Eye Exam Eye Exam: EOMI. absent: Scleral icterus - Respiratory Exam Respiratory Exam: absent: Accessory Muscle Use, Respiratory Distress - Cardiovascular Exam Cardiovascular Exam: RRR. absent: Tachycardia, JVD - GI/Abdominal Exam GI & Abdominal Exam: Soft, Tenderness (ttp in RLQ at site of round palpable mass ). absent: Bruit, Distended Assessment and Plan - Assessment and Plan (Free Text) Assessment: 82-year-old female with a past medical history significant for non-compliance, dementia, COPD, migraine, anxiety, metastatic colon cancer with intra-abdominal carcinomatosis s/p partial colon resection six years, status post radiation and chemotherapy, most recent on Avastin and Gemcitabine, and PAD s/p of the right external iliac vein with intermittent treatment with Eliquis?, and history of complications of upper gastrointestinal bleed who presented with nausea, vomiting, and pain Abd Pain N/V SBO, s/p NG tube with removal and +flatus, but no BM yet hx of Colon cancer with intra-abdominal carcinomatosis, s/p R colectomy, Rads and Chemo. Right iliac vein stent Plan: Continue PPI NPO, may need NG again recommend CT abd w/ PO contrast only to eval SBO when able Surgery on board s/p PRBC, cont to monitor CBC D/W Dr. Benedict <Coy Benedict V - Last Filed: 08/16/17 23:11> Objective - Vital Signs/Intake and Output Vital Signs (last 24 hours): Temp Pulse Resp BP Pulse Ox 97.2 F L 100 H 20 170/80 H 97 08/16/17 18:00 08/16/17 18:00 08/16/17 18:00 08/16/17 18:00 08/16/17 18:00 Intake and Output: 08/16/17 08/17/17 18:59 06:59 Intake Total 0 0 Output Total 200 500 Balance -200 -500 - Medications Medications: Current Medications Acetaminophen (Tylenol 325mg Tab) 650 mg PO Q6H PRN PRN Reason: Pain, moderate (4-7) Last Admin: 08/13/17 10:41 Dose: 650 mg Amlodipine Besylate (Norvasc) 10 mg PO DAILY [facility] Last Admin: 08/16/17 09:50 Dose: 10 mg Bismuth Subsalicylate (Pepto-Bismol) 262 mg PO ONCE PRN PRN Reason: Dyspepsia Ciprofloxacin (Cipro 400mg/200ml Dsw) 400 mg in 200 mls @ 133.3 mls/hr IVPB Q12 [facility] PRN Reason: Protocol Last Admin: 08/16/17 14:06 Dose: 133.3 mls/hr Metronidazole (Flagyl) 500 mg in 100 mls @ 100 mls/hr IVPB Q8 [facility] PRN Reason: Protocol Last Admin: 08/16/17 21:07 Dose: 100 mls/hr Potassium Chloride 20 meq/ (Dextrose/Sodium Chloride) 1,010 mls @ 100 mls/hr IV .Q10H6M [facility] Last Admin: 08/16/17 17:05 Dose: 100 mls/hr Lisinopril (Zestril) 5 mg PO DAILY [facility] Last Admin: 08/16/17 14:07 Dose: 5 mg Ondansetron HCl (Zofran Inj) 4 mg IVP Q6H PRN PRN Reason: Nausea/Vomiting Last Admin: 08/16/17 10:36 Dose: 4 mg Pantoprazole Sodium (Protonix Inj) 40 mg IVP Q12 [facility] Last Admin: 08/16/17 21:05 Dose: 40 mg - Labs Labs: 08/16/17 07:25 08/16/17 07:25 PT 12.5 SECONDS (9.4-12.5) 08/16/17 06:00 INR 1.09 (0.93-1.08) H 08/16/17 06:00 Attending/Attestation - Attestation I have personally seen and examined this patient.: Yes I have fully participated in the care of the patient.: Yes I have reviewed all pertinent clinical information, including history, physical exam and plan: Yes Notes (Text): p 08/16/17 23:11
[2017-08-16] MEDS: Potassium Chloride 20 MEQ in Dextrose 5%/0.45% NS 1,000 ML IV SCH (17:05)
[2017-08-17] MEDS: metroNIDAZOLE IV 500 mg/100 ml 500 MG/100 ML BAG IVPB SCH ×3 (05:04→21:03)
[2017-08-17 06:34] LABS: GRAN # 14.34 (1.4-6.5); GRAN % 89.1 % (50.0-68.0); HEMOGLOBIN 10.6 g/dL (12.0-16.0); LYMPH # 1.2 (1.2-3.4); LYMPH % 7.5 % (22.0-35.0); MEAN CELL VOLUME 84.5 fl (80.0-105.0); MEAN CORPUSCULAR HEMOGLOBIN 26.5 pg (25.0-35.0); MEAN CORPUSCULAR HGB CONC 31.4 g/dl (31.0-37.0); MEAN PLATELET VOLUME 10.3 fl (7.0-11.0); MONO # 0.6 (0.1-0.6); MONO % 3.4 % (1.0-6.0); RED CELL DISTRIBUTION WIDTH 20.2 % (11.5-14.5); WHITE BLOOD COUNT 16.1 10^3/ul (4.5-11.0)
--- NOTE | 2017-08-17 07:14 | CP.PCM.PN ---
Subjective - Date & Time of Evaluation Date of Evaluation: 08/17/17 Time of Evaluation: 06:45 - Subjective Subjective: Amrit Perdomo Heme Onc Progress note for Dr Salgado. Pt seen and examined at bedside. Pt sleeping comfortably upon arrival with an empty emesis basin close to her on the bed. She is easily awakened. Pt reports one episode of vomiting, which was preceded by chills, over night. Pt reports adamantly refusing another NG tube. She reports flatus. Objective - Vital Signs/Intake and Output Vital Signs (last 24 hours): Temp Pulse Resp BP Pulse Ox 97.2 F L 100 H 20 170/80 H 97 08/16/17 18:00 08/16/17 18:00 08/16/17 18:00 08/16/17 18:00 08/16/17 18:00 Intake and Output: 08/17/17 08/17/17 06:59 18:59 Intake Total 1200 0 Output Total 600 Balance 600 0 - Medications Medications: Current Medications Acetaminophen (Tylenol 325mg Tab) 650 mg PO Q6H PRN PRN Reason: Pain, moderate (4-7) Last Admin: 08/13/17 10:41 Dose: 650 mg Amlodipine Besylate (Norvasc) 10 mg PO DAILY [facility] Last Admin: 08/16/17 09:50 Dose: 10 mg Bismuth Subsalicylate (Pepto-Bismol) 262 mg PO ONCE PRN PRN Reason: Dyspepsia Ciprofloxacin (Cipro 400mg/200ml Dsw) 400 mg in 200 mls @ 133.3 mls/hr IVPB Q12 [facility] PRN Reason: Protocol Last Admin: 08/16/17 14:06 Dose: 133.3 mls/hr Metronidazole (Flagyl) 500 mg in 100 mls @ 100 mls/hr IVPB Q8 [facility] PRN Reason: Protocol Last Admin: 08/17/17 05:04 Dose: 100 mls/hr Potassium Chloride 20 meq/ (Dextrose/Sodium Chloride) 1,010 mls @ 100 mls/hr IV .Q10H6M [facility] Last Admin: 08/16/17 17:05 Dose: 100 mls/hr Lisinopril (Zestril) 5 mg PO DAILY [facility] Last Admin: 08/16/17 14:07 Dose: 5 mg Ondansetron HCl (Zofran Inj) 4 mg IVP Q6H PRN PRN Reason: Nausea/Vomiting Last Admin: 08/17/17 03:50 Dose: 4 mg Pantoprazole Sodium (Protonix Inj) 40 mg IVP Q12 [facility] Last Admin: 08/16/17 21:05 Dose: 40 mg - Labs Labs: 08/17/17 06:00 08/16/17 07:25 PT 12.5 SECONDS (9.4-12.5) 08/16/17 06:00 INR 1.09 (0.93-1.08) H 08/16/17 06:00 - Constitutional Appears: No Acute Distress, Chronically Ill - Head Exam Head Exam: ATRAUMATIC, NORMAL INSPECTION, NORMOCEPHALIC - Eye Exam Eye Exam: EOMI, Normal appearance - Neck Exam Neck Exam: Full ROM - Respiratory Exam Respiratory Exam: Clear to Ausculation Bilateral, NORMAL BREATHING PATTERN - Cardiovascular Exam Cardiovascular Exam: REGULAR RHYTHM, RRR, +S1, +S2 - GI/Abdominal Exam Additional comments: pt refuses any type of abdominal exam - Rectal Exam Rectal Exam: Deferred - Extremities Exam Extremities Exam: Full ROM, Normal Inspection - Neurological Exam Neurological Exam: Alert, Awake, CN II-XII Intact, Oriented x3 - Psychiatric Exam Psychiatric exam: Normal Affect - Skin Skin Exam: Normal Color Assessment and Plan - Assessment and Plan (Free Text) Assessment: 82F with a PMH significant for dementia, COPD, metastatic colon cancer with intra-abdominal carcinomatosis s/p right hemicolectomy with adjuvant radiation and chemotherapy (last treated with Avastatin and Gemcitabine), s/p right external illiac stent, with the patient's last admisson on 07/31/17 being for weakness and a syncopal episode. At that time she was found to have a hemoglobin of 6.2 presumably secondary to a GI bleed while on Eliquis and Aspirin. She was treated by discontinuing her Eliquis and aspirin and giving her PRBC with appropriate response. The patient was subsequently discharged to [facility]. She re-presents with complaints of constipation, hematemesis, with a concurrent drop in her Hemoglobin. Important to note, the patient did have a CT of the chest, abdomen and pelvis performed on 08/02 that showed an ill-defined soft tissue masslike density in the right the lateral mid abdomen which appears to be located in the mesentery abutting the right colon. This lesion has increased in size now measuring approximately 5.7 cm in greatest dimension with a localized area of calcification. This lesion felt to represent mesenteric metastasis. While the CT abdomen of pelvis performed on 08/12/17 showed distal small bowel obstruction likely related to tumor in the right hemipelvis. This represents a new finding compared to the recent CT scan. Mesenteric and pelvic tumor burden described above. Multiple subcentimeter pulmonary nodules consistent with metastatic disease. On this admission the patient was treated with nasogastric tube decompression, 1 unit opf PRBCs, IV protonix for GI bleed and SBO. Though the patient has not had any more episodes of hematemesis s/p conservative management for GI bleed and SBO obstruction -NPO, Nasogastric tube decompression , IVP Protonix, and her symptoms of SBO have improved based on exam and abdominal film performed yesterday. INR= 1.09. CT of the abdomen and pelvis with PO contrast, was unable to be obtained because pt began vomiting and was put back on an NPO diet. KUB showed a persistent SBO. CXR 08/16/17 shows no change in known metastatic pulmonary nodules, the largest in the left upper lobe measures 2.1 cm. PT recommended sub-acute rehab after discharge for the patient. Pt adamantly refuses invasive treatments and does not want NG tube replaced. Pt will begin PPN nutrition today. Pt to remain NPO, allow ice chips only. We will continue to follow the patient while in house. Case discussed and reviewed with Dr Salgado. Amrit Perdomo PGY-1
[2017-08-17 07:19] LABS: BLOOD UREA NITROGEN 17 mg/dL (7-21); CALCIUM 8.5 mg/dL (8.4-10.5); GFR AFRICAN-AMERICAN > 60; GFR NON-AFRICAN AMERICAN > 60
[2017-08-17] MEDS ORDERED: Sodium Phosphate 30 MMOLE in Dextrose 5% In Water 250 ML IVPB ONE (07:58)
[2017-08-17] MEDS ORDERED: Potassium Phosphate 3 mmol/ml Inj IV ONE (07:59)
--- NOTE | 2017-08-17 08:21 | CP.PCM.PN ---
Subjective - Date & Time of Evaluation Date of Evaluation: 08/17/17 Time of Evaluation: 08:15 - Subjective Subjective: General Surgery Note for: Dr. Berger Pt was seen and examined this morning at bedside. She states that she had another bout of coffee ground emesis last night. She continues to adamantly refuse NGT placement, so NPO status will remain. Pt is amenable to PPN nutrition which will be started today. She currently denies any nausea, vomiting , fevers, or chills. She admits to generalized abdominal pain but only upon palpation. She has no other acute complains at this time. Objective - Vital Signs/Intake and Output Vital Signs (last 24 hours): Temp Pulse Resp BP Pulse Ox 97.6 F 102 H 20 156/93 H 97 08/17/17 07:38 08/17/17 07:38 08/17/17 07:38 08/17/17 07:38 08/17/17 07:38 Intake and Output: 08/17/17 08/17/17 06:59 18:59 Intake Total 1200 0 Output Total 600 Balance 600 0 - Medications Medications: Current Medications Acetaminophen (Tylenol 325mg Tab) 650 mg PO Q6H PRN PRN Reason: Pain, moderate (4-7) Last Admin: 08/13/17 10:41 Dose: 650 mg Amlodipine Besylate (Norvasc) 10 mg PO DAILY [facility] Last Admin: 08/16/17 09:50 Dose: 10 mg Bismuth Subsalicylate (Pepto-Bismol) 262 mg PO ONCE PRN PRN Reason: Dyspepsia Ciprofloxacin (Cipro 400mg/200ml Dsw) 400 mg in 200 mls @ 133.3 mls/hr IVPB Q12 [facility] PRN Reason: Protocol Last Admin: 08/16/17 14:06 Dose: 133.3 mls/hr Metronidazole (Flagyl) 500 mg in 100 mls @ 100 mls/hr IVPB Q8 [facility] PRN Reason: Protocol Last Admin: 08/17/17 05:04 Dose: 100 mls/hr Potassium Chloride 20 meq/ (Dextrose/Sodium Chloride) 1,010 mls @ 100 mls/hr IV .Q10H6M [facility] Last Admin: 08/16/17 17:05 Dose: 100 mls/hr Sodium Phosphate 30 mmole/ (Dextrose) 260 mls @ 42.5 mls/hr IVPB ONCE ONE Stop: 08/17/17 14:05 Lisinopril (Zestril) 5 mg PO DAILY [facility] Last Admin: 08/16/17 14:07 Dose: 5 mg Ondansetron HCl (Zofran Inj) 4 mg IVP Q6H PRN PRN Reason: Nausea/Vomiting Last Admin: 08/17/17 03:50 Dose: 4 mg Pantoprazole Sodium (Protonix Inj) 40 mg IVP Q12 [facility] Last Admin: 08/16/17 21:05 Dose: 40 mg - Labs Labs: 08/17/17 06:00 08/17/17 06:00 PT 12.5 SECONDS (9.4-12.5) 08/16/17 06:00 INR 1.09 (0.93-1.08) H 08/16/17 06:00 - Constitutional Appears: Well, Non-toxic, No Acute Distress - Head Exam Head Exam: ATRAUMATIC, NORMOCEPHALIC - Eye Exam Eye Exam: EOMI, Normal appearance Pupil Exam: PERRL - Respiratory Exam Respiratory Exam: Clear to Ausculation Bilateral, NORMAL BREATHING PATTERN - Cardiovascular Exam Cardiovascular Exam: REGULAR RHYTHM, RRR - GI/Abdominal Exam GI & Abdominal Exam: Distended, Soft, Hypoactive Bowel Sounds. absent: Firm, Guarding, Rigid - Neurological Exam Neurological Exam: Alert, Awake, Oriented x3 - Psychiatric Exam Psychiatric exam: Normal Affect, Normal Mood - Skin Skin Exam: Dry, Intact, Normal Color, Warm. absent: Cyanosis, Petechiae Assessment and Plan - Assessment and Plan (Free Text) Assessment: Pt is a 82 yo F who presented with a SBO Plan: - Recieved 1 unit PRBC 08/13/17 and responded appropriately - Keep NPO with ice chips, since vomiting recurred last night - Discussed in depth with pt the risks/benefits and alternatives to NGT placement. Pt still refused NGT placement. - Discussed palliative care with patient, since she is refusing all other invasive interventions. - Will start PPN later today due to prolonged NPO status - Cont IVF - Repleted mag and phos, F/u with AM labs - PT recommends sub-acute rehab upon d/c - Encourage ambulation - Anti-emetics/Analgesics PRN - pt seen and plan discussed in detail with Dr. Berger
[2017-08-17] MEDS ORDERED: Magnesium 2 gm/50 ml NS 2 GM/50 ML BAG IVPB ONE (08:42)
[2017-08-17 08:52] LABS: ALBUMIN 2.7 g/dL (3.0-4.8); ALT/SGPT 25 U/L (7-56); AST/SGOT 27 U/L (14-36); BLOOD UREA NITROGEN 17 mg/dL (7-21); CALCIUM 8.7 mg/dL (8.4-10.5); GFR AFRICAN-AMERICAN > 60; GFR NON-AFRICAN AMERICAN > 60
[2017-08-17] MEDS: Potassium Chloride 20 MEQ in Dextrose 5%/0.45% NS 1,000 ML IV SCH (09:33)
--- NOTE | 2017-08-17 10:47 | CP.PCM.PN ---
<Elizabeth Mancilla - Last Filed: 08/17/17 10:32> Subjective - Date & Time of Evaluation Date of Evaluation: 08/17/17 Time of Evaluation: 07:00 - Subjective Subjective: Medicine Progress Note for Dr. Millan (covering for Dr. Brown), Phillip Mancilla PGY3 Patient seen and examined at bedside. Patient had an episode of coffee ground emesis overnight. Patient reports passing some gas yesterday, but none overnight. She was unable to take the PO contrast for the CT. She reports her abdominal pain improves. She denies chest pain, shortness of breath, fever/ chills, numbness/tingling, dysuria or hematuria. Objective - Vital Signs/Intake and Output Vital Signs (last 24 hours): Temp Pulse Resp BP Pulse Ox 97.6 F 102 H 20 156/93 H 97 08/17/17 07:38 08/17/17 07:38 08/17/17 07:38 08/17/17 07:38 08/17/17 07:38 Intake and Output: 08/17/17 08/17/17 06:59 18:59 Intake Total 1200 0 Output Total 600 Balance 600 0 - Medications Medications: Current Medications Acetaminophen (Tylenol 325mg Tab) 650 mg PO Q6H PRN PRN Reason: Pain, moderate (4-7) Last Admin: 08/13/17 10:41 Dose: 650 mg Amlodipine Besylate (Norvasc) 10 mg PO DAILY [facility] Last Admin: 08/16/17 09:50 Dose: 10 mg Bismuth Subsalicylate (Pepto-Bismol) 262 mg PO ONCE PRN PRN Reason: Dyspepsia Ciprofloxacin (Cipro 400mg/200ml Dsw) 400 mg in 200 mls @ 133.3 mls/hr IVPB Q12 [facility] PRN Reason: Protocol Last Admin: 08/16/17 14:06 Dose: 133.3 mls/hr Metronidazole (Flagyl) 500 mg in 100 mls @ 100 mls/hr IVPB Q8 [facility] PRN Reason: Protocol Last Admin: 08/17/17 05:04 Dose: 100 mls/hr Potassium Chloride 20 meq/ (Dextrose/Sodium Chloride) 1,010 mls @ 100 mls/hr IV .Q10H6M [facility] Last Admin: 08/16/17 17:05 Dose: 100 mls/hr Sodium Phosphate 30 mmole/ (Dextrose) 260 mls @ 42.5 mls/hr IVPB ONCE ONE Stop: 08/17/17 14:05 Amino Acids/Electrolytes/Dextrose (Clinimix 5/20 % "E" (2000 Ml)) 2,000 mls @ 83 mls/hr IV .Q24H [facility] Stop: 08/20/17 17:59 Fat Emulsion Intravenous (Intralipid 20%) 250 mls @ 21 mls/hr IV 1800 [facility] Stop: 08/20/17 17:59 Lisinopril (Zestril) 5 mg PO DAILY [facility] Last Admin: 08/16/17 14:07 Dose: 5 mg Ondansetron HCl (Zofran Inj) 4 mg IVP Q6H PRN PRN Reason: Nausea/Vomiting Last Admin: 08/17/17 03:50 Dose: 4 mg Pantoprazole Sodium (Protonix Inj) 40 mg IVP Q12 [facility] Last Admin: 08/16/17 21:05 Dose: 40 mg - Labs Labs: 08/17/17 06:00 08/17/17 08:20 PT 12.5 SECONDS (9.4-12.5) 08/16/17 06:00 INR 1.09 (0.93-1.08) H 08/16/17 06:00 - Constitutional Appears: No Acute Distress, Chronically Ill - Head Exam Head Exam: ATRAUMATIC, NORMAL INSPECTION, NORMOCEPHALIC - Eye Exam Eye Exam: Normal appearance, PERRL Pupil Exam: NORMAL ACCOMODATION, PERRL - ENT Exam ENT Exam: Mucous Membranes Dry - Neck Exam Neck Exam: Full ROM - Respiratory Exam Respiratory Exam: Clear to Ausculation Bilateral, NORMAL BREATHING PATTERN. absent: Rales, Rhonchi, Wheezes - Cardiovascular Exam Cardiovascular Exam: REGULAR RHYTHM, +S1, +S2. absent: Gallop, Rubs, Murmur - GI/Abdominal Exam GI & Abdominal Exam: Soft, Tenderness (diffuse tenderness ), Hypoactive Bowel Sounds. absent: Rigid, Rebound - Extremities Exam Extremities Exam: absent: Pedal Edema - Neurological Exam Neurological Exam: Alert, Awake, CN II-XII Intact - Psychiatric Exam Psychiatric exam: Normal Affect, Normal Mood - Skin Skin Exam: Dry, Warm Assessment and Plan - Assessment and Plan (Free Text) Assessment: This is an 82yo female with past medical history of COPD, GERD, migraines, R iliac v. stent (was on Eliquis), anemia, hx of GI bleed and metastatic colon ca s/p resection with chemo and radiation who was admitted for 1. SBO - secondary to new pelvic mass found on CT - NG tube removed, but recently vomited - Abd XR showed SBO 2. Leukocytosis - reactive v. infectious process - afebrile - PCT pending - CXR negative for aspiration pneumonia 3. Anemia (normocytic) - stable - anemia of chronic dz - Hgb stable s/p 1U PRBC 4. COPD 5. GERD 6. Hx of GI bleed 7. Colon Ca w/ metastasis 8. Hypomagnesia/Hypophosphatemia Plan: Will place patient on TPN. Continue NPO. Discussed plan with GI and surgery. Surgery may plan for OR to bypass the mass. Patient unable to tolerate PO contrast. Continue to monitor I&O. Oncology recs appreciated. Continue Cipro and Flagyl as well as IV fluids with potassium. Will continue to monitor electrolytes and replace as needed. BP is still high. Will increase Lisinopril to 10mg and continue Norvasc. Continue pain control as well as GI and DVT prophylaxis. Patient is DNR/DNI. Case seen, discussed and reviewed with Dr. Millan. Phillip Mancilla PGY3 <Ron Millan S - Last Filed: 08/19/17 09:35> Objective - Vital Signs/Intake and Output Vital Signs (last 24 hours): Temp Pulse Resp BP Pulse Ox 98.4 F 102 H 20 146/83 95 08/18/17 16:24 08/18/17 16:24 08/18/17 16:24 08/18/17 16:24 08/18/17 16:24 Intake and Output: 08/19/17 08/19/17 06:59 18:59 Intake Total 500 Output Total 400 Balance 100 - Medications Medications: Current Medications Acetaminophen (Tylenol 325mg Tab) 650 mg PO Q6H PRN PRN Reason: Pain, moderate (4-7) Last Admin: 08/13/17 10:41 Dose: 650 mg Amlodipine Besylate (Norvasc) 10 mg PO DAILY [facility] Last Admin: 08/18/17 09:12 Dose: 10 mg Bismuth Subsalicylate (Pepto-Bismol) 262 mg PO ONCE PRN PRN Reason: Dyspepsia Ciprofloxacin (Cipro 400mg/200ml Dsw) 400 mg in 200 mls @ 133.3 mls/hr IVPB Q12 [facility] PRN Reason: Protocol Last Admin: 08/18/17 22:25 Dose: Not Given Metronidazole (Flagyl) 500 mg in 100 mls @ 100 mls/hr IVPB Q8 [facility] PRN Reason: Protocol Last Admin: 08/19/17 05:20 Dose: Not Given Multivitamins/Vitamin C 10 ml/ (Amino Acids) 1,010 mls @ 42 mls/hr IV .Q24H [facility] Last Admin: 08/18/17 17:29 Dose: 42 mls/hr Lisinopril (Zestril) 10 mg PO DAILY [facility] Last Admin: 08/18/17 09:13 Dose: 10 mg Morphine Sulfate (Morphine) 1 mg IVP Q3 PRN PRN Reason: Pain, severe (8-10) Last Admin: 08/19/17 05:20 Dose: 1 mg Ondansetron HCl (Zofran Inj) 4 mg IVP Q6H PRN PRN Reason: Nausea/Vomiting Last Admin: 08/17/17 16:20 Dose: 4 mg Pantoprazole Sodium (Protonix Inj) 40 mg IVP Q12 [facility] Last Admin: 08/18/17 21:50 Dose: 40 mg - Labs Labs: 08/19/17 06:00 08/19/17 06:00 PT 12.5 SECONDS (9.4-12.5) 08/16/17 06:00 INR 1.09 (0.93-1.08) H 08/16/17 06:00 Assessment and Plan - Assessment and Plan (Free Text) Plan: Pt seen and examined on 08-17-17 and this is a late entry. I have reviewed the note of the behavioral medical director and agree with it. I have discussed the assessment and plan with the resident. I have reviewed the patient's labs and medications.Pt starting on TPN for nutrition. She has not been able to tolerate PO meds. BP is controlled with Lisinopril and Norvasc.
[2017-08-17] MEDS: Ciprofloxacin 400mg/200ml D5W 400 MG/200 ML BAG IVPB SCH ×2 (11:20→21:06)
--- NOTE | 2017-08-17 14:59 | CP.PCM.CON ---
History of Present Illness - History of Present Illness History of Present Illness: Palliative consult requested by Dr Hank Millan Reason:Goals of care 82 year old female with history of metastatic colon cancer,COPD who was sent from [facility] with nausea, vomiting and abdominal pain. She denied fever, chills, dysuria, chest pain, dizziness or headache. Emesis was coffee ground in color and was positive for occult blood. CT scan showed distal small bowel obstruction likely related to tumor in right kellie pelvis,mesenteric and pelvic tumor burden, multiple pulmonary nodules consistent with metastatic disease. PMHx: COPD, metastatic colon cancer DVT of LE, on Elequis, iron deficiency anemia, s/p transfusion, duodenal ulcer, diverticulitis, s/p falls. PSH: colon resection,tonsillectomy Social History: Current smoker, no alcohol or drug use. Lives alone. Family History: Non contributory Advance Care Planning: POLST: DNR/DNI. Here grandmary Watson is her health care surrogate Review of Systems: As per HPI, 12 point review negative Vital Signs: T 97.6, P 100, BP 150/90, R 20, O2 sat 98% Labs:Wbc 16.1, Hgb 10.6, Plt 349,Na 141, K 4.5, Bun 17, Creat. 0.7,Total protein 5.3, albumin 2.7 Past Patient History - Infectious Disease Hx of Infectious Diseases: None - Tetanus Immunizations Tetanus Immunization: Unknown - Past Medical History & Family History Past Medical History?: Yes - Past Social History Smoking Status: Former Smoker - CARDIAC Hx Hypertension: Yes - PULMONARY Hx Chronic Obstructive Pulmonary Disease (COPD): Yes - NEUROLOGICAL Hx Neurological Disorder: Yes Hx Migraine: Yes - HEENT Hx HEENT Problems: Yes Hx Cataracts: Yes Hx Difficulty Chewing: Yes - RENAL Hx Chronic Kidney Disease: No - ENDOCRINE/METABOLIC Hx Endocrine Disorders: No - HEMATOLOGICAL/ONCOLOGICAL Hx Blood Transfusions: Yes Hx Blood Transfusion Reaction: No - INTEGUMENTARY Hx Dermatological Problems: No - MUSCULOSKELETAL/RHEUMATOLOGICAL Hx Falls: Yes - GASTROINTESTINAL Hx Gastrointestinal Disorders: Yes (ulcer/reflux) - GENITOURINARY/GYNECOLOGICAL Hx Genitourinary Disorders: No - PSYCHIATRIC Hx Psychophysiologic Disorder: Yes Hx Anxiety: Yes Hx Substance Use: No - SURGICAL HISTORY Hx Tonsillectomy: Yes Other/Comment: Colon resection - ANESTHESIA Hx Anesthesia Reactions: No Hx Malignant Hyperthermia: No Meds Allergies/Adverse Reactions: Allergies Allergy/AdvReac Type Severity Reaction Status Date / Time Penicillins Allergy Severe RASH Verified 08/12/17 19:57 - Medications Medications: Current Medications Acetaminophen (Tylenol 325mg Tab) 650 mg PO Q6H PRN PRN Reason: Pain, moderate (4-7) Last Admin: 08/13/17 10:41 Dose: 650 mg Amlodipine Besylate (Norvasc) 10 mg PO DAILY [facility] Last Admin: 08/17/17 09:00 Dose: 10 mg Bismuth Subsalicylate (Pepto-Bismol) 262 mg PO ONCE PRN PRN Reason: Dyspepsia Ciprofloxacin (Cipro 400mg/200ml Dsw) 400 mg in 200 mls @ 133.3 mls/hr IVPB Q12 [facility] PRN Reason: Protocol Last Admin: 08/17/17 11:20 Dose: 133.3 mls/hr Metronidazole (Flagyl) 500 mg in 100 mls @ 100 mls/hr IVPB Q8 [facility] PRN Reason: Protocol Last Admin: 08/17/17 14:20 Dose: 100 mls/hr Potassium Chloride 20 meq/ (Dextrose/Sodium Chloride) 1,010 mls @ 100 mls/hr IV .Q10H6M [facility] Last Admin: 08/17/17 09:33 Dose: 100 mls/hr Amino Acids/Electrolytes/Dextrose (Clinimix 5/20 % "E" (2000 Ml)) 2,000 mls @ 83 mls/hr IV .Q24H [facility] Stop: 08/20/17 17:59 Fat Emulsion Intravenous (Intralipid 20%) 250 mls @ 21 mls/hr IV 1800 [facility] Stop: 08/20/17 17:59 Lisinopril (Zestril) 10 mg PO DAILY [facility] Ondansetron HCl (Zofran Inj) 4 mg IVP Q6H PRN PRN Reason: Nausea/Vomiting Last Admin: 08/17/17 03:50 Dose: 4 mg Pantoprazole Sodium (Protonix Inj) 40 mg IVP Q12 [facility] Last Admin: 08/17/17 09:00 Dose: 40 mg Physical Exam - Constitutional Appears: Cachectic, Chronically Ill - Head Exam Head Exam: NORMAL INSPECTION - Eye Exam Eye Exam: Normal appearance, PERRL - ENT Exam ENT Exam: Mucous Membranes Moist, Normal Oropharynx - Neck Exam Neck exam: Positive for: Normal Inspection - Respiratory Exam Respiratory Exam: Decreased Breath Sounds, NORMAL BREATHING PATTERN - Cardiovascular Exam Cardiovascular Exam: REGULAR RHYTHM, +S1, +S2 - GI/Abdominal Exam GI & Abdominal Exam: Normal Bowel Sounds, Soft, Tenderness - Extremities Exam Extremities exam: Positive for: pedal edema, pedal pulses present Additional comments: right thigh wound - Back Exam Back exam: NORMAL INSPECTION - Neurological Exam Neurological exam: Alert, Oriented x3 - Skin Skin Exam: Dry, Pallor - Additional Findings Additional findings: Palliative performance rating 40% Results - Vital Signs Recent Vital Signs: Last Vital Signs Temp 97.6 F 08/17/17 07:38 Pulse 102 H 08/17/17 11:26 Resp 20 08/17/17 07:38 BP 156/93 H 08/17/17 11:26 Pulse Ox 97 08/17/17 07:38 - Labs Result Diagrams: 08/17/17 06:00 08/17/17 08:20 Labs: Laboratory Results - last 24 hr 08/17/17 08/17/17 08/17/17 06:00 06:00 08:20 WBC 16.1 H RBC 4.00 Hgb 10.6 L Hct 33.8 L MCV 84.5 MCH 26.5 MCHC 31.4 RDW 20.2 H Plt Count 349 MPV 10.3 Gran % 89.1 H Lymph % (Auto) 7.5 L [place] % (Auto) 3.4 Eos % (Auto) 0.0 L Baso % (Auto) 0.0 Gran # 14.34 H Lymph # (Auto) 1.2 [place] # (Auto) 0.6 Eos # (Auto) 0.0 Baso # (Auto) 0.00 Sodium 141 141 Potassium 4.5 4.5 Chloride 112 H 111 H Carbon Dioxide 22 21 Anion Gap 13 13 BUN 17 17 Creatinine 0.7 0.7 Est GFR ( Amer) > 60 > 60 Est GFR (Non-Af Amer) > 60 > 60 Random Glucose 147 H 143 H Calcium 8.5 8.7 Phosphorus 1.3 L* 1.2 L* Magnesium 1.5 L 1.5 L Total Bilirubin 0.4 AST 27 ALT 25 Alkaline Phosphatase 103 Total Protein 5.3 L Albumin 2.7 L Globulin 2.6 Albumin/Globulin Ratio 1.0 L Assessment & Plan - Assessment and Plan (Free Text) Assessment: 82 year old female with history of metastatic colon cancer who is admitted with small bowel obstruction, nausea, vomiting,anemia, pain, deconditioining. The patient is resting comfortable, intermittent nausea/vomiting. Refusing NG tub. The patient is known to me from previous admission She is DNR/DNI. She is aware of her medical condition and knows that her disease is progressing. Goals of care discussed. Patient states she does not want to return to [facility] or going to [place]. Explained that she can go to [facility] once medically stable but would have to consider hiring help upon discharge home. We also spoke about transitioning to hospice care. She is not ready for hospice services, but will consider in near future. She states that her grandson, Berry will help her with hiring live in help. JORGE ALBERTO Schulz and Rafi had a very lengthy discussion with Berry via phone. He is aware of his grandmother's medical condition and prognosis Options for care presented. Hospice services explained. Berry amenable to his grandmother going to [facility]. In the interim, he will discuss hospice care care with his grandmother. Berry has agreed to meet with Ms Reagan on Sunday to discuss plan of care. Time spent with patient and family member in goals of care discussion, 50 minutes Plan: Small bowel obstruction: Refusing NG tube, TPN, IVF's,NPO, Zofran, protonix, Cipro,abdominal x rays Deconditioinig:TRCU when medically stable Anemia: Monitor CBC, transfuse as needed Goals of care
--- NOTE | 2017-08-17 15:11 | CP.PCM.PN ---
<Miko Rivasadrian - Last Filed: 08/17/17 16:23> Subjective - Date & Time of Evaluation Date of Evaluation: 08/17/17 Time of Evaluation: 13:00 - Subjective Subjective: Pt states she is feeling OK at the moment but states that is because she has not had anything PO nor does she want to take anything PO due to feeling nauseous. She requests to not be examined because she finally found a comfortable spot. Objective - Vital Signs/Intake and Output Vital Signs (last 24 hours): Temp Pulse Resp BP Pulse Ox 97.6 F 102 H 20 156/93 H 97 08/17/17 07:38 08/17/17 11:26 08/17/17 07:38 08/17/17 11:26 08/17/17 07:38 Intake and Output: 08/17/17 08/17/17 06:59 18:59 Intake Total 1200 0 Output Total 600 125 Balance 600 -125 - Medications Medications: Current Medications Acetaminophen (Tylenol 325mg Tab) 650 mg PO Q6H PRN PRN Reason: Pain, moderate (4-7) Last Admin: 08/13/17 10:41 Dose: 650 mg Amlodipine Besylate (Norvasc) 10 mg PO DAILY [facility] Last Admin: 08/17/17 09:00 Dose: 10 mg Bismuth Subsalicylate (Pepto-Bismol) 262 mg PO ONCE PRN PRN Reason: Dyspepsia Ciprofloxacin (Cipro 400mg/200ml Dsw) 400 mg in 200 mls @ 133.3 mls/hr IVPB Q12 [facility] PRN Reason: Protocol Last Admin: 08/17/17 11:20 Dose: 133.3 mls/hr Metronidazole (Flagyl) 500 mg in 100 mls @ 100 mls/hr IVPB Q8 [facility] PRN Reason: Protocol Last Admin: 08/17/17 14:20 Dose: 100 mls/hr Potassium Chloride 20 meq/ (Dextrose/Sodium Chloride) 1,010 mls @ 100 mls/hr IV .Q10H6M [facility] Last Admin: 08/17/17 09:33 Dose: 100 mls/hr Amino Acids/Electrolytes/Dextrose (Clinimix 5/20 % "E" (2000 Ml)) 2,000 mls @ 83 mls/hr IV .Q24H [facility] Stop: 08/20/17 17:59 Fat Emulsion Intravenous (Intralipid 20%) 250 mls @ 21 mls/hr IV 1800 [facility] Stop: 08/20/17 17:59 Lisinopril (Zestril) 10 mg PO DAILY [facility] Ondansetron HCl (Zofran Inj) 4 mg IVP Q6H PRN PRN Reason: Nausea/Vomiting Last Admin: 08/17/17 03:50 Dose: 4 mg Pantoprazole Sodium (Protonix Inj) 40 mg IVP Q12 [facility] Last Admin: 08/17/17 09:00 Dose: 40 mg - Labs Labs: 08/17/17 06:00 08/17/17 08:20 PT 12.5 SECONDS (9.4-12.5) 08/16/17 06:00 INR 1.09 (0.93-1.08) H 08/16/17 06:00 - Constitutional Appears: No Acute Distress (Remainder of exam limited as patient declined exam) , Chronically Ill - Head Exam Head Exam: ATRAUMATIC, NORMOCEPHALIC Assessment and Plan - Assessment and Plan (Free Text) Assessment: 82-year-old female with a past medical history significant for non-compliance, dementia, COPD, migraine, anxiety, metastatic colon cancer with intra-abdominal carcinomatosis s/p partial colon resection six years, status post radiation and chemotherapy, most recent on Avastin and Gemcitabine, and PAD s/p of the right external iliac vein with intermittent treatment with Eliquis?, and history of complications of upper gastrointestinal bleed who presented with nausea, vomiting, and pain Abd Pain N/V SBO, s/p NG tube with removal with flatus, but symptoms recurred. Repeat Abd XRay 08/16/17 with persistent SBO hx of Colon cancer with intra-abdominal carcinomatosis, s/p R colectomy, Rads and Chemo. Right iliac vein stent Plan: Continue PPI NPO, may need NG again Recommend CT abd w/ PO contrast only to eval SBO when able Surgery on board, may need palliative surgery Monitor CBC D/W Dr. Benedict <Coy Benedict V - Last Filed: 08/17/17 23:56> Objective - Vital Signs/Intake and Output Vital Signs (last 24 hours): Temp Pulse Resp BP Pulse Ox 97.0 F L 89 20 146/80 95 08/17/17 18:00 08/17/17 18:00 08/17/17 18:00 08/17/17 18:00 08/17/17 18:00 Intake and Output: 08/17/17 08/18/17 18:59 06:59 Intake Total 0 120 Output Total 125 200 Balance -125 -80 - Medications Medications: Current Medications Acetaminophen (Tylenol 325mg Tab) 650 mg PO Q6H PRN PRN Reason: Pain, moderate (4-7) Last Admin: 08/13/17 10:41 Dose: 650 mg Amlodipine Besylate (Norvasc) 10 mg PO DAILY [facility] Last Admin: 08/17/17 09:00 Dose: 10 mg Bismuth Subsalicylate (Pepto-Bismol) 262 mg PO ONCE PRN PRN Reason: Dyspepsia Ciprofloxacin (Cipro 400mg/200ml Dsw) 400 mg in 200 mls @ 133.3 mls/hr IVPB Q12 [facility] PRN Reason: Protocol Last Admin: 08/17/17 21:06 Dose: 133.3 mls/hr Metronidazole (Flagyl) 500 mg in 100 mls @ 100 mls/hr IVPB Q8 [facility] PRN Reason: Protocol Last Admin: 08/17/17 21:03 Dose: 100 mls/hr Potassium Chloride 20 meq/ (Dextrose/Sodium Chloride) 1,010 mls @ 100 mls/hr IV .Q10H6M [facility] Last Admin: 08/17/17 09:33 Dose: 100 mls/hr Amino Acids/Electrolytes/Dextrose (Clinimix 5/20 % "E" (2000 Ml)) 2,000 mls @ 83 mls/hr IV .Q24H [facility] Stop: 08/20/17 17:59 Last Admin: 08/17/17 17:05 Dose: 83 mls/hr Fat Emulsion Intravenous (Intralipid 20%) 250 mls @ 21 mls/hr IV 1800 [facility] Stop: 08/20/17 17:59 Last Admin: 08/17/17 17:06 Dose: 21 mls/hr Lisinopril (Zestril) 10 mg PO DAILY [facility] Ondansetron HCl (Zofran Inj) 4 mg IVP Q6H PRN PRN Reason: Nausea/Vomiting Last Admin: 08/17/17 16:20 Dose: 4 mg Pantoprazole Sodium (Protonix Inj) 40 mg IVP Q12 [facility] Last Admin: 08/17/17 21:02 Dose: 40 mg - Labs Labs: 08/17/17 06:00 08/17/17 08:20 PT 12.5 SECONDS (9.4-12.5) 08/16/17 06:00 INR 1.09 (0.93-1.08) H 08/16/17 06:00 Attending/Attestation - Attestation I have personally seen and examined this patient.: Yes I have fully participated in the care of the patient.: Yes I have reviewed all pertinent clinical information, including history, physical exam and plan: Yes Notes (Text): This is an addendum to GI progress report dictated by the GI Fellow.The patient was seen and examined earlier. Medical records, lab studies, imagings were reviewed. Last 24 hours events reviewed. Agreed with the above treatment plan as outlined in GI Fellow 's notes the with the addition of the following 08/17/17 23:56
[2017-08-17] MEDS ORDERED: Fat Emulsion 20% IV 250 ML IV SCH (18:00)
--- NOTE | 2017-08-17 18:26 | CP.PCM.PN ---
Subjective - Date & Time of Evaluation Date of Evaluation: 08/17/17 Time of Evaluation: 11:00 - Subjective Subjective: Dx Recurrent SBO/Chr GI Bleed(PUD)/CHF/Metastatic Colon Carcinomatosis Objective - Vital Signs/Intake and Output Vital Signs (last 24 hours): Temp Pulse Resp BP Pulse Ox 97.6 F 102 H 20 156/93 H 97 08/17/17 07:38 08/17/17 11:26 08/17/17 07:38 08/17/17 11:26 08/17/17 07:38 Intake and Output: 08/17/17 08/17/17 06:59 18:59 Intake Total 1200 0 Output Total 600 125 Balance 600 -125 - Medications Medications: Current Medications Acetaminophen (Tylenol 325mg Tab) 650 mg PO Q6H PRN PRN Reason: Pain, moderate (4-7) Last Admin: 08/13/17 10:41 Dose: 650 mg Amlodipine Besylate (Norvasc) 10 mg PO DAILY [facility] Last Admin: 08/17/17 09:00 Dose: 10 mg Bismuth Subsalicylate (Pepto-Bismol) 262 mg PO ONCE PRN PRN Reason: Dyspepsia Ciprofloxacin (Cipro 400mg/200ml Dsw) 400 mg in 200 mls @ 133.3 mls/hr IVPB Q12 [facility] PRN Reason: Protocol Last Admin: 08/17/17 11:20 Dose: 133.3 mls/hr Metronidazole (Flagyl) 500 mg in 100 mls @ 100 mls/hr IVPB Q8 [facility] PRN Reason: Protocol Last Admin: 08/17/17 14:20 Dose: 100 mls/hr Potassium Chloride 20 meq/ (Dextrose/Sodium Chloride) 1,010 mls @ 100 mls/hr IV .Q10H6M [facility] Last Admin: 08/17/17 09:33 Dose: 100 mls/hr Amino Acids/Electrolytes/Dextrose (Clinimix 5/20 % "E" (2000 Ml)) 2,000 mls @ 83 mls/hr IV .Q24H [facility] Stop: 08/20/17 17:59 Last Admin: 08/17/17 17:05 Dose: 83 mls/hr Fat Emulsion Intravenous (Intralipid 20%) 250 mls @ 21 mls/hr IV 1800 [facility] Stop: 08/20/17 17:59 Last Admin: 08/17/17 17:06 Dose: 21 mls/hr Lisinopril (Zestril) 10 mg PO DAILY [facility] Ondansetron HCl (Zofran Inj) 4 mg IVP Q6H PRN PRN Reason: Nausea/Vomiting Last Admin: 08/17/17 16:20 Dose: 4 mg Pantoprazole Sodium (Protonix Inj) 40 mg IVP Q12 [facility] Last Admin: 08/17/17 09:00 Dose: 40 mg - Labs Labs: 08/17/17 06:00 08/17/17 08:20 PT 12.5 SECONDS (9.4-12.5) 08/16/17 06:00 INR 1.09 (0.93-1.08) H 08/16/17 06:00 Assessment and Plan - Assessment and Plan (Free Text) Assessment: 1 Day Post NGT removal(+Flatus/BM)Pt has SBO Recurrence/No flatus today/Very tender abdomen Extensive discussion with findings/clinical significance/Possible alternatives with patient: NGT/Surgery/Transfusion/Parenteral Nutrition= Patient clearly and emphatically does not want any more treatments:Blanche came and further tried to persuade her stating his opinion(9Yrs Rx for her) but she continues to refuse any talk about surgery. I spent an extended time with Grandmary Smart who acts as surrogate and he concurs with the patient and is coming in later to talk about Palliative Measures. Palliative Care Nurse S Paramonte is consulted for further information to patient and family At this time PPN is started(fear TPN would not be tolerated safely: Hypokalemia/ CHF) Patient knows she will be comforted and supported but doesn`t want [facility] again- TRCU will be considered later when she talkswith her grandson Prognosis: GRAVE We will follow with you Frieda Berger MD FACS
[2017-08-18] MEDS: metroNIDAZOLE IV 500 mg/100 ml 500 MG/100 ML BAG IVPB SCH ×3 (05:44→22:26)
[2017-08-18 08:30] LABS: BASO # 0.02 K/mm3 (0.0-2.0); BASO % 0.1 % (0.0-3.0); EOS # 0.1 (0.0-0.7); EOS % 0.7 % (1.5-5.0); GRAN # 14.82 (1.4-6.5); GRAN % 87.9 % (50.0-68.0); HEMOGLOBIN 10.5 g/dL (12.0-16.0); LYMPH # 1.3 (1.2-3.4); LYMPH % 7.8 % (22.0-35.0); MEAN CORPUSCULAR HEMOGLOBIN 26.7 pg (25.0-35.0); MEAN CORPUSCULAR HGB CONC 32.2 g/dl (31.0-37.0); MEAN PLATELET VOLUME 10.3 fl (7.0-11.0); MONO # 0.6 (0.1-0.6); MONO % 3.5 % (1.0-6.0); RBC 3.93 10^6/uL (3.5-6.1); RED CELL DISTRIBUTION WIDTH 19.8 % (11.5-14.5); WHITE BLOOD COUNT 16.9 10^3/ul (4.5-11.0)
[2017-08-18 09:11] LABS: BLOOD UREA NITROGEN 21 mg/dL (7-21); CALCIUM 8.3 mg/dL (8.4-10.5); GFR AFRICAN-AMERICAN > 60; GFR NON-AFRICAN AMERICAN > 60
[2017-08-18] MEDS: Ciprofloxacin 400mg/200ml D5W 400 MG/200 ML BAG IVPB SCH ×2 (09:11→22:25)
--- NOTE | 2017-08-18 11:50 | CP.PCM.PN ---
Subjective - Date & Time of Evaluation Date of Evaluation: 08/18/17 Time of Evaluation: 12:00 - Subjective Subjective: Recurrent bowel obstruction Colon carcinimatosis GI Bleed Objective - Vital Signs/Intake and Output Vital Signs (last 24 hours): Temp Pulse Resp BP Pulse Ox 98.3 F 94 H 21 163/94 H 96 08/18/17 06:00 08/18/17 09:13 08/18/17 06:00 08/18/17 09:13 08/18/17 06:00 Intake and Output: 08/18/17 08/18/17 06:59 18:59 Intake Total 1768 Output Total 450 Balance 1318 - Medications Medications: Current Medications Acetaminophen (Tylenol 325mg Tab) 650 mg PO Q6H PRN PRN Reason: Pain, moderate (4-7) Last Admin: 08/13/17 10:41 Dose: 650 mg Amlodipine Besylate (Norvasc) 10 mg PO DAILY [facility] Last Admin: 08/18/17 09:12 Dose: 10 mg Bismuth Subsalicylate (Pepto-Bismol) 262 mg PO ONCE PRN PRN Reason: Dyspepsia Ciprofloxacin (Cipro 400mg/200ml Dsw) 400 mg in 200 mls @ 133.3 mls/hr IVPB Q12 [facility] PRN Reason: Protocol Last Admin: 08/18/17 09:11 Dose: 133.3 mls/hr Metronidazole (Flagyl) 500 mg in 100 mls @ 100 mls/hr IVPB Q8 [facility] PRN Reason: Protocol Last Admin: 08/18/17 05:44 Dose: 100 mls/hr Multivitamins/Vitamin C 10 ml/ (Amino Acids) 1,010 mls @ 42 mls/hr IV .Q24H [facility] Lisinopril (Zestril) 10 mg PO DAILY [facility] Last Admin: 08/18/17 09:13 Dose: 10 mg Ondansetron HCl (Zofran Inj) 4 mg IVP Q6H PRN PRN Reason: Nausea/Vomiting Last Admin: 08/17/17 16:20 Dose: 4 mg Pantoprazole Sodium (Protonix Inj) 40 mg IVP Q12 [facility] Last Admin: 08/18/17 09:13 Dose: 40 mg - Labs Labs: 08/18/17 08:00 07/07/18 08:00 PT 12.5 SECONDS (9.4-12.5) 08/16/17 06:00 INR 1.09 (0.93-1.08) H 08/16/17 06:00 Assessment and Plan - Assessment and Plan (Free Text) Assessment: Pt now refusing all measures--wants to go home TPN dropped to 40/hr(Should haave been PPN NOT TPN No fingersticks-Periph IV 100/hr not cancelled til now [facility] with palliative support(if pt agrees) No surgery possible Prognosis Leon Berger MD FACS
[2017-08-18] MEDS: Morphine 2 mg/ml ISec IVP PRN ×3 (14:14→22:33)
--- NOTE | 2017-08-18 21:40 | PN ---
DATE: 08/18/2017 HISTORY OF PRESENT ILLNESS: Ms. Watson is 82-year-old female admitted to the hospital with abdominal pain, small bowel obstruction. She has a history of colon cancer, stage IV disease, colon carcinomatosis, history of GI bleed, and she has severe abdominal pain, was started on NG draining serosanguinous fluid. GI, Dr. Benedict, following. No events overnight. She is complaining of severe abdominal pain. Does not want anybody to touch her abdomen. Upper GI bleed positive. Vitals are stable. Evaluated by Palliative Care Services. PAST MEDICAL HISTORY: Hypertension, coronary artery disease, COPD, migraine headaches, history of blood transfusion, history of recurrent falls, gastric ulcer, anxiety. PAST SURGICAL HISTORY: Colon resection. FAMILY HISTORY: No positive history in mother and father. PERSONAL HISTORY: Heavy smoker; smokes more than 10 cigarettes a day. ALLERGIES: PENICILLIN CAUSES RASH. SOCIAL HISTORFY: Lives at home. CURRENT MEDICATIONS: Tylenol 650 every 6 hour p.r.n. She is on NG suction, Norvasc 10 mg daily, Pepto-Bismol p.r.n., Cipro IV every 12 hours, lisinopril 10 mg daily, Flagyl every 8 hours, morphine 1 mg every 3 p.r.n., Zofran 4 mg IV every 6 hours p.r.n., Protonix 40 mg every 12 hours, PPN. PHYSICAL EXAMINATION: GENERAL: Mild distress due to abdominal pain. VITAL SIGNS: Temperature 98.4, heart rate 94 per minute, blood pressure 140/83, respiratory rate 20 per minute, oxygen saturation 95% on room air. HEENT: Pallor positive. NG tube was has been suctioning, draining serosanguineous fluid. CHEST: Air entry present and equal bilaterally. No added sounds. CARDIOVASCULAR: Tachycardia present. S1, S2 normal. No murmur. No gallop. ABDOMEN: Distended, diffusely tender. EXTREMITIES: No edema. CENTRAL NERVOUS SYSTEM: Alert and oriented x3. No focal sensory or motor deficit. SKIN: No petechiae. No rash. SPINE: Nontender. LABORATORY DATA: White count 16.9, hemoglobin 10.5, hematocrit 32.6, platelets 360. Sodium 139, potassium 3.9, phosphorus 2.1, creatinine 0.6. ASSESSMENT: 1. Stage IV colon cancer with small bowel obstruction. 2. Gastrointestinal bleed. 3. Peripheral artery disease. 4. Hypertension. PLAN: We will continue current medications, IV fluids, and PPN to continue IV antibiotic, ciprofloxacin and Flagyl. GI, Dr. Benedict, following. Dr. Benedict and Dr. Berger note reviewed. Blood counts are stable. Abdominal pain, to start morphine 1 mg IV every 3 hours p.r.n. Palliative Service is consulted. She wants to go home and declining any treatment today. Renal function is normal. Electrolytes are within normal limits. Phosphorus improved to 2.1, previously it was 1.3. She wants to go home , does not want any further treatment. Discussed with the staff nurse. Discussed with the patient. Discussed with Dr. Berger. Josiane Vargas MD MTDConstantin
--- NOTE | 2017-08-19 04:50 | PN ---
DATE: 08/18/2017 ONCOLOGY PROGRESS NOTE LOCATION: The patient is in room 360, bed 1. SUBJECTIVE: This is one of several admissions for this 82-year-old female who has been followed by me for the last years issues with diagnosis of metastatic stage IV colorectal malignancy who is recently admitted to the hospital from rehab facility with progressive abdominal cramps and pain, nausea and vomiting, and emesis of dark blood. The patient had a CAT scan of the abdomen and pelvis prior to discharge to the rehab and then readmitted now with the findings of recurrent disease in the right side of the abdominal cavity and the CAT scan of the abdomen that is involving the small bowel and probably encroaching of the right side of the colon as well. Prior history is significant for colon carcinoma, stage III, was on systemic chemotherapy with leucovorin and 5FU and has had steady progression with disease intra-abdominally, lung metastasis. Patient also had metastasis to the right side of the pelvic wall with compression of the right common iliac vein which she has a stent placement and functional until very recently when she was admitted with the aforementioned complaints. Currently, the patient had a nasogastric tube which finally was pulled out as the patient refused to have further testing. The patient had been seen by GI and Surgery and she has been refusing several tests at this point in time as far a procedure is our concern. Patient had been on IV PPN which has been tapered. She is just on IV fluids and the plan may be to sent home on palliative care services. REVIEW OF SYSTEMS: Patient has had very minimal nausea since last night. She is not taking anything by mouth and she is being just sustained by intravenous fluids. MEDICATIONS: Patient's current medications were reviewed. She is on Tylenol 650 every 6 hours p.r.n., she is on nasogastric suction. Oral meds include Norvasc 10 mg daily, Pepto Bismol p.r.n., Cipro IV every 12 hours, lisinopril 10 mg daily, Flagyl every 8 hours, Morphine 1 mg every 3 hours, Zofran 4 mg IV every 6 hours p.r.n., Protonix 40 mg IV every 12 hours along with PPN, which is being tapered. PHYSICAL EXAMINATION: GENERAL: The patient is examined in bed. The patient is in no significant distress at this time of examination. Family by the bedside. Grandson is visiting her. VITAL SIGNS: Stable as stated in the chart. T-max is 98.4, heart rate 94, blood pressure is 140/83, respirations 20 per minute, O2 sat 95% on room air. HEENT: Head is normocephalic and atraumatic. Temporal muscle wasting is noted. Examination of the oropharynx reveals tongue to be dry and coated. No oropharyngeal lesions per se are seen. The patient does not have a nasogastric tube. NECK: Supple. There is no adenopathy. No jugular venous distention noted. LUNGS: Reveal decreased breath sounds in both bases, otherwise relatively clear. CARDIOVASCULAR SYSTEM: Reveals S1 and S2 to be normal. Patient is tachycardiac. No gallop is heard. ABDOMEN: Mildly distended. Patient has right lower quadrant pain without any rebound, rigidity, or guarding. EXTREMITIES: Reveal no cyanosis, clubbing, or edema. NEUROLOGIC: Higher functions are normal. There are no focal deficits are noted. SKIN: Reveals normal skin turgor. No rashes, no petechiae noted. LABORATORY DATA: Lab data reviewed the white count is 16.9 with hemoglobin of 10, hematocrit 32.6, platelet count of 360,000. Electrolytes are normal. ASSESSMENT, NOTES, AND PLAN: Patient has progressive stage IV metastatic colon carcinoma with progressive intra-abdominal carcinomatosis and positive bowel obstruction related to the metastatic colon cancer. Patient, at this time, is refusing any other invasive procedures as per my discussion with both GI, Dr. Benedict and Dr. John Berger. I spoke to the grandson in great detail and the patient is pretty emphatic that at this point, she just wants to receive conservative means and see if the partial obstruction will open up on her own without having to have any intervening procedures. I told her at this point in time, it may be difficult to predict, but told her also that may be we can get palliative services to see if she should be a candidate for home services at home. Unfortunately, the patient lives by herself in her home, she wants to be independent, and I placed all these discussions with the grandson as well. Patient is going to think about it today and let us know by tomorrow, which direction she wants to us to proceed. Discussed at length with the patient. Time spent with the patient is greater than 45 minutes. Grandson has my phone number and reach out to me tomorrow, based on that we will make further decisions at this time. Sourav Salgado MD [facility] # [id number]
[2017-08-19] MEDS: Morphine 2 mg/ml ISec IVP PRN ×4 (05:20→23:35)
[2017-08-19] MEDS: metroNIDAZOLE IV 500 mg/100 ml 500 MG/100 ML BAG IVPB SCH ×3 (05:20→22:12)
[2017-08-19 07:02] LABS: EOS # 0.1 (0.0-0.7); GRAN # 10.51 (1.4-6.5); GRAN % 84.6 % (50.0-68.0); LYMPH # 1.2 (1.2-3.4); MEAN CELL VOLUME 82.9 fl (80.0-105.0); MEAN CORPUSCULAR HEMOGLOBIN 26.7 pg (25.0-35.0); MEAN CORPUSCULAR HGB CONC 32.2 g/dl (31.0-37.0); MEAN PLATELET VOLUME 10.7 fl (7.0-11.0); MONO # 0.6 (0.1-0.6); MONO % 4.4 % (1.0-6.0); RBC 3.75 10^6/uL (3.5-6.1); WHITE BLOOD COUNT 12.4 10^3/ul (4.5-11.0)
[2017-08-19 07:27] LABS: ALB/GLOB RATIO 0.9 (1.1-1.8); ALBUMIN 2.3 g/dL (3.0-4.8); ALT/SGPT 27 U/L (7-56); AST/SGOT 17 U/L (14-36); BLOOD UREA NITROGEN 25 mg/dL (7-21); CALCIUM 8.2 mg/dL (8.4-10.5); GFR AFRICAN-AMERICAN > 60; GFR NON-AFRICAN AMERICAN > 60
--- NOTE | 2017-08-19 10:17 | PN ---
DATE: 08/19/2017 SUBJECTIVE: She is comfortable in bed in no acute distress. She is on morphine IV p.r.n. for abdominal pain. Pain is markedly decreased. No events overnight. No shortness of breath. Oral intake is poor. She is hemodynamically stable. REVIEW OF SYSTEMS As per HPI. Rest of 12 point review of systems reviewed, negative. PHYSICAL EXAMINATION: GENERAL: Comfortable in bed, in no acute distress. VITAL SIGNS: Temperature 98.6, heart rate is 100 per minute, blood pressure 140/100, respiratory rate 18 per minute, oxygen saturation 98% on room air. HEENT: Pallor positive. NECK: No lymphadenopathy. CHEST: Air entry present and equal bilaterally. No added sounds. CARDIOVASCULAR: S1, S2 normal. No murmur. No gallop. ABDOMEN: Soft, distended, tender to touch. EXTREMITIES: No edema. ACCOUNTING SPECIALIST: Alert and oriented x3. No focal sensory motor deficit. SKIN: No petechia and no rash. SPINE: Nontender. LABORATORY DATA: Reviewed. MEDICATIONS: Tylenol 650 every 6 hours p.r.n., Pepto-Bismol, ciprofloxacin IV, Flagyl IV, lisinopril 10 mg daily, morphine 1 mg every 3 hours p.r.n., TPN, Protonix 40 mg IV. LABORATORY DATA: White count 12.4, hemoglobin 10, 375. Sodium 132, potassium 4.2, creatinine 0.6. ASSESSMENT AND PLAN: 1. Stage IV cancer. 2. Small bowel obstruction. 3. Gastrointestinal bleed. 4. Peripheral artery disease. 5. Poor performance status. 6. Failure to thrive. PLAN: She is being managed conservatively. Surgery, Dr. Sharma, is following. GI, Dr. Benedict is following. Note reviewed. Currently on IV antibiotic with ciprofloxacin and Flagyl. Pain control with morphine every 3 hours p.r.n. currently on Protonix. Palliative Care Services consult appreciated, family deciding for hospice. No decision immediate. Josiane Vargas MD
[2017-08-19] MEDS: Ciprofloxacin 400mg/200ml D5W 400 MG/200 ML BAG IVPB SCH ×2 (13:56→22:12)
--- NOTE | 2017-08-20 01:13 | PN ---
DATE: 08/18/2017 SUBJECTIVE: This patient was seen and evaluated earlier today and also we did discuss with Dr. Salgado. Patient has episodes of vomiting, had some abdominal discomfort. PHYSICAL EXAMINATION: VITAL SIGNS: Temperature is 98.4, pulse 102, blood pressure 146/83, respirations 20, O2 saturation 95%. HEENT: Atraumatic, anicteric. NECK: Supple. HEART: S1 and S2 heard. LUNGS: Bilateral air entry present, reduced at the bases. ABDOMEN: Distended. Bowel sounds present. LABORATORY DATA: WBC 16.9, hemoglobin 10.5, hematocrit 32.6, platelets 360. Chemistry: Creatinine 0.6, BUN 31. IMPRESSION AND PLAN: This is an 82-year-old patient with metastatic advanced colorectal carcinoma, has intraabdominal mass lesion, probably metastatic colon cancer, has questionable invasion of the colon suspected. Patient is now planned originally to have colonoscopy; however, patient was admitted at this time with small bowel obstruction, probably the small bowel involvement of the tumor. Patient did have some improvement after the NG tube decompression. Patient to start on the clear liquid diet now. Patient has a recurrence of the obstructive features. Patient is now reluctant to have an NG tube done, or any further evaluation. Patient does not want at this present to be evaluated by the GI. We will sign off and re-consult as needed. Thank you very much for allowing us to participate in the care of the patient. Coy Benedict MD
[2017-08-20 06:35] LABS: EOS # 0.2 (0.0-0.7); EOS % 1.5 % (1.5-5.0); GRAN # 9.77 (1.4-6.5); GRAN % 85.3 % (50.0-68.0); HEMOGLOBIN 9.5 g/dL (12.0-16.0); LYMPH # 0.9 (1.2-3.4); LYMPH % 8.1 % (22.0-35.0); MEAN CELL VOLUME 83.2 fl (80.0-105.0); MEAN CORPUSCULAR HEMOGLOBIN 26.2 pg (25.0-35.0); MEAN CORPUSCULAR HGB CONC 31.5 g/dl (31.0-37.0); MEAN PLATELET VOLUME 10.1 fl (7.0-11.0); MONO # 0.6 (0.1-0.6); MONO % 5.1 % (1.0-6.0); RBC 3.63 10^6/uL (3.5-6.1); RED CELL DISTRIBUTION WIDTH 20.1 % (11.5-14.5); WHITE BLOOD COUNT 11.5 10^3/ul (4.5-11.0)
--- NOTE | 2017-08-20 06:49 | CP.PCM.PN ---
Subjective - Date & Time of Evaluation Date of Evaluation: 08/20/17 Time of Evaluation: 06:30 - Subjective Subjective: Amrit Perdomo PGY-1, dictating Heme Onc progress note for Dr Salgado. Pt seen this morning. Pt sleeping comfortably upon arrival with TV on. Pt reports some nausea last night but no vomiting. Per nurse, pt was given zofran overnight, no other adverse events reported. She also reports some abdominal pain. She refuses a physical examination and states "I just want to be left alone." Objective - Vital Signs/Intake and Output Vital Signs (last 24 hours): Temp Pulse Resp BP Pulse Ox 97.4 F L 90 18 149/70 91 L 08/19/17 16:02 08/19/17 16:02 08/19/17 16:02 08/19/17 16:02 08/19/17 16:02 Intake and Output: 08/19/17 08/20/17 18:59 06:59 Intake Total 620 Output Total 302 Balance 318 - Medications Medications: Current Medications Acetaminophen (Tylenol 325mg Tab) 650 mg PO Q6H PRN PRN Reason: Pain, moderate (4-7) Last Admin: 08/13/17 10:41 Dose: 650 mg Amlodipine Besylate (Norvasc) 10 mg PO DAILY [facility] Last Admin: 08/19/17 10:57 Dose: 10 mg Bismuth Subsalicylate (Pepto-Bismol) 262 mg PO ONCE PRN PRN Reason: Dyspepsia Ciprofloxacin (Cipro 400mg/200ml Dsw) 400 mg in 200 mls @ 133.3 mls/hr IVPB Q12 [facility] PRN Reason: Protocol Last Admin: 08/19/17 22:12 Dose: Not Given Metronidazole (Flagyl) 500 mg in 100 mls @ 100 mls/hr IVPB Q8 [facility] PRN Reason: Protocol Last Admin: 08/19/17 22:12 Dose: Not Given Multivitamins/Vitamin C 10 ml/ (Amino Acids) 1,010 mls @ 42 mls/hr IV .Q24H [facility] Last Admin: 08/19/17 18:03 Dose: 42 mls/hr Lisinopril (Zestril) 10 mg PO DAILY [facility] Last Admin: 08/19/17 10:56 Dose: 10 mg Morphine Sulfate (Morphine) 1 mg IVP Q3 PRN PRN Reason: Pain, severe (8-10) Last Admin: 08/19/17 23:35 Dose: 1 mg Ondansetron HCl (Zofran Inj) 4 mg IVP Q6H PRN PRN Reason: Nausea/Vomiting Last Admin: 08/20/17 04:56 Dose: 4 mg Pantoprazole Sodium (Protonix Inj) 40 mg IVP Q12 [facility] Last Admin: 08/19/17 21:00 Dose: 40 mg - Labs Labs: 08/19/17 06:00 08/19/17 06:00 PT 12.5 SECONDS (9.4-12.5) 08/16/17 06:00 INR 1.09 (0.93-1.08) H 08/16/17 06:00 - Constitutional Appears: Chronically Ill - Additional Findings Additional findings: pt refused physical exam stating "I just want to be left alone" Assessment and Plan - Assessment and Plan (Free Text) Assessment: 82F with a PMH significant for dementia, COPD, metastatic colon cancer with intra-abdominal carcinomatosis s/p right hemicolectomy with adjuvant radiation and chemotherapy (last treated with Avastatin and Gemcitabine), s/p right external illiac stent, with the patient's last admisson on 07/31/17 being for weakness and a syncopal episode. At that time she was found to have a hemoglobin of 6.2 presumably secondary to a GI bleed while on Eliquis and Aspirin. She was treated by discontinuing her Eliquis and aspirin and giving her PRBC with appropriate response. The patient was subsequently discharged to [facility]. She re-presents with complaints of constipation, hematemesis, with a concurrent drop in her Hemoglobin. Important to note, the patient did have a CT of the chest, abdomen and pelvis performed on 08/02 that showed an ill-defined soft tissue masslike density in the right the lateral mid abdomen which appears to be located in the mesentery abutting the right colon. This lesion has increased in size now measuring approximately 5.7 cm in greatest dimension with a localized area of calcification. This lesion felt to represent mesenteric metastasis. While the CT abdomen of pelvis performed on 08/12/17 showed distal small bowel obstruction likely related to tumor in the right hemipelvis. This represents a new finding compared to the recent CT scan. Mesenteric and pelvic tumor burden described above. Multiple subcentimeter pulmonary nodules consistent with metastatic disease. On this admission the patient was treated with nasogastric tube decompression, 1 unit opf PRBCs, IV protonix for GI bleed and SBO. Though the patient has not had any more episodes of hematemesis s/p conservative management for GI bleed and SBO obstruction -NPO, Nasogastric tube decompression , IVP Protonix, and her symptoms of SBO have improved based on exam and abdominal film performed yesterday. INR= 1.09. CT of the abdomen and pelvis with PO contrast, was unable to be obtained because pt began vomiting and was put back on an NPO diet. KUB showed a persistent SBO. CXR 08/16/17 shows no change in known metastatic pulmonary nodules, the largest in the left upper lobe measures 2.1 cm. PT recommended sub-acute rehab after discharge for the patient. Pt adamantly refuses invasive treatments and does not want NG tube replaced. Pt right thigh culture has moderate growth for Pseudomonas. Pt hypoposphatemia has resolved and is 2.9 today 08/20/17. Palliative care has been consulted. Hemoglobin 9.5. Pt referred to [facility] as in pt. Case discussed and reviewed with Dr Salgado. Amrit Perdomo PGY-1
[2017-08-20 06:50] LABS: ALB/GLOB RATIO 0.9 (1.1-1.8); ALBUMIN 2.4 g/dL (3.0-4.8); ALT/SGPT 24 U/L (7-56); AST/SGOT 17 U/L (14-36); BLOOD UREA NITROGEN 24 mg/dL (7-21); CALCIUM 8.3 mg/dL (8.4-10.5); GFR AFRICAN-AMERICAN > 60; GFR NON-AFRICAN AMERICAN > 60
[2017-08-20 08:06] VITALS: BP 152/79; PULSE 93; RESP 19; TEMP 97.9; O2SAT 97
[2017-08-20] MEDS: Ciprofloxacin 400mg/200ml D5W 400 MG/200 ML BAG IVPB SCH (08:59)
--- NOTE | 2017-08-20 12:30 | CP.PCM.PN ---
Subjective - Date & Time of Evaluation Date of Evaluation: 08/20/17 Time of Evaluation: 10:00 - Subjective Subjective: Alert, oriented. complains of intractable nausea, vomiting and abdominal pain Objective - Vital Signs/Intake and Output Vital Signs (last 24 hours): Temp Pulse Resp BP Pulse Ox 97.9 F 93 H 19 152/79 H 97 08/20/17 08:06 08/20/17 09:49 08/20/17 08:06 08/20/17 09:49 08/20/17 08:06 Intake and Output: 08/20/17 08/20/17 06:59 18:59 Intake Total 620 Output Total 302 Balance 318 - Medications Medications: Current Medications Acetaminophen (Tylenol 325mg Tab) 650 mg PO Q6H PRN PRN Reason: Pain, moderate (4-7) Last Admin: 08/13/17 10:41 Dose: 650 mg Amlodipine Besylate (Norvasc) 10 mg PO DAILY [facility] Last Admin: 08/20/17 09:48 Dose: 10 mg Bismuth Subsalicylate (Pepto-Bismol) 262 mg PO ONCE PRN PRN Reason: Dyspepsia Ciprofloxacin (Cipro 400mg/200ml Dsw) 400 mg in 200 mls @ 133.3 mls/hr IVPB Q12 [facility] PRN Reason: Protocol Last Admin: 08/20/17 08:59 Dose: Not Given Metronidazole (Flagyl) 500 mg in 100 mls @ 100 mls/hr IVPB Q8 [facility] PRN Reason: Protocol Last Admin: 08/19/17 22:12 Dose: Not Given Multivitamins/Vitamin C 10 ml/ (Amino Acids) 1,010 mls @ 42 mls/hr IV .Q24H [facility] Last Admin: 08/19/17 18:03 Dose: 42 mls/hr Lisinopril (Zestril) 10 mg PO DAILY [facility] Last Admin: 08/20/17 09:49 Dose: 10 mg Morphine Sulfate (Morphine) 1 mg IVP Q3 PRN PRN Reason: Pain, severe (8-10) Last Admin: 08/19/17 23:35 Dose: 1 mg Ondansetron HCl (Zofran Inj) 4 mg IVP Q6H PRN PRN Reason: Nausea/Vomiting Last Admin: 08/20/17 04:56 Dose: 4 mg Pantoprazole Sodium (Protonix Inj) 40 mg IVP Q12 [facility] Last Admin: 08/20/17 09:49 Dose: 40 mg - Labs Labs: 08/20/17 06:00 08/20/17 06:00 PT 12.5 SECONDS (9.4-12.5) 08/16/17 06:00 INR 1.09 (0.93-1.08) H 08/16/17 06:00 - Constitutional Appears: Chronically Ill - Head Exam Head Exam: NORMOCEPHALIC - Eye Exam Eye Exam: Normal appearance Pupil Exam: NORMAL ACCOMODATION - ENT Exam ENT Exam: Mucous Membranes Moist - Neck Exam Neck Exam: Normal Inspection - Respiratory Exam Respiratory Exam: Decreased Breath Sounds, NORMAL BREATHING PATTERN - Cardiovascular Exam Cardiovascular Exam: REGULAR RHYTHM, +S1, +S2 - GI/Abdominal Exam GI & Abdominal Exam: Soft, Tenderness - Extremities Exam Extremities Exam: Normal Capillary Refill, Normal Inspection - Back Exam Back Exam: NORMAL INSPECTION - Skin Skin Exam: Dry, Pallor Assessment and Plan - Assessment and Plan (Free Text) Assessment: 82 year old female with history of metastatic colon cancer who is admitted with small bowel obstruction, intractable nausea, vomiting, anorexia,anemia, malfunction and weakness. The patient expressed that she does not want NG tube. Goals of care discussed at length. Jason Smart also present. The patient is aware of diagnosis, prognosis. She does not want to continue PPN. She does not want to go to [facility]. She expressed interest in hospice and comfort care. Her nausea and vomiting are intractable. She rates her pain level at 8. The patient requesting she be evaluated for symptom management and end of life care. Berry is in agreement with this plan Dr Berger notified and in agreement with plan [facility] into evaluate patient and have accepted her to [facility] services. Consents signed. End of life counseling provided Time spent with family in goals of care and end of life counseling, 50 minutes Plan: [facility] care Hospice evaluation Discharge and admit to [facility] care
--- NOTE | 2017-08-20 12:38 | CP.PCM.PCO ---
Physician Communication Note - Physician Communication Note Physician Communication Note: [facility]
[2017-08-20] MEDS: Morphine 2 mg/ml ISec IVP PRN (13:10)
== END 2017-08-20 14:09 | disposition hospice, inpatient (51) | DRG 375 ==
LOC: ED 19:42 → ERH 08-13 00:04 → 3RNO 08-13 02:39
PROVIDERS: ADMIT Internal Medicine; ATTEND Internal Medicine
PROC: 3E0336Z Introduction of Nutritional Substance into Peripheral Vein, Percutaneous Approach (ICD-10-PCS; principal; 2017-08-17)
DX: C18.9 Malignant neoplasm of colon, unspecified (principal); C78.6 Secondary malignant neoplasm of retroperitoneum and peritoneum; K56.609 Unspecified intestinal obstruction, unspecified as to partial versus complete obstruction; R64 Cachexia; Z68.1 Body mass index [BMI] 19.9 or less, adult; J44.9 Chronic obstructive pulmonary disease, unspecified; I10 Essential (primary) hypertension; I73.9 Peripheral vascular disease, unspecified; D50.9 Iron deficiency anemia, unspecified; D63.8 Anemia in other chronic diseases classified elsewhere; R62.7 Adult failure to thrive; E87.6 Hypokalemia; I25.10 Atherosclerotic heart disease of native coronary artery without angina pectoris; K21.9 Gastro-esophageal reflux disease without esophagitis; F03.90 Unspecified dementia, unspecified severity, without behavioral disturbance, psychotic disturbance, mood disturbance, and anxiety; F41.9 Anxiety disorder, unspecified; G43.909 Migraine, unspecified, not intractable, without status migrainosus; Z66 Do not resuscitate; F17.210 Nicotine dependence, cigarettes, uncomplicated; Z91.19 Patient's noncompliance with other medical treatment and regimen; Z85.038 Personal history of other malignant neoplasm of large intestine; Z92.21 Personal history of antineoplastic chemotherapy; Z92.3 Personal history of irradiation; Z79.01 Long term (current) use of anticoagulants; Z91.81 History of falling; Z95.820 Peripheral vascular angioplasty status with implants and grafts; Z90.49 Acquired absence of other specified parts of digestive tract

== ENCOUNTER 2017-08-20 14:12 | Inpatient (IN) | payer OTHER ==
[2017-08-20] MEDS ORDERED: Morphine PCA 1 mg/ml (30ml) 30 ML IV PRN (14:24)
[2017-08-20] MEDS ORDERED: Morphine 2 mg/2 mL syringe IVP STA (14:25)
[2017-08-20] MEDS ORDERED: Morphine 2 mg/ml ISec IVP STA (15:00)
--- NOTE | 2017-08-21 08:10 | HP ---
Patient was seen and examined on the bedside on 08/20/2017. CHIEF COMPLAINT: Intractable nausea and vomiting, abdominal pain, comfort care. HISTORY OF PRESENT ILLNESS: Ms. Nadia Watson is an 82-year-old female with a history of metastatic colon cancer, COPD, was getting rehab in [place] , came with nausea, vomiting, abdominal pain, abdominal obstruction. No fever, no chills. No dysuria. No headache, no dizziness. Having frequently emesis with coffee ground in color and was positive for occult blood. CT scan showed distal small bowel obstruction and likely this is a tumor in the right hemipelvis and metastatic and pelvic tumor burden, multiple pulmonary nodules consistent with metastatic disease. Patient was admitted in [facility], getting treatment; surgeon, Dr. John Berger was on the case. [employer] saw the patient, was getting chemotherapy. Then, patient is put on hospice care, seen by [facility] for comfort care. PAST MEDICAL HISTORY: COPD; metastatic colon cancer; DVT of left lower extremity, on Eliquis; iron deficiency anemia, status post transfusion; rule out diverticulitis; status post fall; history of colon resection and tonsillectomy. SOCIAL HISTORY: Current smoker. No alcohol. No drug abuse. Lives alone. FAMILY HISTORY: Noncontributory. Patient made herself DNR and DNI and her grandson, Torey Watson, is her healthcare surrogate. REVIEW OF SYSTEMS: Patient is seen and examined on the bedside on 08/20/2017. Still feeling nauseous. No fever. No chills. No headache. No dizziness. No hematuria or hematochezia. Past medical history as above. Review of systems as above. PHYSICAL EXAMINATION: VITAL SIGNS: Temperature 97.9, pulse 93, respiratory rate 19, blood pressure 150/70, pulse oximetry 97. HEENT: Head: Normocephalic and atraumatic. Eyes: PERRLA. Extraocular muscles intact. Conjunctivae clear. Nose: Patent. Mucous membranes moist. NECK: Supple. No carotid bruit, JVD, or thyromegaly. CHEST: Bilaterally symmetrical. HEART: S1 and S2 positive. LUNGS: Clear to auscultation. ABDOMEN: Tender. No bowel sounds. No organomegaly. EXTREMITIES: No edema. No cyanosis. NEUROLOGIC: Patient is awake and alert. Follows simple commands. MEDICATIONS: Amlodipine, Pepto-Bismol, ciprofloxacin, Flagyl, lisinopril, morphine, Zofran, and pantoprazole. LABORATORY DATA: White blood cells 11.5, hemoglobin 9.7, hematocrit 30.2, platelet 379. Sodium 137, potassium 4.3, BUN 24, creatinine 0.6, glucose 108. ASSESSMENT AND PLAN: Ms. Nadia Watson is an 82-year-old lady with leukocytosis, anemia, renal insufficiency, history of colon cancer with metastasis, small bowel obstruction, intractable nausea and vomiting, anorexia, anemia, malfunctions and weakness. Patient did express that she does not want nasogastric tube. Goals were discussed at length of time with patient and patient's grandson, Torey. Patient admitted with the diagnoses and prognosis. She does not want to continue peripheral parenteral nutrition. She does not want to go to [facility]. She expressed interest in the hospice and comfort care as her nausea and vomiting are intractable. She states that her pain is 10/10. Patient requested that she be evaluated for symptom management and end of life care. Torey is in the agreement with this plan. Dr. Berger is on the case. Dr. Millan was covering me. [facility] gave me the picture, accepted her to [facility] Services. Contract was signed. Hospice care started and the plan is to keep the patient comfortable and start admit to the hospice service, [facility]. We will follow. Jessica Brown MD MTDConstantin
--- NOTE | 2017-08-21 11:09 | CP.PCM.PN ---
Subjective - Date & Time of Evaluation Date of Evaluation: 08/21/17 Time of Evaluation: 11:00 - Subjective Subjective: Lethargic,weak Objective - Vital Signs/Intake and Output Vital Signs (last 24 hours): Temp Pulse Resp BP Pulse Ox 97.3 F L 100 H 20 157/82 H 92 L 08/21/17 07:28 08/21/17 07:28 08/21/17 07:28 08/21/17 07:28 08/21/17 07:28 Intake and Output: 08/21/17 08/21/17 06:59 18:59 Intake Total 0 Output Total 625 Balance -625 - Medications Medications: Current Medications Acetaminophen (Tylenol 650 Mg Supp) 650 mg RC Q4H PRN PRN Reason: Fever >100.4 F Morphine Sulfate (Morphine Furnace Packer 1 Mg/Ml) 30 mls @ 0.5 mls/hr IV PRN PRN; Protocol; 0.5 MG/HR PRN 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 AND 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 PER MD ORDER Last Admin: 08/20/17 15:03 Dose: 0.5 mg/hr, 0.5 mls/hr Lorazepam (Ativan) 0.5 mg IVP Q6H PRN; Protocol PRN Reason: Anxiety Ondansetron HCl (Zofran Inj) 4 mg IVP Q6H [facility] Last Admin: 08/21/17 08:24 Dose: Not Given - Constitutional Appears: Cachectic, Chronically Ill - Eye Exam Eye Exam: Normal appearance, PERRL - ENT Exam ENT Exam: Mucous Membranes Dry - Respiratory Exam Respiratory Exam: Decreased Breath Sounds, NORMAL BREATHING PATTERN - Cardiovascular Exam Cardiovascular Exam: REGULAR RHYTHM, +S1, +S2 - GI/Abdominal Exam GI & Abdominal Exam: Soft, Hypoactive Bowel Sounds - Extremities Exam Extremities Exam: Pedal Edema - Back Exam Back Exam: NORMAL INSPECTION - Neurological Exam Neurological Exam: Oriented x3 - Skin Skin Exam: Dry, Pallor Assessment and Plan - Assessment and Plan (Free Text) Assessment: 82 year old female with history of metastatic colon cancer, small bowel obstruction who is admitted to [facility] hospice services for management of intractable marino, nausea and vomiting. The patient is weak, lethargic, abdominal pain improving. Requesting soft foods. Will try pleasure feeding Spoke with grandmary Smart, end of life counseling provided Plan: Pain: Morphine 0.5mg /hr continuous infusion, will titrate as needed for optimum pain control Nausea/vomiting: Zofran IVP every 6 hours scheduled dosing May have pleasure foods( pudding, applesauce, ices, jello) as tolerated Fever: Tylenol 650 mg RC as needed End of life counseling
[2017-08-21] MEDS ORDERED: Morphine PCA 1 mg/ml (30ml) 30 ML IV PRN ×2 (17:46→17:47)
--- NOTE | 2017-08-22 08:17 | PN ---
DATE: 08/21/2017 SUBJECTIVE: Patient was seen and examined at bedside on 08/21/2017, complaining about abdominal pain, is on morphine pump . Grandson and granddaughters are sitting at the bedside. Patient has no fever, no chills. No nausea or vomiting. No swelling of the legs. PHYSICAL EXAMINATION: VITAL SIGNS: Temperature 98.2, pulse 99, blood pressure 145/60, respiratory rate 18. HEENT: Head normocephalic, atraumatic. Eyes, PERRLA. Extraocular muscles intact. Conjunctivae clear. Nose, patent. Mucous membranes moist. NECK: Supple. No carotid bruit. No JVD or thyromegaly. CHEST: Bilaterally symmetrical. HEART: S1 and S2 positive. LUNGS: Clear to auscultation. ABDOMEN: Soft, tender. Bowel sounds positive. EXTREMITIES: No edema. No cyanosis. NEUROLOGICAL: Patient is awake and alert. Following simple commands. MEDICATIONS: Ativan, morphine, Tylenol, Zofran. LABORATORY DATA: We do not have recent labs, but I reviewed old labs. ASSESSMENT AND PLAN: Ms. Byron Zuniga is an 82-year-old lady, who looks very lethargic and weak, has a history of metastatic colon cancer history of anemia, came with intractable pain, nausea,, and vomiting. Patient is lethargic, still has abdominal pain. Soft foods given. We will continue pleasure feeding. Spoke to grandson at bed side . End of life counseling provided. Patient is getting morphine 0.5 mg per hour and now because pain was not under control, I am increasing it to 0.75 mg per hour. For nausea and vomiting, patient is on Zofran IV every 6 hours p.r.n. tolerating pudding, apple sauce, ice chips, Jell-Os as tolerated. Tylenol for the fever. Discussion done with patient's grandson and granddaughter about end of life and answered all questions, made family comfortable. Will follow up. Jessica Brown MD MTDConstantin
[2017-08-22] MEDS ORDERED: Morphine PCA 1 mg/ml (30ml) 30 ML IV PRN ×2 (09:10→09:16)
--- NOTE | 2017-08-22 09:15 | CP.PCM.PN ---
Subjective - Date & Time of Evaluation Date of Evaluation: 08/22/17 Time of Evaluation: 09:00 - Subjective Subjective: Complaining of back and abdominal pain, rates it at level of 8. 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 PER MD ORDER Lorazepam (Ativan) 0.5 mg IVP Q6H PRN; Protocol PRN Reason: Anxiety Ondansetron HCl (Zofran Inj) 4 mg IVP Q6H [facility] Last Admin: 08/22/17 07:44 Dose: Not Given - Constitutional Appears: Cachectic, Chronically Ill - Eye Exam Eye Exam: Normal appearance, PERRL - ENT Exam ENT Exam: Mucous Membranes Dry - Respiratory Exam Respiratory Exam: Decreased Breath Sounds, NORMAL BREATHING PATTERN - Cardiovascular Exam Cardiovascular Exam: REGULAR RHYTHM, +S1, +S2 - GI/Abdominal Exam GI & Abdominal Exam: Tenderness, Hypoactive Bowel Sounds - Extremities Exam Extremities Exam: Normal Capillary Refill - Back Exam Back Exam: vertebral tenderness - Neurological Exam Neurological Exam: Alert, Oriented x3 - Skin Skin Exam: Dry, Pallor Assessment and Plan - Assessment and Plan (Free Text) Assessment: 82 year old female with history of metastatic colon cancer who was initially admitted to acute care on 08/13/17 with small bowel obstruction. She was transitioned to [facility] care for management of intractable pain, nausea and vomiting on 08/20/17. She is lethargic, oriented to place and self. Complains of abdominal and low back pain.Occasional nausea, no vomiting. Spoke with patients grandmary Smart. Updated him of her condition. Psychosocial support provided. j Plan: Morphine 1 mg IVP now. Increase continuos Morphine to 1 mg/hr. Ativan.5 mg IVP as needed for agitation Zofran IVP scheduled dosing every 6 hours Tylenol 650 mg RC as needed for fever over 100F Pleasure foods as tolerated
[2017-08-22] MEDS: Morphine PCA 1 mg/ml (30ml) 30 ML IV PRN (20:34)
--- NOTE | 2017-08-23 00:14 | PN ---
DATE: 08/22/2017 SUBJECTIVE: The patient was seen and examined on the bedside on 08/22/2017, looking comfortable, still a little bit nausea and having pain, even getting morphine 1 mg with pump, I increased it to 1.5 and today the patient has cheesecake. She is on pleasure food. Complaining of back pain. PHYSICAL EXAMINATION: VITAL SIGNS: Temperature 97.5, pulse 98, respiratory rate 20, blood pressure 143/72, pulse oximetry 91. HEENT: Head normocephalic, atraumatic. Eyes PERRLA. Extraocular muscles intact. Conjunctivae clear. Nose patent. Mucous membrane moist. NECK: Supple. No carotid bruit. No JVD or thyromegaly. CHEST: Bilaterally symmetrical. HEART: S1 and S2 positive. LUNGS: Clear to auscultation. ABDOMEN: Soft. Bowel sounds positive. No organomegaly. EXTREMITIES: No edema. No cyanosis. NEUROLOGICAL: The patient is awake and alert. Moving all 4 extremities. No focal deficits. MEDICATIONS: Tylenol, morphine sulfate CHILD CARE COORDINATOR pump , Ativan, Zofran. LABORATORY DATA: We do not have recent labs today, but I reviewed old labs. ASSESSMENT AND PLAN: Ms. Nadia Watson, 82-year-old lady with history of metastatic colon cancer. Came with acute abdominal pain due to intestinal obstruction, small bowel obstruction. Now, the patient is transitioned to [facility] Care for management of intractable pain and nausea and vomiting. Still lethargic, oriented. Complaining of abdominal pain, back pain. Occasional nausea and vomiting. Spoke to the patient's nurse. The patient was on morphine pump 1 mg, I increased to 1.5. Continue Ativan, Zofran, Tylenol. Pleasure foods as tolerated. We will follow up. Jessica Brown MD MTDD
--- NOTE | 2017-08-23 11:28 | CP.PCM.PN ---
Subjective - Date & Time of Evaluation Date of Evaluation: 08/23/17 Time of Evaluation: 10:00 - Subjective Subjective: Awake, very weak. Able to eat small amount of food, no vomiting. Still having abdominal pain Objective - Vital Signs/Intake and Output Vital Signs (last 24 hours): Temp Pulse Resp BP Pulse Ox 98.5 F 89 20 133/58 L 90 L 08/23/17 07:47 08/23/17 07:47 08/23/17 07:47 08/23/17 07:47 08/23/17 07:47 Intake and Output: 08/23/17 08/23/17 06:59 18:59 Intake Total 120 Output Total 350 Balance -230 - Medications Medications: Current Medications Acetaminophen (Tylenol 650 Mg Supp) 650 mg RC Q4H PRN PRN Reason: Fever >100.4 F Morphine Sulfate (Morphine Sugar Cane Farm Manager 1 Mg/Ml) 30 mls @ 1.5 mls/hr IV PRN PRN; 1.5 MG/ HR PRN Reason: CONTRACTOR GENERAL BUILDING PER MD ORDER Last Admin: 08/22/17 20:34 Dose: 1.5 mls/hr Lorazepam (Ativan) 0.5 mg IVP Q6H PRN; Protocol PRN Reason: Anxiety Ondansetron HCl (Zofran Inj) 4 mg IVP Q6H [facility] Last Admin: 08/23/17 09:10 Dose: 4 mg - Constitutional Appears: Cachectic, Chronically Ill - Eye Exam Eye Exam: Normal appearance, PERRL - ENT Exam ENT Exam: Mucous Membranes Dry - Respiratory Exam Respiratory Exam: Decreased Breath Sounds, NORMAL BREATHING PATTERN - Cardiovascular Exam Cardiovascular Exam: REGULAR RHYTHM, +S1, +S2 - GI/Abdominal Exam GI & Abdominal Exam: Soft, Tenderness, Normal Bowel Sounds - Extremities Exam Extremities Exam: Normal Capillary Refill - Neurological Exam Neurological Exam: Alert - Skin Skin Exam: Dry, Pallor Assessment and Plan - Assessment and Plan (Free Text) Assessment: 82 year old female with history of metastatic colon cancer, small bowel obstruction and anemia who was admitted under [facility] care for management of intractable pain, nausea and vomiting Patient is alert ,oriented to place and self. Spoke with her about the possibility of transitioning home with hospice care. The patient is amenable to this plan. She as told that she must have psychology assistant/ aide and that she can not go home alone. She indicated that her grandson Berry will take care of these arrangements . In the interim patient will remain on GIP service until Sunday Plan: Pleasure foods as tolerated Nausea /vomiting: Zofran IV scheduled dosing very 6 hours Dyspnea: O2 as needed Pain: Increase morphine to 2mg/hr continuos infusion. Tylenol 650 mg Rc as needed for fever
[2017-08-23] MEDS: Morphine PCA 1 mg/ml (30ml) 30 ML IV PRN ×2 (13:24→15:38)
[2017-08-24] MEDS: Morphine PCA 1 mg/ml (30ml) 30 ML IV PRN (06:07)
--- NOTE | 2017-08-24 07:53 | PN ---
DATE: 08/23/2017 SUBJECTIVE: Patient is an 82-year-old female. Patient was seen and examined on the bedside on 08/23/2017, looking comfortable. Having pleasure meal. Awake, alert, but has been lethargic. No vomiting. Abdominal pain is better. No fever. No chills. PHYSICAL EXAMINATION: VITAL SIGNS: Temperature 98.5, pulse 80 , respiratory rate 20, blood pressure 133/58, pulse oximetry 90. HEENT: Head normocephalic, atraumatic. Eyes, PERRLA. Extraocular muscles intact. Conjunctivae clear. Nose, patent. Mucous membranes moist. NECK: Supple. No carotid bruit, JVD, or thyromegaly. CHEST: Bilaterally symmetrical. HEART: S1 and S2 positive. LUNGS: Clear to auscultation. ABDOMEN: Soft. Bowel sounds present. No organomegaly. EXTREMITIES: No edema. No cyanosis. NEUROLOGIC: Patient is awake and alert. Moving all 4 extremities. No focal deficit. MEDICATIONS: Tylenol, morphine, Ativan, and Zofran. LABORATORY DATA: We do not have recent lab today, but I reviewed old labs. ASSESSMENT AND PLAN: Ms. Nadia Watson is an 82-year-old female with a history of metastatic colon cancer, small bowel obstruction, anemia, is under care of [facility] for management of intractable abdominal pain, nausea, vomiting. Patient has a history of multiple medical problems, small bowel obstruction. Patient is on morphine pump. Patient is still on hospice service till Sunday. food as tolerated. Patient is getting oxygen for dyspnea as needed. Morphine is increased 2 mg per hour. Continuous pump for abdominal pain . Tylenol rectally p.r.n. for fever. We will continue comfort care. We will follow up. Jessica Brown MD MTDD
[2017-08-24 08:11] VITALS: BP 134/51; PULSE 111; RESP 20; TEMP 99.5; O2SAT 94
--- NOTE | 2017-08-24 08:19 | CP.PCM.PRO ---
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 [id number]
== END 2017-08-24 08:11 | DRG 390 ==
LOC: 3RNO 14:12
PROVIDERS: ADMIT Internal Medicine; ATTEND Internal Medicine
DX: K56.609 Unspecified intestinal obstruction, unspecified as to partial versus complete obstruction (principal); Z85.038 Personal history of other malignant neoplasm of large intestine; D72.829 Elevated white blood cell count, unspecified; N28.9 Disorder of kidney and ureter, unspecified; F17.200 Nicotine dependence, unspecified, uncomplicated; J44.9 Chronic obstructive pulmonary disease, unspecified; D50.9 Iron deficiency anemia, unspecified; Z86.718 Personal history of other venous thrombosis and embolism; Z51.5 Encounter for palliative care; Z66 Do not resuscitate